=== PATIENT | female | born 1985 | race Caucasian/White ===

== ENCOUNTER 2017-05-31 18:13 | Emergency (ER) | payer OTHER ==
[~2017-05-31] VITALS: Ht 167.6 cm; Wt 144.0 kg
[~2017-05-31 18:13] MED LIST: ALBU0.5N2 NEB; ALBUAER2 INH; ARIP1TAB14 PO; BACL10TA PO; BUSP-8 PO; FLUT1INH INH; IPRA1AER2 INH; LEVO25TA5 PO; MONT1TAB3 PO; NORE-37 PO; PRAZ2CAP2 PO; RISP1TAB68 PO; SERT-234 PO; ZIPR1CAP4 PO
[2017-05-31 18:20] VITALS: TEMP 36.7
[2017-05-31 18:32] VITALS: O2SAT 94
[2017-05-31] MEDS ORDERED: ACETAMINOPHEN 500 MG TAB PO STA (18:35)
[2017-05-31] MEDS ORDERED: DEXAMETHASONE **PF** INJ 10 MG/ML VIAL PO STA (18:35)
[2017-05-31] MEDS ORDERED: ALBUT/IPRATROP 3MG/0.5MG NEB 3 ML VIAL INH ONE (18:45)
[2017-05-31 18:48] VITALS: PULSE 97; O2SAT 96
[2017-05-31 18:52] VITALS: Ht 167.6 cm; Wt 144.0 kg
--- NOTE | 2017-05-31 18:52 | EMERGENCY ROOM VISIT NOTE ---
History Report prepared by Michela: Twila Farris Under the Supervision of: Dr. Rafi Barnett M.D. First contact with patient: 18:27 Chief Complaint: RESPIRATORY PROBLEMS Stated Complaint: ASTHMA ATTACK,CHEST PAIN,SORE THROAT History of Present Illness The patient is a 31 year old white female with a past medical history of asthma , seasonal allergies, cholecystectomy who presents to the ED with a cc of persistent SOB beginning 2 days ago. She has been using nebulizer treatments to no significant relief. The cold seems to trigger her asthma. Positive dry cough. Negative abdominal pain, nausea, vomiting, leg swelling, leg pain. She denies any history of blood clots or recent travel. LNMP was 1 month ago. She was intubated for her asthma in 2008. Source of History: patient Onset: 2 days ago Position: other (global) Quality: other (SOB) Timing: other (persistent) Modifying Factors (Worsening): other (cold weather) Associated Symptoms: + cough, No nausea, No vomiting, No abdominal pain Note: Pt denies leg swelling/pain. Review of Systems See HPI for pertinent positives and negatives. A total of ten systems were reviewed and were otherwise negative. Past Medical & Surgical Medical Problems: (1) Acute Cholecystitis (2) Allergic rhinitis (3) Allergic rhinitis (4) Anxiety (5) Anxiety (6) Asthma, severe persistent (7) Asthma, severe persistent (8) Asthma, Unspecified (9) Bipolar disorder (10) Depression (11) Depression (12) Personal History, Pneumonia (Recurrent) (13) Tobacco Use Disor Comp Preg/Childbirth/Puerperium, Antepart Surgical Problems: (1) History of cholecystectomy (2) History of cholecystectomy Family History Cancer Diabetes mellitus Hypertension Social History Smoking Status: Current Every Day Smoker Alcohol Use: none Drug Use: none Marital Status: Housing Status: lives with family Occupation Status: unemployed Current/Historical Medications Scheduled Albuterol Hfa (Ventolin Hfa), 4 PUFFS INH QID Buspirone Hcl (Buspirone Hcl), 10 MG PO HS Fluticasone Furoate-Vilanterol (Breo Ellipta), 1 PUFF INH BID Ipratropium-Albuterol (Combivent Respimat), 1 PUFF INH QID Levothyroxine Sodium (Levothyroxine Sodium), 1 TAB PO QAM Montelukast Sodium (Singulair), 10 MG PO QAM Norethin Acet & Estrad-Fe (07/11), 1 TAB PO DAILY Prednisone (Prednisone), 50 MG PO DAILY Sertraline (Zoloft), 150 MG PO QAM Scheduled PRN Ipratropium [place] (Atrovent 0.02% Soln), 2.5 ML INH Q6H PRN for SOB/Wheezing Allergies Coded Allergies: Grass (Verified Allergy, Intermediate, SOB/HAYFEVER, 05/31/17) POLLEN (Verified Allergy, Intermediate, SHORTNESS OF BREATH/HAYFEVER, 04/07) NO KNOWN DRUG ALLERGIES (Verified Allergy, Mild, ., 05/31/17) Physical Exam Vital Signs Date Time Temp Pulse Resp B/P (MAP) Pulse Ox O2 Delivery O2 Flow Rate FiO2 05/31/17 20:41 105 18 124/78 97 05/31/17 19:30 102 22 140/76 96 Nebulizer 05/31/17 19:12 100 05/31/17 19:00 101 122/75 96 Nebulizer 05/31/17 18:48 97 14 96 Room Air 05/31/17 18:32 103 18 138/83 94 Room Air 05/31/17 18:32 94 Room Air 05/31/17 18:32 94 Room Air 05/31/17 18:20 36.7 106 16 131/87 95 Room Air Physical Exam GENERAL: Awake, alert, well-appearing, NAD HENT: Normocephalic, atraumatic. EYES: Normal conjunctiva. Sclera non-icteric. NECK: Supple. No nuchal rigidity. FROM. RESPIRATORY: Inspiratory and expiratory wheezing throughout, prolonged expiratory phase. CARDIAC: Tachycardic rate and regular rhythm, no MRG ABDOMEN: Soft, NTND, BS+ MSK: No chest wall TTP, no calf swelling, pain, or tenderness. NEURO: GCS 15, CN 2-12 intact, moves all 4s on command SKIN: No rash or jaundice noted. Medical Decision & Procedures Medications Administered Medications (Trade) Dose Ordered Sig/[place] Route Start Time Stop Time Status Last Admin Dose Admin Acetaminophen (Tylenol Tab) 1,000 mg NOW STAT PO 05/31/17 18:35 05/31/17 18:39 DC 05/31/17 18:46 1,000 MG Albuterol/ Ipratropium (Duoneb) 12 ml ONE ONCE INH 05/31/17 18:45 05/31/17 18:46 DC 05/31/17 18:44 12 ML Dexamethasone Sodium Phosphate (Dexamethasone Inj Pf) 10 mg ONE STAT PO 05/31/17 18:35 05/31/17 18:39 DC 05/31/17 18:46 10 MG ECG Indication: SOB/dyspnea Rate (beats per minute): 90 Rhythm: normal sinus Findings: other (normal intervals, normal axis, no other STS changes or TWI) ED Course 1830: The patient was evaluated in room A4B. A complete history and physical exam was performed. 1941: I reevaluated the patient. She is feeling better. 2002: I reevaluated the patient. Discussed results and discharge instructions: She verbalized understanding and agreement. The patient is ready for discharge. Medical Decision The patient is a 31 year old white female with a past medical history of asthma , seasonal allergies, cholecystectomy who presents to the ED with a cc of persistent SOB beginning 2 days ago. Differential diagnosis: Etiologies such as infections, reactive airway disease, pneumonia, pneumothorax , COPD, CHF, cardiac ischemia, pulmonary embolism, musculoskeletal, gastrointestinal, as well as others were entertained. Patient was seen and evaluated the bedside. Patient has a known history of asthma who presents with several days of worsening shortness of breath. Patient has been using her nebulizers every 4 hours. Patient states she has not had much relief. Patient denies any calf pain, asymmetric leg swelling, or history of DVT or PE. Patient denies any recent prolonged car or plane travel. Patient's exam is consistent with likely asthma exacerbation. Patient denies any productive sputum. Patient was given steroids and an hour-long neb treatment. Upon reexamination the patient's symptoms had improved. Patient did have mild end expiratory wheezes. Patient was feeling improved. Patient did have some mild tachycardia upon discharge was likely related to some mild dehydration but was able tolerate by mouth in addition to the albuterol. Patient was given scripts for steroids and told to follow-up and to continue use the nebs of the next several days. Patient was agreeable to this plan of care. Patient was deemed suitable for outpatient follow-up and treatment. Patient was given strict follow-up, discharge, and return precautions. All questions were answered. Patient was deemed suitable for outpatient follow-up at this time. Patient agreed with the plan of care and was safely discharged home. Medication Reconcilliation Current Medication List: was personally reviewed by me Blood Pressure Screening Patient's blood pressure: Normal blood pressure Blood pressure disposition: Did not require urgent referral Impression Primary Impression: Asthma with exacerbation Scribe Attestation The scribe's documentation has been prepared under my direction and personally reviewed by me in its entirety. I confirm that the note above accurately reflects all work, treatment, procedures, and medical decision making performed by me. Departure Information Dispostion Home / Self-Care Prescriptions Prednisone (PREDNISONE) 50 Mg Tab 50 MG PO DAILY for 4 Days, #4 TAB Prov: Rafi Barnett M.D. 05/31/17 Referrals Valentin Thompson M.D. (PCP) Patient Instructions Asthma - [facility], Asthma Control, Asthma Control Triggers Irritants, My [facility] Additional Instructions Please return to the emergency department if you have worsening or recurrent symptoms not amenable to at-home treatment. Please call for a follow-up appointment with her primary care physician. Please take your medications as prescribed. If you have other concerns and/or complaints please feel free to also call your primary care physician's office or return the ED for further evaluation, management, and treatment. You may take 600 mg Ibuprofen every 6 hours as needed for pain with food for no more than 2 consecutive days. You may take tylenol 1000 mg every 6 hours as needed for pain. You may take motrin and tylenol separately or at the same time. Take your medications as prescribed. Continue to use her nebulizers service preferably every 4 hours over the next day and then every 6 hours the following day and as needed. Continue take steroids preferably within the morning. Avoid things like smoking, secondhand smoke, or other triggers for her asthma. Please follow-up with her PCP. You have been examined and treated today on an emergency basis only. This is not a substitute for, or an effort to provide, complete comprehensive medical care. It is impossible to recognize and treat all injuries or illnesses in a single emergency department visit. It is therefore important that you follow up closely with [facility], your PCP, and/or your specialist(s). Call as soon as possible for an appointment. Thank you for your time and consideration. I look forward to speaking with you again soon. Please don't hesitate to call us if you have any questions. Problem Qualifiers Primary Impression: Asthma with exacerbation Asthma severity: moderate Asthma persistence: unspecified Qualified Codes: J45.901 - Unspecified asthma with (acute) exacerbation
[2017-05-31] MEDS ORDERED: NORE1TAB3 PO (19:47)
[2017-05-31] MEDS ORDERED: ATRINSX INH (19:47)
[2017-05-31] MEDS ORDERED: VNTHFA/IN INH (19:47)
[2017-05-31] MEDS ORDERED: PRED50TA PO (20:06)
[2017-05-31 20:41] VITALS: BP 124/78; PULSE 105; O2SAT 97
== END 2017-05-31 20:41 | disposition home or self-care (01) ==
LOC: C.EDB 18:14 → C.EDA 20:41
DX: J45.901 Unspecified asthma with (acute) exacerbation (principal); F41.9 Anxiety disorder, unspecified; F31.9 Bipolar disorder, unspecified; F32.9 Major depressive disorder, single episode, unspecified; Z87.01 Personal history of pneumonia (recurrent); K81.0 Acute cholecystitis; Z80.9 Family history of malignant neoplasm, unspecified; Z83.3 Family history of diabetes mellitus; Z82.49 Family history of ischemic heart disease and other diseases of the circulatory system; F17.210 Nicotine dependence, cigarettes, uncomplicated; Z79.899 Other long term (current) drug therapy

== ENCOUNTER 2017-09-22 21:03 | Emergency (ER) | payer OTHER ==
[~2017-09-22] VITALS: Ht 167.6 cm; Wt 148.7 kg
[~2017-09-22 21:03] MED LIST changes: -ALBU0.5N2 NEB; -ALBUAER2 INH; -ARIP1TAB14 PO; +ATRINSX INH; -BACL10TA PO; -NORE-37 PO; +NORE1TAB3 PO; -PRAZ2CAP2 PO; -RISP1TAB68 PO; +VNTHFA/IN INH; -ZIPR1CAP4 PO
[2017-09-22 21:18] VITALS: TEMP 36.8; Ht 167.6 cm; Wt 148.7 kg
[2017-09-22] MEDS ORDERED: ALBUT/IPRATROP 3MG/0.5MG NEB 3 ML VIAL INH ONE (22:30)
--- NOTE | 2017-09-22 22:48 | DIAGNOSTIC IMAGING REPORT ---
CHEST 2 VIEWS ROUTINE HISTORY: Cough. Wheezing. Asthma hx COMPARISON: Chest 06/02/2016. FINDINGS: The lungs are clear. Cardiac silhouette is normal in size. No pleural effusions. No pneumothorax. IMPRESSION: No acute process. Electronically signed by: Jose Cruz Rebollar M.D. 09/22/2017 10:47 PM Dictated Date/Time: 09/22/2017 10:44 PM
[2017-09-22 22:51] VITALS: O2SAT 95
[2017-09-22] MEDS ORDERED: PRED20TA2 PO (23:23)
[2017-09-22 23:41] VITALS: BP 130/96; PULSE 104; O2SAT 99
--- NOTE | 2017-09-23 06:37 | EMERGENCY ROOM VISIT NOTE ---
History First contact with patient: 22:15 Chief Complaint: RESPIRATORY PROBLEMS Stated Complaint: SOB, HEADACHE, WEAZING, NAUSEA, LIGHTHEADED History of Present Illness The patient is a 32 year old female who presents to the Emergency Room with complaints of coughing, wheezing, and shortness of breath symptoms worsening over the past 3-4 days. The patient states that she has a long-standing history of asthma and she went to a local urgent care clinic today. She states they performed a chest x-ray and diagnosed her with pneumonia. The did not start antibiotics, and evidently instructed her to go home and do a breathing treatment. The patient continues to have difficulty with breathing this by doing this. She does not have fever or chills. She does have some improvement when she uses her breathing treatment. She rates her current discomfort a 5/10. Review of Systems More than 10 systems were reviewed and otherwise negative with the exception of history of present illness. Past Medical/Surgical History Medical Problems: (1) Acute Cholecystitis (2) Allergic rhinitis (3) Allergic rhinitis (4) Anxiety (5) Anxiety (6) Asthma, severe persistent (7) Asthma, severe persistent (8) Asthma, Unspecified (9) Bipolar disorder (10) Depression (11) Depression (12) Personal History, Pneumonia (Recurrent) (13) Tobacco Use Disor Comp Preg/Childbirth/Puerperium, Antepart Surgical Problems: (1) History of cholecystectomy (2) History of cholecystectomy Family History Cancer Diabetes mellitus Hypertension Social History Smoking Status: Never Smoker Alcohol Use: none Drug Use: none Marital Status: Housing Status: lives with family Occupation Status: unemployed Current/Historical Medications Scheduled Albuterol Hfa (Ventolin Hfa), 4 PUFFS INH QID Ipratropium-Albuterol (Combivent Respimat), 1 PUFF INH QID Levothyroxine Sodium (Levothyroxine Sodium), 1 TAB PO QAM Montelukast Sodium (Singulair), 10 MG PO QAM Norethin Acet & Estrad-Fe (07/11), 1 TAB PO DAILY Prednisone (Prednisone Tab), 2 TAB PO DAILY Sertraline (Zoloft), 150 MG PO QAM Scheduled PRN Ipratropium [place] (Atrovent 0.02% Soln), 2.5 ML INH Q6H PRN for SOB/Wheezing Physical Exam Vital Signs Date Time Temp Pulse Resp B/P (MAP) Pulse Ox O2 Delivery O2 Flow Rate FiO2 09/22/17 23:41 104 15 130/96 99 09/22/17 22:59 93 09/22/17 22:51 95 Room Air 09/22/17 22:01 96 Room Air 09/22/17 21:18 36.8 100 20 161/97 97 Room Air Physical Exam VITALS: Vitals are noted on the nurse's note and reviewed by myself. Vital signs stable. GENERAL: Well-developed, well-nourished, white female, who is in no acute distress and resting comfortably. Patient is cooperative with the examination. HEART: Regular rate and rhythm without murmurs gallops or rubs. LUNGS: Diffuse wheezing and rhonchi throughout all mendez. After breathing treatment and steroids lungs were with improved inspiration with scattered wheezing. ABDOMEN: Positive normal bowel sounds x 4. Soft, nontender, without masses or organomegaly. No guarding or rebound tenderness. MUSCULOSKELETAL: No muscle atrophy, erythema, or edema noted. Full range of motion in all extremities. No tenderness to palpation. Medical Decision & Procedures ER Provider Diagnostic Interpretation: CHEST 2 VIEWS ROUTINE HISTORY: Cough. Wheezing. Asthma hx COMPARISON: Chest 06/02/2016. FINDINGS: The lungs are clear. Cardiac silhouette is normal in size. No pleural effusions. No pneumothorax. IMPRESSION: No acute process. Medications Administered Medications (Trade) Dose Ordered Sig/[place] Route Start Time Stop Time Status Last Admin Dose Admin Prednisone (PredniSONE TAB) 40 mg NOW STAT PO 09/22/17 22:21 09/22/17 22:23 DC 09/22/17 22:50 40 MG Albuterol/ Ipratropium (Duoneb) 12 ml NOW ONCE INH 09/22/17 22:30 09/22/17 22:31 DC 09/22/17 22:28 12 ML ED Course Physical exam and history were performed. Nursing notes, EMR, and Medication List were personally reviewed. Patient appears to have diffuse wheezing and difficulty breathing. She states that she was diagnosed with pneumonia as an outpatient. X-ray was ordered. The patient was given oral prednisone as well as a 1 hour DuoNeb. The patient's chest x-ray is as above and was reviewed by myself and radiology as showing no acute process. The patient had significant improvement of her symptoms after the prednisone and DuoNeb. I discussed options of care with the patient. She does not appear to have pneumonia as diagnosed as an outpatient. Based on her history and symptoms I do suspect that she has an asthma exacerbation. She has had several of these in the past. She has multiple inhalers and breathing nebulizers at home. The patient will be asked to continue these. I will give her a short course of prednisone. She is to follow with her primary care physician in the next 1 or 2 days. She was otherwise invited back to the ER with any new, worsening, or concerning symptoms. The chart was completed utilizing [employer] Speech Voice Recognition Software. Grammatical errors, random word insertions, pronoun errors, and incomplete sentences are an occasional consequence of this system due to software limitations, ambient noise, and hardware issues. Any formal questions or concerns about the content, text, or information contained within the body of this dictation should be directly addressed to the provider for clarification. . Medical Decision Differential diagnosis: Etiologies such as infections, reactive airway disease, pneumonia, pneumothorax , COPD, CHF, cardiac ischemia, pulmonary embolism, musculoskeletal, gastrointestinal, as well as others were entertained. Impression Primary Impression: Asthma with exacerbation Departure Information Dispostion Home / Self-Care Condition GOOD Prescriptions Prednisone (Prednisone Tab) 20 Mg Tab 2 TAB PO DAILY for 5 Days, #10 TAB Prov: Prince Lazaro PA-C 09/22/17 Forms HOME CARE DOCUMENTATION FORM, Work Instructions, Additional Instructions: Patient was seen and evaluated in the emergency department for medica care. Return to work on 09/25/2017. Please excuse. IMPORTANT VISIT INFORMATION Patient Instructions My [facility] Additional Instructions You were seen and evaluated today on an emergency basis only. This is not a substitute for, or an effort to provide, complete comprehensive medical care. It is not possible to recognize and treat all injuries or illnesses in a single emergency department visit. For this reason it is recommended that you followup with your primary care physician this week for ongoing care. Take prednisone as prescribed. Continue your inhalers as previously directed. You are welcome to return to the emergency department anytime with new, worsening, or concerning symptoms. Work Instructions Additional Work Instructions: Patient was seen and evaluated in the emergency department for medical care. Return to work on 09/25/2017. Please excuse.
== END 2017-09-22 23:42 | disposition home or self-care (01) ==
LOC: C.EDB 21:04
DX: J45.901 Unspecified asthma with (acute) exacerbation (principal); F41.9 Anxiety disorder, unspecified; F32.9 Major depressive disorder, single episode, unspecified; F31.9 Bipolar disorder, unspecified; Z83.3 Family history of diabetes mellitus; Z82.49 Family history of ischemic heart disease and other diseases of the circulatory system

== ENCOUNTER 2017-10-18 10:49 | Emergency (ER) | payer OTHER ==
[~2017-10-18] VITALS: Ht 165.1 cm; Wt 148.1 kg
[~2017-10-18 10:49] MED LIST changes: -BUSP-8 PO; -FLUT1INH INH
[2017-10-18 11:00] VITALS: TEMP 36.6; Ht 165.1 cm; Wt 148.1 kg
[2017-10-18] MEDS ORDERED: ACETAMINOPHEN 500 MG TAB PO STA (11:25)
[2017-10-18] MEDS ORDERED: ALBUT/IPRATROP 3MG/0.5MG NEB 3 ML VIAL INH STA ×3 (11:25→13:30)
[2017-10-18 11:38] VITALS: O2SAT 100
--- NOTE | 2017-10-18 12:22 | DIAGNOSTIC IMAGING REPORT ---
SINGLE VIEW CHEST CLINICAL HISTORY: Dyspnea. FINDINGS: 2 AP, portable, upright chest radiographs are compared to study dated 09/22/2017. The examination is degraded by portable technique, large body habitus, and patient rotation. The cardiomediastinal silhouette is unremarkable. The lungs and pleural spaces are clear. No pneumothorax is seen. The bony thorax is grossly intact. IMPRESSION: No active disease in the chest. Electronically signed by: Kalia Shaw M.D. 10/18/2017 12:20 PM Dictated Date/Time: 10/18/2017 12:20 PM
[2017-10-18] MEDS ORDERED: TRAMADOL HCL 50 MG TAB PO STA (14:24)
[2017-10-18] MEDS ORDERED: PRED50TA PO (14:39)
[2017-10-18] MEDS ORDERED: IPRASOL4 INH (14:39)
[2017-10-18] MEDS ORDERED: PRVHFAIN INH (14:39)
[2017-10-18 14:56] VITALS: BP 106/67; PULSE 93; O2SAT 100
--- NOTE | 2017-10-18 15:48 | EMERGENCY ROOM VISIT NOTE ---
History Report prepared by Michela: Abel Knox Under the Supervision of: Dr. Gaetano Chavez M.D. First contact with patient: 11:05 Chief Complaint: RESPIRATORY PROBLEMS Stated Complaint: ASTHMA ATTACK History of Present Illness The patient is a 32 year old female who presents to the Emergency Room with complaints of worsening dyspnea for the past 6 hours after she got home from work. Patient states that she works at [employer] in [employer]. 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 Patient states that she has a cough, shortness of breath , chest tightness, and a headache. Pertinent past medical history includes asthma. Patient states that she used her nebulizer 4 hours ago but it did not relieve the symptoms. She adds that she used prednisone 2 weeks ago for a strep throat. Patient states that she does not know if she has been around anyone else that is sick. Patient states that she has been hospitalized before for her asthma. Pt denies LOC, fevers, chills, diaphoresis, visual changes, neck pain, chest pain, nausea, vomiting, abdominal pain, back pain, melena, hematochezia, urinary symptoms, numbness, weakness, lymphadenopathy, rash, or other complaints. Source of History: patient Onset: 6 hours ago Position: chest Timing: worsening Modifying Factors (Relieving): other (None) Associated Symptoms: + headache, + cough, + SOB Review of Systems See HPI for pertinent positives and negatives. A total of ten systems were reviewed and were otherwise negative. Past Medical & Surgical Medical Problems: (1) Acute Cholecystitis (2) Allergic rhinitis (3) Allergic rhinitis (4) Anxiety (5) Anxiety (6) Asthma, severe persistent (7) Asthma, severe persistent (8) Asthma, Unspecified (9) Bipolar disorder (10) Depression (11) Depression (12) Personal History, Pneumonia (Recurrent) (13) Tobacco Use Disor Comp Preg/Childbirth/[place]ium, Antepart Surgical Problems: (1) History of cholecystectomy (2) History of cholecystectomy Family History Cancer Diabetes mellitus Hypertension Social History Smoking Status: Current Some Day Smoker Alcohol Use: none Drug Use: none Marital Status: Housing Status: lives with family Occupation Status: unemployed Current/Historical Medications Scheduled Albuterol (Ventolin Hfa), 2 PUFFS INH QID Albuterol Hfa (Ventolin Hfa), 4 PUFFS INH QID Ipratropium-Albuterol (Combivent Respimat), 1 PUFF INH QID Levothyroxine Sodium (Levothyroxine Sodium), 25 MCG PO QAM Montelukast Sodium (Singulair), 10 MG PO QAM Norethin Acet & Estrad-Fe (07/11), 1 TAB PO DAILY Prednisone (Prednisone), 50 MG PO DAILY Sertraline (Zoloft), 150 MG PO QAM Scheduled PRN Ipratropium [place] (Atrovent 0.02% Soln), 2.5 ML INH Q6H PRN for SOB/Wheezing Ipratropium-Albuterol (Duoneb), 1 TREATMENT INH Q6 PRN for Wheezing Allergies Coded Allergies: Cat Dander (Verified Allergy, Intermediate, ITCHY EYES & THROAT, SNEEZING , CONGESTION, 10/18/17) Dog Dander (Verified Allergy, Intermediate, ITCHY EYES & THROAT, SNEEZING , CONGESTION, 10/18/17) Grass (Verified Allergy, Intermediate, SOB/HAYFEVER, 10/18/17) POLLEN (Verified Allergy, Intermediate, SHORTNESS OF BREATH/HAYFEVER, 10/18) Physical Exam Vital Signs Date Time Temp Pulse Resp B/P (MAP) Pulse Ox O2 Delivery O2 Flow Rate FiO2 10/18/17 14:56 93 19 106/67 100 10/18/17 14:32 93 19 106/67 100 Room Air 10/18/17 12:44 100 22 125/81 97 Room Air 10/18/17 11:49 96 10/18/17 11:38 100 8.0 10/18/17 11:38 Room Air 10/18/17 11:00 36.6 107 24 147/89 94 Room Air Physical Exam GENERAL: Awake, alert, well-appearing, in no distress HENT: Normocephalic, atraumatic. Oropharynx unremarkable. EYES: Normal conjunctiva. Sclera non-icteric. NECK: Supple. No nuchal rigidity. FROM. No masses. RESPIRATORY: Clear to auscultation. Inspiratory and expiratory wheezes bilaterally. No rales. Mild increase in respiratory effort. CARDIAC: Normal rate. Normal rhythm. No murmurs. No rubs. Extremities warm and well perfused. Pulses equal. No JVD. GI: Soft, non-distended. No tenderness to palpation. No rebound or guarding. No masses. RECTAL: Deferred. MUSCULOSKELETAL: Atraumatic. Chest examination reveals no tenderness. The back is symmetrical on inspection without obvious abnormality. There is no CVA tenderness to palpation. No joint edema. LOWER EXTREMITIES: Calves are equal size bilaterally and non-tender. No edema. No discoloration. NEURO: Normal sensorium. No sensory or motor deficits noted. SKIN: No rash or jaundice noted. Medical Decision & Procedures ER Provider Diagnostic Interpretation: Radiology results as stated below per my review and radiologist interpretation: SINGLE VIEW CHEST CLINICAL HISTORY: Dyspnea. FINDINGS: 2 AP, portable, upright chest radiographs are compared to study dated 09/22/2017. The examination is degraded by portable technique, large body habitus, and patient rotation. The cardiomediastinal silhouette is unremarkable. The lungs and pleural spaces are clear. No pneumothorax is seen. The bony thorax is grossly intact. IMPRESSION: No active disease in the chest. Electronically signed by: Kalia Shaw M.D. 10/18/2017 12:20 PM Medications Administered Medications (Trade) Dose Ordered Sig/[place] Route Start Time Stop Time Status Last Admin Dose Admin Acetaminophen (Tylenol Tab) 1,000 mg NOW STAT PO 10/18/17 11:25 10/18/17 11:27 DC 10/18/17 11:35 1,000 MG Albuterol/ Ipratropium (Duoneb) 3 ml NOW STAT INH 10/18/17 11:25 10/18/17 11:27 DC 10/18/17 11:35 3 ML Prednisone (PredniSONE TAB) 60 mg NOW STAT PO 10/18/17 11:25 10/18/17 11:27 DC 10/18/17 11:34 60 MG Albuterol/ Ipratropium (Duoneb) 3 ml NOW STAT INH 10/18/17 12:58 10/18/17 13:00 DC 10/18/17 13:06 3 ML Albuterol/ Ipratropium (Duoneb) 3 ml NOW STAT INH 10/18/17 13:30 10/18/17 13:31 DC 10/18/17 13:30 3 ML Tramadol HCl (Ultram Tab) 50 mg NOW STAT PO 10/18/17 14:24 10/18/17 14:25 DC 10/18/17 14:30 50 MG ED Course 1115: The patient was evaluated in room C5. A complete history and physical exam was performed. 1125: Prednisone 60mg PO, Duoneb 3ml INH, and Acetaminophen 1000mg PO 1258: Duoneb 3ml INH 1310: I reassessed the patient. She states that she is feeling better. 1330: Duoneb 3ml INH 1415: I reassessed the patient who is resting comfortably. 1424: Ultram Tab 50mg 1435: I reevaluated the patient. She states that she is feeling better. Patient' s repeat lung exam was clear. Discussed results and discharge instructions. She verbalized understanding and agreement. The patient is ready for discharge. Medical Decision Prior records/ancillary studies reviewed. Triage Nursing notes reviewed and agree them. Additional history obtained from the family. The patient's history was concerning for shortness of breath and history of asthma. Differential diagnosis: Etiologies such as reactive airway disease, pneumonia, COPD,CHF, cardiac ischemia, pulmonary embolism, pneumothorax, musculoskeletal, infections, gastrointestinal, as well as others were entertained. Physical examination: As above. Clear respiratory wheezing. No nuchal rigidity. ER treatment provided: Oral Tylenol DuoNeb 3 Oral prednisone On reassessment the patient felt better. Clear lungs on final reassessment Oral tramadol as she was still having some mild headache which occurred after the breathing issues. On reassessment the patient felt much better. She was doing well. Discussed conservative management and she feels comfortable. Diagnostic interpretation by me: Imaging studies: Chest x-ray as above. Patient has a long history of reactive airway disease. She was exposed to cold air and dust at work. She had an asthma exacerbation. She was treated as above. She felt much better. I discussed conservative management. She needs a refill of her albuterol MDI as well as her nebulizer treatments. She was given a prescription for duo nebs. She will be on prednisone as an outpatient. She will follow-up with her primary physician. If she worsens in any way she will be back. She was also given a work note. By the evaluation outlined above other emergent etiologies such as those listed in the differential, as well as others, were deemed relatively unlikely. The patient was educated about the findings as listed above. All questions were answered and the patient was pleased with the treatment. Return instructions were outlined and the patient was discharged in stable condition. The patient was referred to her PCP for follow-up for a recheck of the current condition. Medication Reconcilliation Current Medication List: was personally reviewed by me Blood Pressure Screening Patient's blood pressure: Elevated blood pressure Blood pressure disposition: Referred to PCP Impression Primary Impression: Asthma with exacerbation Scribe Attestation The scribe's documentation has been prepared under my direction and personally reviewed by me in its entirety. I confirm that the note above accurately reflects all work, treatment, procedures, and medical decision making performed by me. Departure Information Dispostion Home / Self-Care Prescriptions Albuterol (Ventolin Hfa) 60 Puffs/5400 Mcg Aers 2 PUFFS INH QID for 5 Days, #1 INHALER Prov: Gaetano Chavez MD 10/18/17 Prednisone (Prednisone) 50 Mg Tab 50 MG PO DAILY for 4 Days, #4 TAB Prov: Gaetano Chavez MD 10/18/17 Ipratropium-Albuterol (DUONEB) 3 Ml Nebu 1 TREATMENT INH Q6 Y for Wheezing, #1 INHA Prov: Gaetano Chavez MD 10/18/17 Referrals Valentin Thompson M.D. (PCP) Forms HOME CARE DOCUMENTATION FORM, IMPORTANT VISIT INFORMATION, WORK / SCHOOL INSTRUCTIONS Patient Instructions My [facility] Additional Instructions ASTHMA INSTRUCTIONS: Albuterol Inhaler: Take 2 puffs four times daily for five days, then as needed. If necessary can substitute an inhaler dose with a Duoneb nebulizer treatment. Prednisone 50mg: Once daily until the prescription is finished. It is best to take this earlier in the day as some patients note occasional difficulty falling asleep when taken in the late evening. Acetaminophen(Tylenol) may be used for fever or pain. Use 1000mg every six hours as needed. Avoid using more than 4000mg in a 24 hour period. (AND/OR) Ibuprofen(Motrin, Advil) may be used for fever or pain. Use 600mg every six hours as needed. Take with food. Avoid using more than 2400mg in a 24 hour period. Do not use 2400mg per day for more than three consecutive days without physician direction. Prolonged inappropriate use can lead to stomach upset or ulcers. Rest and drink plenty of fluids. Avoid smoke/smoking, fumes, dust, or any triggers in the past that may have affected your breathing. Continue current medications. Return to the ER for chest pain, difficulty breathing, fevers, vomiting, worsening of your condition, or as needed. Follow up with your primary physician this week for a recheck of your current condition.
== END 2017-10-18 14:57 | disposition home or self-care (01) ==
LOC: C.EDB 10:51 → C.EDC 14:57
DX: J45.901 Unspecified asthma with (acute) exacerbation (principal); F41.9 Anxiety disorder, unspecified; F31.9 Bipolar disorder, unspecified; F17.210 Nicotine dependence, cigarettes, uncomplicated; Z79.899 Other long term (current) drug therapy; Z91.048 Other nonmedicinal substance allergy status

== ENCOUNTER 2018-12-13 16:32 | Inpatient (IN) ==
--- OUTSIDE RECORDS SUMMARY | 2018-12-13 16:35 | External Medical Summary | Continuity of Care Document ---
:1985 Author Name Chichi Pollard, Provider Address Unavailable Unavailable , Care Team Providers Name Role Phone Pablo Pollard, Faoud Unavailable [email or web address] Dari Laws Unavailable [email or web address] BLANE LEONE Unavailable Unavailable Unavailable Unavailable Unavailable Problems Laryngitis (464.00) (J04.0) Excessive daytime sleepiness (780.54) (G47.19) Witnessed apneic spells (786.03) (R06.81) Allergic rhinitis (477.9) (J30.9) Asthma (493.90) (J45.909) Nocturnal hypoxemia (327.24) (G47.34) History of tobacco use (V15.82) (Z87.891) Wheezing (786.07) (R06.2) Dyspnea (786.09) (R06.00) Allergies and Adverse Reactions No Known Drug Allergies (Allergy) Medications Dulera 200-5 MCG/ACT Inhalation Aerosol; INHALE 1 PUFF S Twice daily MAYTE Lazaro Start: 31-Aug-2018 Quantity: 2 13 GM Inhaler Refills: 0 Singulair 10 MG Oral Tablet; TAKE 1 TABLET DAILY. Start: 01-Jun-2018 Quantity: 30 Refills: 07/11 1-20 MG-MCG Oral Tablet; TAKE 1 TABLET DAILY D IRECTED. Start: 01-Jun-2018 Refills: 0 21 Tablet Pack Ventolin HFA 108 (90 Base) MCG/ACT Inhal ation Aerosol Solution; INHALE 2 PUFFS EVERY 4 HOURS NEEDED Start: 01-Jun-2018 Quantity: 1 8 GM Inhaler Refills: 3 Combivent Respimat 20-100 MCG/ACT Inhala tion Aerosol Solution; INHALE 1 PUFF 4 TIMES DAILY Start: 01-Jun-2018 Quantity: 1 4 GM Inhaler Refills: 5 Ipratropium [place] 0.02 % Inhalation So lution; USE 1 UNIT DOSE IN NEBULIZER EVERY 4 HOURS. MIX WITH 1 UNIT DOSE OF ALBUTEROL FOR EACH TREATMENT. Start: 01-Jun-2018 Quantity: 1 60 x 2.5 ML Plas Con t Refills: 5 Omeprazole 40 MG Oral Capsule Delayed Release; TAKE 1 CAPSUL E DAILY. Start: 01-Jun-2018 Quantity: 90 Refills: 11 Levothyroxine Sodium 50 MCG Oral Tablet; TAKE 1 TABLET DAILY . Start: 01-Jun-2018 Quantity: 30 Refills: 5 Zoloft 100 MG Oral Tablet; TAKE 1 AND 1/2 TABLETS AT BEDTIME . Start: 01-Jun-2018 Refills: 0 Fluticasone Propionate 50 MCG/ACT Nasal Suspension; USE 1 SPRAY IN EACH NOSTRIL TWICE DAILY. MAYTE Lazaro Start: 01-Jun-2018 Quantity: 1 9.9 ML Bottle Refills: 5 Azelastine HCl - 0.1 % Nasal Solution; I NSTILL 2 SPRAYS IN EACH NOSTRIL ONCE DAILY Latrice Shah Start: 11-Jun-2018 Quantity: 1 30 ML Bottle Refills: 11 Procedures Procedures not documented Immunizations Immunizations not documented Social History - Smoking Status Former smoker Plan of Treatment Planned Encounters Appointment; Dari Lazaro CRNP Start: 01-Feb-2019 10:30 Re quest Planned Observations Planned Goals not documented Results No Known Results Results not documented Vital Signs 03-Dec-2018 9:32 Systolic 128 mm[Hg] Comments: Location: [facility] [place]; Position: Sitting Diastolic 84 mm[Hg] Comments: Location: [facility] [place]; Position: Sitting BMI Calculated 54.98 kg/m2 Weight 330.375 lb Respiration 18 /min Height 65 in BSA Calculated 2.45 m2 Heart Rate 102 /min O2 Saturation 97 % Comments: Source: RA Encounters Appointment; Dari Lazaro CRNP 03-Dec-2018 9:30 Encounter Diagnosis: Problem not documented Appointment; Dari Lazaro CRNP 31-Aug-2018 9:00 Encounter Diagnosis: Problem not documented Appointment; Dari Lazaro CRNP 13-Aug-2018 10:30 Encounter Diagnosis: Problem not documented Appointment; Pulmonary, Funct Testing 13-Aug-2018 9:30 Encounter Diagnosis: Problem not documented Appointment; Amilcar Shah M.D. 12-Jul-2018 10:00 Encounter Diagnosis: Problem not documented Appointment; Amilcar Shah M.D. 11-Jun-2018 13:00 Encounter Diagnosis: Problem not documented Appointment; Dari Lazaro CRNP 01-Jun-2018 10:00 Encounter Diagnosis: Problem not documented Appointment; Dari Lazaro CRNP 01-Feb-2019 10:30 Encounter Diagnosis: Problem not documented
[2018-12-13] MEDS ORDERED: ALBUT/IPRATROP 3MG/0.5MG NEB 3 ML VIAL NEB ONE ×2 (16:48→18:49)
[2018-12-13] MEDS ORDERED: methylPREDNISolone 125 MG/2 ML VIAL IV STA (16:48)
--- NOTE | 2018-12-13 16:58 | Emergency Department Note ---
History of Present Illness General Chief complaint: Asthma Stated complaint: ASTHMA Time Seen by Provider: 12/13/18 16:40 History of Present Illness Maximum Pain Intensity: 9 This is a 33-year-old female that presents to the emergency department with a history of asthma with complaints of "asthma". The patient notes that she is experiencing an asthma exacerbation and this feels identical to previous exacerbations. She notes she has had asthma for 21 years. She is on a regimen of nebs, as well as inhalers. No recent steroid use. She denies smoking. She notes that yesterday the wheezing began and then has worsened and is a day with associated coughing. Her nebulizers have not been helpful. She does wear 2 L of oxygen at night secondary to finding on a sleep study to suggest hypoxia at nighttime. She notes that she has been intubated before for her asthma, most recently in 2008. She has also been in the ICU secondary to her asthma before. She notes only chest pain associated with the asthma but nothing different than her previous. She denies any history of diabetes, [place], PE. She has history of asthma, seasonal allergies, depression as well as anxiety. Home Medications Home Medications Medication Instructions Recorded Confirmed Type albuterol sulfate [Ventolin HFA] 2 - 4 puff INHALATION QID PRN 05/30/18 12/13/18 History fluticasone furoate-vilanterol 1 puff INHALATION DAILY 05/30/18 12/13/18 History [Breo Ellipta] fluticasone propionate [Flovent 2 puff INHALATION BID 05/30/18 12/13/18 History HFA] ipratropium-albuterol 1 neb INHALATION Q6 PRN 05/30/18 12/13/18 History ipratropium-albuterol [Combivent 1 puff INHALATION QID 05/30/18 12/13/18 History Respimat] montelukast [Singulair] 10 mg PO QAM 05/30/18 12/13/18 History norethindrone-e.estradiol-iron 1 tab PO DAILY 05/30/18 12/13/18 History [June FE 07/11 (28)] sertraline 150 mg PO QAM 05/30/18 12/13/18 History levothyroxine [Synthroid] 100 mcg PO DAILY 12/13/18 12/13/18 History Allergies Allergy/AdvReac Type Severity Reaction Status Date / Time cat dander Allergy Intermediate ITCHY EYES Verified 12/13/18 17:25 & THROAT, SNEEZING, CONGESTION dog dander Allergy Intermediate ITCHY EYES Verified 12/13/18 17:25 & THROAT, SNEEZING, CONGESTION grass pollen-perennial rye, Allergy Intermediate SOB/HAYFEVE Verified 12/13/18 17:25 standar R pollen extracts Allergy Intermediate SHORTNESS Verified 12/13/18 17:25 OF BREATH/HAYFEVER Past Med/Surg History Medical History Asthma (Chronic) Allergic rhinitis (Chronic) Bipolar disorder (Chronic) Depression (Chronic) Anxiety (Chronic) Surgical History History of cholecystectomy (Resolved) Family History Other Diabetes Family history non-contributory Social History Preferred Language: [place] Communication Ability: Effective Section [employer] Activities Clerk Required: No Beliefs That Will Affect Care: None marital status: Current Living Situation: Spouse and Family current occupational status: employed Feels Safe at Home: Yes Safety Concerns: Feels Safe At This Time Smoking Status: Former smoker Tobacco Type: cigarettes Do You Dip or Chew Tobac co: No Second Hand Exposure: Yes Tobacco Cessation Education Requested by Patient: No Hx Alcohol Use: No Hx Substance Use: No Review of Systems A total of 10 systems reviewed and were otherwise negative Physical Exam Vital Signs Vital Signs - 24 hr 12/13/18 18:32 12/13/18 18:54 Pulse Rate [Right Apical] 112 H 103 H Pulse Rhythm [Right Apical] Regular Pulse Strength [Right Apical] Normal Respiratory Rate 25 H Respiratory Effort / Characteristics SOB on Exertion Non-Labored Spontaneous Respiratory Depth Normal Respiratory Pattern Regular Tachypnea Blood Pressure [Left Arm] 113/72 Blood Pressure Mean [Left Arm] 85 Blood Pressure Position [Left Arm] Sitting Pulse Oximetry 93 98 Oxygen Delivery Method Nasal Cannula Room Air Oxygen Flow Rate 2 VITAL SIGNS - Vital signs and nursing notes were reviewed. Hypertensive, tachycardic and increased respiratory rate noted. She is afebrile. She is not hypoxic. GENERAL -33-year-old female appearing stated age who is in no acute distress but is wheezing. Communicates well with provider and answers questions appropriately. SKIN - Without rashes. No meningeal or petechial rash. HEAD - NC/AT. EYES - PERRL with EOMI bilaterally. Sclera anicteric. Palpebral conjunctiva pink and moist with no injection noted. EARS - No deformities of external structures noted on gross examination bilaterally. No pain elicited with palpation of the tragus bilaterally. External auditory canals without discharge or otorrhea. Tympanic membranes pearly rossi without retraction or bulging. No fluid or purulent material visualized behind the TM. Handle of malleus, umbo, cone of light, pars tensa/flaccid all easily visualized. NOSE - Midline and without cyanosis. No epistaxis or purulent drainage noted. Septum midline without deviation or septal hematoma noted. MOUTH/OROPHARYNX - Without perioral cyanosis. Buccal mucosa pink and moist and without leukoplakia. Tongue midline with equal elevation of palate bilaterally. No tonsillar hypertrophy, erythema, or exudates noted. Fair dentition noted. NECK - Neck with FROM. Supple to palpation. No lymphadenopathy noted. No nuchal rigidity. LUNGS - Chest wall symmetric without accessory muscle use, intercostals retractions, or central cyanosis. Bilateral wheezing noted. CARDIAC - RRR with S1/S2. No murmur, rubs, or gallops appreciated. EXTREMITIES - No clubbing or peripheral cyanosis. No pretibial edema present. +5/5 strength noted in UE/LE bilaterally. NEUROLOGIC - Cranial nerves II through XII grossly intact. PSYCH - A&Ox3 and cooperates fully with examiner. Pt is very pleasant and interacts well with examiner. Course Administered Medications Acetaminophen (Tylenol) 650 mg PO Q4H PRN PRN Reason: Pain or Fever Stop: 01/12/19 22:05 Last Admin: 12/14/18 05:53 Dose: 650 mg Documented by: [id number] Guaifenesin (Mucinex) 600 mg PO Q12 [facility] Stop: 01/12/19 20:39 Last Admin: 12/14/18 07:50 Dose: 600 mg Documented by: [id number] Admin: 12/13/18 22:58 Dose: 600 mg Documented by: [id number] Insulin Aspart (Novolog Flexpen) 0 units SC ACHS [facility] Stop: 01/13/19 01:49 Last Admin: 12/14/18 17:40 Dose: 5 units Documented by: [id number] Cosigned by: [id number] Admin: 12/14/18 12:34 Dose: 2 units Documented by: [id number] Cosigned by: [id number] Admin: 12/14/18 08:27 Dose: 2 units Documented by: [id number] Cosigned by: [id number] Admin: 12/14/18 02:17 Dose: Not Given Documented by: [id number] Cosigned by: [id number] Levalbuterol HCl (Xopenex 1.25mg/3ml Neb) 1.25 mg INH Q4R [facility] Stop: 01/13/19 00:00 Last Admin: 12/14/18 15:28 Dose: 1.25 mg Documented by: [id number] Levothyroxine Sodium (Synthroid) 125 mcg PO DAILYBB [facility] Stop: 01/13/19 06:29 Last Admin: 12/14/18 05:45 Dose: 125 mcg Documented by: [id number] Miscellaneous (Order Awaiting Action) 1 ea N/A QS [facility] Stop: 01/13/19 00:00 Last Admin: 12/14/18 15:21 Dose: Not Given Documented by: [id number] Admin: 12/14/18 07:48 Dose: Not Given Documented by: [id number] Admin: 12/13/18 23:53 Dose: Not Given Documented by: [id number] Montelukast Sodium (Singulair) 10 mg PO QAM [facility] Stop: 01/13/19 08:59 Last Admin: 12/14/18 07:50 Dose: 10 mg Documented by: [id number] Pantoprazole S[facility] ([facility]ix) [facility] [place] Stop: 12/17/18 09:01 Last Admin: 12/14/18 13:18 Dose: 40 mg Documented by: [id number] Sertraline HCl (Zoloft) [facility] [place] Stop: 01/13/19 08:59 Last Admin: 12/14/18 08:26 Dose: 150 mg Documented by: [id number] Discontinued Medications Albuterol (Duoneb) 12 ml NEB ONE ONE Stop: 12/13/18 16:49 Last Admin: 12/13/18 16:58 Dose: 12 ml Documented by: [id number] Albuterol (Duoneb) 12 ml NEB ONE ONE Stop: 12/13/18 18:50 Last Admin: 12/13/18 18:52 Dose: 12 ml Documented by: [id number] Enoxaparin Sodium (Lovenox) 40 mg SQ QAM [facility] Stop: 01/13/19 08:59 Last Admin: 12/14/18 07:51 Dose: 40 mg Documented by: [id number] Magnesium Sulfate/Dextrose (Magnesium Sulfate / D5w) 1 gm in 100 mls @ 100 mls/hr IV Q1H [facility] Stop: 12/13/18 20:29 Last Infusion: 12/13/18 20:07 Dose: 0 mls/hr Documented by: [id number] Admin: 12/13/18 19:04 Dose: 100 mls/hr Documented by: [id number] Infusion: 12/13/18 19:04 Dose: 100 mls/hr Documented by: [id number] Admin: 12/13/18 18:42 Dose: 100 mls/hr Documented by: [id number] Lactated Ringer's (Lr) 1,000 mls @ 200 mls/hr IV .Q5H ONE Stop: 12/14/18 00:59 Last Admin: 12/13/18 22:33 Dose: Not Given Documented by: [id number] Lactated Ringer's (Lr) 1,000 mls @ 500 mls/hr IV .Q2H ONE Stop: 12/13/18 22:40 Last Infusion: 12/13/18 23:52 Dose: 0 mls/hr Documented by: [id number] Admin: 12/13/18 21:48 Dose: 500 mls/hr Documented by: [id number] Lactated Ringer's (Lr) 1,000 mls @ 500 mls/hr IV .Q2H ONE Stop: 12/14/18 01:59 Last Infusion: 12/14/18 01:58 Dose: 0 mls/hr Documented by: [id number] Admin: 12/13/18 23:52 Dose: 500 mls/hr Documented by: [id number] Methylprednisolone 40 mg/ (Syringe) 0.64 mls @ 1.5 mls/min IV BID [facility] Stop: 01/13/19 08:59 Last Admin: 12/14/18 07:52 Dose: 1.5 mls/min Documented by: [id number] Sodium Chloride (Nss 1000ml) 1,000 mls @ 999 mls/hr IV .Q1H1M ONE Stop: 12/14/18 02:46 Last Infusion: 12/14/18 02:58 Dose: 0 mls/hr Documented by: [id number] Admin: 12/14/18 01:57 Dose: 999 mls/hr Documented by: [id number] Lactated Ringer's (Lr) 1,000 mls @ 500 mls/hr IV .Q2H ONE Stop: 12/14/18 04:59 Last Infusion: 12/14/18 04:58 Dose: 0 mls/hr Documented by: [id number] Admin: 12/14/18 02:58 Dose: 500 mls/hr Documented by: [id number] Lactated Ringer's (Lr) 1,000 mls @ 200 mls/hr IV .Q5H [facility] Stop: 12/14/18 12:59 Last Infusion: 12/14/18 06:22 Dose: 0 mls/hr Documented by: [id number] Admin: 12/14/18 05:05 Dose: 200 mls/hr Documented by: [id number] Magnesium Sulfate/Dextrose (Magnesium Sulfate / D5w) 1 gm in 100 mls @ 100 mls/hr IV ONE ONE Stop: 12/14/18 06:10 Last Infusion: 12/14/18 06:36 Dose: 0 mls/hr Documented by: [id number] Admin: 12/14/18 05:36 Dose: 100 mls/hr Documented by: [id number] Sodium Chloride (Nss 1000ml) 1,000 mls @ 999 mls/hr IV .Q1H1M ONE Stop: 12/14/18 07:10 Last Infusion: 12/14/18 07:46 Dose: 0 mls/hr Documented by: [id number] Admin: 12/14/18 06:22 Dose: 999 mls/hr Documented by: [id number] Lactated Ringer's (Lr) 1,000 mls @ 100 mls/hr IV .Q10H [facility] Stop: 12/14/18 14:59 Last Admin: 12/14/18 12:32 Dose: 100 mls/hr Documented by: [id number] Infusion: 12/14/18 12:32 Dose: 100 mls/hr Documented by: [id number] Infusion: 12/14/18 10:30 Dose: 100 mls/hr Documented by: [id number] Admin: 12/14/18 07:46 Dose: 200 mls/hr Documented by: [id number] Insulin Glargine (Lantus Solostar Pen) 5 units SQ NOW STA Stop: 12/14/18 01:49 Last Admin: 12/14/18 02:16 Dose: 5 units Documented by: [id number] Cosigned by: [id number] Ipratropium [place] (Atrovent 0.02% 0.5mg/2.5ml) 0.5 mg INH Q4R [facility] Stop: 01/12/19 00:00 Last Admin: 12/14/18 07:13 Dose: Not Given Documented by: [id number] Admin: 12/14/18 07:12 Dose: Not Given Documented by: [id number] Admin: 12/14/18 07:12 Dose: Not Given Documented by: [id number] Admin: 12/14/18 07:11 Dose: Not Given Documented by: [id number] Admin: 12/14/18 07:01 Dose: Not Given Documented by: [id number] Admin: 12/14/18 06:57 Dose: Not Given Documented by: [id number] Ipratropium [place] (Atrovent 0.02% 0.5mg/2.5ml) 0.5 mg INH Q4R [facility] Stop: 01/13/19 00:00 Last Admin: 12/14/18 06:52 Dose: 0.5 mg Documented by: [id number] Admin: 12/14/18 03:33 Dose: 0.5 mg Documented by: [id number] Admin: 12/13/18 23:34 Dose: 0.5 mg Documented by: [id number] Levalbuterol HCl (Xopenex 1.25mg/0.5ml Neb) 1.25 mg INH Q4R [facility] Stop: 01/13/19 00:00 Last Admin: 12/14/18 11:29 Dose: 1.25 mg Documented by: [id number] Admin: 12/14/18 06:52 Dose: 1.25 mg Documented by: [id number] Admin: 12/14/18 03:30 Dose: 1.25 mg Documented by: [id number] Admin: 12/13/18 23:34 Dose: 1.25 mg Documented by: [id number] Methylprednisolone (Solumedrol) 125 mg IV NOW STA Stop: 12/13/18 16:49 Last Admin: 12/13/18 17:00 Dose: 125 mg Documented by: [id number] Miscellaneous (Levalbuterol/Ipratropium 1.25mg) 1 ea NEB Q4H [facility] Stop: 01/12/19 22:05 Last Admin: 12/14/18 06:57 Dose: Not Given Documented by: [id number] Potassium Chloride (Klor-Con M10) 20 meq PO NOW STA Stop: 12/13/18 19:40 Last Admin: 12/13/18 20:04 Dose: 20 meq Documented by: [id number] Medical Decision Making Laboratory Data Result diagrams: 12/14/18 01:04 12/14/18 01:04 Lab Results 12/13/18 12/13/18 12/13/18 Range/Units 16:54 16:54 16:54 WBC 13.59 H (4.8-10.8) K/uL RBC 4.19 L (4.2-5.4) M/uL Hgb 11.9 L (12.0-16.0) g/dL Hct 35.7 L (37-47) % MCV 85.2 (80-100) fL MCH 28.4 (25-34) pg MCHC 33.3 (32-36) g/dL RDW Std Deviation 45.7 (36.4-46.3) fL RDW Coeff of Laron 14.7 H (11.5-14.5) % Plt Count 243 (130-400) K/uL MPV 11.1 H (7.4-10.4) fL Immature Gran % (Auto) 1.0 % Neut % (Auto) 56.9 % Lymph % (Auto) 31.1 % Lee % (Auto) 5.1 % Eos % (Auto) 5.7 % Baso % (Auto) 0.2 % Immature Gran # (Auto) 0.14 H (0.00-0.02) K/uL Neut # (Auto) 7.73 H (1.4-6.5) K/uL Lymph # (Auto) 4.23 H (1.2-3.4) K/uL Lee # (Auto) 0.69 H (0.11-0.59) K/uL Eos # (Auto) 0.77 H (0-0.5) K/uL Baso # (Auto) 0.03 (0-0.2) K/uL APTT (21.0-31.0) Seconds PTT Ratio ABG pH (7.35-7.45) ABG pCO2 (35-46) mmHg ABG pO2 (80-95) mm/Hg ABG HCO3 (19-24) mmol/L ABG O2 Saturation (90-95) % ABG Base Excess (-9-1.8) mEq/L Dex Test (Pos) Barometric Pressure mm/Hg Oxygen Given Sodium 141 (136-145) mmol/L Potassium 3.8 (3.5-5.1) mmol/L Chloride 109 H (98-107) mmol/L Carbon Dioxide 26 (21-32) mmol/L Anion Gap 6.0 (3-11) BUN 13 (7-18) mg/dl Creatinine 0.74 (0.6-1.2) mg/dl Est Cr Clr Drug Dosing 167.6 ml/min Est GFR ( Amer) 125.1 Est GFR (Non-Af Amer) 108.0 BUN/Creatinine Ratio 17.1 (10-20) Glucose 101 H (70-99) mg/dl Lactate (0.4-2.0) mmol/L Calcium 9.0 (8.5-10.1) mg/dl Magnesium 1.8 (1.8-2.4) mg/dl Total Bilirubin 0.2 (0.2-1) mg/dl AST 17 (15-37) U/L ALT 23 (12-78) U/L Alkaline Phosphatase 54 (45-117) U/L Total Protein 7.3 (6.4-8.2) gm/dl Albumin 3.6 (3.4-5.0) gm/dl Globulin 3.7 (2.5-4.0) gm/dl Albumin/Globulin Ratio 1.0 (0.9-2) Procalcitonin (0-0.5) ng/ml TSH (0.300-4.500) uIu/ml Free T4 (0.8-1.6) ng/dl Total T3 (0.60-1.81) ng/ml 12/13/18 12/13/18 12/13/18 Range/Units 16:54 16:54 16:54 WBC (4.8-10.8) K/uL RBC (4.2-5.4) M/uL Hgb (12.0-16.0) g/dL Hct (37-47) % MCV (80-100) fL MCH (25-34) pg MCHC (32-36) g/dL RDW Std Deviation (36.4-46.3) fL RDW Coeff of Laron (11.5-14.5) % Plt Count (130-400) K/uL MPV (7.4-10.4) fL Immature Gran % (Auto) % Neut % (Auto) % Lymph % (Auto) % Lee % (Auto) % Eos % (Auto) % Baso % (Auto) % Immature Gran # (Auto) (0.00-0.02) K/uL Neut # (Auto) (1.4-6.5) K/uL Lymph # (Auto) (1.2-3.4) K/uL Lee # (Auto) (0.11-0.59) K/uL Eos # (Auto) (0-0.5) K/uL Baso # (Auto) (0-0.2) K/uL APTT (21.0-31.0) Seconds PTT Ratio ABG pH (7.35-7.45) ABG pCO2 (35-46) mmHg ABG pO2 (80-95) mm/Hg ABG HCO3 (19-24) mmol/L ABG O2 Saturation (90-95) % ABG Base Excess (-9-1.8) mEq/L Dex Test (Pos) Barometric Pressure mm/Hg Oxygen Given Sodium (136-145) mmol/L Potassium (3.5-5.1) mmol/L Chloride (98-107) mmol/L Carbon Dioxide (21-32) mmol/L Anion Gap (3-11) BUN (7-18) mg/dl Creatinine (0.6-1.2) mg/dl Est Cr Clr Drug Dosing ml/min Est GFR ( Amer) Est GFR (Non-Af Amer) BUN/Creatinine Ratio (10-20) Glucose (70-99) mg/dl Lactate (0.4-2.0) mmol/L Calcium (8.5-10.1) mg/dl Magnesium (1.8-2.4) mg/dl Total Bilirubin (0.2-1) mg/dl AST (15-37) U/L ALT (12-78) U/L Alkaline Phosphatase (45-117) U/L Total Protein (6.4-8.2) gm/dl Albumin (3.4-5.0) gm/dl Globulin (2.5-4.0) gm/dl Albumin/Globulin Ratio (0.9-2) Procalcitonin (0-0.5) ng/ml TSH 42.000 H (0.300-4.500) uIu/ml Free T4 0.51 L (0.8-1.6) ng/dl Total T3 0.75 (0.60-1.81) ng/ml 12/13/18 12/13/18 12/13/18 Range/Units 20:09 20:09 20:12 WBC (4.8-10.8) K/uL RBC (4.2-5.4) M/uL Hgb (12.0-16.0) g/dL Hct (37-47) % MCV (80-100) fL MCH (25-34) pg MCHC (32-36) g/dL RDW Std Deviation (36.4-46.3) fL RDW Coeff of Laron (11.5-14.5) % Plt Count (130-400) K/uL MPV (7.4-10.4) fL Immature Gran % (Auto) % Neut % (Auto) % Lymph % (Auto) % Lee % (Auto) % Eos % (Auto) % Baso % (Auto) % Immature Gran # (Auto) (0.00-0.02) K/uL Neut # (Auto) (1.4-6.5) K/uL Lymph # (Auto) (1.2-3.4) K/uL Lee # (Auto) (0.11-0.59) K/uL Eos # (Auto) (0-0.5) K/uL Baso # (Auto) (0-0.2) K/uL APTT 24.8 (21.0-31.0) Seconds PTT Ratio 0.9 ABG pH (7.35-7.45) ABG pCO2 (35-46) mmHg ABG pO2 (80-95) mm/Hg ABG HCO3 (19-24) mmol/L ABG O2 Saturation (90-95) % ABG Base Excess (-9-1.8) mEq/L Dex Test (Pos) Barometric Pressure mm/Hg Oxygen Given Sodium (136-145) mmol/L Potassium (3.5-5.1) mmol/L Chloride (98-107) mmol/L Carbon Dioxide (21-32) mmol/L Anion Gap (3-11) BUN (7-18) mg/dl Creatinine (0.6-1.2) mg/dl Est Cr Clr Drug Dosing ml/min Est GFR ( Amer) Est GFR (Non-Af Amer) BUN/Creatinine Ratio (10-20) Glucose (70-99) mg/dl Lactate 3.2 H* (0.4-2.0) mmol/L Calcium (8.5-10.1) mg/dl Magnesium (1.8-2.4) mg/dl Total Bilirubin (0.2-1) mg/dl AST (15-37) U/L ALT (12-78) U/L Alkaline Phosphatase (45-117) U/L Total Protein (6.4-8.2) gm/dl Albumin (3.4-5.0) gm/dl Globulin (2.5-4.0) gm/dl Albumin/Globulin Ratio (0.9-2) Procalcitonin < 0.05 (0-0.5) ng/ml TSH (0.300-4.500) uIu/ml Free T4 (0.8-1.6) ng/dl Total T3 (0.60-1.81) ng/ml 12/13/18 Range/Units 20:23 WBC (4.8-10.8) K/uL RBC (4.2-5.4) M/uL Hgb (12.0-16.0) g/dL Hct (37-47) % MCV (80-100) fL MCH (25-34) pg MCHC (32-36) g/dL RDW Std Deviation (36.4-46.3) fL RDW Coeff of Laron (11.5-14.5) % Plt Count (130-400) K/uL MPV (7.4-10.4) fL Immature Gran % (Auto) % Neut % (Auto) % Lymph % (Auto) % Lee % (Auto) % Eos % (Auto) % Baso % (Auto) % Immature Gran # (Auto) (0.00-0.02) K/uL Neut # (Auto) (1.4-6.5) K/uL Lymph # (Auto) (1.2-3.4) K/uL Lee # (Auto) (0.11-0.59) K/uL Eos # (Auto) (0-0.5) K/uL Baso # (Auto) (0-0.2) K/uL APTT (21.0-31.0) Seconds PTT Ratio ABG pH 7.42 (7.35-7.45) ABG pCO2 32 L (35-46) mmHg ABG pO2 54 L (80-95) mm/Hg ABG HCO3 20 (19-24) mmol/L ABG O2 Saturation 88.4 L (90-95) % ABG Base Excess -3.3 (-9-1.8) mEq/L Dex Test POS (Pos) Barometric Pressure 726.4 mm/Hg Oxygen Given ROOM AIR Sodium (136-145) mmol/L Potassium (3.5-5.1) mmol/L Chloride (98-107) mmol/L Carbon Dioxide (21-32) mmol/L Anion Gap (3-11) BUN (7-18) mg/dl Creatinine (0.6-1.2) mg/dl Est Cr Clr Drug Dosing ml/min Est GFR ( Amer) Est GFR (Non-Af Amer) BUN/Creatinine Ratio (10-20) Glucose (70-99) mg/dl Lactate (0.4-2.0) mmol/L Calcium (8.5-10.1) mg/dl Magnesium (1.8-2.4) mg/dl Total Bilirubin (0.2-1) mg/dl AST (15-37) U/L ALT (12-78) U/L Alkaline Phosphatase (45-117) U/L Total Protein (6.4-8.2) gm/dl Albumin (3.4-5.0) gm/dl Globulin (2.5-4.0) gm/dl Albumin/Globulin Ratio (0.9-2) Procalcitonin (0-0.5) ng/ml TSH (0.300-4.500) uIu/ml Free T4 (0.8-1.6) ng/dl Total T3 (0.60-1.81) ng/ml Imaging Data Radiologist's Impression: XR chest 1V portable CLINICAL HISTORY: asthma, wheezing dyspnea COMPARISON STUDY: 09/11/2017 FINDINGS: The bones soft tissues and hemidiaphragms are normal. The cardiomediastinal silhouette is normal. The lungs are clear. The pulmonary vasculature is normal. IMPRESSION: Negative chest. The above report was generated using voice recognition software. It may contain grammatical, syntax or spelling errors. Electronically signed by: Gonzalez Granados M.D. 12/13/2018 5:10 PM MDM Narrative Patient was seen and evaluated as above in room D7. Review was performed of nursing notes and vital signs. After obtaining a thorough history and physical examination the above work up was performed. She presents to us today with what appears to be an acute exacerbation of her chronic asthma. She notes that this feels similar to previous asthma exacerbations. It is important to note that she has a history of intubation secondary to asthma as well as ICU stay. She notes that her last intubation was in 2008. She follows with pulmonology. She is on prescribed medications for this. She seems to be compliant. It appears that she had worsening of her symptoms yesterday and today with wheezing and coughing. On my exam she has diffuse bilateral expiratory wheezes. There is no stridor. The patient was tachycardic, tachypneic and hypertensive on arrival. Her oxygen was normal but low normal at 92. She was started on oxygen. Chest x-ray was obtained and was negative. Labs were drawn. There is leukocytosis of 13.59 with minimal anemia. No emergent metabolic abnormality. It was felt that given the patient's persistence of wheezing despite 1 hour long DuoNeb and Solu- Medrol, history of intubation with ICU stay, not doing well yesterday and today with her at-home regimen, tachypnea on arrival that it would be reasonable for further evaluation and management in the inpatient setting. I did order an vicki tional hour-long nebulizer as well as 2 g of magnesium to be infused over 1 hour. Case then discussed with the hospitalist, MAYTE Lees. Please refer to further documentation regarding her stay. Case was discussed with the attending physician. GCS: 15 In the evaluation and treatment of this patient, the following differential diagnoses were considered: FL, ASC, Dysrhythmia, Angina, Mediastinitis, GERD, Esophagitis, PE, Pneumonia, Bronchitis, Costochondritis, Rib Fracture, Zoster. Impression & Plan Asthma with acute exacerbation Discharge Plan Visit Data *Final* Discharge Date/Time: 12/13/18 21:15 Chief Complaint: Asthma Stated Complaint: ASTHMA ED Provider: Rashad Vance ED Midlevel Provider: Mahad Jones Discharge Problem: Asthma with acute exacerbation Patient Disposition: Admitted As Inpatient Discharge Instructions Interventions: ED Discharge Assessment Last Done: 12/13/18 21:15
[2018-12-13 17:07] LABS: Basophils # (auto) 0.03 K/uL (0-0.2); Basophils % (auto) 0.2 %; Eosinophils # (auto) 0.77 K/uL (0-0.5); Eosinophils % (auto) 5.7 %; Hematocrit (blood only) 35.7 % (37-47); Hemoglobin 11.9 g/dL (12.0-16.0); Immature Granulocytes # (auto) 0.14 K/uL (0.00-0.02); Lymphocytes # (auto) 4.23 K/uL (1.2-3.4); Lymphocytes % (auto) 31.1 %; Mean Corpuscular Hgb Conc 33.3 g/dL (32-36); Mean Corpuscular Volume 85.2 fL (80-100); Mean Platelet Volume 11.1 fL (7.4-10.4); Monocytes # (auto) 0.69 K/uL (0.11-0.59); Monocytes % (auto) 5.1 %; Neutrophils # (auto) 7.73 K/uL (1.4-6.5); Neutrophils % (auto) 56.9 %; Platelet Count 243 K/uL (130-400); RDW Coefficient of Variation 14.7 % (11.5-14.5); RDW Standard Deviation 45.7 fL (36.4-46.3); Red Blood Count 4.19 M/uL (4.2-5.4); White Blood Count 13.59 K/uL (4.8-10.8)
--- NOTE | 2018-12-13 17:12 | XRay Report ---
XR chest 1V portable CLINICAL HISTORY: asthma, wheezing dyspnea COMPARISON STUDY: 09/11/2017 FINDINGS: The bones soft tissues and hemidiaphragms are normal. The cardiomediastinal silhouette is n ormal. The lungs are clear. The pulmonary vasculature is normal. IMPRESSION: Negative chest. The above report was generated using voice recognition software. It may contain grammatical, syntax or spelling errors. Electronically signed by: Gonzalez Granados M.D. 12/13/2018 5:10 PM
[2018-12-13 17:23] LABS: Albumin Level 3.6 gm/dl (3.4-5.0); BUN Creatinine Ratio 17.1 (10-20); Creatinine Clr Calc Pharmacy 167.6 ml/min; Est GFR (African American) 125.1; Potassium 3.8 mmol/L (3.5-5.1)
[2018-12-13 17:26] LABS: Bilirubin,Total 0.2 mg/dl (0.2-1); Globulin 3.7 gm/dl (2.5-4.0); Total Protein 7.3 gm/dl (6.4-8.2)
[2018-12-13] MEDS: MAGNESIUM SULFATE / D5W 1 GM/100 ML BAG IV SCH ×2 (18:42→19:04)
[2018-12-13] MEDS ORDERED: POTASSIUM CHLORIDE 10 MEQ TABCR PO STA (19:39)
[2018-12-13] MEDS ORDERED: LACTATED RINGER'S 1,000 ML IV ONE ×2 (20:00→20:41)
[2018-12-13 20:33] LABS: Base Excess ABG -3.3 mEq/L (-9-1.8); HCO3 ABG 20 mmol/L (19-24); Oxygen Saturation ABG 88.4 % (90-95); PCO2 ABG 32 mmHg (35-46); PO2 ABG 54 mm/Hg (80-95); pH ABG 7.42 (7.35-7.45)
[2018-12-13 20:34] LABS: Allen Test POS (Pos)
--- NOTE | 2018-12-13 20:39 | History & Physical Report ---
Date of Service December 13, 2018 Assessment & Plan (1) Acute hypoxemic respiratory failure: Secondary to asthma exacerbation past tobacco abuse mood disorder, stable hypothyroidism, TSH markedly elevated nocturnal hypoxemia as per records Med telemetry Supplemental O2 Baseline ABG Solu-Medrol, nebs RTC Pulmonary consult RE respiratory failure, asthma exacerbation Increase home levothyroxine dose, recheck TSH after 4 weeks DVT prophylaxis. Lovenox subcu Full code History of Present Illness Chief Complaint: Asthma attack Primary Care Provider: Valentin Thompson MD History obtained from patient and records. Medical history significant for asthma, past tobacco abuse, mood disorder, hypothyroidism, nocturnal hypoxemia as per records. Recent confinement last 11/2017 for respiratory failure secondary to asthma exacerbation. Patient has had bronchial asthma since childhood. Daily rescue inhaler. ER visits for asthma exacerbation every 2-3 months, more frequent during winter months. Precipitated by pollen, animal dander, change in weather condition, dust. History of endotracheal intubation at [facility] for asthma attack in 2007. Last ER visit for asthma attack August 2018. Today patient noted dry cough, increasing shortness of breath consistent with asthmatic attack unrelieved by home inhalers. No chest pain, no fever, no chills. No colds, no known sick contacts. At the ER, patient given IV Solu-Medrol, magnesium, neb treatment for asthma exacerbation. Patient still uncomfortable despite intervention at the ER. 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 Allergies Allergy/AdvReac Type Severity Reaction Status Date / Time cat dander Allergy Intermediate ITCHY EYES Verified 12/13/18 17:25 & THROAT, SNEEZING, CONGESTION dog dander Allergy Intermediate ITCHY EYES Verified 12/13/18 17:25 & THROAT, SNEEZING, CONGESTION grass pollen-perennial rye, Allergy Intermediate SOB/HAYFEVE Verified 12/13/18 17:25 standar R pollen extracts Allergy Intermediate SHORTNESS Verified 12/13/18 17:25 OF BREATH/HAYFEVER Home Medications Home Medications Medication Instructions Recorded Confirmed Type albuterol sulfate [Ventolin HFA] 2 - 4 puff INHALATION QID PRN 05/30/18 12/13/18 History fluticasone furoate-vilanterol 1 puff INHALATION DAILY 05/30/18 12/13/18 History [Breo Ellipta] fluticasone propionate [Flovent 2 puff INHALATION BID 05/30/18 12/13/18 History HFA] ipratropium-albuterol 1 neb INHALATION Q6 PRN 05/30/18 12/13/18 History ipratropium-albuterol [Combivent 1 puff INHALATION QID 05/30/18 12/13/18 History Respimat] montelukast [Singulair] 10 mg PO QAM 05/30/18 12/13/18 History norethindrone-e.estradiol-iron 1 tab PO DAILY 05/30/18 12/13/18 History [June07/11 (28)] sertraline 150 mg PO QAM 05/30/18 12/13/18 History levothyroxine [Synthroid] 100 mcg PO DAILY 12/13/18 12/13/18 History Past Med/Surg History Medical History Asthma (Chronic) Allergic rhinitis (Chronic) Bipolar disorder (Chronic) Depression (Chronic) Anxiety (Chronic) Surgical History History of cholecystectomy (Resolved) Social History Preferred Language: Azeri Communication Ability: Effective 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 Beliefs That Will Affect Care: None marital status: Current Living Situation: Spouse and Family current occupational status: employed Feels Safe at Home: Yes Safety Concerns: Feels Safe At This Time Smoking Status: Former smoker Tobacco Type: cigarettes Do You Dip or Chew Tobacco: No Second Hand Exposure: Yes Tobacco Cessation Education Requested by Patient: No Hx Alcohol Use: No Hx Substance Use: No Review of Systems Review of Systems: As per HPI, all 10 systems reviewed, all other ROS negative Physical Exam Physical Exam: GENERAL: Slightly uncomfortable, minimal respiratory distress, obese, audible wheezing SKIN: Pallor , warm HEENT: pale palpebral conjunctivae, no ptosis, dry buccal mucosa NECK : Supple, short neck, no tenderness CHEST : Decreased breath sounds, expiratory wheezes , no tenderness HEART : Tachycardic , no obvious murmurs ABDOMEN: Some distention, nontender EXTREMITIES : No LE swelling/tenderness, no other conspicuous deformities noted NEUROLOGIC : Coherent, no facial asymmetry, no other gross focality Results & Data Vital Signs (Past 12 Hours) Vital Signs Temp Pulse Pulse Resp BP BP Pulse Ox 12/13/18 18:54 103 H 98 12/13/18 18:32 112 H 25 H 113/72 93 12/13/18 17:01 112 H 22 93 12/13/18 16:50 92 12/13/18 16:48 94 12/13/18 16:37 37.3 C 127 H 28 H 153/113 H 94 Laboratory Results Laboratory Results WBC 13.59 K/uL (4.8-10.8) H 12/13/18 16:54 RBC 4.19 M/uL (4.2-5.4) L 12/13/18 16:54 Hgb 11.9 g/dL (12.0-16.0) L 12/13/18 16:54 Hct 35.7 % (37-47) L 12/13/18 16:54 MCV 85.2 fL (80-100) 12/13/18 16:54 MCH 28.4 pg (25-34) 12/13/18 16:54 MCHC 33.3 g/dL (32-36) 12/13/18 16:54 RDW Std Deviation 45.7 fL (36.4-46.3) 12/13/18 16:54 RDW Coeff of Laron 14.7 % (11.5-14.5) H 12/13/18 16:54 Plt Count 243 K/uL (130-400) 12/13/18 16:54 MPV 11.1 fL (7.4-10.4) H 12/13/18 16:54 Immature Gran % (Auto) 1.0 % 12/13/18 16:54 Neut % (Auto) 56.9 % 12/13/18 16:54 Lymph % (Auto) 31.1 % 12/13/18 16:54 Bacon % (Auto) 5.1 % 12/13/18 16:54 Eos % (Auto) 5.7 % 12/13/18 16:54 Baso % (Auto) 0.2 % 12/13/18 16:54 Immature Gran # (Auto) 0.14 K/uL (0.00-0.02) H 12/13/18 16:54 Neut # (Auto) 7.73 K/uL (1.4-6.5) H 12/13/18 16:54 Lymph # (Auto) 4.23 K/uL (1.2-3.4) H 12/13/18 16:54 Bacon # (Auto) 0.69 K/uL (0.11-0.59) H 12/13/18 16:54 Eos # (Auto) 0.77 K/uL (0-0.5) H 12/13/18 16:54 Baso # (Auto) 0.03 K/uL (0-0.2) 12/13/18 16:54 ABG pH 7.42 (7.35-7.45) 12/13/18 20:23 ABG pCO2 32 mmHg (35-46) L 12/13/18 20:23 ABG pO2 54 mm/Hg (80-95) L 12/13/18 20:23 ABG HCO3 20 mmol/L (19-24) 12/13/18 20:23 ABG O2 Saturation 88.4 % (90-95) L 12/13/18 20:23 ABG Base Excess -3.3 mEq/L (-9-1.8) 12/13/18 20:23 Dex Test POS (Pos) 12/13/18 20:23 Barometric Pressure 726.4 mm/Hg 12/13/18 20:23 Oxygen Given ROOM AIR 12/13/18 20:23 Sodium 141 mmol/L (136-145) 12/13/18 16:54 Potassium 3.8 mmol/L (3.5-5.1) 12/13/18 16:54 Chloride 109 mmol/L (98-107) H 12/13/18 16:54 Carbon Dioxide 26 mmol/L (21-32) 12/13/18 16:54 Anion Gap 6.0 (3-11) 12/13/18 16:54 BUN 13 mg/dl (7-18) 12/13/18 16:54 Creatinine 0.74 mg/dl (0.6-1.2) 12/13/18 16:54 Est Cr Clr Drug Dosing 167.6 ml/min 12/13/18 16:54 Est GFR ( Amer) 125.1 12/13/18 16:54 Est GFR (Non-Af Amer) 108.0 12/13/18 16:54 BUN/Creatinine Ratio 17.1 (10-20) 12/13/18 16:54 Glucose 101 mg/dl (70-99) H 12/13/18 16:54 Calcium 9.0 mg/dl (8.5-10.1) 12/13/18 16:54 Magnesium 1.8 mg/dl (1.8-2.4) 12/13/18 16:54 Total Bilirubin 0.2 mg/dl (0.2-1) 12/13/18 16:54 AST 17 U/L (15-37) 12/13/18 16:54 ALT 23 U/L (12-78) 12/13/18 16:54 Alkaline Phosphatase 54 U/L (45-117) 12/13/18 16:54 Total Protein 7.3 gm/dl (6.4-8.2) 12/13/18 16:54 Albumin 3.6 gm/dl (3.4-5.0) 12/13/18 16:54 Globulin 3.7 gm/dl (2.5-4.0) 12/13/18 16:54 Albumin/Globulin Ratio 1.0 (0.9-2) 12/13/18 16:54 TSH 42.000 uIu/ml (0.300-4.500) H 12/13/18 16:54 Diagnostic Findings Chest x-ray was normal EKG as per my interpretation : Rate 105, sinus tachycardia, incomplete RBBB, T wave inversion septal leads
[2018-12-13 20:46] LABS: Partial Thromboplastin Ratio 0.9; Partial Thromboplastin Time 24.8 Seconds (21.0-31.0)
[2018-12-13] MEDS ORDERED: ACETAMINOPHEN 325 MG TAB PO PRN (22:06)
[2018-12-13] MEDS ORDERED: XOPENEX/ATROVENT 1.25mg/0.5MG NEB COMBO NEB SCH (22:06)
[2018-12-13] MEDS ORDERED: PROMETHAZINE HCL 12.5 MG in SODIUM CHLORIDE 0.9% 50 ML IV PRN (22:06)
[2018-12-13] MEDS: guaiFENesin 600 MG TABCR PO SCH (22:58)
[2018-12-13] MEDS: LEVALBUTEROL 1.25MG/0.5ML NEB INH SCH (23:34)
[2018-12-13] MEDS: IPRATROPIUM BROMIDE NEB SOLN 0.02% 2.5 ML VIAL INH SCH (23:34)
[2018-12-14 01:12] LABS: Basophils # (auto) 0.02 K/uL (0-0.2); Basophils % (auto) 0.2 %; Eosinophils # (auto) 0.02 K/uL (0-0.5); Eosinophils % (auto) 0.2 %; Hematocrit (blood only) 33.4 % (37-47); Hemoglobin 11.2 g/dL (12.0-16.0); Immature Granulocytes # (auto) 0.13 K/uL (0.00-0.02); Immature Granulocytes % (auto) 1.3 %; Lymphocytes # (auto) 1.41 K/uL (1.2-3.4); Lymphocytes % (auto) 13.8 %; Mean Corpuscular Hgb Conc 33.5 g/dL (32-36); Mean Corpuscular Volume 84.1 fL (80-100); Mean Platelet Volume 11.2 fL (7.4-10.4); Monocytes # (auto) 0.05 K/uL (0.11-0.59); Monocytes % (auto) 0.5 %; Platelet Count 203 K/uL (130-400); RDW Coefficient of Variation 14.6 % (11.5-14.5); RDW Standard Deviation 45.8 fL (36.4-46.3); Red Blood Count 3.97 M/uL (4.2-5.4); White Blood Count 10.23 K/uL (4.8-10.8)
[2018-12-14 01:30] LABS: BUN Creatinine Ratio 12.2 (10-20); Calcium 8.7 mg/dl (8.5-10.1); Creatinine Clr Calc Pharmacy 139.1 ml/min; Est GFR (African American) 100.1; Est GFR (Non-African American) 86.4; Potassium 3.9 mmol/L (3.5-5.1)
[2018-12-14] MEDS ORDERED: SODIUM CHLORIDE 0.9% 1000ML 1,000 ML IV ONE ×2 (01:46→06:10)
[2018-12-14] MEDS ORDERED: CARBOHYDRATES FOR HYPOGLYCEMIA PO PRN (01:48)
[2018-12-14] MEDS ORDERED: INSULIN GLARGINE SOLOSTAR 100 UNITS/ML 3 ML PEN SQ STA (01:48)
[2018-12-14] MEDS ORDERED: GLUCOSE 10 TABS/TUBE PO PRN (01:48)
[2018-12-14] MEDS ORDERED: GLUCAGON FOR INJ 1 MG VIAL SQ PRN (01:48)
[2018-12-14] MEDS ORDERED: GLUCOSE 40% GEL 15 GM TUBE PO PRN (01:48)
[2018-12-14] MEDS ORDERED: DEXTROSE 50% 50 ML SYRINGE IV PRN (01:48)
[2018-12-14] MEDS ORDERED: LACTATED RINGER'S 1,000 ML IV ONE ×3 (02:00→03:00)
[2018-12-14] MEDS: INSULIN ASPART 100 UNITS/ML 3 ML PEN SC SCH ×5 (02:17→21:07)
[2018-12-14 03:17] LABS: Magnesium 1.9 mg/dl (1.8-2.4)
[2018-12-14] MEDS: LEVALBUTEROL 1.25MG/0.5ML NEB INH SCH ×3 (03:30→11:29)
[2018-12-14] MEDS: IPRATROPIUM BROMIDE NEB SOLN 0.02% 2.5 ML VIAL INH SCH ×7 (03:33→07:13)
[2018-12-14] MEDS ORDERED: LACTATED RINGER'S 1,000 ML IV SCH (05:00)
[2018-12-14] MEDS ORDERED: MAGNESIUM SULFATE / D5W 1 GM/100 ML BAG IV ONE (05:11)
[2018-12-14] MEDS: LEVOTHYROXINE SODIUM 125 MCG TABLET PO SCH (05:45)
[2018-12-14] MEDS ORDERED: LEVOTHYROXINE SODIUM 100 MCG TABLET PO SCH (06:30)
[2018-12-14] MEDS: LACTATED RINGER'S 1,000 ML IV SCH ×2 (07:46→12:32)
[2018-12-14] MEDS: MONTELUKAST SODIUM 10 MG TABLET PO SCH (07:50)
[2018-12-14] MEDS: guaiFENesin 600 MG TABCR PO SCH ×2 (07:50→20:39)
[2018-12-14 07:54] LABS: Estimated Average Glucose 105 mg/dl; Hemoglobin A1C 5.3 % (4.5-5.6)
--- NOTE | 2018-12-14 07:58 | Hospitalist Progress Note ---
Date of Service December 14, 2018 Assessment & Plan (1) Asthma with acute exacerbation: ASTHMA EXACERBATION Known case of asthma since childhood. Precipitated by pollen, weather change, animal danders. Multiple ER visits/admits. Last visit in 08/2018. Hx of Intubation requirement in [facility] in 2007. Follows up with Pulmonary [facility] outpatient Came with c/o one day of SOB/Wheezing, dry cough unrelieved by home inhalers, ED treatment. -On 2 L oxygen--> Now off it -Albuterol Nebs QID and prn (Discontinue Atrovent as asthma exacerbation) -S/P IV Solu medrol, Magnesium in ED. On IV solumedrol 40 mg q 12 hours ---> Change to PO prednisone 40 mg from tomorrow AM -No indication of antibiotics -CXR- no pneumonia -Pulmonary was consulted as patient is known to their practice ELEVATED LACTATE Presented with lactate 3.2, fluctuating and now up again -Received multiple IVF boluses and currently at 200 cc/hour LR -No signs of sepsis, abdominal issues, infection --> Clinically no concerns and improving. Will decrease IVF to 125 cc/hour and monitor trend HYPOTHYROIDISM TSH-42 -On levothyroxine -Increased to 125 mcg (Patient says she is complaint with her meds and takes it sleeve machine tender before breakfast) -Repeat TSH in 4-6 weeks outpatient NOCTURNAL HYPOXEMIA -Continue with home oxygen- 2 L at night DVT prophylaxis. Lovenox subcutaneous Full code Disposition Medical mx in progress Likely discharge in AM Subjective Patient is feeling much better today. Shortness of breath/wheezing has improved. Tolerating ambulation as well Has some dry cough with no sputum production, chest tightness. No chest pain, fever, chills, leg swelling Off oxygen, saturating 94% on room air Physical Exam Physical Exam: GENERAL- AAOX3, No acute distress; OBESE + LUNGS- Air entry bilaterally decreased, no wheezing , rales or rhonchi HEART- Regular rate and rhythm. No murmurs ABDOMEN- Soft, non tender, non distended, Bowel sounds heard. EXTREMITIES- Good peripheral pulses, no edema Results & Data Vital Signs (Past 12 Hours) Vital Signs Temp Pulse Pulse Pulse Resp BP BP 12/14/18 07:00 36.6 C 104 H 20 130/79 12/14/18 06:53 106 H 16 12/14/18 04:39 36.6 C 108 H 18 112/73 12/14/18 03:33 102 H 18 12/14/18 02:19 12/13/18 23:47 36.7 C 109 H 20 138/80 12/13/18 23:37 108 H 16 12/13/18 22:21 114 H 12/13/18 21:38 111 H 12/13/18 21:35 36.5 C 117 H 22 12/13/18 21:15 116 H 36 H 111/70 BP Pulse Ox 12/14/18 07:00 92 12/14/18 06:53 97 12/14/18 04:39 96 12/14/18 03:33 97 12/14/18 02:19 123/74 12/13/18 23:47 96 12/13/18 23:37 97 12/13/18 22:21 12/13/18 21:38 12/13/18 21:35 140/84 95 12/13/18 21:15 94
[2018-12-14] MEDS: SERTRALINE HCL 100 MG TABLET PO SCH (08:26)
[2018-12-14] MEDS ORDERED: ENOXAPARIN INJ 40 MG/0.4 ML SYR SQ SCH (09:00)
[2018-12-14] MEDS ORDERED: methylPREDNISolone 40 MG in SYRINGE 0 ML IV SCH (09:00)
[2018-12-14] MEDS: PANTOprazole 40 MG TAB PO SCH (13:18)
[2018-12-14] MEDS: LEVALBUTEROL HCL 1.25 MG/3 ML NEB INH SCH ×3 (15:28→23:03)
--- NOTE | 2018-12-14 17:08 | Pulmonary Consultation ---
Date of Consultation December 14, 2018 Assessment & Plan (1) Asthma: Impression: 1. Asthma exacerbation, she has annual visits to the hospital in that regard. 2. The patient does not have diurnal variation, her peak flow remains at 240, her predicted should be 360. 3. Morbid obesity with restrictive pattern. 4. Obstructive sleep apnea. Work-up in progress. Plan: 1. Continue Solu-Medrol twice daily. 2. continue current bronchodilators. 3. The patient does have nebulizer at home, her rescue and long-acting inhalers as well. 4. Anticipate improvement in the next 24 hours and then discharged on prednisone 60 mg p.o. daily for 5 days then taper by 10 mg every other day. 5. Follow-up in the pulmonary office, check IgE level. I assume that the pulmonary office already has done it. Thank you, will follow. Asthma complication type: unspecified Asthma persistence: unspecified Asthma severity: unspecified severity Qualified Code(s): J45.909 - Unspecified asthma, uncomplicated History of Present Illness Reason for Consultation: Asthma exacerbation Requesting Physician: Dr. Kuhn Attending Physician: Andreea Kuhn History of Present Illness Dear Dr. Kuhn: Thank you for the kind referral of Lizzeth to pulmonary service. This is 33-year-old female with history of asthma, morbid obesity, obstructive sleep apnea, the patient has episodes of sudden onset increasing shortness of breath that usually lasted for a day, it does not give her any warning signs, and it affected immediately. According to her she could not use her number was yesterday and she returned to the hospital for further management where she was admitted with asthma exacerbation. She has been followed by IGOR Chapin at the pulmonary clinic. The patient has not had asthma exacerbation for the past year or so. She does not have any animals in the house except for snakes. She denies any rhinorrhea but she has cough nonproductive at the time accompanied with wheezing. Her exercise capacity has been limited due to shortness of breath. Most recent peak flow was measuring 120 and improved to 240 after treatment. She started on systemic steroids, her height is 5 feet 4 inches and her predicted is 360. The patient does not have any diurnal variation according to her. She has not been treated with targeted immunotherapy. She has been asthmatic for the past 21 years. 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 She is non-smoker although quit 3 years ago. Family history are consistent with asthma in her parents, she has no surgical intervention done on her chest cavity, and medical history is as mentioned above in the first section. Allergies Allergy/AdvReac Type Severity Reaction Status Date / Time cat dander Allergy Intermediate ITCHY EYES Verified 12/13/18 17:25 & THROAT, SNEEZING, CONGESTION dog dander Allergy Intermediate ITCHY EYES Verified 12/13/18 17:25 & THROAT, SNEEZING, CONGESTION grass pollen-perennial rye, Allergy Intermediate SOB/HAYFEVE Verified 12/13/18 17:25 standar R pollen extracts Allergy Intermediate SHORTNESS Verified 12/13/18 17:25 OF BREATH/HAYFEVER Home Medications Home Medications Medication Instructions Recorded Confirmed Type albuterol sulfate [Ventolin HFA] 2 - 4 puff INHALATION QID PRN 05/30/18 12/13/18 History fluticasone furoate-vilanterol 1 puff INHALATION DAILY 05/30/18 12/13/18 History [Breo Ellipta] fluticasone propionate [Flovent 2 puff INHALATION BID 05/30/18 12/13/18 History HFA] ipratropium-albuterol 1 neb INHALATION Q6 PRN 05/30/18 12/13/18 History ipratropium-albuterol [Combivent 1 puff INHALATION QID 05/30/18 12/13/18 History Respimat] montelukast [Singulair] 10 mg PO QAM 05/30/18 12/13/18 History norethindrone-e.estradiol-iron 1 tab PO DAILY 05/30/18 12/13/18 History [Junel 07/11 (28)] sertraline 150 mg PO QAM 05/30/18 12/13/18 History levothyroxine [Synthroid] 100 mcg PO DAILY 12/13/18 12/13/18 History Patient History Medical History Asthma (Chronic) Allergic rhinitis (Chronic) Bipolar disorder (Chronic) Depression (Chronic) Anxiety (Chronic) Surgical History History of cholecystectomy (Resolved) Family History Other Diabetes Family history non-contributory Social History Preferred Language: Montserratian Communication Ability: Effective 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 Otherwise unremarkable. Physical Exam Physical Exam: Vital signs are stable, O2 saturation is 96% on room air, no JVD, no oral thrush, no conjunctival hemorrhage, S1-S2, regular rate and rhythm, lungs are clear except for scattered wheezing mainly at the bases, no stridor, abdomen is benign, no edema, morbid obesity, neurologically she is intact no skin rash and no oral thrush. Results & Data Vital Signs (Past 12 Hours) Vital Signs Temp Pulse Pulse Resp BP BP Pulse Ox 12/14/18 15:32 36.7 C 99 H 18 133/85 96 12/14/18 15:28 63 18 97 12/14/18 15:26 97 H 12/14/18 14:57 36.7 C 101 H 20 148/88 H 95 12/14/18 12:34 36.7 C 105 H 20 144/80 H 97 12/14/18 11:30 87 18 94 12/14/18 08:00 99 H 12/14/18 07:00 36.6 C 104 H 20 130/79 92 12/14/18 06:53 106 H 16 97 Laboratory Results Labs showed no evidence of eosinophilia, glucose is controlled. Diagnostic Findings Chest x-ray without evidence of infiltrate.
[2018-12-15] MEDS: LEVALBUTEROL HCL 1.25 MG/3 ML NEB INH SCH ×4 (03:29→15:48)
[2018-12-15] MEDS: LEVOTHYROXINE SODIUM 125 MCG TABLET PO SCH (06:12)
[2018-12-15] MEDS: SERTRALINE HCL 100 MG TABLET PO SCH (08:32)
[2018-12-15] MEDS: guaiFENesin 600 MG TABCR PO SCH (08:33)
[2018-12-15] MEDS: MONTELUKAST SODIUM 10 MG TABLET PO SCH (08:33)
[2018-12-15] MEDS: PANTOprazole 40 MG TAB PO SCH (08:33)
[2018-12-15] MEDS: INSULIN ASPART 100 UNITS/ML 3 ML PEN SC SCH ×3 (08:37→17:38)
[2018-12-15] MEDS ORDERED: predniSONE 20 MG TAB PO SCH (09:00)
--- NOTE | 2018-12-15 13:20 | Pulmonology Progress Note ---
Date of Service December 15, 2018 Assessment & Plan (1) Asthma: Impression: 1. Asthma exacerbation, she has annual visits to the hospital in that regard. 2. The patient does not have diurnal variation, her peak flow remains at 240, her predicted should be 360. 3. Morbid obesity with restrictive pattern. 4. Obstructive sleep apnea. Work-up in progress. Plan: 1. Start p.o. prednisone for several days then taper by 10 mg every other day. 2. continue current bronchodilators. 3. The patient does have nebulizer at home, her rescue and long-acting inhalers as well. 4. Check peak flow at rest, if more than 70% of her predicted, discharge patient home. 5. Follow-up in the pulmonary office, check IgE level. I assume that the pulmonary office already has done it. Thank you, will follow as needed. Asthma complication type: unspecified Asthma persistence: unspecified Asthma severity: unspecified severity Qualified Code(s): J45.909 - Unspecified asthma, uncomplicated Subjective Feeling better, no chest pain, no wheezing, no events overnight, did not require any additional bronchodilators, peak flow has not been measured on this admission. Review of Systems Review of Systems: Review of system was unremarkable otherwise including 10 systems. Physical Exam Physical Exam: Vital signs are stable, S1-S2 regular rate and rhythm, O2 saturation 92%, lungs with distant clear breath sounds, abdomen is benign, morbidly obese, no edema. Results & Data Vital Signs (Past 12 Hours) Vital Signs Temp Pulse Pulse Resp BP BP Pulse Ox 12/15/18 11:34 88 16 161/89 H 92 12/15/18 11:05 92 H 16 92 12/15/18 07:35 86 12/15/18 07:19 83 18 97 12/15/18 07:06 36.8 C 94 H 20 147/93 H 94 12/15/18 06:13 116/74 12/15/18 04:22 36.5 C 101 H 20 161/80 H 99 12/15/18 03:29 111 H 18 96 12/15/18 02:27 84 Laboratory Results No new labs. Diagnostic Findings No new imaging.
--- NOTE | 2018-12-15 17:44 | Hospitalist Progress Note ---
Date of Service December 15, 2018 Assessment & Plan (1) Asthma with acute exacerbation: ASTHMA EXACERBATION symptom completely resolved no cough , no wheeze , in room air, no hypoxia Known case of asthma since childhood. Precipitated by pollen, weather change, animal danders. Multiple ER visits/admits. Last visit in 08/2018. Hx of Intubation requirement in [facility] in 2007. Follows up with Pulmonary [facility] outpatient Came with c/o one day of SOB/Wheezing, dry cough unrelieved by home inhalers, ED treatment. -On 2 L oxygen--> Now off it -Albuterol Nebs QID and prn (Discontinue Atrovent as asthma exacerbation) -S/P IV Solu medrol, Magnesium in ED. On IV solumedrol 40 mg q 12 hours ---> Changed to PO prednisone 40 mg -CXR- no pneumonia -Pulmonary was consulted as patient is known to their practice stable to be discharged home pt already has home nebulizer , will be discharged home with slow prednisone taper ELEVATED LACTATE possible due to respiratory failure /hypoxia , leading to low tissue perfusion Presented with lactate 3.2, resolved with IV fluids , resolution of respiratory failure /hypoxia -No signs of sepsis, abdominal issues, infection --> HYPOTHYROIDISM TSH-42 -On levothyroxine -Increased to 125 mcg (Patient says she is complaint with her meds and takes it early childhood associate before breakfast) -Repeat TSH in 4-6 weeks outpatient NOCTURNAL HYPOXEMIA -Continue with home oxygen- 2 L at night DVT prophylaxis. Lovenox subcutaneous Full code Disposition stable to be discharged home today Subjective feels fine no wheeze or SOB , no hypoxia no CHICAS or cough ready to be discharged home today Physical Exam Constitutional: WD/WN, vitals as above + obese; no acute distress Eyes: PERRL, conjunctivae normal, anicteric sclerae ENMT: external ear and nose normal, oropharynx normal Neck: trachea midline, no thyromegaly Respiratory: normal respiratory effort; no cough Auscultation: no crackles, no rales, no rhonchi and no wheezes Cardiovascular: RRR, no murmur, no edema Gastrointestinal (Abdomen): normal bowel sounds, soft, nontender, no hepatosplenomegaly Musculoskeletal: no cyanosis or clubbing, extremities motor strength 5/5 Skin: no rashes, warm and dry Neurologic: PERRL, EOMI, accommodation nl, no face palsy, no dysarthria Psychiatric: A+Ox3, euthymic affect Results & Data Vital Signs (Past 12 Hours) Vital Signs Temp Pulse Pulse Resp BP BP Pulse Ox 12/15/18 16:56 87 17 97 12/15/18 15:48 36.7 C 87 16 136/88 97 12/15/18 11:34 88 16 161/89 H 92 12/15/18 11:05 92 H 16 92 12/15/18 07:35 86 12/15/18 07:19 83 18 97 12/15/18 07:06 36.8 C 94 H 20 147/93 H 94 12/15/18 06:13 116/74
--- NOTE | 2018-12-16 13:38 | Discharge Summary ---
Date of Service December 16, 2018 Admission HPI Per Admitting Provider History obtained from patient and records. Medical history significant for asthma, past tobacco abuse, mood disorder, hypothyroidism, nocturnal hypoxemia as per records. Recent confinement last 11/2017 for respiratory failure secondary to asthma exacerbation. Patient has had bronchial asthma since childhood. Daily rescue inhaler. ER visits for asthma exacerbation every 2-3 months, more frequent during winter months. Precipitated by pollen, animal dander, change in weather condition, dust. History of endotracheal intubation at [facility] for asthma attack in 2007. Last ER visit for asthma attack August 2018. Today patient noted dry cough, increasing shortness of breath consistent with asthmatic attack unrelieved by home inhalers. No chest pain, no fever, no chills. No colds, no known sick contacts. At the ER, patient given IV Solu-Medrol, magnesium, neb treatment for asthma exacerbation. Patient still uncomfortable despite intervention at the ER. 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, [employer]ploy[employer] Principal Diagnosis ASTHMA EXACERBATION Discharge Exam Constitutional WD/WN, vitals as above + obese; no acute distress Eyes PERRL, conjunctivae normal, anicteric sclerae ENMT external ear and nose normal, oropharynx normal Neck trachea midline, no thyromegaly Respiratory normal respiratory effort; no cough Auscultation: no crackles, no rales, no rhonchi and no wheezes Cardiovascular RRR, no murmur, no edema Gastrointestinal (Abdomen) normal bowel sounds, soft, nontender, no hepatosplenomegaly Musculoskeletal no cyanosis or clubbing, extremities motor strength 5/5 Skin no rashes, warm and dry Neurologic PERRL, EOMI, accommodation nl, no face palsy, no dysarthria Psychiatric A+Ox3, euthymic affect Discharge Data Allergies Allergy/AdvReac Type Severity Reaction Status Date / Time cat dander Allergy Intermediate ITCHY EYES Verified 12/13/18 17:25 & THROAT, SNEEZING, CONGESTION dog dander Allergy Intermediate ITCHY EYES Verified 12/13/18 17:25 & THROAT, SNEEZING, CONGESTION grass pollen-perennial rye, Allergy Intermediate SOB/HAYFEVE Verified 12/13/18 17:25 standar R pollen extracts Allergy Intermediate SHORTNESS Verified 12/13/18 17:25 OF BREATH/HAYFEVER Consultations 12/13/18 18:50 ED Decision to Admit Stat 12/13/18 22:06 Consult Pulmonology Routine Hospital Course (1) Asthma with acute exacerbation: ASTHMA EXACERBATION symptom completely resolved no cough , no wheeze , in room air, no hypoxia Known case of asthma since childhood. Precipitated by pollen, weather change, animal danders. Multiple ER visits/admits. Last visit in 08/2018. Hx of Intubation requirement in [facility] in 2007. Follows up with Pulmonary [facility] outpatient Came with c/o one day of SOB/Wheezing, dry cough unrelieved by home inhalers, ED treatment. -On 2 L oxygen--> Now off it -Albuterol Nebs QID and prn (Discontinue Atrovent as asthma exacerbation) -S/P IV Solu medrol, Magnesium in ED. On IV solumedrol 40 mg q 12 hours ---> Changed to PO prednisone 40 mg -CXR- no pneumonia -Pulmonary was consulted as patient is known to their practice stable to be discharged home pt already has home nebulizer , will be discharged home with slow prednisone taper ELEVATED LACTATE possible due to respiratory failure /hypoxia , leading to low tissue perfusion Presented with lactate 3.2, resolved with IV fluids , resolution of respiratory failure /hypoxia -No signs of sepsis, abdominal issues, infection --> HYPOTHYROIDISM TSH-42 -On levothyroxine -Increased to 125 mcg (Patient says she is complaint with her meds and takes it transliterator before breakfast) -Repeat TSH in 4-6 weeks outpatient NOCTURNAL HYPOXEMIA -Continue with home oxygen- 2 L at night DVT prophylaxis. Lovenox subcutaneous Full code Disposition stable to be discharged home today Total Time Total Time Spent Total Time Spent (In Minutes): APPROX 35 MINS Total Time Includes: Examination of the Patient, Discharge Planning, Medication Reconciliation and Communication With Other Providers Discharge Plan Discharge Items Patient Disposition: Home - Self-Care Reason For Visit: RESP FAILURE Discharge Diagnosis: Asthma exacerbation Discharge Goals: Decrease discomfort and Therapeutic intervention Activity: Resume your previous activity Non-emergency contact: Primary Care Provider Call non-emergency contact if: you have any medication questions Follow-up/Referrals: Valentin Thompson MD [Primary Care Provider] - Diet: Regular Addtl Provider Instructions: Hospital follow-up with Dr Simmons at [facility] on 12/21/2018 at 11:05 AM 's schedule is full Follow-up with pulmonology as per schedule Prescriptions: New prednisone 20 mg tablet 40 mg PO DAILY Qty: 15 RF: 0 Continued ipratropium-albuterol 0.5 mg-3 mg(2.5 mg base)/3 mL Solution For Nebulization 1 neb Inhalation Q6 PRN (Reason: Wheezing) RF: 0 sertraline 100 mg tablet 150 mg PO QAM RF: 0 norethindrone-e.estradiol-iron [Junel FE 07/11 (28)] 1 mg-20 mcg (21)/75 mg (7) Tablet 1 tab PO DAILY RF: 0 montelukast [Singulair] 10 mg Tablet 10 mg PO QAM RF: 0 albuterol sulfate 90 mcg/actuation HFA aerosol inhaler 2 - 4 puff Inhalation QID PRN (Reason: Shortness Of Breath) RF: 0 fluticasone propionate 110 mcg/actuation HFA aerosol inhaler 2 puff Inhalation BID RF: 0 fluticasone furoate-vilanterol 200-25 mcg/dose blister with device 1 puff Inhalation DAILY RF: 0 ipratropium-albuterol 20-100 mcg/actuation mist 1 puff Inhalation QID RF: 0 levothyroxine [Synthroid] 100 mcg tablet 100 mcg PO DAILY RF: 0 Stand-Alone Forms: [facility], Work/School Release (Inpt) Discharge Orders: Discharge Order (Routine); Ordered 12/15/18 Ordered By: Mirtha Rodriguez Admission Data Admit Date/Time: 12/13/18 20:41 Attending Provider: Mirtha Rodriguez Admit Provider: Robbie Solo Primary Care Provider: Valentin Thompson Other Providers: Alberto Patterson ; Robbie Lozada ; Andreea Kuhn Service: Telemetry Medical Other Interventions: Discharge Summary Assessment (RN) Last Done: 12/15/18 17:56 DC Date/Time DO NOT enter until pt leaves facility: 12/15/18 19:12
== END 2018-12-15 19:12 | disposition home or self-care (01) | DRG 189 ==
LOC: ED 16:32 → 2N 20:41 → SUATTDRO 20:41 → 2N 21:15

== ENCOUNTER 2019-04-02 16:25 | Inpatient (IN) ==
[2019-04-02] MEDS ORDERED: methylPREDNISolone 125 MG/2 ML VIAL IV STA (16:40)
[2019-04-02] MEDS ORDERED: ALBUT/IPRATROP 3MG/0.5MG NEB 3 ML VIAL INH STA (16:40)
[2019-04-02] MEDS: MAGNESIUM SULFATE / D5W 1 GM/100 ML BAG IV SCH ×2 (16:59→17:59)
[2019-04-02 17:01] LABS: Hematocrit (blood only) 38.3 % (37-47); Hemoglobin 12.8 g/dL (12.0-16.0); Mean Corpuscular Hemoglobin 28.1 pg (25-34); Mean Corpuscular Hgb Conc 33.4 g/dL (32-36); Mean Platelet Volume 11.1 fL (7.4-10.4); Platelet Count 228 K/uL (130-400); RDW Coefficient of Variation 14.1 % (11.5-14.5); RDW Standard Deviation 42.7 fL (36.4-46.3); Red Blood Count 4.56 M/uL (4.2-5.4); White Blood Count 19.02 K/uL (4.8-10.8)
--- NOTE | 2019-04-02 17:02 | XRay Report ---
XR chest 1V portable HISTORY: 33 years-old Female Dyspnea acute shortness of breath COMPARISON: Chest radiograph 03/18/2019 TECHNIQUE: Portable AP view of the chest FINDINGS: Unchanged mild right hilar prominence. Cardiac silhouette is normal in size. There is no pneumothorax , pleural effusion, focal airspace consolidation or overt pulmonary edema. Bones of the chest appear grossly intact. IMPRESSION: No acute process. The above report was generated using voice recognition software. It may contain grammatical, syntax o r spelling errors. Electronically signed by: Hiro Mckeon M.D. 04/02/2019 5:01 PM
[2019-04-02 17:13] LABS: Partial Thromboplastin Ratio 0.9; Partial Thromboplastin Time 24.2 Seconds (21.0-31.0)
[2019-04-02 17:24] LABS: Albumin Level 3.7 gm/dl (3.4-5.0); BUN Creatinine Ratio 20.3 (10-20); Calcium 9.1 mg/dl (8.5-10.1); Creatinine Clr Calc Pharmacy 137.5 ml/min; Est GFR (African American) 98.7; Est GFR (Non-African American) 85.2; Potassium 4.1 mmol/L (3.5-5.1)
[2019-04-02 17:27] LABS: Albumin Globulin Ratio 0.9 (0.9-2); Bilirubin,Total 0.3 mg/dl (0.2-1); Globulin 4.1 gm/dl (2.5-4.0); Total Protein 7.8 gm/dl (6.4-8.2)
[2019-04-02 17:28] LABS: Basophils # (auto) 0.04 K/uL (0-0.2); Basophils % (auto) 0.2 %; Eosinophils # (auto) 0.79 K/uL (0-0.5); Eosinophils % (auto) 4.2 %; Immature Granulocytes # (auto) 0.23 K/uL (0.00-0.02); Immature Granulocytes % (auto) 1.2 %; Lymphocytes # (auto) 5.22 K/uL (1.2-3.4); Lymphocytes % (auto) 27.4 %; Monocytes # (auto) 1.01 K/uL (0.11-0.59); Monocytes % (auto) 5.3 %; Neutrophils # (auto) 11.73 K/uL (1.4-6.5); Neutrophils % (auto) 61.7 %
[2019-04-02 17:29] LABS: Influenza A virus by PCR Neg for Influ A (Neg); Influenza B virus by PCR Neg for Influ B (Neg)
[2019-04-02 17:40] LABS: Pregnancy Test, Serum Negative (Negative)
[2019-04-02 18:42] LABS: Appearance Urine Clear (Clear); Bilirubin Urine Negative (Negative); Blood Urine Negative (Negative); Color Urine Yellow; Glucose Urine UA Negative (Negative); Ketones Urine Negative (Negative); Leukocyte Esterase Urine Negative (Negative); Nitrite Urine Negative (Negative); Protein Urine Negative (Negative); Specific Gravity Urine 1.027 (1.000-1.030); Urobilinogen Urine Negative (Negative)
--- NOTE | 2019-04-02 19:00 | Emergency Department Note ---
Entered by Ning Erickson acting as a scribe for Abel العراقي MD History of Present Illness General Chief complaint: Shortness of Breath/Dyspnea Stated complaint: SHORTNESS OF BREATH Source: patient History of Present Illness Onset (ago): hour(s) (4.5) Location: chest Severity: similar to prior episodes Pain Consistency: + other (worsening ) Quality: + other (shortness of breath ) Relieved By: not by medication (inhaler; nebulizer) Associated symptoms: + cough (dry) and + other (negative leg swelling); no fever/chills and no nausea/vomiting Treatments prior to arrival: other (inhaler; nebulizer) The patient is a 33 year old female with a PMHx of Asthma who presents to the Emergency Room with complaints of worsening shortness of breath that began at approximately 1200 today, about 4.5 hours prior to arrival. She reports a dry cough, but denies fever, vomiting, and leg swelling or pain. The patient states that she has a history of asthma, and states that her current symptoms are similar to her past asthma exacerbations. She states that she used both her inhaler and nebulizer at home, but states that these did not relieve her symptoms. The patient states that she last used her nebulizer 45 minutes ago. She denies any chance she may be . The patient denies smoking. Home Medications Home Medications Medication Instructions Recorded Confirmed Type albuterol sulfate [Ventolin HFA] 2 - 4 puff INHALATION QID PRN 05/30/18 04/02/19 History fluticasone furoate-vilanterol 1 puff INHALATION DAILY 05/30/18 04/02/19 History [Breo Ellipta] fluticasone propionate [Flovent 2 puff INHALATION BID 05/30/18 04/02/19 History HFA] ipratropium-albuterol 1 neb INHALATION Q6 PRN 05/30/18 04/02/19 History montelukast [Singulair] 10 mg PO QAM 05/30/18 04/02/19 History sertraline [Zoloft] 150 mg PO QAM 05/30/18 04/02/19 History levothyroxine [Synthroid] 100 mcg PO QAM 12/13/18 04/02/19 History mometasone-formoterol HFA 200 2 puffs INH BID #13 gm 03/23/19 04/02/19 Rx mcg-5 mcg/actuation aerosol inhaler albuterol sulfate 2.5 mg/3 mL 2.5 mg CONTINUOUS NEBULIZATION BID 03/29/19 04/02/19 History (0.083 %) solution for nebulization PRN #375 ml Allergies Allergy/AdvReac Type Severity Reaction Status Date / Time pollen extracts Allergy Mild allergy sx Verified 04/02/19 18:39 Past Med/Surg History Medical History Asthma (Chronic) Allergic rhinitis (Chronic) Bipolar disorder (Chronic) Depression (Chronic) Anxiety (Chronic) Surgical History History of cholecystectomy (Resolved) Family History Other Diabetes Family history non-contributory Social History Preferred Language: Macedonian Communication Ability: Effective Surgical Resident Required: No Beliefs That Will Affect Care: None marital status: Current Living Situation: Spouse and Family current occupational status: employed Feels Safe at Home: Yes Smoking Status: Former smoker Tobacco Type: cigarettes ; Second Hand Exposure: Yes ; Hx Alcohol Use: No Hx Substance Use: No Review of Systems See HPI for pertinent positives & negatives. and A total of 10 systems reviewed and were otherwise negative Physical Exam Vital Signs Vital Signs - 24 hr 04/02/19 16:28 04/02/19 16:39 04/02/19 16:53 Temperature 36.8 C Temperature Source Oral Sepsis Recent Fever Within 48 Hours No Sepsis New/Unexplained Change in Mental Status No Sepsis Action Taken by Nursing No Action Required Pulse Rate 147 H Pulse Rate [Right Finger] 138 H Respiratory Rate 30 H 24 Respiratory Effort / Characteristics Labored Spontaneous Short of Breath Blood Pressure 121/85 Blood Pressure [Left Arm] Blood Pressure Mean 97 Blood Pressure Mean [Left Arm] Pulse Oximetry 90 91 92 Oxygen Delivery Method Room Air Room Air Room Air 04/02/19 17:04 04/02/19 18:02 Temperature Temperature Source Sepsis Recent Fever Within 48 Hours Sepsis New/Unexplained Change in Mental Status Sepsis Action Taken by Nursing Pulse Rate Pulse Rate [Right Finger] 134 H 143 H Respiratory Rate 24 20 Respiratory Effort / Characteristics Blood Pressure Blood Pressure [Left Arm] 154/95 H 141/85 H Blood Pressure Mean Blood Pressure Mean [Left Arm] 114 103 Pulse Oximetry 97 97 Oxygen Delivery Method Nebulizer Room Air The patient is in respiratory distress. Constitutional: Vital signs reviewed. Eyes: Pupils are equal round reactive to light. Conjunctiva are noninjected. ENT: Pharynx is clear without erythema or exudate. Mucous membranes are moist. Neck supple without meningeal signs. Respiratory: Unable to speak in full sentences. Retractions. Poor air entry bilaterally. Diffuse expiratory wheezing. Cardiovascular: Regular rate and rhythm. No rubs or gallops. GI: Soft, nondistended and nontender. Bowel sounds are present. Musculoskeletal: No peripheral edema. No lower extremity tenderness. Integumentary: No cyanosis. Neurological: The patient is awake and alert. No focal deficits. Psychiatric: Normal affect. Course 1638: Past medical records reviewed. The patient was evaluated in room A2. A complete history and physical exam was performed. 1750: Upon reevaluation, the patient states that she feels better but is still very wheezy. She states that she has not been on steroids for two weeks. 1844: Upon reevaluation, the patient is now able to speak in full sentences. She is still wheezing, but has fair air entry. I recommended hospitalization. 184: I discussed the case with Aleksandra HU who accepts the patient for further evaluation under Dr. Wynn Hospitalist service. Consultations Consultation #1: I discussed the case with Aleksandra HU who accepts the patient for further evaluation under Dr. Wynn Hospitalist service. Time: 18:51 Administered Medications Discontinued Medications Albuterol (Duoneb) 12 ml INH ONE STA Stop: 04/02/19 16:41 Last Admin: 04/02/19 16:53 Dose: 12 ml Documented by: [id number] Magnesium Sulfate/Dextrose (Magnesium Sulfate / D5w) 1 gm in 100 mls @ 100 mls/hr IV Q1H [facility] Stop: 04/02/19 18:44 Last Admin: 04/02/19 17:59 Dose: 100 mls/hr Documented by: [id number] Infusion: 04/02/19 17:58 Dose: 0 mls/hr Documented by: [id number] Admin: 04/02/19 16:59 Dose: 100 mls/hr Documented by: [id number] Methylprednisolone (Solumedrol) 125 mg IV NOW STA Stop: 04/02/19 16:41 Last Admin: 04/02/19 16:59 Dose: 125 mg Documented by: [id number] Medical Decision Making Differential Diagnosis Differential diagnoses include asthma exacerbation, respiratory failure, pneumonia, bronchitis, reactive airway disease, and others were considered. Medical Records Attestation: I reviewed the patient's medical records. (The patient was seen by Pulmonary on 03/23/19 for asthma. She is taking Dulera. ) Home Medications Current Medication List: was personally reviewed by me Laboratory Data Attestation: I reviewed the patient's lab results. Result diagrams: 04/02/19 16:49 04/02/19 16:49 Lab Results 04/02/19 04/02/19 04/02/19 Range/Units 16:49 16:49 16:49 WBC 19.02 H (4.8-10.8) K/uL RBC 4.56 (4.2-5.4) M/uL Hgb 12.8 (12.0-16.0) g/dL Hct 38.3 (37-47) % MCV 84.0 (80-100) fL MCH 28.1 (25-34) pg MCHC 33.4 (32-36) g/dL RDW Std Deviation 42.7 (36.4-46.3) fL RDW Coeff of Laron 14.1 (11.5-14.5) % Plt Count 228 (130-400) K/uL MPV 11.1 H (7.4-10.4) fL Immature Gran % (Auto) 1.2 % Neut % (Auto) 61.7 % Lymph % (Auto) 27.4 % Titus % (Auto) 5.3 % Eos % (Auto) 4.2 % Baso % (Auto) 0.2 % Immature Gran # (Auto) 0.23 H (0.00-0.02) K/uL Neut # (Auto) 11.73 H (1.4-6.5) K/uL Lymph # (Auto) 5.22 H (1.2-3.4) K/uL Titus # (Auto) 1.01 H (0.11-0.59) K/uL Eos # (Auto) 0.79 H (0-0.5) K/uL Baso # (Auto) 0.04 (0-0.2) K/uL PT 10.0 (9.0-12.0) Seconds INR 1.0 (0.9-1.1) APTT 24.2 (21.0-31.0) Seconds PTT Ratio 0.9 Sodium 141 (136-145) mmol/L Potassium 4.1 (3.5-5.1) mmol/L Chloride 111 H (98-107) mmol/L Carbon Dioxide 23 (21-32) mmol/L Anion Gap 7.0 (3-11) BUN 18 (7-18) mg/dl Creatinine 0.90 (0.6-1.2) mg/dl Est Cr Clr Drug Dosing 137.5 ml/min Est GFR ( Amer) 98.7 Est GFR (Non-Af Amer) 85.2 BUN/Creatinine Ratio 20.3 H (10-20) Glucose 94 (70-99) mg/dl Calcium 9.1 (8.5-10.1) mg/dl Total Bilirubin 0.3 (0.2-1) mg/dl AST 15 (15-37) U/L ALT 28 (12-78) U/L Alkaline Phosphatase 42 L (45-117) U/L Total Protein 7.8 (6.4-8.2) gm/dl Albumin 3.7 (3.4-5.0) gm/dl Globulin 4.1 H (2.5-4.0) gm/dl Albumin/Globulin Ratio 0.9 (0.9-2) HCG, Qual (Negative) Urine Color Urine Appearance (Clear) Urine pH (4.5-7.5) Ur Specific Simms (1.000-1.030) Urine Protein (Negative) Urine Glucose (UA) (Negative) Urine Ketones (Negative) Urine Blood (Negative) Urine Nitrite (Negative) Urine Bilirubin (Negative) Urine Urobilinogen (Negative) Ur Leukocyte Esterase (Negative) Influenza Type A (PCR) (Neg) Influenza Type B (PCR) (Neg) 04/02/19 04/02/19 04/02/19 Range/Units 16:49 16:50 18:30 WBC (4.8-10.8) K/uL RBC (4.2-5.4) M/uL Hgb (12.0-16.0) g/dL Hct (37-47) % MCV (80-100) fL MCH (25-34) pg MCHC (32-36) g/dL RDW Std Deviation (36.4-46.3) fL RDW Coeff of Laron (11.5-14.5) % Plt Count (130-400) K/uL MPV (7.4-10.4) fL Immature Gran % (Auto) % Neut % (Auto) % Lymph % (Auto) % Titus % (Auto) % Eos % (Auto) % Baso % (Auto) % Immature Gran # (Auto) (0.00-0.02) K/uL Neut # (Auto) (1.4-6.5) K/uL Lymph # (Auto) (1.2-3.4) K/uL Titus # (Auto) (0.11-0.59) K/uL Eos # (Auto) (0-0.5) K/uL Baso # (Auto) (0-0.2) K/uL PT (9.0-12.0) Seconds INR (0.9-1.1) APTT (21.0-31.0) Seconds PTT Ratio Sodium (136-145) mmol/L Potassium (3.5-5.1) mmol/L Chloride (98-107) mmol/L Carbon Dioxide (21-32) mmol/L Anion Gap (3-11) BUN (7-18) mg/dl Creatinine (0.6-1.2) mg/dl Est Cr Clr Drug Dosing ml/min Est GFR ( Amer) Est GFR (Non-Af Amer) BUN/Creatinine Ratio (10-20) Glucose (70-99) mg/dl Calcium (8.5-10.1) mg/dl Total Bilirubin (0.2-1) mg/dl AST (15-37) U/L ALT (12-78) U/L Alkaline Phosphatase (45-117) U/L Total Protein (6.4-8.2) gm/dl Albumin (3.4-5.0) gm/dl Globulin (2.5-4.0) gm/dl Albumin/Globulin Ratio (0.9-2) HCG, Qual Negative (Negative) Urine Color Yellow Urine Appearance Clear (Clear) Urine pH 5.0 (4.5-7.5) Ur Specific Simms 1.027 (1.000-1.030) Urine Protein Negative (Negative) Urine Glucose (UA) Negative (Negative) Urine Ketones Negative (Negative) Urine Blood Negative (Negative) Urine Nitrite Negative (Negative) Urine Bilirubin Negative (Negative) Urine Urobilinogen Negative (Negative) Ur Leukocyte Esterase Negative (Negative) Influenza Type A (PCR) Neg for Influ A (Neg) Influenza Type B (PCR) Neg for Influ B (Neg) Imaging Data Radiologist's Impression: Radiology results as stated below per my review and the radiologist's interpretation: XR chest 1V portable HISTORY: 33 years-old Female Dyspnea acute shortness of breath COMPARISON: Chest radiograph 03/18/2019 TECHNIQUE: Portable AP view of the chest FINDINGS: Unchanged mild right hilar prominence. Cardiac silhouette is normal in size. There is no pneumothorax, pleural effusion, focal airspace consolidation or overt pulmonary edema. Bones of the chest appear grossly intact. IMPRESSION: No acute process. The above report was generated using voice recognition software. It may contain grammatical, syntax or spelling errors. Electronically signed by: Hiro Mckeon M.D. 04/02/2019 5:01 PM Blood Pressure Blood Pressure Findings: Elevated blood pressure Blood Pressure Disposition: elevated BP felt to be situational MDM Narrative I did evaluate the patient as noted above. The patient is presenting with significant respiratory distress. She is wheezing diffusely and has poor air entry bilaterally. She is tachycardic but she did take a nebulizer prior to arrival. She does have a known history of asthma. IV access was established. The patient was placed on a continuous monitor and storage bin tender. I did treat her with Solu-Medrol IV. She was also given magnesium IV. I also treated her with an hour-long continuous DuoNeb. I did order and personally reviewed the images of the patient's chest x-ray as described above. There is no evidence of pneumonia. I did order a urine analysis. No infection is noted. Rapid flu test was negative. I did order and review the patient's blood work as noted in the electronic medical record. Her white blood cell count is significantly elevated. Electrolytes are unremarkable. She denies having any fever but she has had a slightly productive cough. She denies any recent steroid use other than 2 weeks ago. I did reassess the patient after and during her nebulizer. She did have steady improvement but still has significant wheezing. She is now able to speak in full sentences and does not have any retractions. She remains tachycardic likely from the nebulizer. I did recommend hospitalization for further care and evaluation. I did discuss the case with the hospitalist and outpatient case manager. Impression & Plan Status asthmaticus, Tachycardia, Leukocytosis Critical Care Time Critical Care Time: Yes Total Critical Care Time: 35 I have personally spent approximately 35 minutes of critical care time in the direct management of this patient. This includes bedside care, interpretation of diagnostic studies, and testing, discussion with consultants, patient, and family members, and other required patient management activities. This 35 minutes is in excess of all separately billable procedures. : Status asthmaticus Qualifiers: Asthma severity: severe Asthma persistence: persistent Qualified Code(s): J45.52 - Severe persistent asthma with status asthmaticus Leukocytosis Qualifiers: Leukocytosis type: unspecified Qualified Code(s): D72.829 - Elevated white blood cell count, unspecified The scribe's documentation has been prepared under my direction and personally reviewed by me in its entirety. I confirm that the note above accurately reflects all work, treatment, procedures, and medical decision making performed by me.
--- NOTE | 2019-04-02 19:38 | History & Physical Report ---
Date of Service April 02, 2019 Assessment & Plan (1) Asthma exacerbation: -Admit to [facility] with telemetry -Patient presenting from home with reports of increasing shortness of breath began yesterday -History of severe persistent asthma with frequent exacerbations in the past -Upon arrival to the ER, patient was saturating 90% on room air and unable to speak in full sentences with diffuse wheezing -Received hour-long nebulizer treatment, IV Solu-Medrol, IV magnesium with improvement in symptoms however continues to have persistent wheezing on exam -Currently maintaining saturations >94% on room air -Exacerbation likely due to seasonal weather changes, allergies -Continue IV steroids, [id number] nebulizers -Continue home inhaled corticosteroid and allergy medications -WBC 19 K however no obvious signs of infection at this time, no infiltrate seen on CXR; will hold antibiotics at this time -If patient's condition does not improve, consider pulmonary consult (2) Hypothyroidism: -Continue levothyroxine (3) Anxiety: (4) Depression: -Continue sertraline (5) DVT prophylaxis: -SQ heparin History of Present Illness Chief Complaint: Shortness of breath Primary Care Provider: Valentin Thompson MD 33-year-old female who presents to the ED for evaluation of shortness of breath. Patient has history of severe persistent asthma with history of frequent exacerbations. Patient reports over the past 2 weeks, she has had rhinorrhea and a hoarse voice. Last evening, she developed shortness of breath. She used her nebulizer with improvement in symptoms. This morning, shortness of breath was persisting and she again used her nebulizer however did not have any improvement. Shortness of breath progressively got worse and she was having shortness of breath with minimal exertion. She reports a nonproductive cough. She reports chest tightness and burning. She felt lightheaded and dizzy however no syncopal event. No other recent illnesses, fevers, chills. She has 3 school aged children at home. No abdominal pain, nausea, vomiting, diarrhea. She denies any urinary symptoms. In the ED, patient was initially unable to speak in full sentences. She was saturating 90% on room air. She was given an hour- long nebulizer treatment, IV Solu-Medrol, IV magnesium with improvement in symptoms. CXR is negative for acute cardiopulmonary findings. WBC 19 K, other labs unremarkable. Allergies Allergy/AdvReac Type Severity Reaction Status Date / Time pollen extracts Allergy Mild allergy sx Verified 04/02/19 18:39 Home Medications Home Medications Medication Instructions Recorded Confirmed Type albuterol sulfate [Ventolin HFA] 2 - 4 puff INHALATION QID PRN 05/30/18 04/02/19 History fluticasone propionate [Flovent 2 puff INHALATION BID 05/30/18 04/02/19 History HFA] ipratropium-albuterol 1 neb INHALATION Q6 PRN 05/30/18 04/02/19 History montelukast [Singulair] 10 mg PO QAM 05/30/18 04/02/19 History sertraline [Zoloft] 150 mg PO QAM 05/30/18 04/02/19 History levothyroxine [Synthroid] 100 mcg PO QAM 12/13/18 04/02/19 History mometasone-formoterol HFA 200 2 puffs INH BID #13 gm 03/23/19 04/02/19 Rx mcg-5 mcg/actuation aerosol inhaler albuterol sulfate 2.5 mg/3 mL 2.5 mg CONTINUOUS NEBULIZATION BID 03/29/19 04/02/19 History (0.083 %) solution for nebulization PRN #375 ml cetirizine 10 mg PO DAILY 04/02/19 04/02/19 History ipratropium bromide 1 ml INHALATION BID 04/02/19 04/02/19 History ipratropium-albuterol [Combivent 1 puff INHALATION QID 04/02/19 04/02/19 History Respimat] norethindrone-e.estradiol-iron 1 tab PO DAILY 04/02/19 04/02/19 History [June07/11 (30)] omeprazole 40 mg PO DAILY 04/02/19 04/02/19 History Past Med/Surg History Medical History Hypothyroidism (Chronic) Asthma, severe persistent (Chronic) Allergic rhinitis (Chronic) Bipolar disorder (Chronic) Depression (Chronic) Anxiety (Chronic) Surgical History History of cholecystectomy (Resolved) Family History Mother Diabetes Social History Preferred Language: Guatemalan Communication Ability: Effective Air Tester Required: No Beliefs That Will Affect Care: None marital status: Current Living Situation: Spouse and Family current occupational status: employed Feels Safe at Home: Yes Smoking Status: Former smoker Tobacco Type: cigarettes ; Second Hand Exposure: Yes ; Hx Alcohol Use: No Hx Substance Use: No Review of Systems Review of Systems: ROS per HPI, all other systems reviewed and negative Physical Exam Constitutional: WD/WN, vitals as above + obese Eyes: PERRL, conjunctivae normal, anicteric sclerae ENMT: external ear and nose normal, oropharynx normal Respiratory: normal respiratory effort and able to speak in complete sentences; no respiratory distress Auscultation: + wheezes (Diffuse, expiratory) Shortness of breath with minimal exertion Cardiovascular: Rate/Rhythm: regular rhythm and + tachycardic Vessels: normal peripheral pulses Extremities: no edema Gastrointestinal (Abdomen): normal bowel sounds, soft, nontender, no hepatosplenomegaly Musculoskeletal: no cyanosis or clubbing, extremities motor strength 5/5 Skin: no rashes, warm and dry Neurologic: PERRL, EOMI, accommodation nl, no face palsy, no dysarthria Psychiatric: A+Ox3, euthymic affect Results & Data Vital Signs (Past 12 Hours) Vital Signs Temp Pulse Pulse Resp BP BP Pulse Ox 04/02/19 19:00 124 H 32 H 118/90 94 04/02/19 18:02 143 H 20 141/85 H 97 04/02/19 17:04 134 H 24 154/95 H 97 04/02/19 16:53 138 H 24 92 04/02/19 16:39 91 04/02/19 16:28 36.8 C 147 H 30 H 121/85 90 Laboratory Results Short CBC 04/02/19 Range/Units 16:49 WBC 19.02 H (4.8-10.8) K/uL Hgb 12.8 (12.0-16.0) g/dL Hct 38.3 (37-47) % Plt Count 228 (130-400) K/uL BMP 04/02/19 16:49 Sodium 141 Potassium 4.1 Chloride 111 H Carbon Dioxide 23 BUN 18 Creatinine 0.90 Glucose 94 Calcium 9.1 Liver Function 04/02/19 Range/Units 16:49 Total Bilirubin 0.3 (0.2-1) mg/dl AST 15 (15-37) U/L ALT 28 (12-78) U/L Alkaline Phosphatase 42 L (45-117) U/L Albumin 3.7 (3.4-5.0) gm/dl Urine 04/02/19 Range/Units 18:30 Urine Color Yellow Urine Appearance Clear (Clear) Urine pH 5.0 (4.5-7.5) Ur Specific [place] 1.027 (1.000-1.030) Urine Protein Negative (Negative) Urine Glucose (UA) Negative (Negative) Diagnostic Findings CXR IMPRESSION: No acute process. Code Status & VTE Plan VTE Prophylaxis Plan VTE Prophylaxis will be ordered: Yes Supervising Physician Co-Signing Physician Notes Attending addendum The patient was seen and examined in the emergency room He has been complaining of more shortness of breath since last night She tried to use nebulized bronchodilators at home without much improvement Noted to have hypoxic tachycardia around 94% on room on admission with difficulty to finish a sentence Is feeling a bit better during examination On examination She is obese Minimal distress at rest Hemodynamically stable Chest-decreased breath sounds on movement with wheezing. No crackles Heart-S1, S2-regular Abdomen-distended, soft, nontender Extremities-trace edema bilateral RADIOGRAPHER TECHNOLOGIST-alert and awake and oriented x3, Admission labs and imaging studies reviewed Has leukocytosis likely secondary to stress doubt any infection Has been getting nebulized bronchodilator and intravenous telemetry for asthma exacerbation Agree with assessment and plan as outlined above by Aleksandra Carrion
[2019-04-02] MEDS ORDERED: IPRATROPIUM BROMIDE/ALBUTEROL respimat INH INH PRN (21:02)
[2019-04-02] MEDS ORDERED: NON-FORMULARY MEDICATION (Mometasone-Formoterol [Dulera] 2 PUFFS) INH SCH (21:02)
[2019-04-02] MEDS: FLUTICASONE HFA 110MCG INHALER INH SCH (22:14)
[2019-04-02] MEDS: HEPARIN SOD 5,000 UNIT/0.5 ML VIAL SQ SCH (22:15)
[2019-04-02] MEDS ORDERED: XOPENEX/ATROVENT 1.25mg/0.5MG NEB COMBO NEB SCH (22:30)
[2019-04-02] MEDS ORDERED: LACTATED RINGER'S 1,000 ML IV ONE ×2 (22:31→22:34)
[2019-04-02 22:42] LABS: Magnesium 1.9 mg/dl (1.8-2.4)
[2019-04-02] MEDS ORDERED: SODIUM CHLORIDE 0.9% 1000ML 1,000 ML IV ONE (22:50)
[2019-04-03] MEDS ORDERED: OPTIRAY 320 125ml IV PRN (00:16)
[2019-04-03] MEDS ORDERED: XOPENEX/ATROVENT 1.25mg/0.5MG NEB COMBO NEB SCH (00:30)
[2019-04-03] MEDS ORDERED: methylPREDNISolone 40 MG in SYRINGE 0 ML IV STA (00:32)
[2019-04-03] MEDS: LEVALBUTEROL 1.25MG/0.5ML NEB INH SCH ×7 (00:37→23:53)
[2019-04-03] MEDS: IPRATROPIUM BROMIDE NEB SOLN 0.02% 2.5 ML VIAL INH SCH ×6 (00:37→23:53)
[2019-04-03] MEDS ORDERED: DOXYCYCLINE HYCLATE 100 MG in DEXTROSE 5% 100 ML IV STA (00:37)
[2019-04-03] MEDS: guaiFENesin 600 MG TABCR PO SCH ×3 (00:42→21:23)
--- NOTE | 2019-04-03 00:44 | Hospitalist Progress Note ---
Date of Service April 03, 2019 Subjective Made aware by RN of persistent tachycardia. Dry cough symptoms, no history of aspiration as per RN CT chest initial read: Poor opacification of the pulmonary arteries. No large filling defects in the main branches. Mild patchy groundglass densities in the right middle lobe and right lower lobe could represent mild pneumonia. AP Asthma exacerbation secondary to CAP Possible sepsis Cultures, check lactic acid IV fluid Ceftriaxone, Doxycycline for now. We relay to AM provider. Results & Data Vital Signs (Past 12 Hours) Vital Signs Temp Pulse Pulse Resp BP BP Pulse Ox 04/03/19 00:39 114 H 24 94 04/02/19 23:00 37 C 123 H 24 115/70 95 04/02/19 22:53 120 H 04/02/19 20:40 36.5 C 120 H 22 140/84 92 04/02/19 19:30 125 H 24 117/92 93 04/02/19 19:00 124 H 32 H 118/90 94 04/02/19 18:02 143 H 20 141/85 H 97 04/02/19 17:04 134 H 24 154/95 H 97 04/02/19 16:53 138 H 24 92 04/02/19 16:39 91 04/02/19 16:28 36.8 C 147 H 30 H 121/85 90
[2019-04-03] MEDS ORDERED: ALBUT/IPRATROP 3MG/0.5MG NEB 3 ML VIAL INH SCH (01:00)
[2019-04-03] MEDS ORDERED: methylPREDNISolone 60 MG in SYRINGE 0 ML IV SCH ×2 (01:00)
[2019-04-03 01:16] LABS: Basophils # (auto) 0.01 K/uL (0-0.2); Basophils % (auto) 0.1 %; Eosinophils # (auto) 0.02 K/uL (0-0.5); Eosinophils % (auto) 0.1 %; Hematocrit (blood only) 34.7 % (37-47); Hemoglobin 11.6 g/dL (12.0-16.0); Immature Granulocytes % (auto) 1.4 %; Lymphocytes # (auto) 1.52 K/uL (1.2-3.4); Lymphocytes % (auto) 10.4 %; Mean Corpuscular Hemoglobin 28.1 pg (25-34); Mean Corpuscular Hgb Conc 33.4 g/dL (32-36); Mean Platelet Volume 11.6 fL (7.4-10.4); Monocytes % (auto) 0.7 %; Neutrophils # (auto) 12.83 K/uL (1.4-6.5); Neutrophils % (auto) 87.3 %; Platelet Count 207 K/uL (130-400); RDW Coefficient of Variation 14.1 % (11.5-14.5); RDW Standard Deviation 43.6 fL (36.4-46.3); Red Blood Count 4.13 M/uL (4.2-5.4); White Blood Count 14.68 K/uL (4.8-10.8)
[2019-04-03 01:31] LABS: Est GFR (African American) 77.5; Est GFR (Non-African American) 66.8; Potassium 4.1 mmol/L (3.5-5.1)
[2019-04-03 01:32] LABS: BUN Creatinine Ratio 15.1 (10-20); Calcium 8.5 mg/dl (8.5-10.1); Creatinine Clr Calc Pharmacy 112.4 ml/min; Magnesium 1.8 mg/dl (1.8-2.4)
[2019-04-03] MEDS ORDERED: INSULIN GLARGINE SOLOSTAR 100 UNITS/ML 3 ML PEN SC STA (01:39)
[2019-04-03 01:48] LABS: Phosphorus 1.4 mg/dl (2.5-4.9)
[2019-04-03] MEDS ORDERED: DEXTROSE 50% 50 ML SYRINGE IV PRN ×2 (01:51→02:00)
[2019-04-03] MEDS ORDERED: GLUCOSE 10 TABS/TUBE PO PRN ×2 (01:51→02:00)
[2019-04-03] MEDS ORDERED: GLUCOSE 40% GEL 15 GM TUBE PO PRN ×2 (01:51→02:00)
[2019-04-03] MEDS ORDERED: GLUCAGON FOR INJ 1 MG VIAL SQ PRN (01:51)
[2019-04-03] MEDS ORDERED: CARBOHYDRATES FOR HYPOGLYCEMIA PO PRN ×2 (01:51→02:00)
[2019-04-03] MEDS ORDERED: SODIUM CHLORIDE 0.9% 1000ML 1,000 ML IV ONE ×3 (01:54→19:56)
[2019-04-03] MEDS ORDERED: POTASSIUM PHOS 3 MMOL/1 ML INFUSION IV STA (01:58)
[2019-04-03] MEDS ORDERED: GLUCAGON FOR INJ 1 MG VIAL IM PRN (02:00)
[2019-04-03] MEDS: MAGNESIUM SULFATE / D5W 1 GM/100 ML BAG IV SCH ×2 (02:10→03:15)
[2019-04-03] MEDS ORDERED: POTASSIUM PHOSPHATE 40 MMOL in SODIUM CHLORIDE 0.9% 1000ML 1,000 ML IV ONE (02:30)
[2019-04-03] MEDS: cefTRIAXone SODIUM 2,000 MG in DEXTROSE 5% 50 ML IV SCH (02:54)
[2019-04-03] MEDS ORDERED: LEVALBUTEROL 1.25MG/0.5ML NEB INH SCH (03:00)
[2019-04-03] MEDS ORDERED: LACTATED RINGER'S 1,000 ML IV SCH ×3 (03:00→21:00)
[2019-04-03] MEDS ORDERED: IPRATROPIUM BROMIDE NEB SOLN 0.02% 2.5 ML VIAL INH SCH (03:00)
[2019-04-03] MEDS: INSULIN ASPART 100 UNITS/ML 3 ML PEN SC SCH ×5 (03:17→21:34)
[2019-04-03] MEDS ORDERED: LACTATED RINGER'S 1,000 ML IV ONE ×4 (04:50→21:49)
[2019-04-03] MEDS: LEVOTHYROXINE SODIUM 100 MCG TABLET PO SCH (06:28)
--- NOTE | 2019-04-03 06:51 | CT Scan Report ---
CT ANGIOGRAM OF THE CHEST CLINICAL HISTORY: Atypical chest pain. Possible acute pulmonary embolism. COMPARISON STUDY: November 2017 TECHNIQUE: Following the IV administration of 170 mL of Optiray-320, CT angiogram of the thorax was p erformed from the thoracic inlet to the lung bases utilizing the pulmonary embolus protocol. Images a re reviewed in the axial, sagittal, and coronal planes. There is a problem with the intravenous line of the first injection, and there was an injection failure with the second injection. MIP imaging was performed. A dose lowering technique was utilized adhering to the principles of ALARA. CT DOSE: 1816.63 mGy.cm FINDINGS: No pathologically enlarged axillary mediastinal or hilar lymph nodes were visualized. There was no evidence of thoracic aortic dilatation. There is suboptimal pulmonary arterial opacification. No central emboli are visualized. Correlation w ith serial leg ultrasonography should be considered given the clinical concern over pulmonary embolis m. No pleural effusions are visualized. There are improving right middle lobe airspace opacities.. There is respiratory motion artifact. Ther e is a 2.5 mm right apical pulmonary nodule. There is a 3 mm left apical pulmonary nodule. There is a 7 mm right lower lobe pulmonary nodule. There is a 5 mm left lower lobe pulmonary nodule. These pulm onary nodules appear stable IMPRESSION: 1. Suboptimal pulmonary to opacification 2. No central emboli identified. Correlation with serial leg ultrasonography should be considered giv en the clinical suspicion of acute pulmonary embolism 3. Stable bilateral pulmonary nodules 4. Improving right middle lobe airspace opacities Electronically signed by: Guille Mejía M.D. 04/03/2019 6:49 AM
[2019-04-03] MEDS ORDERED: SODIUM PHOSPHATE 3 MMOL/1 ML INFUSION IV STA ×2 (07:58→15:24)
[2019-04-03] MEDS: HEPARIN SOD 5,000 UNIT/0.5 ML VIAL SQ SCH ×2 (08:02→21:20)
[2019-04-03] MEDS: SERTRALINE HCL 50 MG TABLET PO SCH (08:03)
[2019-04-03] MEDS: MONTELUKAST SODIUM 10 MG TABLET PO SCH (08:03)
[2019-04-03] MEDS: PANTOprazole 40 MG TAB PO SCH (08:03)
[2019-04-03] MEDS: methylPREDNISolone 40 MG in SYRINGE 0 ML IV SCH ×2 (08:03→21:50)
[2019-04-03] MEDS: FLUTICASONE HFA 110MCG INHALER INH SCH ×2 (08:04→21:19)
[2019-04-03] MEDS ORDERED: SODIUM PHOSPHATE 21 MMOL in SODIUM CHLORIDE 0.9% 500 ML IV ONE (08:15)
[2019-04-03] MEDS: DOXYCYCLINE HYCLATE 100 MG CAP PO SCH ×2 (09:34→21:50)
[2019-04-03] MEDS: LACTATED RINGER'S 1,000 ML IV SCH ×2 (09:35→15:15)
--- NOTE | 2019-04-03 11:56 | Hospitalist Progress Note ---
Date of Service April 03, 2019 Assessment & Plan (1) Asthma exacerbation: Acute Asthma Exacerbation Sepsis Community Acquired Pneumonia --CTA:Suboptimal pulmonary to opacification. No central emboli identified. Correlation with serial leg ultrasonography should be considered given the clinical suspicion of acute pulmonary embolism. Stable bilateral pulmonary nodules. Improving right middle lobe airspace opacities --Elevated lactate levels --Venous doppler pending --Continue IV fluids --Continue antibiotics, Solu-medrol, Nebs --Saturating well on room air --Blood Cx:pending Hypophosphatemia Replace electrolytes as needed Monitor (2) Hypothyroidism: Check TSH Continue levothyroxine (3) Anxiety: (4) Depression: Continue sertraline DM II: Continue Insulin Monitor BGs Hb A1C:pending (5) DVT prophylaxis: SQ heparin Code Status Full Code Disposition: Expect to discharge home when stable Subjective Patient is seen and examined at bedside Complains of intermittent chest tightness, dizziness Shortness of breath improved today Also reports dry cough Denies any nausea, abdominal pain, diarrhea Offers no other complaints Review of Systems Review of Systems: All systems reviewed & are unremarkable except as noted in HPI & below Physical Exam Physical Exam: Physical Exam: Vitals signs as noted above General Appearance:Morbidly Obese, no apparent distress Head: normocephalic, Atraumatic Eyes: normal inspection, EOMI Neck: supple, Trachea midline Respiratory/Chest: Decreased breath sounds, CTA, No accessory muscle use Cardiovascular: S1, S2, No murmur, +Tachycardia Abdomen/GI:Soft, Non tender, Bowel sounds present Extremities/Musculoskelatal:normal inspection, no edema Neurologic/Psych:AAOX3, grossly no focal neurological deficits Skin: normal color, warm Results & Data Vital Signs (Past 12 Hours) Vital Signs Temp Pulse Pulse Resp BP Pulse Ox 04/03/19 11:10 78 18 95 04/03/19 07:19 100 H 04/03/19 07:18 66 20 97 04/03/19 07:00 36.4 C L 104 H 20 119/78 93 04/03/19 05:18 109 H 04/03/19 04:00 36.6 C 113 H 20 114/64 94 04/03/19 02:57 118 H 16 97 04/03/19 00:39 114 H 24 94 Laboratory Results Short CBC 04/02/19 04/03/19 Range/Units 16:49 01:05 WBC 19.02 H 14.68 H (4.8-10.8) K/uL Hgb 12.8 11.6 L (12.0-16.0) g/dL Hct 38.3 34.7 L (37-47) % Plt Count 228 207 (130-400) K/uL BMP 04/02/19 04/03/19 16:49 01:05 Sodium 141 140 Potassium 4.1 4.1 Chloride 111 H 111 H Carbon Dioxide 23 19 L BUN 18 17 Creatinine 0.90 1.10 Glucose 94 200 H Calcium 9.1 8.5 Liver Function 04/02/19 Range/Units 16:49 Total Bilirubin 0.3 (0.2-1) mg/dl AST 15 (15-37) U/L ALT 28 (12-78) U/L Alkaline Phosphatase 42 L (45-117) U/L Albumin 3.7 (3.4-5.0) gm/dl Urine 04/02/19 Range/Units 18:30 Urine Color Yellow Urine Appearance Clear (Clear) Urine pH 5.0 (4.5-7.5) Ur Specific [place] 1.027 (1.000-1.030) Urine Protein Negative (Negative) Urine Glucose (UA) Negative (Negative)
--- NOTE | 2019-04-03 12:48 | Ultrasound Report ---
US venous doppler LE BI CLINICAL HISTORY: Shortness of breath. Possible pulmonary embolism. Suboptimal CT angiography with le g ultrasonography recommended in follow-up. COMPARISON STUDY: November 22, 2007 FINDINGS: Real-time and color flow Doppler imaging were performed. Flow was seen within the femoral, popliteal and calf veins with no intraluminal thrombus demonstrated. The saphenous vein is patent. IMPRESSION: No evidence of lower extremity DVT Electronically signed by: Guille Mejía M.D. 04/03/2019 12:45 PM
[2019-04-03] MEDS ORDERED: SODIUM PHOSPHATE 6 MMOL in SODIUM CHLORIDE 0.9% 250 ML IV ONE (15:45)
[2019-04-04] MEDS ORDERED: LACTATED RINGER'S 1,000 ML IV SCH
[2019-04-04] MEDS: LEVALBUTEROL 1.25MG/0.5ML NEB INH SCH ×6 (03:15→23:20)
[2019-04-04] MEDS: IPRATROPIUM BROMIDE NEB SOLN 0.02% 2.5 ML VIAL INH SCH ×8 (03:15→23:20)
[2019-04-04] MEDS: cefTRIAXone SODIUM 2,000 MG in DEXTROSE 5% 50 ML IV SCH (03:41)
[2019-04-04 04:31] LABS: Hematocrit (blood only) 31.1 % (37-47); Hemoglobin 10.3 g/dL (12.0-16.0); Mean Corpuscular Hgb Conc 33.1 g/dL (32-36); Mean Corpuscular Volume 84.5 fL (80-100); Platelet Count 201 K/uL (130-400); RDW Coefficient of Variation 14.4 % (11.5-14.5); RDW Standard Deviation 44.3 fL (36.4-46.3); Red Blood Count 3.68 M/uL (4.2-5.4); White Blood Count 23.58 K/uL (4.8-10.8)
[2019-04-04 04:34] LABS: Basophils # (auto) 0.03 K/uL (0-0.2); Basophils % (auto) 0.1 %; Eosinophils # (auto) 0.04 K/uL (0-0.5); Eosinophils % (auto) 0.2 %; Immature Granulocytes # (auto) 0.35 K/uL (0.00-0.02); Immature Granulocytes % (auto) 1.5 %; Lymphocytes # (auto) 1.55 K/uL (1.2-3.4); Lymphocytes % (auto) 6.6 %; Monocytes # (auto) 0.74 K/uL (0.11-0.59); Monocytes % (auto) 3.1 %; Neutrophils # (auto) 20.87 K/uL (1.4-6.5); Neutrophils % (auto) 88.5 %; RBC Morphology Unremarkable
[2019-04-04 04:35] LABS: Magnesium 1.8 mg/dl (1.8-2.4); Phosphorus 2.5 mg/dl (2.5-4.9)
[2019-04-04 04:42] LABS: BUN Creatinine Ratio 15.4 (10-20); Calcium 8.4 mg/dl (8.5-10.1); Creatinine Clr Calc Pharmacy 151.5 ml/min; Est GFR (African American) 108.9; Potassium 4.1 mmol/L (3.5-5.1); Thyroid Stimulating Hormone 1.23 uIu/ml (0.300-4.500)
[2019-04-04] MEDS ORDERED: LACTATED RINGER'S 1,000 ML IV ONE (04:54)
[2019-04-04] MEDS ORDERED: MAGNESIUM SULFATE / D5W 1 GM/100 ML BAG IV ONE (05:30)
[2019-04-04] MEDS: LEVOTHYROXINE SODIUM 100 MCG TABLET PO SCH (06:03)
[2019-04-04 07:09] LABS: Estimated Average Glucose 114 mg/dl; Hemoglobin A1C 5.6 % (4.5-5.6)
[2019-04-04] MEDS: LACTATED RINGER'S 1,000 ML IV SCH ×4 (07:35→23:09)
[2019-04-04] MEDS: DOXYCYCLINE HYCLATE 100 MG CAP PO SCH ×2 (08:21→21:34)
[2019-04-04] MEDS: SERTRALINE HCL 50 MG TABLET PO SCH (08:21)
[2019-04-04] MEDS: MONTELUKAST SODIUM 10 MG TABLET PO SCH (08:21)
[2019-04-04] MEDS: PANTOprazole 40 MG TAB PO SCH (08:22)
[2019-04-04] MEDS: FLUTICASONE HFA 110MCG INHALER INH SCH (08:22)
[2019-04-04] MEDS: HEPARIN SOD 5,000 UNIT/0.5 ML VIAL SQ SCH ×2 (08:22→21:34)
[2019-04-04] MEDS: methylPREDNISolone 40 MG in SYRINGE 0 ML IV SCH (08:22)
[2019-04-04] MEDS: guaiFENesin 600 MG TABCR PO SCH ×2 (08:22→21:34)
[2019-04-04] MEDS: INSULIN ASPART 100 UNITS/ML 3 ML PEN SC SCH ×4 (08:23→22:07)
[2019-04-04] MEDS: INSULIN GLARGINE SOLOSTAR 100 UNITS/ML 3 ML PEN SQ SCH (08:24)
--- NOTE | 2019-04-04 19:53 | Hospitalist Progress Note ---
Date of Service April 04, 2019 Assessment & Plan (1) Asthma exacerbation: Acute Asthma Exacerbation Sepsis Community Acquired Pneumonia --CTA:Suboptimal pulmonary to opacification. No central emboli identified. Correlation with serial leg ultrasonography should be considered given the clinical suspicion of acute pulmonary embolism. Stable bilateral pulmonary nodules. Improving right middle lobe airspace opacities --Chronic elevated lactate levels--also noted on prior admission --Venous doppler: No evidence of lower extremity DVT --Continue IV fluids --Continue antibiotics, Solu-medrol, Nebs --Taper down steroids as able --Saturating well on room air --Blood Cx: No growth to date Hypophosphatemia Resolved Monitor (2) Hypothyroidism: TSH: normal Continue levothyroxine (3) Anxiety: (4) Depression: Continue sertraline DM II: Continue Insulin Monitor BGs Hb A1C: 5.6 (5) DVT prophylaxis: SQ heparin Code Status Full Code Disposition: Expect to discharge home when stable Subjective Patient is seen and examined at bedside Less cough today Reports dyspnea on exertion Chest tightness, dizziness improved Offers no other complaints Review of Systems Review of Systems: All systems reviewed & are unremarkable except as noted in HPI & below Physical Exam Physical Exam: Physical Exam: Vitals signs as noted above General Appearance:Morbidly Obese, no apparent distress Head: normocephalic, Atraumatic Eyes: normal inspection, EOMI Neck: supple, Trachea midline Respiratory/Chest: Decreased breath sounds, CTA, No accessory muscle use Cardiovascular: S1, S2, No murmur, +Tachycardia Abdomen/GI:Soft, Non tender, Bowel sounds present Extremities/Musculoskelatal:normal inspection, no edema Neurologic/Psych:AAOX3, grossly no focal neurological deficits Skin: normal color, warm Results & Data Vital Signs (Past 12 Hours) Vital Signs Temp Pulse Pulse Resp BP Pulse Ox 04/04/19 19:25 36.6 C 103 H 20 147/87 H 96 04/04/19 19:06 104 H 16 96 04/04/19 15:29 36.8 C 96 H 18 145/96 H 93 04/04/19 15:28 106 H 04/04/19 15:17 96 H 16 96 04/04/19 11:09 100 H 16 152/94 H 93 04/04/19 11:02 104 H 16 96 04/04/19 08:10 81 Laboratory Results Short CBC 04/04/19 Range/Units 03:55 WBC 23.58 H (4.8-10.8) K/uL Hgb 10.3 L (12.0-16.0) g/dL Hct 31.1 L (37-47) % Plt Count 201 (130-400) K/uL BMP 04/04/19 03:55 Sodium 140 Potassium 4.1 Chloride 111 H Carbon Dioxide 20 L BUN 13 Creatinine 0.83 Glucose 140 H Calcium 8.4 L
[2019-04-04] MEDS: FLUTICASONE/SALMETEROL (ADVAIR) 500/50 INH 14 PUFF INH SCH (21:33)
[2019-04-05] MEDS: IPRATROPIUM BROMIDE NEB SOLN 0.02% 2.5 ML VIAL INH SCH ×3 (02:58→10:52)
[2019-04-05] MEDS: LEVALBUTEROL 1.25MG/0.5ML NEB INH SCH ×3 (02:58→10:52)
[2019-04-05] MEDS: cefTRIAXone SODIUM 2,000 MG in DEXTROSE 5% 50 ML IV SCH (04:09)
[2019-04-05] MEDS: LEVOTHYROXINE SODIUM 100 MCG TABLET PO SCH (06:11)
[2019-04-05 07:12] LABS: Hematocrit (blood only) 30.4 % (37-47); Mean Corpuscular Hemoglobin 28.2 pg (25-34); Mean Corpuscular Hgb Conc 32.9 g/dL (32-36); Mean Corpuscular Volume 85.9 fL (80-100); Mean Platelet Volume 10.9 fL (7.4-10.4); Platelet Count 164 K/uL (130-400); RDW Coefficient of Variation 14.6 % (11.5-14.5); RDW Standard Deviation 45.6 fL (36.4-46.3); Red Blood Count 3.54 M/uL (4.2-5.4); White Blood Count 15.85 K/uL (4.8-10.8)
[2019-04-05 07:29] LABS: BUN Creatinine Ratio 18.5 (10-20); Calcium 8.6 mg/dl (8.5-10.1); Creatinine Clr Calc Pharmacy 149.1 ml/min; Est GFR (African American) 104.3; Potassium 3.6 mmol/L (3.5-5.1)
[2019-04-05] MEDS: DOXYCYCLINE HYCLATE 100 MG CAP PO SCH (08:36)
[2019-04-05] MEDS: FLUTICASONE/SALMETEROL (ADVAIR) 500/50 INH 14 PUFF INH SCH (08:36)
[2019-04-05] MEDS: SERTRALINE HCL 50 MG TABLET PO SCH (08:36)
[2019-04-05] MEDS: PANTOprazole 40 MG TAB PO SCH (08:36)
[2019-04-05] MEDS: guaiFENesin 600 MG TABCR PO SCH (08:36)
[2019-04-05] MEDS: INSULIN GLARGINE SOLOSTAR 100 UNITS/ML 3 ML PEN SQ SCH (08:37)
[2019-04-05] MEDS: INSULIN ASPART 100 UNITS/ML 3 ML PEN SC SCH ×2 (08:39→12:37)
[2019-04-05] MEDS: HEPARIN SOD 5,000 UNIT/0.5 ML VIAL SQ SCH (08:40)
[2019-04-05] MEDS ORDERED: methylPREDNISolone 40 MG in SYRINGE 0 ML IV SCH (09:00)
[2019-04-05] MEDS: MONTELUKAST SODIUM 10 MG TABLET PO SCH (10:31)
[2019-04-05] MEDS: LACTATED RINGER'S 1,000 ML IV SCH (10:50)
--- NOTE | 2019-04-05 11:44 | Hospitalist Progress Note ---
Date of Service April 05, 2019 Assessment & Plan (1) Asthma exacerbation: Acute Asthma Exacerbation Sepsis Community Acquired Pneumonia --CTA:Suboptimal pulmonary to opacification. No central emboli identified. Correlation with serial leg ultrasonography should be considered given the clinical suspicion of acute pulmonary embolism. Stable bilateral pulmonary nodules. Improving right middle lobe airspace opacities --Chronic elevated lactate levels--also noted on prior admission --Venous doppler: No evidence of lower extremity DVT --Discontinue IV fluids --Continue antibiotics, Solu-medrol, Nebs>>> Plan to transition to PO ABx and prednisone taper to complete the course --Saturating well on room air --Blood Cx: No growth to date --Advised to follow-up with her western felt hat blocker as outpatient Hypophosphatemia Resolved Monitor (2) Hypothyroidism: TSH: normal Continue levothyroxine (3) Anxiety: (4) Depression: Continue sertraline DM II: Continue Insulin Monitor BGs Hb A1C: 5.6 (5) DVT prophylaxis: SQ heparin Code Status Full Code Disposition: Expect to discharge home when stable Subjective Patient is seen and examined at bedside States feeling much better today Minimal cough SOB much improved Offers no other complaints Family at bedside Review of Systems Review of Systems: All systems reviewed & are unremarkable except as noted in HPI & below Physical Exam Physical Exam: Physical Exam: Vitals signs as noted above General Appearance:Morbidly Obese, no apparent distress Head: normocephalic, Atraumatic Eyes: normal inspection, EOMI Neck: supple, Trachea midline Respiratory/Chest: Decreased breath sounds, CTA, No accessory muscle use Cardiovascular: S1, S2, No murmur, +Tachycardia Abdomen/GI:Soft, Non tender, Bowel sounds present Extremities/Musculoskelatal:normal inspection, no edema Neurologic/Psych:AAOX3, grossly no focal neurological deficits Skin: normal color, warm Results & Data Vital Signs (Past 12 Hours) Vital Signs Temp Pulse Pulse Resp BP Pulse Ox 04/05/19 10:53 93 H 20 95 04/05/19 07:42 88 04/05/19 07:10 98 H 20 93 04/05/19 02:59 93 H 16 96 04/05/19 00:00 36.6 C 93 H 20 127/80 96 Laboratory Results Short CBC 04/05/19 Range/Units 06:57 WBC 15.85 H (4.8-10.8) K/uL Hgb 10.0 L (12.0-16.0) g/dL Hct 30.4 L (37-47) % Plt Count 164 (130-400) K/uL [facility] 04/05/19 06:57 Sodium 140 Potassium 3.6 Chloride 107 Carbon Dioxide 26 BUN 16 Creatinine 0.86 Glucose 85 Calcium 8.6
--- NOTE | 2019-04-05 11:56 | Discharge Summary ---
Date of Service April 05, 2019 Admission HPI Per Admitting Provider 33-year-old female who presents to the ED for evaluation of shortness of breath. Patient has history of severe persistent asthma with history of frequent exacerbations. Patient reports over the past 2 weeks, she has had rhinorrhea and a hoarse voice. Last evening, she developed shortness of breath. She used her nebulizer with improvement in symptoms. This morning, shortness of breath was persisting and she again used her nebulizer however did not have any improvement. Shortness of breath progressively got worse and she was having shortness of breath with minimal exertion. She reports a nonproductive cough. She reports chest tightness and burning. She felt lightheaded and dizzy however no syncopal event. No other recent illnesses, fevers, chills. She has 3 school aged children at home. No abdominal pain, nausea, vomiting, diarrhea. She denies any urinary symptoms. In the ED, patient was initially unable to speak in full sentences. She was saturating 90% on room air. She was given an hour- long nebulizer treatment, IV Solu-Medrol, IV magnesium with improvement in symptoms. CXR is negative for acute cardiopulmonary findings. WBC 19 K, other labs unremarkable. Admission Exam Per Admitting Provider Constitutional: WD/WN, vitals as above + obese Eyes: PERRL, conjunctivae normal, anicteric sclerae ENMT: external ear and nose normal, oropharynx normal Respiratory: normal respiratory effort and able to speak in complete sentences; no respiratory distress Auscultation: + wheezes (Diffuse, expiratory) Shortness of breath with minimal exertion Cardiovascular: Rate/Rhythm: regular rhythm and + tachycardic Vessels: normal peripheral pulses Extremities: no edema Gastrointestinal (Abdomen): normal bowel sounds, soft, nontender, no hepatosplenomegaly Musculoskeletal: no cyanosis or clubbing, extremities motor strength 5/5 Skin: no rashes, warm and dry Neurologic: PERRL, EOMI, accommodation nl, no face palsy, no dysarthria Psychiatric: A+Ox3, euthymic affect Principal Diagnosis Acute asthma exacerbation Community-acquired pneumonia Hypophosphatemia Discharge Data Allergies Allergy/AdvReac Type Severity Reaction Status Date / Time pollen extracts Allergy Mild allergy sx Verified 04/02/19 18:39 Consultations 04/02/19 18:48 ED Decision to Admit Stat Procedures Performed CTA: 1. Suboptimal pulmonary to opacification 2. No central emboli identified. Correlation with serial leg ultrasonography should be considered given the clinical suspicion of acute pulmonary embolism 3. Stable bilateral pulmonary nodules 4. Improving right middle lobe airspace opacities Venous Doppler: No evidence of lower extremity DVT Ordered Studies 04/02/19 22:35 CT angio chest PE protocol Urgent 04/03/19 08:38 US venous doppler LE BI Routine Hospital Course (1) Asthma exacerbation: Acute Asthma Exacerbation Sepsis Community Acquired Pneumonia --CTA:Suboptimal pulmonary to opacification. No central emboli identified. Correlation with serial leg ultrasonography should be considered given the clinical suspicion of acute pulmonary embolism. Stable bilateral pulmonary nodules. Improving right middle lobe airspace opacities --Chronic elevated lactate levels--also noted on prior admission --Venous doppler: No evidence of lower extremity DVT --Discontinue IV fluids --Continue antibiotics, Solu-medrol, Nebs>>> Plan to transition to PO ABx and prednisone taper to complete the course --Saturating well on room air --Blood Cx: No growth to date --Advised to follow-up with her town manager as outpatient Hypophosphatemia Resolved Monitor (2) Hypothyroidism: TSH: normal Continue levothyroxine (3) Anxiety: (4) Depression: Continue sertraline DM II: Continue Insulin Monitor BGs Hb A1C: 5.6 (5) DVT prophylaxis: SQ heparin Code Status Full Code Disposition: Expect to discharge home when stable Total Time Total Time Spent Total Time Spent (In Minutes): 39 minutes Total Time Includes: Examination of the Patient, Discharge Planning, Medication Reconciliation, Communication With Other Providers and Other Discharge Plan Discharge Items Patient Disposition: Home - Self-Care Reason For Visit: ASTHMA EXACERBATION Discharge Diagnosis: Acute asthma exacerbation Community-acquired pneumonia Hypophosphatemia Activity: Resume your previous activity Exercise/Sports: Gradually increase as tolerated Non-emergency contact: Primary Care Provider and [facility] Technician Call non-emergency contact if: you have any medication questions, your symptoms worsen, your pain is not controlled, your pain is worsening, your pain is unusual for you, your pain is concerning for you and you have a fever Follow-up/Referrals: Valentin Thompson MD [Primary Care Provider] - Diet: Carb Consistent or DM2 Addtl Attending Provider Instructions: Follow-up with your primary care physician Dr. Thompson on April 15, 2019 at 2:45 PM Follow-up with your town manager in 1 to 2 weeks as advised You may need to repeat CT chest for evaluation of pulmonary nodules which were noted on the imaging studies. Further recommendations as per your town manager Complete the prednisone, antibiotic course as prescribed Prednisone taper course: Start taking prednisone 40 mg daily for 3 days then 30 mg for 3 days then 20 mg for 3 days then 10 mg for 3 days and stop Seek immediate medical attention if your symptoms reoccur or worsen Pending Studies at Discharge: Yes Studies:: Final blood cultures Stand-Alone Forms: My [facility], Work/School Release (Inpt) Medications and DC Order Prescriptions: New doxycycline hyclate 100 mg Capsule 100 mg PO BID 4 Days Qty: 8 RF: 0 cefuroxime axetil 500 mg tablet 500 mg PO BID Qty: 10 RF: 0 prednisone 10 mg tablet 10 mg PO UD Qty: 30 RF: 0 Continued Dulera 200-5 mcg/actuation HFA aerosol inhaler 2 puffs INH BID Qty: 13 RF: 5 albuterol sulfate 2.5 mg /3 mL (0.083 %) solution for nebulization 2.5 mg continuous nebulization BID PRN (Reason: Shortness Of Breath Or Wheezing) Qty: 375 RF: 0 ipratropium-albuterol 0.5 mg-3 mg(2.5 mg base)/3 mL Solution For Nebulization 1 neb Inhalation Q6 PRN (Reason: Wheezing) RF: 0 sertraline [Zoloft] 100 mg tablet 150 mg PO QAM RF: 0 montelukast [Singulair] 10 mg Tablet 10 mg PO QAM RF: 0 Flovent HFA 110 mcg/actuation HFA aerosol inhaler 2 puff Inhalation BID RF: 0 levothyroxine [Synthroid] 100 mcg tablet 100 mcg PO QAM RF: 0 cetirizine 10 mg Tablet 10 mg PO DAILY RF: 0 norethindrone-e.estradiol-iron [Junel FE 07/11 (28)] 1 mg-20 mcg (21)/75 mg (7) Tablet 1 tab PO DAILY RF: 0 omeprazole 40 mg Capsule,Delayed Release(Dr/Ec) 40 mg PO DAILY RF: 0 ipratropium bromide 0.02 % solution 1 ml inhalation BID RF: 0 albuterol sulfate [Ventolin HFA] 90 mcg/actuation HFA aerosol inhaler 2 - 4 puff Inhalation QID PRN (Reason: Shortness Of Breath) Qty: 1 RF: 2 Combivent Respimat 20-100 mcg/actuation mist 1 puff inhalation QID Qty: 1 RF: 2 Discharge Orders: Discharge Order (Routine); Ordered 04/05/19 Ordered By: William Zelaya Admission Data Admit Date/Time: 04/02/19 19:12 Attending Provider: William Zelaya Admit Provider: Cristal Carrion Primary Care Provider: Valentin Thompson Other Providers: Cristal Carrion Other Interventions: Discharge Summary Assessment (RN) Last Done: 04/05/19 13:20 DC Date/Time DO NOT enter until pt leaves facility: 04/05/19 13:42
== END 2019-04-05 13:42 | disposition home or self-care (01) | DRG 202 ==
LOC: ED 16:25 → 2N 19:12 → SUATTDRO 19:12 → 2N 20:10

== ENCOUNTER 2019-08-10 20:35 | Observation (INO) ==
[2019-08-10] MEDS ORDERED: ALBUT/IPRATROP 3MG/0.5MG NEB 3 ML VIAL ONE (20:43)
[2019-08-10] MEDS ORDERED: methylPREDNISolone 125 MG/2 ML VIAL IV STA (20:51)
[2019-08-10] MEDS ORDERED: ALBUT/IPRATROP 3MG/0.5MG NEB 3 ML VIAL NEB STA (20:51)
[2019-08-10] MEDS ORDERED: MAGNESIUM SULFATE 1GM / D5W BAG IV STA (20:51)
[2019-08-10] MEDS ORDERED: EPINEPHrine INJ 1 MG/ML AMP IM STA (20:55)
[2019-08-10] MEDS ORDERED: SODIUM CHLORIDE 0.9% 1000ML 1,000 ML IV SCH (21:00)
[2019-08-10 21:29] LABS: Base Excess VBG -0.9 mEq/L; HCO3 VBG 25 mmol/L; PCO2 VBG 47 mmHg (38-50); PO2 VBG 34 mmHg; pH VBG 7.35 (7.36-7.41)
[2019-08-10] MEDS ORDERED: TERBUTALINE SULFATE 1 MG/ML VIAL SQ ONE (21:42)
--- NOTE | 2019-08-10 21:51 | XRay Report ---
SINGLE VIEW CHEST CLINICAL HISTORY: Dyspnea. FINDINGS: 2 AP, portable, upright chest radiographs are compared to study dated 07/11/2019. Correlatio n is made with chest CT dated 04/03/2019. The cardiomediastinal silhouette is unremarkable. The lungs and pleural spaces are clear. No pneumothorax is seen. The bony thorax is grossly intact. IMPRESSION: No active disease in the chest. ACT 112: Negative or not required by law. Electronically signed by: Kalia Shaw M.D. 08/10/2019 9:49 PM
[2019-08-10 22:04] LABS: Oxygen Saturation VBG < 60.0 %
[2019-08-10 22:17] LABS: Calcium 9.4 mg/dl (8.5-10.1); Creatinine Clr Calc Pharmacy 137.6 ml/min; Est GFR (African American) 94.3; Est GFR (Non-African American) 81.3; Magnesium 1.6 mg/dl (1.8-2.4); Phosphorus 3.9 mg/dl (2.5-4.9); Potassium 3.7 mmol/L (3.5-5.1)
[2019-08-10] MEDS ORDERED: ALBUT/IPRATROP 3MG/0.5MG NEB 3 ML VIAL NEB ONE (22:18)
[2019-08-10 22:19] LABS: Basophils # (auto) 0.04 K/uL (0-0.2); Basophils % (auto) 0.3 %; Eosinophils # (auto) 0.84 K/uL (0-0.5); Eosinophils % (auto) 5.8 %; Hematocrit (blood only) 37.1 % (37-47); Hemoglobin 12.2 g/dL (12.0-16.0); Immature Granulocytes # (auto) 0.17 K/uL (0.00-0.02); Immature Granulocytes % (auto) 1.2 %; Lymphocytes # (auto) 3.52 K/uL (1.2-3.4); Lymphocytes % (auto) 24.2 %; Mean Corpuscular Hemoglobin 27.3 pg (25-34); Mean Corpuscular Hgb Conc 32.9 g/dL (32-36); Mean Platelet Volume 10.7 fL (7.4-10.4); Monocytes # (auto) 0.66 K/uL (0.11-0.59); Monocytes % (auto) 4.5 %; Neutrophils # (auto) 9.33 K/uL (1.4-6.5); Platelet Count 269 K/uL (130-400); RDW Coefficient of Variation 14.5 % (11.5-14.5); RDW Standard Deviation 43.9 fL (36.4-46.3); Red Blood Count 4.47 M/uL (4.2-5.4); White Blood Count 14.56 K/uL (4.8-10.8)
[2019-08-10] MEDS ORDERED: MAGNESIUM SULFATE / D5W 1 GM/100 ML BAG IV ONE (22:20)
--- NOTE | 2019-08-10 23:16 | Emergency Department Note ---
Entered by Balaji Hernandez acting as a scribe for History of Present Illness General Chief complaint: Asthma Stated complaint: ASTHMA Time Seen by Provider: 08/10/19 20:55 Source: patient History of Present Illness Onset (ago): day(s) (yesterday) Location: chest Pain Consistency: + constant Maximum Pain Intensity: 9 Quality: + other (SOB) Associated symptoms: + other (Negative for leg swelling and abdominal pain.) The patient is a 34 year old female w/ PMHx of bipolar, depression, anxiety, and asthma who presents to the ED w/ CC of constant SOB beginning yesterday. The patient states that she has been having an asthma flare up since yesterday. She notes that she did some nebulizer treatments today with no relief of her symptoms. She reports that her last episode of asthma exacerbation was one month ago. She denies any leg swelling and abdominal pain. The patient states that she is not on any chronic steroids, and she notes that her last period was two weeks ago. Home Medications Home Medications Medication Instructions Recorded Confirmed Type sertraline [Zoloft] 150 mg PO QAM 05/30/18 08/10/19 History albuterol sulfate 2.5 mg CONTINUOUS NEBULIZATION BID 03/29/19 07/11/19 History PRN #375 ml ipratropium bromide 1 ml INHALATION BID 04/02/19 08/10/19 History levothyroxine 112 mcg tablet 112 mcg PO DAILY 05/06/19 08/10/19 History albuterol sulfate 90 mcg/actuation 2 - 4 puff INHALATION QID PRN #1 06/03/19 08/10/19 Rx aerosol inhaler inhaler tiotropium bromide 2.5 2 puffs INH DAILY #4 gm 06/03/19 07/11/19 Rx mcg/actuation mist for inhalation fluticasone propion-salmeterol 1 puff INHALATION BID 08/10/19 08/10/19 History [Advair HFA] ipratropium-albuterol [Combivent 1 puff INHALATION QID PRN 08/10/19 08/10/19 History Respimat] Allergies Allergy/AdvReac Type Severity Reaction Status Date / Time pollen extracts Allergy Mild allergy sx Verified 07/11/19 10:17 Past Med/Surg History Medical History (Updated 02/19/20 @ 22:40 by Balaji Hernandez) Allergic rhinitis (Chronic) Anxiety (Chronic) Asthma exacerbation Asthma, severe persistent (Chronic) Bipolar disorder (Chronic) Depression (Chronic) Hypothyroidism (Chronic) Surgical History History of cholecystectomy (Resolved) Social History Preferred Language: Kiswahili Communication Ability: Effective Pet Handler Required: No Beliefs That Will Affect Care: None marital status: Current Living Situation: Spouse and Family current occupational status: employed Feels Safe at Home: Yes Smoking Status: Former smoker Tobacco Type: cigarettes ; Second Hand Exposure: Yes ; Hx Alcohol Use: No Hx Substance Use: No Review of Systems See HPI for pertinent positives & negatives. and A total of 10 systems reviewed and were otherwise negative Physical Exam Vital Signs Vital Signs - 24 hr 08/10/19 20:37 08/10/19 20:48 08/10/19 20:50 Temperature 37 C Temperature Source Oral Pulse Rate 137 H Pulse Rate [Left Finger] Respiratory Rate 33 H Respiratory Effort / Characteristics Spontaneous Accessory Muscle Use Spontaneous Labored Tripoding Respiratory Depth Normal Respiratory Pattern Tachypnea Blood Pressure 154/71 H Blood Pressure [Right Arm] Blood Pressure Mean 98 Blood Pressure Mean [Right Arm] Pulse Oximetry 94 100 Oxygen Delivery Method Room Air Nebulizer Oxygen Flow Rate Fraction of Inspired Oxygen Sepsis Recent Fever Within 48 Hours No Sepsis Action Taken by Nursing No Action Required 08/10/19 21:00 08/10/19 21:15 08/10/19 21:46 Temperature Temperature Source Pulse Rate 125 H Pulse Rate [Left Finger] 131 H 127 H Respiratory Rate 20 20 23 Respiratory Effort / Characteristics Non-Labored Spontaneous Non-Labored Spontaneous Respiratory Depth Normal Respiratory Pattern Regular Blood Pressure Blood Pressure [Right Arm] 140/94 Blood Pressure Mean Blood Pressure Mean [Right Arm] 109 Pulse Oximetry 99 100 100 Oxygen Delivery Method BiPAP Oxygen Flow Rate Fraction of Inspired Oxygen 28 28 Sepsis Recent Fever Within 48 Hours Sepsis Action Taken by Nursing 08/10/19 21:53 08/10/19 21:54 08/10/19 22:42 Temperature Temperature Source Pulse Rate Pulse Rate [Left Finger] 118 H 113 H Respiratory Rate 14 22 Respiratory Effort / Characteristics Spontaneous Respiratory Depth Respiratory Pattern Blood Pressure Blood Pressure [Right Arm] Blood Pressure Mean Blood Pressure Mean [Right Arm] Pulse Oximetry 100 100 100 Oxygen Delivery Method Non-rebreather Non-rebreather Non-rebreather Oxygen Flow Rate 15 15 Fraction of Inspired Oxygen Sepsis Recent Fever Within 48 Hours Sepsis Action Taken by Nursing GENERAL: Well nourished, in moderate distress. EYE EXAM: Normal conjunctiva. PERRL, no anisocoria and EOM's grossly intact w/o pain. OROPHARYNX: Moist mucous membranes. Grossly normal dentition. NECK: Supple, no nuchal rigidity, no adenopathy, non-tender. No signs of mening ismus. LUNGS: Mild tachypnea, diffuse wheezes throughout. HEART: NSR, no MRG. ABDOMEN: Abdomen soft, non-tender, normo-active bowel sounds, no masses, no rebound or guarding. BACK: No CVA TTP. SKIN: No rashes and no bruising. UPPER EXTREMITIES: Upper extremities are grossly normal. LOWER EXTREMITIES: No pitting edema. No calf pain. NEURO EXAM: A&O x3, cranial nerves II-XII grossly intact, normal speech, moves all 4 extremities on command w/o issue. Course Course 2052: The patient was evaluated in room C5. A complete history and physical exam was performed. 2100: I rechecked the patient. She is being placed on BiPAP. I told her that she will get some epi. 2140: I rechecked the patient. She is having difficulty breathing. I took her mask off. Her oxygen saturation is stable but she is tachypneic. 2150: I reevaluated and updated the patient. She is improving. She is off BiPAP and is getting terbutaline. 2215: I rechecked the patient. She feels better after getting terbutaline. 2227: Upon reevaluation, the patient is stable. I discussed the findings and the treatment plan with the patient. She expresses agreement and understanding. [facility] The patient will be evaluated for further management. Consultations Consultation #1: [facility] He will evaluate the patient for further management. Time: 22:27 Administered Medications Discontinued Medications Albuterol (Duoneb) Confirm Administered Dose 3 ml .ROUTE .STK-MED ONE Stop: 08/10/19 20:44 Last Admin: 08/10/19 20:44 Dose: 3 ml Documented by: [id number] Albuterol (Duoneb) 12 ml NEB ONE STA Stop: 08/10/19 20:52 Last Admin: 08/10/19 21:22 Dose: 12 ml Documented by: [id number] Albuterol (Duoneb) 12 ml NEB ONE ONE Stop: 08/10/19 22:19 Last Admin: 08/10/19 22:42 Dose: 12 ml Documented by: [id number] Epinephrine HCl (Epinephrine) 0.3 mg IM NOW STA Stop: 08/10/19 20:56 Last Admin: 08/10/19 21:19 Dose: 0.3 mg Documented by: [id number] Sodium Chloride (Nss 1000ml) 1,000 mls @ 999 mls/hr IV .Q1H1M WILVER Stop: 08/10/19 22:00 Last Infusion: 08/10/19 22:14 Dose: 0 mls/hr Documented by: [id number] Admin: 08/10/19 21:13 Dose: 999 mls/hr Documented by: [id number] Magnesium Sulfate/Dextrose (Magnesium Sulfate / D5w) 2 gm IV NOW STA Stop: 08/10/19 20:52 Last Admin: 08/10/19 21:16 Dose: 2 gm Documented by: [id number] Methylprednisolone (Solumedrol) 125 mg IV NOW STA Stop: 08/10/19 20:52 Last Admin: 08/10/19 21:15 Dose: 125 mg Documented by: [id number] Terbutaline Sulfate (Brethine) 0.25 mg SQ NOW ONE Stop: 08/10/19 21:43 Last Admin: 08/10/19 21:51 Dose: 0.25 mg Documented by: [id number] Critical Care Time Critical Care Time: Yes Total Critical Care Time: 82 I have personally spent 82 minutes of critical care time in the direct management of this patient. This includes bedside care, interpretation of diagnostic studies, and testing, discussion with consultants, patient, and family members, and other required patient management activities. This 82 minutes is in excess of all separately billable procedures. Medical Decision Making Differential Diagnosis Differential diagnoses includes but is not limited to pneumonia, bronchitis, COPD/Asthma exacerbation, pneumothorax, pulmonary embolism, congestive heart failure, acute coronary syndrome Medical Records Attestation: I reviewed the patient's medical records. Home Medications Current Medication List: was personally reviewed by me Laboratory Data Attestation: I reviewed the patient's lab results. Result diagrams: 08/10/19 20:49 08/10/19 20:19 Lab Results 08/10/19 08/10/19 08/10/19 Range/Units 20:19 20:49 20:49 WBC 14.56 H (4.8-10.8) K/uL RBC 4.47 (4.2-5.4) M/uL Hgb 12.2 (12.0-16.0) g/dL Hct 37.1 (37-47) % MCV 83.0 (80-100) fL MCH 27.3 (25-34) pg MCHC 32.9 (32-36) g/dL RDW Std Deviation 43.9 (36.4-46.3) fL RDW Coeff of Laron 14.5 (11.5-14.5) % Plt Count 269 (130-400) K/uL MPV 10.7 H (7.4-10.4) fL Immature Gran % (Auto) 1.2 % Neut % (Auto) 64.0 % Lymph % (Auto) 24.2 % [place] % (Auto) 4.5 % Eos % (Auto) 5.8 % Baso % (Auto) 0.3 % Immature Gran # (Auto) 0.17 H (0.00-0.02) K/uL Neut # (Auto) 9.33 H (1.4-6.5) K/uL Lymph # (Auto) 3.52 H (1.2-3.4) K/uL [place] # (Auto) 0.66 H (0.11-0.59) K/uL Eos # (Auto) 0.84 H (0-0.5) K/uL Baso # (Auto) 0.04 (0-0.2) K/uL VBG pH (7.36-7.41) VBG pCO2 (38-50) mmHg VBG pO2 mmHg VBG HCO3 mmol/L VBG O2 Saturation % VBG Base Excess mEq/L Barometric Pressure mm/Hg Sodium 139 (136-145) mmol/L Potassium 3.7 (3.5-5.1) mmol/L Chloride 107 (98-107) mmol/L Carbon Dioxide 26 (21-32) mmol/L Anion Gap 6.0 (3-11) BUN 12 (7-18) mg/dl Creatinine 0.93 (0.6-1.2) mg/dl Est Cr Clr Drug Dosing 137.6 ml/min Est GFR ( Amer) 94.3 Est GFR (Non-Af Amer) 81.3 BUN/Creatinine Ratio 13.0 (10-20) Glucose 106 H (70-99) mg/dl Calcium 9.4 (8.5-10.1) mg/dl Phosphorus 3.9 (2.5-4.9) mg/dl Magnesium 1.6 L (1.8-2.4) mg/dl Troponin I < 0.015 (0-0.045) ng/ml 08/10/19 Range/Units 21:18 WBC (4.8-10.8) K/uL RBC (4.2-5.4) M/uL Hgb (12.0-16.0) g/dL Hct (37-47) % MCV (80-100) fL MCH (25-34) pg MCHC (32-36) g/dL RDW Std Deviation (36.4-46.3) fL RDW Coeff of Laron (11.5-14.5) % Plt Count (130-400) K/uL MPV (7.4-10.4) fL Immature Gran % (Auto) % Neut % (Auto) % Lymph % (Auto) % [place] % (Auto) % Eos % (Auto) % Baso % (Auto) % Immature Gran # (Auto) (0.00-0.02) K/uL Neut # (Auto) (1.4-6.5) K/uL Lymph # (Auto) (1.2-3.4) K/uL [place] # (Auto) (0.11-0.59) K/uL Eos # (Auto) (0-0.5) K/uL Baso # (Auto) (0-0.2) K/uL VBG pH 7.35 L (7.36-7.41) VBG pCO2 47 (38-50) mmHg VBG pO2 34 mmHg VBG HCO3 25 mmol/L VBG O2 Saturation < 60.0 % VBG Base Excess -0.9 mEq/L Barometric Pressure 741.4 mm/Hg Sodium (136-145) mmol/L Potassium (3.5-5.1) mmol/L Chloride (98-107) mmol/L Carbon Dioxide (21-32) mmol/L Anion Gap (3-11) BUN (7-18) mg/dl Creatinine (0.6-1.2) mg/dl Est Cr Clr Drug Dosing ml/min Est GFR ( Amer) Est GFR (Non-Af Amer) BUN/Creatinine Ratio (10-20) Glucose (70-99) mg/dl Calcium (8.5-10.1) mg/dl Phosphorus (2.5-4.9) mg/dl Magnesium (1.8-2.4) mg/dl Troponin I (0-0.045) ng/ml Imaging Data Radiologist's Impression: Radiology results as stated below per my review and the radiologist's interpretation: SINGLE VIEW CHEST FINDINGS: 2 AP, portable, upright chest radiographs are compared to study dated 07/11/2019. Correlation is made with chest CT dated 04/03/2019. The cardiomediastinal silhouette is unremarkable. The lungs and pleural spaces are clear. No pneumothorax is seen. The bony thorax is grossly intact. IMPRESSION: No active disease in the chest. ACT 112: Negative or not required by law. Electronically signed by: Kalia Shaw M.D. 08/10/2019 9:49 PM Blood Pressure Blood Pressure Findings: Elevated blood pressure Blood Pressure Disposition: further management by hospitalist DARY Narrative The patient is a 34 year old female w/ PMHx of bipolar, depression, anxiety, and asthma who presents to the ED w/ CC of constant SOB beginning yesterday. Patient was seen and evaluated the bedside. The patient was initially in moderate distress from respiratory issues. The patient does have known history of asthma exacerbations and issues in the past. The patient did a bladder c ompleted was ordered magnesium, duo nebs, IV fluids, steroids, and IM epi. Patient does have diffuse wheezing was tachycardic. The patient states that she has done well on BiPAP in the past this was ordered with minimal support and FiO2. The patient did not tolerate this very well so the max was removed. The patient still did have wheezing but did have bilateral breath sounds. Chest x- ray shows hyperinflation but no acute issues. The patient was ordered some IM terbutaline which was given. Upon reassessment the following time the patient did have some modest improvement after being off of the mask. Additional duo nebs and magnesium were ordered. The patient's blood work is fairly un remarkable. Patient does have very mild hypomagnesemia but is already received 2 g. Given the patient's persistent symptoms as well as medications required in order to help improve her symptoms I believe the patient would benefit from inpatient treatment. I did speak the on-call hospitalist agreed to further evaluate treat the patient. Patient was admitted to the medicine service. Impression & Plan Asthma exacerbation, Acute respiratory failure, Hypomagnesemia Discharge Plan Visit Data Chief Complaint: Asthma Stated Complaint: ASTHMA ED Provider: Rafi Barnett Discharge Problem: Asthma exacerbation, Acute respiratory failure, Hypomagnesemia Patient Disposition: Being Evaluated by Hospitalist Forms Stand Alone Forms: [facility] Prescriptions Prescriptions: No Action albuterol sulfate 2.5 mg /3 mL (0.083 %) solution for nebulization 2.5 mg continuous nebulization BID PRN (Reason: Shortness Of Breath Or Wheezing) Qty: 375 RF: 0 Spiriva Respimat 2.5 mcg/actuation mist 2 puffs INH DAILY Qty: 4 RF: 5 albuterol sulfate [Ventolin HFA] 90 mcg/actuation HFA aerosol inhaler 2 - 4 puff Inhalation QID PRN (Reason: Shortness Of Breath) Qty: 1 RF: 2 tiotropium bromide [Spiriva Respimat] 2.5 mcg/actuation mist RF: 0 levothyroxine [Synthroid] 112 mcg tablet 112 mcg PO DAILY RF: 0 tiotropium bromide [Spiriva Respimat] 2.5 mcg/actuation mist RF: 0 formoterol fumarate [Perforomist] 20 mcg/2 mL solution for nebulization RF: 0 sertraline [Zoloft] 100 mg tablet 150 mg PO QAM RF: 0 Advair HFA 230-21 mcg/actuation HFA aerosol inhaler 1 puff INHALATION BID RF: 0 Combivent Respimat 20-100 mcg/actuation mist 1 puff INHALATION QID PRN (Reason: Shortness Of Breath Or Wheezing) RF: 0 ipratropium bromide 0.02 % solution 1 ml inhalation BID RF: 0 Referrals Referrals: Valentin Thompson MD [Primary Care Provider] - Discharge Problem: Asthma exacerbation Qualifiers: Asthma severity: unspecified severity Asthma persistence: persistent Qualified Code(s): J45.901 - Unspecified asthma with (acute) exacerbation Acute respiratory failure Qualifiers: Respiratory failure complication: unspecified whether with hypoxia or hypercapnia Qualified Code(s): J96.00 - Acute respiratory failure, unspecified whether with hypoxia or hypercapnia The scribe's documentation has been prepared under my direction and personally reviewed by me in its entirety. I confirm that the note above accurately reflects all work, treatment, procedures, and medical decision making performed by me.
[2019-08-11] MEDS ORDERED: LEVALBUTEROL 1.25MG/0.5ML NEB INH PRN (01:02)
[2019-08-11] MEDS ORDERED: XOPENEX/ATROVENT 1.25mg/0.5MG NEB COMBO NEB SCH (01:02)
[2019-08-11] MEDS ORDERED: ALBUTEROL HFA 8 GM INHALER INH PRN (01:02)
[2019-08-11] MEDS ORDERED: ONDANSETRON INJ 2 MG/ML 2 ML VIAL IV PRN (01:02)
[2019-08-11] MEDS ORDERED: IPRATROPIUM BROMIDE NEB SOLN 0.02% 2.5 ML VIAL INH PRN (01:02)
[2019-08-11] MEDS ORDERED: XOPENEX/ATROVENT 1.25mg/0.5MG NEB COMBO NEB PRN (01:02)
[2019-08-11] MEDS ORDERED: NITROGLYCERIN SL 0.4 MG/TAB TAB SL PRN (01:02)
[2019-08-11] MEDS ORDERED: ACETAMINOPHEN 325 MG TAB PO PRN (01:02)
[2019-08-11] MEDS: IPRATROPIUM BROMIDE NEB SOLN 0.02% 2.5 ML VIAL INH SCH ×4 (01:45→19:19)
[2019-08-11] MEDS: LEVALBUTEROL 1.25MG/0.5ML NEB INH SCH ×4 (01:45→19:19)
--- NOTE | 2019-08-11 02:24 | History and Physical Report ---
DATE OF ADMISSION: 08/11/2019 CHIEF COMPLAINT: Shortness of breath. HISTORY OF PRESENT ILLNESS: This is a 34-year-old female with past medical history significant for hypothyroidism; asthma, severe persistent; allergic rhinitis; obesity; depression with anxiety; bipolar disorder. Presents with shortness of breath going on since last Thursday, it is not getting better. She was on home inhalers and nebs, was not improving, so she came to the ER. She also has cough. She thinks she has some phlegm, but is not bringing it out. Denies any fever, chills. She lives with her and kids. No family sickness. Currently received steroids and breathing treatments. Initially required BiPAP, but she is saturating okay now on nasal cannula. She gets on and off some chest pain, it is more with coughing. No headache, no dizziness, no blurred visions, no earache, no runny nose, no sore throat, no dysphagia, no odynophagia. Appetite is okay. No nausea, no vomiting, no abdominal pain. Normal bowel and bladder movements. No hematuria or burning micturition. No melena or hematochezia. No swelling in the legs, no rash. ALLERGIES: ENVIRONMENTAL. PAST MEDICAL HISTORY: As mentioned above. PAST SURGICAL HISTORY: Laparoscopic cholecystectomy. MEDICATIONS: The patient is on levothyroxine 112 mcg p.o. daily, Zoloft 150 mg p.o. daily, Dulera 200/5 mcg 2 puffs b.i.d., Respimat 1 puff q.i.d., ipratropium nebulization twice daily, Singulair 10 mg p.o. at bedtime, albuterol nebulization every 4 hours p.r.n. FAMILY HISTORY: Significant for mother has hypothyroidism, hypertension, diabetes. Maternal grandmother has colon cancer and hypertension. Maternal grandfather had rectal cancer. SOCIAL HISTORY: , lives with her and kids. Former smoker, quit in 2010, smoked 0.8 packs a day for 7 years. No alcohol use, no drug use. REVIEW OF SYSTEMS: As per HPI. Rest of the review of systems negative. PHYSICAL EXAMINATION: GENERAL: The patient is morbidly obese, not in acute distress. VITAL SIGNS: Temperature 37, pulse 119, respiratory rate 16, blood pressure 138/68, oxygen 98% on nasal canula HEENT: No pallor, no icterus. Pupils equal, round, and reactive to light. NECK: No JVD, no neck masses, no carotid bruits. CARDIOVASCULAR: S1, S2 heard. Tachycardia. No murmurs. RESPIRATORY SYSTEM: Normal AP diameter. No accessory muscle use. Bilateral expiratory wheezing heard. No crackles. ABDOMEN: Soft, bowel sounds present, nontender. No distention. CENTRAL NERVOUS SYSTEM: Cranial nerves II-XII grossly intact. Nonfocal. EXTREMITIES: No edema, no erythema. LABORATORY DATA: WBC 14.5, hemoglobin 12.2, hematocrit 37.1, platelets 269. Venous blood gas, pH of 7.3, pCO2 of 47, pO2 of 34. Sodium 139, potassium 3.7, chloride 107, bicarbonate 26, BUN 12, creatinine 0.9, serum glucose 106, calcium 9.4, phosphorus 3.9, magnesium 1.6. Troponin I less than 0.016. IMAGING DATA: Chest x-ray, no active disease in chest. EKG: Sinus tachycardia at a rate of 112, no significant change was found. ASSESSMENT AND PLAN: This is a 34-year-old female with history of asthma, who presents with asthma exacerbation. 1. History of asthma, severe persistent, presents with asthma exacerbation with history of intubation 11 years ago. Last admission was a few months back for asthma. Presents with ongoing shortness of breath since last Thursday. Home nebs did not help her. Received steroids, IV magnesium, and nebs in the ER and initially she required BiPAP. Currently, symptoms seem to be stable. We will admit to med/surg tele. Starting her on IV Solu-Medrol 40 mg t.i.d., nebs around the clock and p.r.n., home inhalers and p.o. azithromycin and monitor. 2. History of hypothyroidism. Continue Synthroid. 3. History of morbid obesity, needs counseling. 4. History of depression with anxiety and bipolar disorder. Continue her Zoloft. 5. Deep venous thrombosis prophylaxis, sequential compression devices for now. DISPOSITION: Monitor in med/surg tele. Level 1 full code. MTDD
[2019-08-11] MEDS: LEVOTHYROXINE SODIUM 112 MCG TABLET PO SCH (06:02)
[2019-08-11] MEDS ORDERED: AZITHROMYCIN 250 MG TAB PO ONE (07:00)
[2019-08-11] MEDS: SERTRALINE HCL 50 MG TABLET PO SCH (07:54)
[2019-08-11] MEDS: methylPREDNISolone 40 MG in SYRINGE 0 ML IV SCH ×3 (07:54→20:05)
[2019-08-11] MEDS: FLUTICASONE/VILANTEROL 200/25MCG 14 PUFFS/INHALER INH SCH (08:37)
--- NOTE | 2019-08-11 16:32 | Hospitalist Progress Note ---
Date of Service August 11, 2019 Assessment & Plan (1) Asthma exacerbation: Presented with diffuse wheeze, shortness of breath, cough Symptom has markedly improved after IV steroids, scheduled neb Patient on IV Solu-Medrol 40 mg every 8 hours, weaned down to q12 hours, plan to slow taper to p.o. prednisone next 24 to 48 hours Hypothyroidism: Continue Synthroid History of anxiety/depression, continue Zoloft CODE STATUS: Full code DVT prophylaxis: SCD and teds, patient is encouraged to ambulate Disposition: Patient to be discharged home when medically stable Admission and Anticipated Discharge Date Admission Date: August 11, 2019 Subjective Patient reports improvement of shortness of breath, has minimum please Persistent nonproductive cough, no fever or chills Feels much better since yesterday Review of Systems Review of Systems: All systems reviewed & are unremarkable except as noted in HPI & below Respiratory: + cough; no dyspnea and no wheezing Physical Exam Constitutional: WD/WN, vitals as above + obese; no acute distress Eyes: PERRL, conjunctivae normal, anicteric sclerae ENMT: external ear and nose normal, oropharynx normal Neck: trachea midline, no thyromegaly Respiratory: Auscultation: + diminished lung sounds; no rhonchi and no wheezes Cardiovascular: RRR, no murmur, no edema Gastrointestinal (Abdomen): normal bowel sounds, soft, nontender, no hepatosplenomegaly Musculoskeletal: no cyanosis or clubbing, extremities motor strength 5/5 Skin: no rashes, warm and dry Neurologic: PERRL, EOMI, accommodation nl, no face palsy, no dysarthria Psychiatric: A+Ox3, euthymic affect Results & Data ([facility]) Vital Signs (Past 12 Hours) Vital Signs Temp Pulse Pulse Resp BP BP Pulse Ox 08/11/19 16:08 114 H 08/11/19 15:44 36.9 C 114 H 20 131/86 94 08/11/19 13:50 111 H 08/11/19 13:18 115 H 18 96 08/11/19 11:47 36.6 C 114 H 20 111/73 91 08/11/19 07:49 36.8 C 101 H 18 112/74 92 08/11/19 07:23 108 H 20 97 08/11/19 05:10 122 H (1) Asthma exacerbation Asthma persistence: persistent Asthma severity: unspecified severity Qualified Code(s): J45.901 - Unspecified asthma with (acute) exacerbation
--- NOTE | 2019-08-11 22:28 | Electrocardiogram Report ---
Test Reason : Blood Pressure : / mmHG Vent. Rate : 112 BPM Atrial Rate : 112 BPM P-R Int : 150 ms QRS Dur : 088 ms QT Int : 356 ms P-R-T Axes : 050 056 027 degrees QTc Int : 485 ms Sinus tachycardia Prolonged QT When compared with ECG of 18-MAR-2019 21:52, No significant change was found Confirmed by Thony Velez ([id number]) on 08/11/2019 10:28:19 PM Referred By: REFERRED SELF Confirmed By:Thony Velez
[2019-08-12] MEDS: LEVALBUTEROL 1.25MG/0.5ML NEB INH SCH ×4 (00:39→20:15)
[2019-08-12] MEDS: IPRATROPIUM BROMIDE NEB SOLN 0.02% 2.5 ML VIAL INH SCH ×4 (00:39→20:15)
[2019-08-12 05:42] LABS: Basophils # (auto) 0.02 K/uL (0-0.2); Basophils % (auto) 0.1 %; Eosinophils # (auto) 0.01 K/uL (0-0.5); Eosinophils % (auto) 0.1 %; Hematocrit (blood only) 35.5 % (37-47); Hemoglobin 11.5 g/dL (12.0-16.0); Immature Granulocytes # (auto) 0.38 K/uL (0.00-0.02); Immature Granulocytes % (auto) 1.9 %; Lymphocytes # (auto) 2.36 K/uL (1.2-3.4); Mean Corpuscular Hemoglobin 26.8 pg (25-34); Mean Corpuscular Hgb Conc 32.4 g/dL (32-36); Mean Corpuscular Volume 82.8 fL (80-100); Mean Platelet Volume 10.7 fL (7.4-10.4); Monocytes % (auto) 3.1 %; Neutrophils # (auto) 16.28 K/uL (1.4-6.5); Neutrophils % (auto) 82.8 %; Platelet Count 281 K/uL (130-400); RDW Coefficient of Variation 14.6 % (11.5-14.5); RDW Standard Deviation 43.6 fL (36.4-46.3); Red Blood Count 4.29 M/uL (4.2-5.4); White Blood Count 19.65 K/uL (4.8-10.8)
[2019-08-12] MEDS: LEVOTHYROXINE SODIUM 112 MCG TABLET PO SCH (06:09)
[2019-08-12 06:14] LABS: BUN Creatinine Ratio 17.2 (10-20); Creatinine Clr Calc Pharmacy 152.5 ml/min; Est GFR (African American) 106.6; Magnesium 2.3 mg/dl (1.8-2.4); Potassium 4.3 mmol/L (3.5-5.1)
[2019-08-12] MEDS: SERTRALINE HCL 50 MG TABLET PO SCH (07:55)
[2019-08-12] MEDS: methylPREDNISolone 40 MG in SYRINGE 0 ML IV SCH (07:55)
[2019-08-12] MEDS: FLUTICASONE/VILANTEROL 200/25MCG 14 PUFFS/INHALER INH SCH (07:55)
[2019-08-12] MEDS ORDERED: AZITHROMYCIN 250 MG TAB PO SCH (09:00)
--- NOTE | 2019-08-12 12:08 | Hospitalist Progress Note ---
Date of Service August 12, 2019 Assessment & Plan (1) Asthma exacerbation: Clinically continues to improve Presented with diffuse wheeze, shortness of breath, cough IV Solu-Medrol discontinued patient is started with p.o. prednisone, will be discharged with a slow prednisone taper P.o. doxycycline for possible bronchitis, total 5 days treatment will be adequate Leukocytosis Possible steroid induced, No fever or chills, no evidence of pneumonia, no evidence of other infection Repeat CBC in a.m. Leukocytosis showed continue to improve after, steroid is tapered Hypothyroidism: Continue Synthroid History of anxiety/depression, continue Zoloft CODE STATUS: Full code DVT prophylaxis: SCD and teds, patient is encouraged to ambulate Disposition: Possible discharge home tomorrow if remains medically stable Admission and Anticipated Discharge Date Admission Date: August 11, 2019 Anticipated date of discharge: 08/13/19 Subjective Shortness of breath, wheeze has improved markedly, still have nonproductive cough Hoarseness of voice persists No sore throat, No cough, no fever chills Denies of any chest pain or chest discomfort no dyspnea on exertion Review of Systems Respiratory: + cough; no dyspnea and no wheezing Physical Exam Constitutional: WD/WN, vitals as above + obese; no acute distress Eyes: PERRL, conjunctivae normal, anicteric sclerae ENMT: external ear and nose normal, oropharynx normal Neck: trachea midline, no thyromegaly Respiratory: Auscultation: + diminished lung sounds; no rhonchi and no wheezes Cardiovascular: RRR, no murmur, no edema Gastrointestinal (Abdomen): normal bowel sounds, soft, nontender, no hepatosplenomegaly Musculoskeletal: no cyanosis or clubbing, extremities motor strength 5/5 Skin: no rashes, warm and dry Neurologic: PERRL, EOMI, accommodation nl, no face palsy, no dysarthria Psychiatric: A+Ox3, euthymic affect Results & Data ([facility]) Vital Signs (Past 12 Hours) Vital Signs Temp Pulse Resp BP BP Pulse Ox 08/12/19 07:38 37.7 C H 70 18 146/64 H 94 08/12/19 07:28 101 H 18 93 08/12/19 04:59 36.9 C 98 H 20 114/67 96 08/12/19 00:39 101 H 16 96 (1) Asthma exacerbation Asthma persistence: persistent Asthma severity: unspecified severity Qualified Code(s): J45.901 - Unspecified asthma with (acute) exacerbation
[2019-08-12] MEDS ORDERED: GUAIFENESIN/CODEINE 100MG/10MG 5ML UDC PO PRN (12:17)
[2019-08-12] MEDS: DOXYCYCLINE HYCLATE 100 MG CAP PO SCH (20:37)
[2019-08-13] MEDS: IPRATROPIUM BROMIDE NEB SOLN 0.02% 2.5 ML VIAL INH SCH ×3 (01:09→13:41)
[2019-08-13] MEDS: LEVALBUTEROL 1.25MG/0.5ML NEB INH SCH ×3 (01:09→13:41)
[2019-08-13] MEDS: LEVOTHYROXINE SODIUM 112 MCG TABLET PO SCH (06:02)
[2019-08-13] MEDS: DOXYCYCLINE HYCLATE 100 MG CAP PO SCH (08:16)
[2019-08-13] MEDS: SERTRALINE HCL 50 MG TABLET PO SCH (08:17)
[2019-08-13] MEDS: FLUTICASONE/VILANTEROL 200/25MCG 14 PUFFS/INHALER INH SCH (08:17)
[2019-08-13] MEDS ORDERED: predniSONE 20 MG TAB PO SCH (09:00)
--- NOTE | 2019-08-13 13:14 | Hospitalist Progress Note ---
Date of Service August 13, 2019 Assessment & Plan (1) Asthma exacerbation: Clinically continues to improve Presented with diffuse wheeze, shortness of breath, cough Patient will be discharged home today with prednisone taper P.o. doxycycline 3 more days for possible bronchitis Spittle follow-up scheduled with family physician in a week Hypothyroidism: Continue Synthroid History of anxiety/depression, continue Zoloft CODE STATUS: Full code DVT prophylaxis: SCD and teds, patient is encouraged to ambulate Disposition: Stable to be discharged home today Admission and Anticipated Discharge Date Admission Date: August 11, 2019 Anticipated date of discharge: 08/13/19 Subjective Cough has improved, no fever or chills, no wheeze, Feels fine, stable to be discharged home today Review of Systems Respiratory: + cough; no dyspnea and no wheezing Physical Exam Constitutional: WD/WN, vitals as above + obese; no acute distress Eyes: PERRL, conjunctivae normal, anicteric sclerae ENMT: external ear and nose normal, oropharynx normal Neck: trachea midline, no thyromegaly Respiratory: Auscultation: + diminished lung sounds; no rhonchi and no wheezes Cardiovascular: RRR, no murmur, no edema Gastrointestinal (Abdomen): normal bowel sounds, soft, nontender, no hepatosplenomegaly Musculoskeletal: no cyanosis or clubbing, extremities motor strength 5/5 Skin: no rashes, warm and dry Neurologic: PERRL, EOMI, accommodation nl, no face palsy, no dysarthria Psychiatric: A+Ox3, euthymic affect Results & Data ([facility]) Vital Signs (Past 12 Hours) Vital Signs Temp Pulse Resp BP BP Pulse Ox 08/13/19 12:51 36.6 C 91 H 18 126/84 146/64 H 95 08/13/19 07:46 91 H 18 95 08/13/19 07:33 36.6 C 85 16 126/84 95 (1) Asthma exacerbation Asthma persistence: persistent Asthma severity: unspecified severity Qualified Code(s): J45.901 - Unspecified asthma with (acute) exacerbation
--- NOTE | 2019-08-13 13:16 | Discharge Summary ---
Date of Service August 13, 2019 Admission HPI Per Admitting Provider DICTATED BY: Aguilar Copeland MD DATE OF ADMISSION: 08/11/2019 CHIEF COMPLAINT: Shortness of breath. HISTORY OF PRESENT ILLNESS: This is a 34-year-old female with past medical history significant for hypothyroidism; asthma, severe persistent; allergic rhinitis; obesity; depression with anxiety; bipolar disorder. Presents with shortness of breath going on since last Thursday, it is not getting better. She was on home inhalers and nebs, was not improving, so she came to the ER. She also has cough. She thinks she has some phlegm, but is not bringing it out. Denies any fever, chills. She lives with her and kids. No family sickness. Currently received steroids and breathing treatments. Initially required BiPAP, but she is saturating okay now on nasal cannula. She gets on and off some chest pain, it is more with coughing. No headache, no dizziness, no blurred visions, no earache, no runny nose, no sore throat, no dysphagia, no odynophagia. Appetite is okay. No nausea, no vomiting, no abdominal pain. Normal bowel and bladder movements. No hematuria or burning micturition. No melena or hematochezia. No swelling in the legs, no rash. Principal Diagnosis Asthma exacerbation Discharge Exam Constitutional WD/WN, vitals as above + obese; no acute distress Eyes PERRL, conjunctivae normal, anicteric sclerae ENMT external ear and nose normal, oropharynx normal Neck trachea midline, no thyromegaly Respiratory Auscultation: + diminished lung sounds; no rhonchi and no wheezes Cardiovascular RRR, no murmur, no edema Gastrointestinal (Abdomen) normal bowel sounds, soft, nontender, no hepatosplenomegaly Musculoskeletal no cyanosis or clubbing, extremities motor strength 5/5 Skin no rashes, warm and dry Neurologic PERRL, EOMI, accommodation nl, no face palsy, no dysarthria Psychiatric A+Ox3, euthymic affect Discharge Data Allergies Allergy/AdvReac Type Severity Reaction Status Date / Time pollen extracts Allergy Mild allergy sx Verified 07/11/19 10:17 Consultations 08/10/19 22:21 ED Decision to Admit Stat Hospital Course (1) Asthma exacerbation: Clinically continues to improve Presented with diffuse wheeze, shortness of breath, cough Patient will be discharged home today with prednisone taper P.o. doxycycline 3 more days for possible bronchitis Spittle follow-up scheduled with family physician in a week Hypothyroidism: Continue Synthroid History of anxiety/depression, continue Zoloft CODE STATUS: Full code DVT prophylaxis: SCD and teds, patient is encouraged to ambulate Disposition: Stable to be discharged home today Total Time Total Time Spent Total Time Spent (In Minutes): Approximately 35 minutes Total Time Includes: Examination of the Patient, Discharge Planning and Medication Reconciliation Discharge Plan Discharge Items Patient Disposition: Home - Self-Care Reason For Visit: SOB Discharge Diagnosis: Asthma Exacerbation Activity: Resume your previous activity Non-emergency contact: Primary Care Provider Call non-emergency contact if: you have any medication questions Follow-up/Referrals: Valentin Thompson MD [Primary Care Provider] - 08/18/19 12:45 pm Diet: Regular Addtl Attending Provider Instructions: Hospital follow-up with family physician Dr. Thompson on 08/18/2019 Pending Studies at Discharge: No Stand-Alone Forms: My [employer], Work/School Release (Inpt), Smoking Cessation Medications and DC Order Prescriptions: New doxycycline hyclate 100 mg capsule 100 mg PO BID 3 Days Qty: 6 RF: 0 prednisone 20 mg tablet 40 mg PO DAILY 11 Days Qty: 7 RF: 0 Continued albuterol sulfate 2.5 mg /3 mL (0.083 %) solution for nebulization 2.5 mg continuous nebulization BID PRN (Reason: Shortness Of Breath Or Wheezing) Qty: 375 RF: 0 albuterol sulfate [Ventolin HFA] 90 mcg/actuation HFA aerosol inhaler 2 - 4 puff Inhalation QID PRN (Reason: Shortness Of Breath) Qty: 1 RF: 2 levothyroxine [Synthroid] 112 mcg tablet 112 mcg PO DAILY RF: 0 formoterol fumarate [Perforomist] 20 mcg/2 mL solution for nebulization 2 ml inhalation DAILY RF: 0 sertraline [Zoloft] 100 mg tablet 150 mg PO QAM RF: 0 Advair HFA 230-21 mcg/actuation HFA aerosol inhaler 1 puff INHALATION BID RF: 0 Combivent Respimat 20-100 mcg/actuation mist 1 puff INHALATION QID PRN (Reason: Shortness Of Breath Or Wheezing) RF: 0 ipratropium bromide 0.02 % solution 1 ml inhalation BID RF: 0 Discharge Orders: Discharge Order (Routine); Ordered 08/13/19 Ordered By: Mirtha Rodriguez Admission Data Admit Date/Time: 08/11/19 00:08 Attending Provider: Mirtha Rodriguez Admit Provider: Aguilar Copeland Primary Care Provider: Valentin Thompson Other Providers: Aguilar Copeland Other Interventions: Discharge Summary Assessment (RN) Last Done: 08/13/19 12:51
== END 2019-08-13 13:54 | disposition home or self-care (01) | DRG 202 ==
LOC: ED 20:35 → 2N 08-11 00:08 → INTOOBSV 08-11 00:08 → 2N 08-11 00:37

== ENCOUNTER 2024-05-20 05:10 | Inpatient (IN) ==
--- NOTE | 2024-05-20 05:28 | Emergency Department Note ---
Impression & Plan Asthma, severe persistent, Dyspnea, Asthma-COPD overlap syndrome ED Provider Note CHIEF COMPLAINT: "Asthma" HISTORY OF PRESENT ILLNESS: This 38-year-old female patient presents to the emergency department via private vehicle for evaluation of "asthma". The patient states she has been experiencing asthma exacerbation for the past 2 days. She states that she believes the weather flared it up. She states she has been using albuterol without relief of her symptoms. Patient does have a history of asthma COPD overlap syndrome and has frequent asthma exacerbations due to difficulty obtaining medications with her current insurance. The patient states this morning, she did an albuterol nebulizer treatment and her symptoms did not resolve so she decided to come to the emergency department for evaluation. The patient denies any recent fever or chills. No cough or congestion. No runny nose or sore throat. Patient states symptoms are consistent with asthma exacerbations she has experienced in the past. History provided by: Patient REVIEW OF SYSTEMS: A 10 system review of systems was performed with positives and pertinent negatives listed in the history of present illness. All other systems were reviewed and are negative. ALLERGIES: Pollen PHYSICAL EXAM: VITALS: Vitals are noted on the nurse's note and reviewed by myself. GENERAL: This is a 38-year-old female, in no acute distress, nondiaphoretic, well-developed well-nourished. SKIN: The skin was without rashes, erythema, edema, or bruising. There is no tenting of the skin. Capillary refill less than 2 seconds. HEAD: Normocephalic atraumatic. EARS: External auditory canals clear, tympanic membranes pearly rossi without erythema or effusion bilaterally. No hemotympanum. Negative irving sign EYES: Pupils equal round and reactive to light and accommodation. Conjunctivae without injection, sclerae without icterus. Extraocular movements intact. NOSE: Patent, turbinates without inflammation or discharge. No sinus tenderness. MOUTH: Mucous membranes moist. Tonsils are not enlarged. Pharynx without erythema or exudate. Uvula midline. Airway patent. Tongue does not deviate. NECK: Supple without nuchal rigidity. No lymphadenopathy. Cervical spine is nontender. No JVD. HEART: Regular rate and rhythm without murmurs gallops or rubs. LUNGS: Diffuse expiratory wheezing in all lung mendez. MUSCULOSKELETAL: No muscle atrophy, erythema, or edema noted. Full range of motion without joint tenderness in all extremities. No tenderness to palpation. Normal gait. Strength 5/5 throughout. NEURO: Patient was alert and oriented to person place and time. No focal neurological deficits. An order was placed for continuous site superintendent. The monitor showed a sinus tachycardia at a ventricular rate of 116 bpm, per my interpretation. Imaging as interpreted by myself and the radiologist revealed no consolidation, with radiologist interpretation as above. I agree with the radiologist's findings as based upon my independent interpretation. EMERGENCY DEPARTMENT COURSE: The patient was seen and evaluated as above. The patient does have history of asthma COPD overlap syndrome. The patient has been here multiple times in the past for asthma exacerbations. She has responded well to nebulizer treatments and steroids. She does occasionally need magnesium and has been admitted in the past for her asthma exacerbations. The patient does also report a history of respiratory failure and did require intubation related to an asthma exacerbation many years ago. Previous medical records were reviewed to include previous ED visits as well as outpatient pulmonology notes. Per her report, the patient states that she had been doing well on Dupixent, but her insurance no longer covers this medication and she has not been able to take it, causing the increase in frequency of her asthma exacerbations. IV access was obtained, labs were drawn. Labs were reviewed. There was a leukocytosis of 16,000. This is consistent with patient's history of asthma exacerbations. Patient does have a mild anemia with hemoglobin 11.1. This is also consistent with patient's baseline. Renal function and electrolytes without significant abnormality. Troponin 3.7. Chest x-ray was completed and was negative for infiltrate. Patient was medicated with 125 mg IV Solu-Medrol and an hour-long DuoNeb treatment. On reevaluation, patient notes she is feeling less tight, but on repeat examination, she continues to have diffuse expiratory wheezing which really has not improved from prior exam. I did discuss next steps with the patient to include magnesium treatment. The patient has been treated successfully with this in the past and has done well with that. 20 mg magnesium IV ordered via asthma protocol. At shift change, the patient was signed out to Mahad Jones PA-C pending reevaluation after magnesium treatment. We did discuss the potential the patient may require inpatient care based on her response to the above therapies. Please see his dictation regarding final disposition and plan of this patient. I attest that I have personally reviewed the patient medication list. I attest that I have reviewed the patient's blood pressure and it was found to be elevated. Patient encouraged to follow-up as an outpatient with her primary care provider. GCS: 15 In the evaluation and treatment of this patient the following differential diagnoses were entertained: Reactive airway disease, pneumonia, pneumothorax, COPD, CHF, infections, cardiac ischemia, pulmonary embolism, musculoskeletal, gastrointestinal, as well as other pathologies. The chart was completed utilizing [employer] I/O Speech voice recognition software. Grammatical errors, random word insertions, pronoun errors, and incomplete sentences are an occasional consequence of this system due to software limitations, ambient noise, and hardware issues. Any formal questions or concerns about the content, text, or information contained within the body of this dictation should be directly addressed to the provider for clarification. Past Med/Surg History Problem List FREDA (obstructive sleep apnea) Multiple pulmonary nodules Allergic rhinitis with postnasal drip Asthma-COPD overlap syndrome (Acute) Ex-smoker Hypersomnia Witnessed apneic spells Nocturnal hypoxemia Laryngitis History of tobacco use Excessive daytime sleepiness Dyspnea (Acute) Dietary counseling and surveillance Acute respiratory failure with hypoxia (Acute) Elevated IgE level Peripheral eosinophilia Acute respiratory failure (Acute) Hypomagnesemia (Acute) Morbid obesity (Acute) Hypothyroidism (Chronic) Asthma, severe persistent (Chronic) Allergic rhinitis (Chronic) Bipolar disorder (Chronic) Depression (Chronic) Anxiety (Chronic) Medical History History of acute pharyngitis Asthma exacerbation Family History Mother Diabetes Social History Smoking Status: Former smoker Tobacco Type: Cigarettes Age Started Using Tobacco: 18; Age Quit Using Tobacco: 31; packs per day: 2.5; Second Hand Exposure: Yes; Do You Dip or Chew Tobacco: No; Hx Alcohol Use: No Hx Substance Use: No Preferred Language: Chinese Communication Ability: Effective Dynamite Shooter Required: No Beliefs That Will Affect Care: None marital status: Current Living Situation: Spouse and Family current occupational status: employed Feels Safe at Home: Yes Assistive Devices: Oxygen - Continuous Allergies Allergies Allergy/AdvReac Type Severity Reaction Status Date / Time pollen extracts Allergy Mild allergy sx Verified 03/16/24 09:41 Home Meds Home Medications Medication Instructions Recorded Confirmed metformin 500 mg tablet 500 mg PO DAILY 03/19/22 03/16/24 omeprazole 40 mg capsule,delayed 40 mg PO DAILY 03/19/22 03/16/24 release fluoxetine 10 mg capsule 10 mg PO QAM 12/01/23 03/16/24 ipratropium bromide 0.02 % 3 ml continuous nebulization BID 12/01/23 03/16/24 solution for inhalation PRN SOB levothyroxine 150 mcg tablet 150 mcg PO DAILY 12/01/23 03/16/24 Previous Rx's Medication Instructions Recorded Auto Titrating CPAP #1 ea 11/25/22 CPAP Supplies #1 ea 11/25/22 dupilumab 300 mg/2 mL subcutaneous 300 mg (2 mL) subcut .COMPLEX #4 mL 03/30/23 syringe ([employer]) ipratropium 20 mcg-albuterol 100 1 puff inhalation QID Asthma #1 09/17/23 mcg/actuation mist for inhalation inhaler (Combivent Respimat) albuterol sulfate 2.5 mg/3 mL 2.5 mg (3 mL) continuous 03/22/24 (0.083 %) solution for nebulization nebulization Q4 PRN Shortness Of Breath Or Wheezing #3 Inhalers albuterol sulfate 90 mcg/actuation 2 puff inhalation Q6H PRN 03/22/24 aerosol inhaler Shortness Of Breath Or Wheezing #18 grams mometasone-formoterol HFA 100 1 puff inhalation BID #13 grams 03/22/24 mcg-5 mcg/actuation aerosol inhaler (Dulera) nebulizers (Aeroneb Go Nebulizer) #1 ea 03/22/24 Results & Data (ED) Vital Signs Vital Signs - 24 hr 05/20/24 05:14 05/20/24 05:22 05/20/24 05:26 Temperature 36.8 C Temperature Source Temporal Artery Scan Pulse Rate 116 H Pulse Rate [Apical] 120 H Respiratory Rate 24 24 Respiratory Effort / Characteristics Short of Breath Non-Labored Spontaneous Respiratory Depth Normal Respiratory Pattern Blood Pressure 142/86 H Blood Pressure [Right Arm] 131/110 H Blood Pressure Mean 104 Blood Pressure Mean [Right Arm] 117 Blood Pressure Position Sitting Blood Pressure Position [Right Arm] Sitting Pulse Oximetry 93 92 92 Oxygen Delivery Method Room Air Room Air Room Air Sepsis Recent Fever Within 48 Hours No Sepsis New/Unexplained Change in Mental Status N/A Sepsis Action Taken by Nursing No Action Required 05/20/24 05:34 05/20/24 05:41 05/20/24 05:43 Temperature Temperature Source Pulse Rate 107 H Pulse Rate [Apical] 106 H Respiratory Rate 18 Respiratory Effort / Characteristics Spontaneous Respiratory Depth Respiratory Pattern Blood Pressure Blood Pressure [Right Arm] Blood Pressure Mean Blood Pressure Mean [Right Arm] Blood Pressure Position Blood Pressure Position [Right Arm] Pulse Oximetry 92 92 Oxygen Delivery Method Room Air Room Air Sepsis Recent Fever Within 48 Hours Sepsis New/Unexplained Change in Mental Status Sepsis Action Taken by Nursing 05/20/24 05:43 05/20/24 06:32 Temperature Temperature Source Pulse Rate Pulse Rate [Apical] 99 H Respiratory Rate 18 Respiratory Effort / Characteristics Non-Labored Spontaneous Respiratory Depth Normal Respiratory Pattern Regular Blood Pressure Blood Pressure [Right Arm] 148/102 H Blood Pressure Mean Blood Pressure Mean [Right Arm] 117 Blood Pressure Position Blood Pressure Position [Right Arm] Pulse Oximetry 92 97 Oxygen Delivery Method Room Air Room Air Sepsis Recent Fever Within 48 Hours Sepsis New/Unexplained Change in Mental Status Sepsis Action Taken by Nursing Laboratory Data 05/20/24 05:41 05/20/24 05:41 Lab Results 05/20/24 Range/Units 05:41 WBC 16.46 H (4.8-10.8) K/ul RBC 4.45 (4.20-5.40) M/uL Hgb 11.1 L (12.0-16.0) g/dl Hct 35.4 L (37.0-47.0) % MCV 79.6 L (80.0-100.0) fL MCH 24.9 L (25.0-34.0) pg MCHC 31.4 L (32.0-36.0) g/dL RDW Std Deviation 45.2 (36.4-46.3) fL RDW Coeff of Laron 15.9 H (11.5-14.5) % Plt Count 242 (130-400) K/uL MPV 10.8 (9.4-12.4) fL Immature Gran % (Auto) 1.7 % Neut % (Auto) 62.9 % Lymph % (Auto) 25.6 % [place] % (Auto) 4.4 % Eos % (Auto) 4.9 % Baso % (Auto) 0.5 % Neut # (Auto) 10.36 H (1.40-6.50) K/uL Lymph # (Auto) 4.21 H (1.20-3.40) K/uL [place] # (Auto) 0.73 H (0.11-0.59) K/uL Eos # (Auto) 0.80 H (0.00-0.50) K/uL Baso # (Auto) 0.08 (0.00-0.20) K/uL Immature Gran # (Auto) 0.28 H (0.01-0.20) K/uL Sodium 141 (136-145) mmol/L Potassium 4.1 (3.5-5.1) mmol/L Chloride 110 H (98-107) mmol/L Carbon Dioxide 22 (21-32) mmol/L Anion Gap 9 (3-11) BUN 15 (6-23) mg/dl Creatinine 0.72 (0.6-1.2) mg/dl Est Cr Clr Drug Dosing 183.0 ml/min eGFR 111.06 BUN/Creatinine Ratio 20.8 H (10-20) Glucose 121 H (70-99(Fasting)) mg/dl Calcium 9.2 (8.6-10.3) mg/dl Troponin I High Sens 3.7 (0-14) pg/ml Administered Medications Discontinued Medications Albuterol (Albut/Ipratrop 3mg/0.5mg Neb 3 Ml Vial) 12 ml NEB ONE STA Stop: 05/20/24 05:23 Last Admin: 05/20/24 05:39 Dose: 12 ml Documented By: YINKA Methylprednisolone (Methylprednisolone 125 Mg/2 Ml Vial) 125 mg IV NOW STA Stop: 05/20/24 05:23 Last Admin: 05/20/24 05:43 Dose: 125 mg Documented By: RUDY Imaging Data Radiologist's Impression: Chest X-Ray 05/20/24 05:22 EXAM: XR chest 1V portable CLINICAL HISTORY: DYSPNEA JMF TECHNIQUE: An X-ray image of the chest is obtained in AP projection. COMPARISON: No prior studies are available for comparison. FINDINGS: Pulmonary Parenchyma: Evidence of bilateral increase broncho vascular markings associated with peribronchial cuffing for clinical correlation and follow-up. No evidence of consolidation, collapse, or focal opacities. No pulmonary nodules are identified. No evidence of pleural effusion or pleural thickening. Heart and Mediastinum: Heart size and shape are normal. No mediastinal widening or masses. No hilar or mediastinal lymphadenopathy. Bony Thorax: The bony thorax appears intact without fractures or deformities. Soft Tissues: Chest leads are noted within the field of view. Soft tissues overlying the chest wall are unremarkable. IMPRESSION: Evidence of bilateral increase broncho vascular markings associated with peribronchial cuffing for clinical correlation and follow-up. Electronically signed by Virgie Kaye 05-20-2024 06:22 AM Discharge Plan Visit Data Chief Complaint: Asthma Stated Complaint: ASTHMA ED Provider: Nichole Dykes ED Midlevel Provider: Muna Garcia Discharge Problem: Asthma, severe persistent, Dyspnea, Asthma-COPD overlap syndrome Patient Disposition: Home - Self-Care Condition: Good Forms Stand Alone Forms: [facility], Important Visit Information Prescriptions Prescriptions: No Action Combivent Respimat 20-100 mcg/actuation mist 1 puff INHALATION QID Qty: 1 8RF metformin 500 mg tablet 500 mg PO DAILY omeprazole 40 mg capsule,delayed release(DR/EC) 40 mg PO DAILY (DME) CPAP Supplies Misc See Rx Instructions .MEDSUPPLY Qty: 1 0RF Rx Instructions: CPAP supplies, mask, headgear, filters, tubing, water chamber. G47.33 (DME) Auto Titrating CPAP Misc See Rx Instructions .MEDSUPPLY Qty: 1 0RF Rx Instructions: Auto PAP with 5-15 cm H20. Lifetime usage. G47.33 albuterol sulfate 90 mcg/actuation HFA aerosol inhaler 2 puff inhalation Q6H PRN (Reason: Shortness Of Breath Or Wheezing) Qty: 18 3RF albuterol sulfate 2.5 mg /3 mL (0.083 %) solution for nebulization 2.5 mg continuous nebulization Q4 PRN (Reason: Shortness Of Breath Or Wheezing) Qty: 3 3RF (DME) nebulizers [Aeroneb Go Nebulizer] Misc See Rx Instructions .MEDSUPPLY Qty: 1 0RF Rx Instructions: With tubing and supplies. J44.9. J45.9. Dulera 100-5 mcg/actuation HFA aerosol inhaler 1 puff inhalation BID Qty: 13 12RF Dupixent Syringe 300 mg/2 mL syringe 300 mg subcut .COMPLEX Qty: 4 11RF Rx Instructions: INJECT 300 mg subcutaneously EVERY 2 WEEKS APPROVED GOOD 03/26/23-03/26/24 levothyroxine 150 mcg tablet 150 mcg PO DAILY ipratropium bromide 0.02 % solution 3 ml continuous nebulization BID PRN (Reason: SOB) fluoxetine 10 mg capsule 10 mg PO QAM Referrals Referrals: Valentin Thompson MD [Primary Care Provider] -
[2024-05-20] MEDS: ALBUT/IPRATROP 3MG/0.5MG NEB 3 ML VIAL NEB STA (05:39)
[2024-05-20] MEDS: methylPREDNISolone 125 MG/2 ML VIAL IV STA (05:43)
[2024-05-20 05:55] LABS: Basophils # (auto) 0.08 K/uL (0.00-0.20); Basophils % (auto) 0.5 %; Eosinophils % (auto) 4.9 %; Hematocrit (blood only) 35.4 % (37.0-47.0); Hemoglobin 11.1 g/dl (12.0-16.0); Immature Granulocytes # (auto) 0.28 K/uL (0.01-0.20); Immature Granulocytes % (auto) 1.7 %; Lymphocytes # (auto) 4.21 K/uL (1.20-3.40); Lymphocytes % (auto) 25.6 %; Mean Corpuscular Hemoglobin 24.9 pg (25.0-34.0); Mean Corpuscular Hgb Conc 31.4 g/dL (32.0-36.0); Mean Corpuscular Volume 79.6 fL (80.0-100.0); Mean Platelet Volume 10.8 fL (9.4-12.4); Monocytes # (auto) 0.73 K/uL (0.11-0.59); Monocytes % (auto) 4.4 %; Neutrophils # (auto) 10.36 K/uL (1.40-6.50); Neutrophils % (auto) 62.9 %; Platelet Count 242 K/uL (130-400); RDW Coefficient of Variation 15.9 % (11.5-14.5); RDW Standard Deviation 45.2 fL (36.4-46.3); Red Blood Count 4.45 M/uL (4.20-5.40); White Blood Count 16.46 K/ul (4.8-10.8)
[2024-05-20 06:11] LABS: BUN Creatinine Ratio 20.8 (10-20); Calcium 9.2 mg/dl (8.6-10.3); Potassium 4.1 mmol/L (3.5-5.1)
[2024-05-20 06:17] LABS: Troponin I High Sensitivity 3.7 pg/ml (0-14)
--- NOTE | 2024-05-20 06:22 | XRay Report ---
EXAM: XR chest 1V portable CLINICAL HISTORY: DYSPNEA JMF TECHNIQUE: An X-ray image of the chest is obtained in AP projection. COMPARISON: No prior studies are available for comparison. FINDINGS: Pulmonary Parenchyma: Evidence of bilateral increase broncho vascular markings associated with peribronchial cuffing for clinical correlation and follow-up. No evidence of consolidation, collapse, or focal opacities. No pulmonary nodules are identified. No evidence of pleural effusion or pleural thickening. Heart and Mediastinum: Heart size and shape are normal. No mediastinal widening or masses. No hilar or mediastinal lymphadenopathy. Bony Thorax: The bony thorax appears intact without fractures or deformities. Soft Tissues: Chest leads are noted within the field of view. Soft tissues overlying the chest wall are unremarkable. IMPRESSION: Evidence of bilateral increase broncho vascular markings associated with peribronchial cuffing for clinical correlation and follow-up. Electronically signed by Virgie Kaye 05-20-2024 06:22 AM
[2024-05-20] MEDS: MAGNESIUM SULFATE / D5W 1 GM/100 ML BAG IV SCH (06:46)
[2024-05-20] MEDS: MAGNESIUM SULFATE / D5W 1 GM/100 ML BAG IV STA (07:20)
--- NOTE | 2024-05-20 07:22 | Emergency Department Note ---
ED Visit Note Case signed out to me at shift change on 05/20/2024 from Muna Garcia PA-C. Please refer to documentation regarding evaluation/assessment pending point of signout. The patient was reevaluated and was noted to have persistent wheezing. She has a history of asthma. Wheezing persists despite DuoNeb x 1 hour, IV magnesium, and IV steroids. The patient with the persistence of symptoms at this time I do believe requires hospitalization. The patient does have a history of intubation as well as ICU admission. Case discussed with the hospitalist service. Please refer to further documentation regarding her stay. .
[2024-05-20 07:37] LABS: Magnesium 1.6 mg/dl (1.7-2.4)
[2024-05-20] MEDS ORDERED: GLUCOSE 10 TAB/TUBE PO PRN (07:57)
[2024-05-20] MEDS ORDERED: ALUMINUM/MAGNESIUM SUSP 30 ML UDC PO PRN (07:57)
[2024-05-20] MEDS ORDERED: MAGNESIUM HYDROXIDE SUSP 30 ML UDC PO PRN (07:57)
[2024-05-20] MEDS ORDERED: GLUCOSE 40% GEL 15 GM TUBE PO PRN (07:57)
[2024-05-20] MEDS ORDERED: CARBOHYDRATES FOR HYPOGLYCEMIA PO PRN (07:57)
[2024-05-20] MEDS ORDERED: ACETAMINOPHEN 325 MG TAB PO PRN (07:57)
[2024-05-20] MEDS ORDERED: GLUCAGON FOR INJ 1 MG VIAL SQ PRN (07:57)
[2024-05-20] MEDS ORDERED: ONDANSETRON INJ 2 MG/ML 2 ML VIAL IV PRN (07:57)
[2024-05-20] MEDS ORDERED: DEXTROSE 50% 50 ML SYRINGE IV PRN (07:57)
[2024-05-20] MEDS ORDERED: LEVALBUTEROL HCL 0.63 MG/3 ML NEB NEB PRN (08:02)
--- NOTE | 2024-05-20 08:18 | History & Physical Report ---
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 Patient received 1 g magnesium, 125 Mg Solu-Medrol, and hour-long DuoNeb in the ED with some improvement in her symptoms. Patient denied sore throat/fever/productive cough at presentation. Continue with Solu-Medrol 40 Mg 3 times daily, scheduled DuoNeb, as needed levalbuterol nebulization, budesonide and Perforomist nebRayray arizmendi. If with worsening symptoms, consider pulmonology consult. Hypomagnesemia: Monitor & replete magnesium. Additional 1 g magnesium added on top of 1 g received in the ED. Other chronic medical conditions: Hypothyroidism, depression with anxiety, FREDA on CPAP, Prediabetes---->> continue with/resume home meds as and when able. Patient advised to bring her own CPAP from home if possible. SSI while inpatient, hold metformin. DVT prophylaxis: Heparin subcu Full code History of Present Illness Chief Complaint: sob, wheezing Primary Care Provider: Valentin Thompson MD 38-year-old lady with PMH of acquired hypothyroidism, multiple thyroid nodules, prediabetes, severe persistent asthma, seasonal allergic rhinitis, obesity class III, depression with anxiety presented to the ED with complaint of progressive shortness of breath associated with wheezing and chest tightness. 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 Hence he decided to present to the ED. Patient denies fever/sore throat/nausea/vomiting/diarrhea/pain or burning with passing urine. Patient received an hour-long DuoNeb treatment in the ED and Solu-Medrol 125 Mg, 1 gm magnesium. Patient reports she is starting to feel better at bedside exam. Patient follows Dr. Badillo as an outpatient for her asthma. Patient has history of intubation secondary to asthma exacerbation in 2008 requiring ICU care. Patient reports quitting smoking 9 years ago, denies alcohol and recreational drug use. Medications reviewed with the patient and her at bedside. Plan of care discussed with the patient and her bedside her at bedside in detail, they voiced understanding. Full code Allergies Allergy/AdvReac Type Severity Reaction Status Date / Time pollen extracts Allergy Mild allergy sx Verified 05/20/24 08:18 Home Medications Medication Instructions Recorded Confirmed Type metformin 500 mg tablet 500 mg PO BID 03/19/22 05/20/24 History omeprazole 40 mg capsule,delayed 40 mg PO DAILY 03/19/22 05/20/24 History release Auto Titrating CPAP #1 ea 11/25/22 03/16/24 Rx CPAP Supplies #1 ea 11/25/22 03/16/24 Rx ipratropium 20 mcg-albuterol 100 1 puff inhalation QID Asthma #1 09/17/23 05/20/24 Rx mcg/actuation mist for inhalation inhaler (Combivent Respimat) fluoxetine 10 mg capsule 10 mg PO QAM 12/01/23 05/20/24 History levothyroxine 150 mcg tablet 150 mcg PO DAILY 12/01/23 05/20/24 History albuterol sulfate 2.5 mg/3 mL 2.5 mg (3 mL) continuous 03/22/24 05/20/24 Rx (0.083 %) solution for nebulization nebulization Q4 PRN Shortness Of Breath Or Wheezing #3 Inhalers albuterol sulfate 90 mcg/actuation 2 puff inhalation Q6H PRN 03/22/24 05/20/24 Rx aerosol inhaler Shortness Of Breath Or Wheezing #18 grams nebulizers (Aeroneb Go Nebulizer) #1 ea 03/22/24 03/22/24 Rx Past Med/Surg History Problem List (Updated 05/20/24 @ 08:18 by Nae Mckenzie MD) Acute severe exacerbation of asthma FREDA (obstructive sleep apnea) Multiple pulmonary nodules Allergic rhinitis with postnasal drip Asthma-COPD overlap syndrome (Acute) Ex-smoker Hypersomnia Witnessed apneic spells Nocturnal hypoxemia Laryngitis History of tobacco use Excessive daytime sleepiness Dyspnea (Acute) Dietary counseling and surveillance Acute respiratory failure with hypoxia (Acute) Elevated IgE level Peripheral eosinophilia Acute respiratory failure (Acute) Hypomagnesemia (Acute) Morbid obesity (Acute) Hypothyroidism (Chronic) Asthma, severe persistent (Chronic) Allergic rhinitis (Chronic) Bipolar disorder (Chronic) Depression (Chronic) Anxiety (Chronic) Medical History History of acute pharyngitis Asthma exacerbation Family History Mother Diabetes Social History Smoking Status: Former smoker Tobacco Type: Cigarettes Age Started Using Tobacco: 18; Age Quit Using Tobacco: 31; packs per day: 2.5; Second Hand Exposure: Yes; Do You Dip or Chew Tobacco: No; Hx Alcohol Use: Yes Hx Substance Use: No Preferred Language: Albanian Communication Ability: Effective Camp Cook Required: No Beliefs That Will Affect Care: None marital status: Current Living Situation: Spouse current occupational status: employed Other Information That Helps Us Care for You: No Feels Safe at Home: Yes Safety Concerns: Feels Safe At This Time Assistive Devices: CPAP, Denture - Upper, Denture - Lower and Glasses Review of Systems Review of Systems: Negative otherwise mentioned in HPI. Physical Exam Physical Exam: GENERAL: Alert and oriented x3. NAD, on RA. Obese Class III. HEENT: No pallor, no icterus. Pupils equal, round and reactive to light. Oral mucosa moist. NECK: No JVD, no neck masses. HEART: S1 and S2 heard. Regular rate and rhythm. HR in 110s. No murmur, no gallop. RESPIRATORY SYSTEM: Normal AP diameter. No accessory muscle use. bl wheezing, no crackles. ABDOMEN: Soft, bowel sounds present, nontender, no distention. CENTRAL NERVOUS SYSTEM: No facial droop. Speech is clear. Obeys simple commands. Moves extremities. EXTREMITIES: No edema, no erythema seen. Results & Data Results & Data Vital Signs (Past 12 Hours) Vital Signs Temp Pulse Pulse Resp BP BP Pulse Ox 05/20/24 06:32 99 H 18 148/102 H 97 05/20/24 05:43 92 05/20/24 05:43 92 05/20/24 05:41 106 H 18 92 05/20/24 05:34 107 H 05/20/24 05:26 120 H 24 131/110 H 92 05/20/24 05:22 92 05/20/24 05:14 36.8 C 116 H 24 142/86 H 93 O2 Del Method 05/20/24 06:32 Room Air 05/20/24 05:43 Room Air 05/20/24 05:43 Room Air 05/20/24 05:41 Room Air 05/20/24 05:34 05/20/24 05:26 Room Air 05/20/24 05:22 Room Air 05/20/24 05:14 Room Air
[2024-05-20] MEDS: MAGNESIUM SULFATE / D5W 1 GM/100 ML BAG IV ONE (08:29)
[2024-05-20] MEDS: FORMOTEROL 20 MCG/2 ML VIAL NEB SCH (08:49)
[2024-05-20 08:53] LABS: Adenovirus PCR Not Detected (NotDetected); Bordetella parapertussis PCR Not Detected (NotDetected); Bordetella pertussis PCR Not Detected (NotDetected); Chlamydia pneumoniae PCR Not Detected (NotDetected); Coronavirus 229E PCR Not Detected (NotDetected); Coronavirus CoV-2 (COVID19)PCR Not Detected (NotDetected); Coronavirus HKU1 PCR Not Detected (NotDetected); Coronavirus NL63 PCR Not Detected (NotDetected); Coronavirus OC43PCR Not Detected (NotDetected); Human Metapneumovirus PCR Not Detected (NotDetected); Influenza A PCR Not Detected (NotDetected); Influenza B PCR Not Detected (NotDetected); Mycoplasma pneumoniae PCR Not Detected (NotDetected); Parainfluenza Virus 1 PCR Not Detected (NotDetected); Parainfluenza Virus 2 PCR Not Detected (NotDetected); Parainfluenza Virus 3 PCR Not Detected (NotDetected); Parainfluenza Virus 4 PCR Not Detected (NotDetected); Respiratory Syncytial VirusPCR Not Detected (NotDetected); Rhinovirus/Enterovirus PCR Not Detected (NotDetected)
[2024-05-20] MEDS ORDERED: methylPREDNISolone 125 MG/2 ML VIAL IV SCH (09:00)
[2024-05-20] MEDS: methylPREDNISolone 40 MG in SYRINGE 0 ML IV SCH (09:15)
[2024-05-20] MEDS: FLUoxetine HCL 10 MG CAP PO SCH (09:57)
[2024-05-20] MEDS: PANTOprazole 40 MG TAB PO SCH (09:57)
[2024-05-20] MEDS: BENZONATATE 100 MG CAPSULE PO SCH (09:57)
[2024-05-20] MEDS: INSULIN ASPART PER UNIT CHARGE SC SCH (12:12)
[2024-05-20] MEDS: ALBUT/IPRATROP 3MG/0.5MG NEB 3 ML VIAL NEB SCH (12:54)
[2024-05-20] MEDS: HEPARIN SOD 5,000 UNIT/0.5 ML VIAL SQ SCH (13:37)
[2024-05-20] MEDS: BUDESONIDE 0.5 MG/2 ML VIAL (PULMICORT) NEB SCH (19:07)
[2024-05-21] MEDS: LEVOTHYROXINE SODIUM 150 MCG TABLET PO SCH (06:16)
[2024-05-21 07:05] LABS: Hematocrit (blood only) 33.5 % (37.0-47.0); Hemoglobin 10.7 g/dl (12.0-16.0); Mean Corpuscular Hemoglobin 25.4 pg (25.0-34.0); Mean Corpuscular Hgb Conc 31.9 g/dL (32.0-36.0); Mean Corpuscular Volume 79.4 fL (80.0-100.0); Mean Platelet Volume 11.6 fL (9.4-12.4); Platelet Count 274 K/uL (130-400); RDW Coefficient of Variation 15.9 % (11.5-14.5); RDW Standard Deviation 45.1 fL (36.4-46.3); Red Blood Count 4.22 M/uL (4.20-5.40)
[2024-05-21 07:17] LABS: Calcium 9.4 mg/dl (8.6-10.3); Creatinine Clr Calc Pharmacy 193.3 ml/min; Phosphorus 2.6 mg/dl (2.5-4.9); Potassium 4.6 mmol/L (3.5-5.1)
[2024-05-21 07:40] LABS: Estimated Average Glucose 120 mg/dl; Hemoglobin A1C 5.8 % (4.5-5.6)
--- NOTE | 2024-05-21 12:43 | Hospitalist Progress Note ---
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 Status post 2 g magnesium, 125 Mg Solu-Medrol and hour-long DuoNeb in the ED with improvement in her symptoms. Patient denied sore throat/fever/productive cough at presentation. Patient reports improving cough and shortness of breath, still feels chest tight and cough with activity. Continue with Solu-Medrol 40 Mg 3 times daily, scheduled DuoNeb, as needed levalbuterol nebulization, budesonide and Perforomist nebs, Tesboaz Mccaines. C/w home PPI. Consider tapering down steroid with clinical improvement/reassess in AM. If with worsening symptoms, consider pulmonology consult. Hypomagnesemia: Monitor & replete magnesium. stable today. Other chronic medical conditions: Hypothyroidism, depression with anxiety, FREDA on CPAP, Prediabetes---->> continue with/resume home meds as and when able. c/w CPAP hs. SSI while inpatient, hold metformin. Pt aware of A1c of 5.8 this admission. DVT prophylaxis: Heparin subcu Full code Admission and Anticipated Discharge Date Admission Date: May 20, 2024 Subjective Patient was seen and examined at bedside. Patient was lying in bed, on room air, NAD, resting comfortably. Patient reports chest tightness/cough/shortness of breath with activity, overall she reports significantly improving though. Reports improving cough and heart rate seems to be improving on EMR review. Patient reports eating okay, moving bowels okay, denies other complaints. Physical Exam Physical Exam: GENERAL: Alert and oriented x3. NAD, on RA. Obese Class III. HEENT: No pallor, no icterus. Pupils equal, round and reactive to light. Oral mucosa moist. NECK: No JVD, no neck masses. HEART: S1 and S2 heard. Regular rate and rhythm. HR in 100s. No murmur, no gallop. RESPIRATORY SYSTEM: Normal AP diameter. No accessory muscle use. bl wheezing, no crackles. ABDOMEN: Soft, bowel sounds present, nontender, no distention. CENTRAL NERVOUS SYSTEM: No facial droop. Speech is clear. Obeys simple commands. Moves extremities. EXTREMITIES: No edema, no erythema seen. Results & Data Results & Data Vital Signs (Past 12 Hours) Vital Signs Temp Pulse Pulse Resp BP Pulse Ox O2 Del Method 05/21/24 11:00 36.5 C 100 H 16 142/88 H 95 Room Air 05/21/24 10:05 Room Air 05/21/24 07:48 36.7 C 103 H 16 123/82 94 Room Air 05/21/24 07:20 100 H 05/21/24 07:15 105 H 16 94 Room Air 05/21/24 02:38 36.6 C 107 H 18 133/70 94 Room Air 05/21/24 00:50 106 H 18 91 Room Air
[2024-05-22 07:46] LABS: Hematocrit (blood only) 35.2 % (37.0-47.0); Hemoglobin 10.8 g/dl (12.0-16.0); Mean Corpuscular Hemoglobin 24.8 pg (25.0-34.0); Mean Corpuscular Hgb Conc 30.7 g/dL (32.0-36.0); Mean Corpuscular Volume 80.7 fL (80.0-100.0); Mean Platelet Volume 11.3 fL (9.4-12.4); Platelet Count 279 K/uL (130-400); RDW Coefficient of Variation 16.2 % (11.5-14.5); RDW Standard Deviation 47.5 fL (36.4-46.3); Red Blood Count 4.36 M/uL (4.20-5.40); White Blood Count 20.55 K/ul (4.8-10.8)
[2024-05-22 08:05] LABS: Calcium 9.2 mg/dl (8.6-10.3); Creatinine Clr Calc Pharmacy 170.6 ml/min; Magnesium 2.1 mg/dl (1.7-2.4); Phosphorus 2.9 mg/dl (2.5-4.9); Potassium 4.2 mmol/L (3.5-5.1)
--- NOTE | 2024-05-22 15:01 | Hospitalist Progress Note ---
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 Status post 2 g magnesium, 125 Mg Solu-Medrol and hour-long DuoNeb in the ED with improvement in her symptoms. Patient denied sore throat/fever/productive cough at presentation. Patient reports improving cough and shortness of breath, reports improving activity tolerance. Taper Solu-Medrol 40 Mg to 2 times daily, c/w scheduled DuoNeb, as needed levalbuterol nebulization, budesonide and Perforomist nebs, Tesboaz Perlandrey. C/w home PPI. Consider tapering down steroid with clinical improvement/reassess in AM. If with continued improving symptoms, possible dc nikki on oral steroid. Pulm f/u on DC, PFT In 6 weeks. Hypomagnesemia: Monitor & replete magnesium. stable today. Other chronic medical conditions: Hypothyroidism, depression with anxiety, FREDA on CPAP, Prediabetes---->> continue with/resume home meds as and when able. c/w CPAP hs. SSI while inpatient, hold metformin. Pt aware of A1c of 5.8 this admission. DVT prophylaxis: Heparin subcu Full code Admission and Anticipated Discharge Date Admission Date: May 20, 2024 Subjective Patient was seen and examined at bedside. Patient was Sitting up in chair, on room air, NAD, resting comfortably. Patient reports chest tightness/cough/shortness of breath with activity improving significantly. Reports improving cough and heart rate seems to be improving on EMR review. Patient reports eating okay, moving bowels okay, denies other complaints. Patient has been made aware of diagnosis of prediabetes, patient does not want to be on carbohydrate consistent diet, wants to be on regular diet. Regular diet placed. Physical Exam Physical Exam: GENERAL: Alert and oriented x3. NAD, on RA. Obese Class III. HEENT: No pallor, no icterus. Pupils equal, round and reactive to light. Oral mucosa moist. NECK: No JVD, no neck masses. HEART: S1 and S2 heard. Regular rate and rhythm. HR in 80s. No murmur, no gallop. RESPIRATORY SYSTEM: Normal AP diameter. No accessory muscle use. bl wheezing, no crackles. ABDOMEN: Soft, bowel sounds present, nontender, no distention. CENTRAL NERVOUS SYSTEM: No facial droop. Speech is clear. Obeys simple commands. Moves extremities. EXTREMITIES: No edema, no erythema seen. Results & Data Results & Data Vital Signs (Past 12 Hours) Vital Signs Temp Pulse Resp BP Pulse Ox O2 Del Method FiO2 05/22/24 12:52 86 15 96 Room Air 05/22/24 10:51 37.1 C 89 18 142/86 H 95 Room Air 05/22/24 07:39 90 15 98 Room Air 05/22/24 07:30 Room Air 05/22/24 07:00 37.2 C 80 18 124/78 95 Room Air 05/22/24 03:25 36.9 C 94 H 18 131/77 95 Room Air
[2024-05-22] MEDS: methylPREDNISolone 40 MG in SYRINGE 0 ML IV SCH (21:00)
[2024-05-23 06:52] LABS: Hematocrit (blood only) 36.2 % (37.0-47.0); Hemoglobin 11.2 g/dl (12.0-16.0); Mean Corpuscular Hemoglobin 24.9 pg (25.0-34.0); Mean Corpuscular Hgb Conc 30.9 g/dL (32.0-36.0); Mean Corpuscular Volume 80.4 fL (80.0-100.0); Platelet Count 278 K/uL (130-400); RDW Standard Deviation 46.6 fL (36.4-46.3)
[2024-05-23 07:07] LABS: BUN Creatinine Ratio 24.7 (10-20); Creatinine Clr Calc Pharmacy 148.7 ml/min; Potassium 4.2 mmol/L (3.5-5.1)
[2024-05-23 07:29] VITALS: O2SAT 98
[2024-05-23 07:37] VITALS: RESP 17; TEMP 98.2
--- NOTE | 2024-05-23 12:18 | Discharge Summary ---
Date of Service May 23, 2024 Admission HPI Per Admitting Provider 38-year-old lady with PMH of acquired hypothyroidism, multiple thyroid nodules, prediabetes, severe persistent asthma, seasonal allergic rhinitis, obesity class III, depression with anxiety presented to the ED with complaint of progressive shortness of breath associated with wheezing and chest tightness. 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 Hence he decided to present to the ED. Patient denies fever/sore throat/nausea/vomiting/diarrhea/pain or burning with passing urine. Patient received an hour-long DuoNeb treatment in the ED and Solu-Medrol 125 Mg, 1 gm magnesium. Patient reports she is starting to feel better at bedside exam. Patient follows Dr. Badillo as an outpatient for her asthma. Patient has history of intubation secondary to asthma exacerbation in 2008 requiring ICU care. Patient reports quitting smoking 9 years ago, denies alcohol and recreational drug use. Medications reviewed with the patient and her at bedside. Plan of care discussed with the patient and her bedside her at bedside in detail, they voiced understanding. Full code Admission Exam Per Admitting Provider GENERAL: Alert and oriented x3. NAD, on RA. Obese Class III. HEENT: No pallor, no icterus. Pupils equal, round and reactive to light. Oral mucosa moist. NECK: No JVD, no neck masses. HEART: S1 and S2 heard. Regular rate and rhythm. HR in 110s. No murmur, no gallop. RESPIRATORY SYSTEM: Normal AP diameter. No accessory muscle use. bl wheezing, no crackles. ABDOMEN: Soft, bowel sounds present, nontender, no distention. CENTRAL NERVOUS SYSTEM: No facial droop. Speech is clear. Obeys simple commands. Moves extremities. EXTREMITIES: No edema, no erythema seen. Principal Diagnosis Acute exacerbation of asthma. Discharge Exam GENERAL: Alert and oriented x3. NAD, on RA. Obese Class III. HEENT: No pallor, no icterus. Pupils equal, round and reactive to light. Oral mucosa moist. NECK: No JVD, no neck masses. HEART: S1 and S2 heard. Regular rate and rhythm. HR in 80s. No murmur, no gallop. RESPIRATORY SYSTEM: Normal AP diameter. No accessory muscle use. No wheezing and no crackles. Clear to auscultation. ABDOMEN: Soft, bowel sounds present, nontender, no distention. CENTRAL NERVOUS SYSTEM: No facial droop. Speech is clear. Obeys simple commands. Moves extremities. EXTREMITIES: No edema, no erythema seen. 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 Status post 2 g magnesium, 125 Mg Solu-Medrol and hour-long DuoNeb in the ED with improvement in her symptoms. Patient denied sore throat/fever/productive cough at presentation. Patient reports improving cough and shortness of breath, Reports feeling back to baseline. Transition Solu-Medrol to tapering dose of prednisone upon discharge. Start budesonide inhaler upon discharge. Follow-up with pulm upon discharge, pulmonary function test in 6 weeks time upon discharge, patient has been made aware and she voiced understanding. Patient is hemodynamically stable. Hypomagnesemia: Monitor & replete magnesium. stable today. Other chronic medical conditions: Hypothyroidism, depression with anxiety, FREDA on CPAP, Prediabetes---->> continue with/resume home meds as and when able. c/w CPAP hs. SSI while inpatient, hold metformin. Pt aware of A1c of 5.8 this admission. Repeat A1c in 3 months time. DVT prophylaxis: Heparin subcu Full code Patient is being discharged home with following instruction at the point of discharge: Follow-up with your primary care physician within a week time and likely you will need labs CBC/CMP/magnesium/phosphorus. You were admitted for acute exacerbation of asthma, you will be discharged on oral steroid [tapering dose]. You will also be discharged on inhaled glucocorticoids, continue as prescribed. As discussed at the bedside, you will benefit from establishing with pulmonology as an outpatient. Coordinate with the PCP office to set up the referral. You will also need pulmonary function test in about 6 weeks time, coordinate with the PCP office to set up the test. As discussed at the bedside, your A1c is 5.8 which means prediabetes. Recommend that you maintain heart healthy diet/lifestyle modification/daily exercise regimen/carbohydrate consistent diet. You will need repeat A1c in 3 months time, coordinate with your PCP office for long-term monitoring and test. Take your medications as prescribed. Please make sure that you are able to get your medications today by calling your pharmacy before you leave the hospital so that your treatment continuity is not broken. Home Health Attestation I certify that this patient is under my care and that I, or a physicians assistant to the president working with me, had a face to-face encounter that meets the home health [id number] encounter requirements with this patient. The encounter with the patient was in whole, or in part, for the following medical condition, which is the primary reason for home health care (list medical condition): I certify that, based on my findings, the following services are medically necessary home health services: My clinical findings support the need for the above services because: Further, I certify that my clinical findings support that this patient is homebound (i.e. absences from home require considerable and taxing effort and are for medical reasons or denominational services or infrequently or of short duration when for other reasons) because: Certification for Home Health Services: Based on the above findings, I certify that this patient is confined to the home and needs intermittent group home care, physical therapy and/or speech therapy or continues to need occupational therapy. The patient is under my care, and I have initiated the establishment of the plan of care. This patient will be followed by a physician who will periodically review the plan of care. Total Time Total Time Spent Total Time Spent (In Minutes): 45 Discharge Plan Discharge Items Patient Disposition: Home - Self-Care Reason For Visit: SOB, WHEEZE Discharge Diagnosis: Acute exacerbation of asthma Condition on Discharge: Good Activity: Resume your previous activity Non-emergency contact: Primary Care Provider Call non-emergency contact if: you have any medication questions, your symptoms worsen and your temperature is above 101 Follow-up/Referrals: Valentin Thompson MD [Primary Care Provider] - Diet: Carb Consistent or DM2 and Heart Healthy Addtl Attending Provider Instructions: Follow-up with your primary care physician within a week time and likely you will need labs CBC/CMP/magnesium/phosphorus. You were admitted for acute exacerbation of asthma, you will be discharged on oral steroid [tapering dose]. You will also be discharged on inhaled glucocorticoids, continue as prescribed. As discussed at the bedside, you will benefit from establishing with pulmonology as an outpatient. Coordinate with the PCP office to set up the referral. You will also need pulmonary function test in about 6 weeks time, coordinate with the PCP office to set up the test. As discussed at the bedside, your A1c is 5.8 which means prediabetes. Recommend that you maintain heart healthy diet/lifestyle modification/daily exercise regimen/carbohydrate consistent diet. You will need repeat A1c in 3 months time, coordinate with your PCP office for long-term monitoring and test. Take your medications as prescribed. Please make sure that you are able to get your medications today by calling your pharmacy before you leave the hospital so that your treatment continuity is not broken. Pending Studies at Discharge: No Stand-Alone Forms: [employer], Work/School Release, Smoking Cessation Medications and DC Order Prescriptions: New prednisone 20 mg Tablet 40 mg PO UD Qty: 13 0RF Rx Instructions: 2 tabs daily x 5 days, then 1 tab daily x 3 days, then stop. benzonatate 100 mg Capsule 100 mg PO TID 5 Days Qty: 15 0RF Pulmicort Flexhaler 90 mcg/actuation aerosol powdr breath activated 2 inh inhalation BID Qty: 1 0RF Continued Combivent Respimat 20-100 mcg/actuation mist 1 puff INHALATION QID Qty: 1 8RF metformin 500 mg tablet 500 mg PO BID omeprazole 40 mg capsule,delayed release(DR/EC) 40 mg PO DAILY (DME) CPAP Supplies Misc See Rx Instructions .MEDSUPPLY Qty: 1 0RF Rx Instructions: CPAP supplies, mask, headgear, filters, tubing, water chamber. G47.33 (DME) Auto Titrating CPAP Misc See Rx Instructions .MEDSUPPLY Qty: 1 0RF Rx Instructions: Auto PAP with 5-15 cm H20. Lifetime usage. G47.33 albuterol sulfate 90 mcg/actuation HFA aerosol inhaler 2 puff inhalation Q6H PRN (Reason: Shortness Of Breath Or Wheezing) Qty: 18 3RF albuterol sulfate 2.5 mg /3 mL (0.083 %) solution for nebulization 2.5 mg continuous nebulization Q4 PRN (Reason: Shortness Of Breath Or Wheezing) Qty: 3 3RF (DME) nebulizers [Aeroneb Go Nebulizer] [facility] [place] See Rx Instructions .MEDSUPPLY Qty: 1 0RF Rx Instructions: With tubing and supplies. J44.9. J45.9. levothyroxine 150 mcg tablet 150 mcg PO DAILY fluoxetine 10 mg capsule 10 mg PO QAM Discharge Orders: Discharge Order (Routine); Ordered 05/23/24 Ordered By: Nae Mckenzie Admission Data Admit Date/Time: 05/20/24 07:58 Attending Provider: Nae Mckenzie Admit Provider: Nae Mckenzie Primary Care Provider: Valentin Thompson Other Providers: Nae Mckenzie
[2024-05-23 12:21] VITALS: BP 122/81; PULSE 82
[2024-05-23] MEDS: INFLUENZA VACC TS2024-25(6m+)/PF (IIV3) 0.5mL Syr IM ONE (12:59)
[2024-05-24] MEDS ORDERED: predniSONE 20 MG TAB PO SCH (09:00)
== END 2024-05-23 13:10 | disposition home or self-care (01) | DRG 203 ==
LOC: ED 05:10 → 2S 07:58

== ENCOUNTER 2024-06-24 13:19 | Inpatient (IN) ==
[2024-06-24] MEDS: ALBUT/IPRATROP 3MG/0.5MG NEB 3 ML VIAL NEB STA (15:01)
[2024-06-24] MEDS: MAGNESIUM SULFATE / D5W 1 GM/100 ML BAG IV SCH (15:01)
[2024-06-24] MEDS: SODIUM CHLORIDE 0.9% 1,000 ML IV SCH (15:02)
[2024-06-24 15:12] LABS: Hematocrit (blood only) 39.5 % (37.0-47.0); Hemoglobin 12.4 g/dl (12.0-16.0); Mean Corpuscular Hemoglobin 24.9 pg (25.0-34.0); Mean Corpuscular Hgb Conc 31.4 g/dL (32.0-36.0); Mean Corpuscular Volume 79.3 fL (80.0-100.0); Mean Platelet Volume 10.3 fL (9.4-12.4); Platelet Count 381 K/uL (130-400); RDW Coefficient of Variation 15.7 % (11.5-14.5); RDW Standard Deviation 44.6 fL (36.4-46.3); Red Blood Count 4.98 M/uL (4.20-5.40); White Blood Count 19.61 K/ul (4.8-10.8)
--- NOTE | 2024-06-24 15:13 | Emergency Department Note ---
Impression & Plan Acute respiratory failure with hypoxia, Asthma with acute exacerbation ED Provider Note ED Provider Note NAME: EMILY VERGARA AGE:39 SEX: Female : 1985 ARRIVES VIA: private vehicle INFORMANT: Patient ED PROVIDER(s): Kayleen Rodriguez DO CHIEF COMPLAINT: Shortness of breath HPI: This is a 39-year-old female who presents emergency department due to increased shortness of breath. Patient does have a known history of asthma. Due to her increased work of breathing, initial history was minimized. Patient has previously been hospitalized and intubated for her asthma. She was recently hospitalized at this facility a little over a month ago due to an asthma exacerbation. She denies any recent fevers, chills, or URI symptoms. PAST MEDICAL HISTORY:See Below PAST SURGICAL HISTORY:See Below FAMILY HISTORY:See Below SOCIAL HISTORY:See Below HOME MEDICATIONS:See Below ALLERGIES:See Below VITALS:See Below PHYSICAL EXAMINATION: GENERAL: alert, unwell appearing, well nourished, severe distress, non-toxic EYE EXAM: normal conjunctiva, PERRL and EOM's grossly intact OROPHARYNX: no exudate, no erythema, lips, buccal mucosa, and tongue normal and mucous membranes are moist NECK: supple, no nuchal rigidity, no adenopathy, non-tender LUNGS: Normal chest wall mechanics, decreased breath sounds bilaterally, bilateral expiratory wheeze, increased work of breathing, tachypnea HEART: no murmurs, S1 normal and S2 normal ABDOMEN: abdomen soft, non-tender, normo-active bowel sounds, no masses, no rebound or guarding. BACK: Back is symmetrical on inspection and there is no deformity, no midline tenderness, no CVA tenderness. SKIN: no rashes, petechiae, orbruising UPPER EXTREMITIES: upper extremities are grossly normal. FROM, nml pulses b/l. LOWER EXTREMITIES: No pitting edema. FROM, nml pulses b/l. NEURO EXAM: Normal sensorium, cranial nerves II-XII grossly intact, normal speech, no facial droop,nogross weakness of arms, no gross weakness of legs. Gross sensation intact. No ataxia. Vital Signs: reviewed and remarkable Differential Diagnosis: pneumonia, bronchitis, COPD/Asthma exacerbation, pneumothorax, pulmonary embolism, congestive heart failure, acute coronary syndrome, as well as others were considered MEDICAL DECISION MAKING: This is a 39-year-old female with a history of asthma who presents emergency department with increased difficulty breathing. Patient initially presented to triage with increased work of breathing however staff became concerned when she appeared to be worsening while sitting in triage as she had not yet been placed in the room when she presented on day of high volume and acuity. Patient wheeled into D8 and I was called urgently to evaluate her. Patient unable to speak due to work of breathing, was tripoding while seated in a wheelchair, and had become hypoxic at 80 to 89%. She was placed on oxygen via nasal cannula and a set of vitals obtained. I contacted charge nurse can ask that she be moved to a resuscitation room due to concern for severity of her disease and need for further interventions. Respiratory was contacted and asked to bring high flow nasal cannula versus BiPAP to bedside. Patient started on a continuous nebulizer treatment by RT. She was on high flow nasal cannula while she was also on the continuous nebulizer treatment. Labs drawn and sent, IV established, EKG and chest ray performed at bedside interpreted me and patient monitored on telemetry. She was given IV Solu-Medrol 125 mg and 2 g of IV magnesium urgently additionally. She was started on maintenance IV fluids. Patient rechecked multiple times due to concern for condition and possible need for further airway intervention. Preparations were made as a precaution and I also spoke with the pharmacist about other medication options after reviewing her prior admission and history. Patient would potentially be a difficult airway due to body habitus. Patient had slight improvement in air movement upon repeat auscultation as she finished the first continuous neb and 2 g of IV mag. She reported feeling slightly improved. Patient given a brief break due to a sense of feeling jittery before starting a second continuous neb. Upon starting the second treatment she began to improve more with a decrease in her tachycardia, decreased tachypnea, decreased work of breathing. She was able to start speaking in short phrases to answer other questions. Patient's chest x- ray did not reveal any obvious pneumonia or pulmonary edema. Nasal swab obtained and sent for BioFire which was negative also. Patient's other labs reassuring. She did have significant leukocytosis although I suspect this is more likely stress to margination as upon review of EMR this has happened during prior presentations. Patient continued to be monitored and rechecked multiple times. Following finishing the second continuous nebulizer treatments she was looking improved and able to be moved from a 1 to a regular patient room. Case discussed with hospitalist team for additional evaluation and management. Consultation(s): 1654: Discussed with Isidra Man hospitalist team for additional evaluation and management. ER Treatment Provided: See below 1612: Patient now able to speak in short phrases. 1652: Patient starting second continuous neb. Still on high flow, does report feeling improved. Significant improvement in her work of breathing and tachypnea. Diagnostics Interpreted By Me: -ECG: Sinus tachycardia at 128, rightward axis, normal intervals, nonspecific ST/T wave changes -Cardiac Monitoring: An order was placed for continuous cardiac monitoring. The monitor shows a rate of 122 with sinus tachycardia rhythm. -Laboratory studies: As stated above and show below. -Imaging studies: X-ray Chest: A single view study of the chest was reviewed and was negative for cardiomegaly, focal infiltrate, effusion, pulmonary edema, or wide mediastinum. Triage Nursing Note Reviewed Prior/Outside Records Reviewed -prior discharge summary reviewed Critical Care: Critical care of 78 min performed to assess and manage high likelihood of life-threatening asthma exacerbation with hypoxia, involving labs and imaging performed with assessment to evaluate dyspnea and hypoxia diagnosis with frequent reassessment. This time includes bedside time, treatment discussions with patient/family/consultants, documentation time and excludes procedure time. Past Med/Surg History Problem List Acute asthma exacerbation Asthma with acute exacerbation (Acute) Acute severe exacerbation of asthma FREDA (obstructive sleep apnea) Multiple pulmonary nodules Allergic rhinitis with postnasal drip Asthma-COPD overlap syndrome (Acute) Ex-smoker Hypersomnia Witnessed apneic spells Nocturnal hypoxemia Laryngitis History of tobacco use Excessive daytime sleepiness Dyspnea (Acute) Dietary counseling and surveillance Acute respiratory failure with hypoxia (Acute) Elevated IgE level Peripheral eosinophilia Acute respiratory failure (Acute) Hypomagnesemia (Acute) Morbid obesity (Acute) Hypothyroidism (Chronic) Asthma, severe persistent (Chronic) Allergic rhinitis (Chronic) Bipolar disorder (Chronic) Depression (Chronic) Anxiety (Chronic) Medical History History of acute pharyngitis Asthma exacerbation Family History Mother Diabetes Social History Smoking Status: Former smoker Tobacco Type: Cigarettes Age Started Using Tobacco: 18; Age Quit Using Tobacco: 31; packs per day: 2.5; Second Hand Exposure: Yes; Do You Dip or Chew Tobacco: No; Hx Alcohol Use: Yes Hx Substance Use: No Preferred Language: Croatian Communication Ability: Effective Fisherman Helper Required: No Beliefs That Will Affect Care: None marital status: Current Living Situation: Spouse current occupational status: employed Feels Safe at Home: Yes Assistive Devices: None Allergies Allergies Allergy/AdvReac Type Severity Reaction Status Date / Time pollen extracts Allergy Mild allergy sx Verified 05/20/24 08:18 Home Meds Home Medications Medication Instructions Recorded Confirmed metformin 500 mg tablet 500 mg PO BID 03/19/22 06/24/24 omeprazole 40 mg capsule,delayed 40 mg PO DAILY 03/19/22 06/24/24 release fluoxetine 10 mg capsule 10 mg PO QAM 12/01/23 06/24/24 levothyroxine 150 mcg tablet 150 mcg PO DAILYBB 12/01/23 06/24/24 Previous Rx's Medication Instructions Recorded Auto Titrating CPAP #1 ea 11/25/22 CPAP Supplies #1 ea 11/25/22 albuterol sulfate 2.5 mg/3 mL 2.5 mg (3 mL) continuous 03/22/24 (0.083 %) solution for nebulization nebulization Q4 PRN Shortness Of Breath Or Wheezing #3 Inhalers albuterol sulfate 90 mcg/actuation 2 puff inhalation Q6H PRN 03/22/24 aerosol inhaler Shortness Of Breath Or Wheezing #18 grams nebulizers (Aeroneb Go Nebulizer) #1 ea 03/22/24 ipratropium 20 mcg-albuterol 100 1 puff inhalation QID Asthma #1 06/17/24 mcg/actuation mist for inhalation inhaler (Combivent Respimat) Results & Data (ED) Vital Signs Vital Signs - 24 hr 06/24/24 13:36 06/24/24 13:36 06/24/24 14:51 Temperature 36.7 C Temperature Source Skin Pulse Rate 106 H 128 H Pulse Rate [Right Finger] Pulse Rate from SpO2 Sensor Respiratory Rate 22 22 Respiratory Effort / Characteristics Spontaneous Short of Breath Non-Labored Spontaneous Respiratory Depth Normal Respiratory Pattern Regular Blood Pressure 159/118 H Blood Pressure Mean 131 Pulse Oximetry 93 93 Oxygen Delivery Method Room Air Room Air Oxygen Flow Rate Fraction of Inspired Oxygen Sepsis Recent Fever Within 48 Hours No Sepsis New/Unexplained Change in Mental Status N/A Sepsis Action Taken by Nursing No Action Required Oxygen Flow Rate - Titration Fraction of Inspired Oxygen - Titration Pulse Oximetry Post Tiitration 06/24/24 15:00 06/24/24 15:01 06/24/24 15:06 Temperature Temperature Source Pulse Rate 128 H 120 H Pulse Rate [Right Finger] 126 H Pulse Rate from SpO2 Sensor 120 H Respiratory Rate 26 H 31 H Respiratory Effort / Characteristics Respiratory Depth Respiratory Pattern Blood Pressure 155/125 H Blood Pressure Mean 135 Pulse Oximetry 97 97 Oxygen Delivery Method High Flow Nasal Cannula High Flow Nasal Cannula Oxygen Flow Rate 35 Fraction of Inspired Oxygen 50 Sepsis Recent Fever Within 48 Hours Sepsis New/Unexplained Change in Mental Status Sepsis Action Taken by Nursing Oxygen Flow Rate - Titration Fraction of Inspired Oxygen - Titration Pulse Oximetry Post Tiitration 06/24/24 15:12 06/24/24 15:30 06/24/24 16:00 Temperature Temperature Source Pulse Rate 112 H 102 H Pulse Rate [Right Finger] Pulse Rate from SpO2 Sensor 103 H Respiratory Rate 26 H 25 H Respiratory Effort / Characteristics Respiratory Depth Respiratory Pattern Blood Pressure 164/74 H 136/96 Blood Pressure Mean 104 109 Pulse Oximetry 99 99 Oxygen Delivery Method High Flow Nasal Cannula High Flow Nasal Cannula Oxygen Flow Rate 35 Fraction of Inspired Oxygen 50 Sepsis Recent Fever Within 48 Hours Sepsis New/Unexplained Change in Mental Status Sepsis Action Taken by Nursing Oxygen Flow Rate - Titration 35 Fraction of Inspired Oxygen - Titration 50 Pulse Oximetry Post Tiitration 97 06/24/24 16:36 06/24/24 16:45 06/24/24 16:55 Temperature Temperature Source Pulse Rate 99 H Pulse Rate [Right Finger] 96 H Pulse Rate from SpO2 Sensor 99 H Respiratory Rate 19 18 Respiratory Effort / Characteristics Non-Labored Spontaneous Respiratory Depth Respiratory Pattern Blood Pressure 131/81 Blood Pressure Mean 95 Pulse Oximetry 98 96 Oxygen Delivery Method High Flow Nasal Cannula Oxygen Flow Rate 35 Fraction of Inspired Oxygen 30 Sepsis Recent Fever Within 48 Hours Sepsis New/Unexplained Change in Mental Status Sepsis Action Taken by Nursing Oxygen Flow Rate - Titration Fraction of Inspired Oxygen - Titration Pulse Oximetry Post Tiitration 06/24/24 17:00 Temperature Temperature Source Pulse Rate 97 H Pulse Rate [Right Finger] Pulse Rate from SpO2 Sensor 99 H Respiratory Rate 14 Respiratory Effort / Characteristics Respiratory Depth Respiratory Pattern Blood Pressure 144/84 H Blood Pressure Mean 104 Pulse Oximetry 96 Oxygen Delivery Method High Flow Nasal Cannula Nebulizer Oxygen Flow Rate Fraction of Inspired Oxygen Sepsis Recent Fever Within 48 Hours Sepsis New/Unexplained Change in Mental Status Sepsis Action Taken by Nursing Oxygen Flow Rate - Titration Fraction of Inspired Oxygen - Titration Pulse Oximetry Post Tiitration Laboratory Data 06/24/24 14:59 06/24/24 14:59 Lab Results 06/24/24 06/24/24 06/24/24 Range/Units 14:59 15:02 15:20 WBC 19.61 H (4.8-10.8) K/ul RBC 4.98 (4.20-5.40) M/uL Hgb 12.4 (12.0-16.0) g/dl POC Hgb 12.9 (12.0-16.0) g/dl Hct 39.5 (37.0-47.0) % POC Hct 38 (37-47) % MCV 79.3 L (80.0-100.0) fL MCH 24.9 L (25.0-34.0) pg MCHC 31.4 L (32.0-36.0) g/dL RDW Std Deviation 44.6 (36.4-46.3) fL RDW Coeff of Laron 15.7 H (11.5-14.5) % Plt Count 381 (130-400) K/uL MPV 10.3 (9.4-12.4) fL Neutrophils % (Manual) 56 % Lymphocytes % (Manual) 16 % Reactive Lymphs % (Man) 16 % Monocytes % (Manual) 4 % Eosinophils % (Manual) 4 % Basophils % (Manual) 2 % Myelocytes % (Man) 2 % Neutrophils # (Manual) 10.98 H (1.40-6.50) K/uL Total Absolute Neuts 10.98 H (1.4-6.5) K/uL Lymphocytes # (Manual) 3.14 (1.2-3.4) K/uL Reactive Lymphs # 3.14 K/uL Total Abs Lymphocytes 6.28 H (1.2-3.4) K/uL Monocytes # (Manual) 0.78 H (0.11-0.59) K/uL Eosinophils # (Manual) 0.78 H (0-0.50) K/uL Basophils # (Manual) 0.39 H (0-0.2) K/uL Myelocytes # (Manual) 0.39 H (0-0) K/uL RBC Morphology Unremarkable PT 10.2 (9.0-12.0) Seconds INR 0.9 (0.9-1.1) APTT 25 (21-31) Seconds PTT Ratio 0.9 VBG pH 7.32 L (7.36-7.41) VBG pCO2 47 (38-50) mmHg VBG pO2 30 mmHg VBG HCO3 24 mmol/L VBG O2 Saturation < 60.0 % VBG Base Excess -2.2 mEq/L POC Sodium 141 (135-144) mmol/L Sodium 141 (136-145) mmol/L POC Potassium 4.2 (3.3-5.0) mmol/L Potassium 4.3 (3.5-5.1) mmol/L POC Chloride 110 (101-112) mmol/L Chloride 109 H (98-107) mmol/L Carbon Dioxide 24 (21-32) mmol/L POC Total CO2 24 (24-31) mmol/L Anion Gap 8 (3-11) POC Anion Gap 14.0 L (16-25) mmol/L POC BUN 16 (7-18) mg/dl BUN 17 (6-23) mg/dl Creatinine 0.81 (0.6-1.2) mg/dl POC Creatinine 0.9 (0.6-1.3) mg/dl Est Cr Clr Drug Dosing Not Reportable eGFR 95.82 BUN/Creatinine Ratio 21.0 H (10-20) Glucose 104 H (70-99(Fasting)) mg/dl POC Glucose (other) 102 H (70-99) mg/dl Calcium 9.2 (8.6-10.3) mg/dl POC Ioniz Calcium Ilya 1.24 (1.12-1.32) mmol/l Total Bilirubin 0.2 (0.2-1.0) mg/dl AST 20 (13-39) U/L ALT 19 (7-52) U/L Alkaline Phosphatase 44 (34-104) U/L Troponin I High Sens 3.9 (0-14) pg/ml Total Protein 8.0 (6.0-8.3) gm/dl Albumin 4.5 (3.4-5.0) gm/dl Globulin 3.5 (2.5-4.0) gm/dl Albumin/Globulin Ratio 1.3 (0.9-2) Procalcitonin < 0.02 (0-0.5) ng/ml Adenovirus (PCR) (NotDetected) B. pertussis DNA (PCR) (NotDetected) B.parapertussis DNA PCR (NotDetected) C. pneumoniae DNA (PCR) (NotDetected) Coronavirus OC43 (PCR) (NotDetected) Coronavirus HKU1 (PCR) (NotDetected) Coronavirus 229E (PCR) (NotDetected) SARS-CoV-2 (PCR) (NotDetected) Coronavirus NL63 (PCR) (NotDetected) Human Metapneumovir PCR (NotDetected) Influenza Type A (PCR) (NotDetected) Influenza Type B (PCR) (NotDetected) M. pneumoniae (PCR) (NotDetected) Parainfluenza 1 (PCR) (NotDetected) Parainfluenza 2 (PCR) (NotDetected) Parainfluenza 3 (PCR) (NotDetected) Parainfluenza 4 (PCR) (NotDetected) RSV (PCR) (NotDetected) Entero/Rhino (PCR) (NotDetected) 06/24/24 Range/Units 16:13 WBC (4.8-10.8) K/ul RBC (4.20-5.40) M/uL Hgb (12.0-16.0) g/dl POC Hgb (12.0-16.0) g/dl Hct (37.0-47.0) % POC Hct (37-47) % MCV (80.0-100.0) fL MCH (25.0-34.0) pg MCHC (32.0-36.0) g/dL RDW Std Deviation (36.4-46.3) fL RDW Coeff of Laron (11.5-14.5) % Plt Count (130-400) K/uL MPV (9.4-12.4) fL Neutrophils % (Manual) % Lymphocytes % (Manual) % Reactive Lymphs % (Man) % Monocytes % (Manual) % Eosinophils % (Manual) % Basophils % (Manual) % Myelocytes % (Man) % Neutrophils # (Manual) (1.40-6.50) K/uL Total Absolute Neuts (1.4-6.5) K/uL Lymphocytes # (Manual) (1.2-3.4) K/uL Reactive Lymphs # K/uL Total Abs Lymphocytes (1.2-3.4) K/uL Monocytes # (Manual) (0.11-0.59) K/uL Eosinophils # (Manual) (0-0.50) K/uL Basophils # (Manual) (0-0.2) K/uL Myelocytes # (Manual) (0-0) K/uL RBC Morphology PT (9.0-12.0) Seconds INR (0.9-1.1) APTT (21-31) Seconds PTT Ratio VBG pH (7.36-7.41) VBG pCO2 (38-50) mmHg VBG pO2 mmHg VBG HCO3 mmol/L VBG O2 Saturation % VBG Base Excess mEq/L POC Sodium (135-144) mmol/L Sodium (136-145) mmol/L POC Potassium (3.3-5.0) mmol/L Potassium (3.5-5.1) mmol/L POC Chloride (101-112) mmol/L Chloride (98-107) mmol/L Carbon Dioxide (21-32) mmol/L POC Total CO2 (24-31) mmol/L Anion Gap (3-11) POC Anion Gap (16-25) mmol/L POC BUN (7-18) mg/dl BUN (6-23) mg/dl Creatinine (0.6-1.2) mg/dl POC Creatinine (0.6-1.3) mg/dl Est Cr Clr Drug Dosing eGFR BUN/Creatinine Ratio (10-20) Glucose (70-99(Fasting)) mg/dl POC Glucose (other) (70-99) mg/dl Calcium (8.6-10.3) mg/dl POC Ioniz Calcium Ilya (1.12-1.32) mmol/l Total Bilirubin (0.2-1.0) mg/dl AST (13-39) U/L ALT (7-52) U/L Alkaline Phosphatase (34-104) U/L Troponin I High Sens (0-14) pg/ml Total Protein (6.0-8.3) gm/dl Albumin (3.4-5.0) gm/dl Globulin (2.5-4.0) gm/dl Albumin/Globulin Ratio (0.9-2) Procalcitonin (0-0.5) ng/ml Adenovirus (PCR) Not Detected (NotDetected) B. pertussis DNA (PCR) Not Detected (NotDetected) B.parapertussis DNA PCR Not Detected (NotDetected) C. pneumoniae DNA (PCR) Not Detected (NotDetected) Coronavirus OC43 (PCR) Not Detected (NotDetected) Coronavirus HKU1 (PCR) Not Detected (NotDetected) Coronavirus 229E (PCR) Not Detected (NotDetected) SARS-CoV-2 (PCR) Not Detected (NotDetected) Coronavirus NL63 (PCR) Not Detected (NotDetected) Human Metapneumovir PCR Not Detected (NotDetected) Influenza Type A (PCR) Not Detected (NotDetected) Influenza Type B (PCR) Not Detected (NotDetected) M. pneumoniae (PCR) Not Detected (NotDetected) Parainfluenza 1 (PCR) Not Detected (NotDetected) Parainfluenza 2 (PCR) Not Detected (NotDetected) Parainfluenza 3 (PCR) Not Detected (NotDetected) Parainfluenza 4 (PCR) Not Detected (NotDetected) RSV (PCR) Not Detected (NotDetected) Entero/Rhino (PCR) Not Detected (NotDetected) Administered Medications Albuterol (Albut/Ipratrop 3mg/0.5mg Neb 3 Ml Vial) 3 ml NEB Q6R WILVER; Protocol Stop: 07/24/24 18:59 Last Admin: 06/24/24 19:22 Dose: 3 ml Documented By: LGB Budesonide (Budesonide 0.5 Mg/2 Ml Vial (Pulmicort)) 0.5 mg NEB BIDR WILVER Stop: 07/24/24 20:14 Last Admin: 06/24/24 22:03 Dose: 0.5 mg Documented By: LGB Formoterol Fumarate (Formoterol 20 Mcg/2 Ml Vial) 20 mcg NEB BIDR WILVER Stop: 07/24/24 20:14 Last Admin: 06/24/24 22:03 Dose: 20 mcg Documented By: YEISON Metformin HCl (Metformin Hcl 500 Mg Tab) 500 mg PO BID WILVER Stop: 07/24/24 20:59 Last Admin: 06/24/24 21:35 Dose: 500 mg Documented By: JAIME Discontinued Medications Albuterol (Albut/Ipratrop 3mg/0.5mg Neb 3 Ml Vial) 12 ml NEB ONE STA Stop: 06/24/24 14:52 Last Admin: 06/24/24 15:01 Dose: 12 ml Documented By: NATHANAEL Albuterol (Albut/Ipratrop 3mg/0.5mg Neb 3 Ml Vial) 12 ml NEB ONE ONE; Protocol Stop: 06/24/24 16:39 Last Admin: 06/24/24 16:52 Dose: 12 ml Documented By: JOSETTE Magnesium Sulfate/Dextrose (Magnesium Sulfate / D5w) 1 gm in 100 mls @ 600 mls/hr IV Q10M WILVER Stop: 06/24/24 15:11 Last Infusion: 06/24/24 15:22 Dose: Infused Documented By: Admin: 06/24/24 15:09 Dose: 600 mls/hr Documented By: Infusion: 06/24/24 15:09 Dose: Infused Documented By: Admin: 06/24/24 15:01 Dose: 600 mls/hr Documented By: NATHANAEL Sodium Chloride (Nss) 1,000 mls @ 125 mls/hr IV .Q8H WILVER Stop: 06/25/24 14:59 Last Admin: 06/24/24 15:02 Dose: 125 mls/hr Documented By: NATHANAEL Methylprednisolone (Methylprednisolone 125 Mg/2 Ml Vial) 125 mg IV NOW STA Stop: 06/24/24 14:52 Last Admin: 06/24/24 15:18 Dose: 125 mg Documented By: NATHANAEL Imaging Data Radiologist's Impression: Chest X-Ray 06/24/24 14:51 XR chest 1V portable CLINICAL HISTORY: Dyspnea. COMPARISON STUDY: Chest CT December 01, 2023. Chest radiograph May 20, 2024. FINDINGS: Lung volumes are normal. Lungs are clear. There is no pneumothorax or pleural effusion. Cardiac size is normal. Mediastinal contours are normal. There is no evidence for pulmonary edema. IMPRESSION: No acute cardiopulmonary findings. ACT 112: Negative or not required by law. Electronically signed by: Hermelindo Bhandari M.D. 06/24/2024 3:33 PM Discharge Plan Visit Data Chief Complaint: Asthma Stated Complaint: ASTHMA ATTACK ED Provider: Kayleen Rodriguez Discharge Problem: Acute respiratory failure with hypoxia, Asthma with acute exacerbation
[2024-06-24 15:14] LABS: iSTAT Creatinine 0.9 mg/dl (0.6-1.3); iSTAT Hemoglobin 12.9 g/dl (12.0-16.0); iSTAT Ionized Calcium 1.24 mmol/l (1.12-1.32); iSTAT Potassium 4.2 mmol/L (3.3-5.0)
[2024-06-24] MEDS: methylPREDNISolone 125 MG/2 ML VIAL IV STA (15:18)
--- NOTE | 2024-06-24 15:30 | Electrocardiogram Report ---
Test Reason : Blood Pressure : */* mmHG Vent. Rate : 128 BPM Atrial Rate : 128 BPM P-R Int : 144 ms QRS Dur : 80 ms QT Int : 310 ms P-R-T Axes : 112 145 146 degrees QTcB Int : 452 ms Poor data quality, interpretation may be adversely affected Suspect arm lead reversal, interpretation assumes no reversal Sinus tachycardia Lateral infarct (cited on or before 03-May-2024) Abnormal ECG When compared with ECG of 03-May-2024 17:16, QRS axis Shifted right T wave inversion now evident in Lateral leads Confirmed by Noble Lange ([id number]) on 06/24/2024 3:30:26 PM Referred By: Confirmed By: Noble Lange
--- NOTE | 2024-06-24 15:34 | XRay Report ---
XR chest 1V portable CLINICAL HISTORY: Dyspnea. COMPARISON STUDY: Chest CT December 01, 2023. Chest radiograph May 20, 2024. FINDINGS: Lung volumes are normal. Lungs are clear. There is no pneumothorax or pleural effusion. Car diac size is normal. Mediastinal contours are normal. There is no evidence for pulmonary edema. IMPRESSION: No acute cardiopulmonary findings. ACT 112: Negative or not required by law. Electronically signed by: Hermelindo Bhandari M.D. 06/24/2024 3:33 PM
[2024-06-24 15:35] LABS: Base Excess VBG -2.2 mEq/L; HCO3 VBG 24 mmol/L; Oxygen Saturation VBG < 60.0 %; PCO2 VBG 47 mmHg (38-50); PO2 VBG 30 mmHg; pH VBG 7.32 (7.36-7.41)
[2024-06-24 15:37] LABS: Alanine Aminotransferase 19 U/L (7-52); Albumin Globulin Ratio 1.3 (0.9-2); Albumin Level 4.5 gm/dl (3.4-5.0); Alkaline Phosphatase 44 U/L (34-104); Anion Gap 8 (3-11); Aspartate Aminotransferase 20 U/L (13-39); Bilirubin,Total 0.2 mg/dl (0.2-1.0); Blood Urea Nitrogen 17 mg/dl (6-23); Calcium 9.2 mg/dl (8.6-10.3); Carbon Dioxide 24 mmol/L (21-32); Chloride 109 mmol/L (98-107); Globulin 3.5 gm/dl (2.5-4.0); Glucose 104 mg/dl (70-99(Fasting)); Potassium 4.3 mmol/L (3.5-5.1); Sodium 141 mmol/L (136-145)
[2024-06-24 15:43] LABS: Troponin I High Sensitivity 3.9 pg/ml (0-14)
[2024-06-24 15:52] LABS: INR 0.9 (0.9-1.1); Partial Thromboplastin Ratio 0.9; Partial Thromboplastin Time 25 Seconds (21-31); Prothrombin Time 10.2 Seconds (9.0-12.0)
[2024-06-24 15:59] LABS: ALC (manual) 6.28 K/uL (1.2-3.4); ANC (manual) 10.98 K/uL (1.4-6.5); Basophils # (manual) 0.39 K/uL (0-0.2); Basophils % (manual) 2 %; Eosinophils # (manual) 0.78 K/uL (0-0.50); Eosinophils % (manual) 4 %; Lymphocytes # (manual) 3.14 K/uL (1.2-3.4); Lymphocytes % (manual) 16 %; Monocytes # (manual) 0.78 K/uL (0.11-0.59); Monocytes % (manual) 4 %; Myelocytes # (manual) 0.39 K/uL (0-0); Myelocytes % (manual) 2 %; Neutrophils # (manual) 10.98 K/uL (1.40-6.50); Neutrophils % (manual) 56 %; RBC Morphology Unremarkable; Reactive Lymphocytes # (manual) 3.14 K/uL; Reactive Lymphocytes % (manual) 16 %
[2024-06-24] MEDS: ALBUT/IPRATROP 3MG/0.5MG NEB 3 ML VIAL NEB ONE (16:52)
--- NOTE | 2024-06-24 16:58 | History & Physical Report ---
Date of Service June 24, 2024 Assessment & Plan (1) Acute asthma exacerbation: Plan Lizzeth Arthur is a 38-year-old female with past medical history significant for acquired hypothyroidism, multiple thyroid nodules, prediabetes, severe persistent asthma, seasonal allergic rhinitis, obesity class III, FREDA on CPAP, bipolar disorder and depression with anxiety who presented to the ED for evaluation on 06/24/2024 secondary to worsening SOB with associated wheezing and chest tightness. Patient was recently admitted under our service from 05/20/2024-05/23/2024 with an acute asthma exacerbation. She reports that her breathing has gotten progressively worse over the past few weeks since being discharged last month. Over the past few days, however, she has been significantly short of breath with minimal improvement at home using around the clock albuterol plus ipratropium n ebulizer treatments; therefore she came into the ED for evaluation. She was discharged with a prescription for Pulmicort Flexhaler last month however she was unable to strip picker this medication from her pharmacy secondary to insurance issues. Patient was on Dupixent in the past however she has not been for the past year as a result of insurance issues. Patient reports this medication would cost her $3,000/month [id number]. Patient received an hour-long Duoneb treatment in the ED as well as 125mg IV Solu-Medrol, 2gm IV magnesium and 1L NSS. She was in the process of completing another hour-long Duoneb in the ED during our conversation. Patient was NOT hypoxic in the ED. She was on 35L/min HFNC and saturating well in the mid 90s SpO2 when seen in the ED on admission. Acute Asthma Exacerbation: -History as per above and HPI. CXR unremarkable. Significantly wheezy on exam. -Leukocytosis noted however appears chronically elevated; respiratory BioFire negative. -Continue IV Solu-Medrol 40mg Q8H. Pulm toilet with scheduled nebs, incentive spirometry. Continue home PPI. -Pulmonology consult pending; patient follows with Dr. Badillo as an outpatient. Can wean O2 support as tolerated. Other Chronic Medical Conditions: * Prediabetes - Hgb A1c 5.8% last admission. Hold metformin, SSI while inpatient ISO IV steroid use. * Hypothyroidism - Continue levothyroxine. Depression/Anxiety/Bipolar - Continue fluoxetine. FREDA - Continue CPAP HS. DVT Prophylaxis: SQ Heparin Code Status: FULL CODE PCP: Valentin Thompson MD Disposition: Admit to PCU/Telemetry Patient seen in collaboration with Dr. Anglin. Please see addendum. I spent a total of 50 minutes coordinating, documenting, and providing care for this patient excluding time spent in the performance of separately billed services. This included personally reviewing all current laboratories and imaging studies, medical reconciliation, outpatient chart review and discussion with specialists. This chart was completed in part utilizing Speech Voice Recognition Software. Grammatical errors, random word insertions, pronoun errors, and incomplete sentences are an occasional consequence of this system due to software limitations, ambient noise, and hardware issues. Any formal questions or concerns about the content, text, or information contained within the body of this dictation should be directly addressed to the provider for clarification. History of Present Illness Chief Complaint: SOB/Dyspnea Primary Care Provider: Valentin Thompson MD Lizzeth Arthur is a 38-year-old female with past medical history significant for acquired hypothyroidism, multiple thyroid nodules, prediabetes, severe persistent asthma, seasonal allergic rhinitis, obesity class III, bipolar disorder and depression with anxiety who presented to the ED for evaluation on 06/24/2024 secondary to worsening SOB with associated wheezing and chest tightness. History obtained from the patient, at bedside and associated chart review. Patient was recently admitted under our service from 05/20/2024- 05/23/2024 with an acute asthma exacerbation. She reports that her breathing has gotten progressively worse over the past few weeks since being discharged last month. Over the past few days, however, she has been significantly short of breath with minimal improvement at home using around the clock albuterol plus ipratropium nebulizer treatments; therefore she came into the ED for evaluation. She was discharged with a prescription for Pulmicort Flexhaler last month however she was unable to strip picker this medication from her pharmacy secondary to insurance issues. She has not followed up with her PCP since being discharged e ither. Of note, she is not chronically on steroids at baseline. She believes her asthma is triggered primarily by the winter weather. She no longer smokes - quit in 2016. Patient has previously been hospitalized and intubated for her asthma. She denies any sinus congestion or cough recently. Patient was on Dupixent in the past however she has not been for the past year as a result of insurance iss ues. Patient reports this medication would cost her $3,000/month [id number]. She is not on supplemental O2 at home. Uses CPAP HS for FREDA. Patient received an hour-long Duoneb treatment in the ED as well as 125mg IV Solu-Medrol, 2gm IV magnesium and 1L NSS. She was in the process of completing another hour-long Duoneb in the ED during our conversation. Patient was not hypoxic in the ED. She was on 35L/min HFNC and saturating well in the mid 90s SpO2 when seen in the ED on admission. Patient follows Dr. Badillo as an outpatient for her asthma. Patient has history of intubation secondary to asthma exacerbation in 2008 requiring ICU care. Allergies Allergy/AdvReac Type Severity Reaction Status Date / Time pollen extracts Allergy Mild allergy sx Verified 05/20/24 08:18 Home Medications Medication Instructions Recorded Confirmed Type metformin 500 mg tablet 500 mg PO BID 03/19/22 06/24/24 History omeprazole 40 mg capsule,delayed 40 mg PO DAILY 03/19/22 06/24/24 History release Auto Titrating CPAP #1 ea 11/25/22 06/24/24 Rx CPAP Supplies #1 ea 11/25/22 06/24/24 Rx fluoxetine 10 mg capsule 10 mg PO QAM 12/01/23 06/24/24 History levothyroxine 150 mcg tablet 150 mcg PO DAILYBB 12/01/23 06/24/24 History albuterol sulfate 2.5 mg/3 mL 2.5 mg (3 mL) continuous 03/22/24 06/24/24 Rx (0.083 %) solution for nebulization nebulization Q4 PRN Shortness Of Breath Or Wheezing #3 Inhalers albuterol sulfate 90 mcg/actuation 2 puff inhalation Q6H PRN 03/22/24 06/24/24 Rx aerosol inhaler Shortness Of Breath Or Wheezing #18 grams nebulizers (Aeroneb Go Nebulizer) #1 ea 03/22/24 06/24/24 Rx ipratropium 20 mcg-albuterol 100 1 puff inhalation QID Asthma #1 06/17/24 06/24/24 Rx mcg/actuation mist for inhalation inhaler (Combivent Respimat) Past Med/Surg History Problem List Acute asthma exacerbation Asthma with acute exacerbation (Acute) Acute severe exacerbation of asthma FREDA (obstructive sleep apnea) Multiple pulmonary nodules Allergic rhinitis with postnasal drip Asthma-COPD overlap syndrome (Acute) Ex-smoker Hypersomnia Witnessed apneic spells Nocturnal hypoxemia Laryngitis History of tobacco use Excessive daytime sleepiness Dyspnea (Acute) Dietary counseling and surveillance Acute respiratory failure with hypoxia (Acute) Elevated IgE level Peripheral eosinophilia Acute respiratory failure (Acute) Hypomagnesemia (Acute) Morbid obesity (Acute) Hypothyroidism (Chronic) Asthma, severe persistent (Chronic) Allergic rhinitis (Chronic) Bipolar disorder (Chronic) Depression (Chronic) Anxiety (Chronic) Medical History History of acute pharyngitis Asthma exacerbation Family History Mother Diabetes Social History Smoking Status: Former smoker Tobacco Type: Cigarettes Age Started Using Tobacco: 18; Age Quit Using Tobacco: 31; packs per day: 2.5; Second Hand Exposure: Yes; Do You Dip or Chew Tobacco: No; Hx Alcohol Use: Yes Hx Substance Use: No Preferred Language: Arabic Communication Ability: Effective Driving Teacher Required: No Beliefs That Will Affect Care: None marital status: Current Living Situation: Spouse current occupational status: employed Feels Safe at Home: Yes Assistive Devices: None Review of Systems Review of Systems: At least ten systems reviewed and negative, except as noted in the HPI. Physical Exam Physical Exam: General: Obese F, vitals as above, sitting up in bed, mild conversational dyspnea. A+Ox3, euthymic affect. HEENT: Normocephalic, atraumatic. Conjunctivae normal. External ear and nose normal, oropharynx normal. Respiratory: Tachypneic, on 35L via HFNC, receiving 1-hour DuoNeb treatment, diffusely wheezy in all lung mendez. Cardiovascular: Tachycardic, regular rhythm, normal peripheral pulses, no BLE edema. Vessels: No JVD. Abdomen/GI: Normal bowel sounds, soft, nondistended, nontender to palpation in all quadrants. Neurologic: No overt focal deficits, CN's II-XI not formally tested but appear grossly intact bilaterally. Results & Data Results & Data Vital Signs (Past 12 Hours) Vital Signs Temp Pulse Pulse Resp BP Pulse Ox O2 Del Method 06/24/24 16:55 96 H 18 96 High Flow Nasal Cannula 06/24/24 16:45 99 H 19 98 06/24/24 16:36 131/81 06/24/24 16:00 102 H 25 H 136/96 99 06/24/24 15:30 112 H 26 H 164/74 H 99 High Flow Nasal Cannula 06/24/24 15:12 High Flow Nasal Cannula 06/24/24 15:06 120 H 31 H 155/125 H 97 High Flow Nasal Cannula 06/24/24 15:01 126 H 26 H 97 High Flow Nasal Cannula 06/24/24 15:00 128 H 06/24/24 14:51 128 H 22 93 Room Air 06/24/24 13:36 36.7 C 106 H 22 159/118 H 93 Room Air O2 Flow Rate FiO2 06/24/24 16:55 35 30 06/24/24 16:45 06/24/24 16:36 06/24/24 16:00 06/24/24 15:30 35 50 06/24/24 15:12 06/24/24 15:06 06/24/24 15:01 35 50 06/24/24 15:00 06/24/24 14:51 06/24/24 13:36 Laboratory Results Short CBC 06/24/24 Range/Units 14:59 WBC 19.61 H (4.8-10.8) K/ul Hgb 12.4 (12.0-16.0) g/dl Hct 39.5 (37.0-47.0) % Plt Count 381 (130-400) K/uL BMP 06/24/24 14:59 Sodium 141 Potassium 4.3 Chloride 109 H Carbon Dioxide 24 BUN 17 Creatinine 0.81 Glucose 104 H Calcium 9.2 Liver Function 06/24/24 Range/Units 14:59 Total Bilirubin 0.2 (0.2-1.0) mg/dl AST 20 (13-39) U/L ALT 19 (7-52) U/L Alkaline Phosphatase 44 (34-104) U/L Albumin 4.5 (3.4-5.0) gm/dl Diagnostic Findings Chest X-Ray 06/24/24 14:51 XR chest 1V portable CLINICAL HISTORY: Dyspnea. COMPARISON STUDY: Chest CT December 01, 2023. Chest radiograph May 20, 2024. FINDINGS: Lung volumes are normal. Lungs are clear. There is no pneumothorax or pleural effusion. Cardiac size is normal. Mediastinal contours are normal. There is no evidence for pulmonary edema. IMPRESSION: No acute cardiopulmonary findings. ACT 112: Negative or not required by law. Electronically signed by: Hermelindo Bhandari M.D. 06/24/2024 3:33 PM Medications Administered Sodium Chloride (Nss) 1,000 mls @ 125 mls/hr IV .Q8H WILVER Stop: 06/25/24 14:59 Last Admin: 06/24/24 15:02 Dose: 125 mls/hr Documented By: NATHANAEL Discontinued Medications Albuterol (Albut/Ipratrop 3mg/0.5mg Neb 3 Ml Vial) 12 ml NEB ONE STA Stop: 06/24/24 14:52 Last Admin: 06/24/24 15:01 Dose: 12 ml Documented By: NATHANAEL Albuterol (Albut/Ipratrop 3mg/0.5mg Neb 3 Ml Vial) 12 ml NEB ONE ONE; Protocol Stop: 06/24/24 16:39 Last Admin: 06/24/24 16:52 Dose: 12 ml Documented By: JOSETTE Magnesium Sulfate/Dextrose (Magnesium Sulfate / D5w) 1 gm in 100 mls @ 600 mls/hr IV Q10M WILVER Stop: 06/24/24 15:11 Last Infusion: 06/24/24 15:22 Dose: Infused Documented By: Admin: 06/24/24 15:09 Dose: 600 mls/hr Documented By: Infusion: 06/24/24 15:09 Dose: Infused Documented By: Admin: 06/24/24 15:01 Dose: 600 mls/hr Documented By: NATHANAEL Methylprednisolone (Methylprednisolone 125 Mg/2 Ml Vial) 125 mg IV NOW STA Stop: 06/24/24 14:52 Last Admin: 06/24/24 15:18 Dose: 125 mg Documented By: NATHANAEL Code Status & VTE Plan Code Status FULL CODE Supervising Physician Co-Signing Physician Notes I have seen and discussed the case with the collaborating advanced practitioner. I agree with the above H&P. I have reviewed and confirmed the patients medical history, the findings on physical examination, and the patients diagnosis and treatment plan with Dion COSTA and agree with the information documented. In short, Ms. Arthur is a 39 yo woman with asthma/COPD overlap admitted for acute exacerbation. doing better s/p treatment in ed GENERAL APPEARANCE: AxOx4 on neb treatment, no distress HEENT: NC, AT. MMM. EOMI, clear conjunctiva, oropharynx clear. HEART: tachycardic LUNGS: expiratory wheezing bilaterally, poor air movement ABDOMEN: Soft, nontender, nondistended with good bowel sounds heard. EXTREMITIES: Without cyanosis, clubbing or edema. NEUROLOGICAL: Grossly nonfocal. Alert and oriented, moving all 4 extremities. CN not formally tested but appear grossly intact. Skin: Warm and dry without any rash. #Acute asthma/copd exacerbation ongoing for last month, out of albuterol inhalers s/p 2gm mag, albuterol neb, 125mg solumedrol continue 40mg IV q8 duonebs scheduled, xopenex prn Perforomist/Pulmicort BID Pulm consult: severe asthma, issues with dupixpent, plan for OP regimen (history of nebs not being covered by insurance) #FREDA cpap qhs rest of plan as above I spent a total of 20 minutes coordinating, documenting, and providing care for this patient excluding time spent in the performance of separately billed services. All of the aforementioned completed outside of collaborating with the assigned advanced practitioner for a full treatment plan. I have reviewed the advanced practitioner's documentation, and I agree with, and take responsibility for the plan of care (1) Acute asthma exacerbation Asthma persistence: persistent Asthma severity: severe Qualified Code(s): J45.51 - Severe persistent asthma with (acute) exacerbation
[2024-06-24 17:12] LABS: Adenovirus PCR Not Detected (NotDetected); Bordetella parapertussis PCR Not Detected (NotDetected); Bordetella pertussis PCR Not Detected (NotDetected); Chlamydia pneumoniae PCR Not Detected (NotDetected); Coronavirus 229E PCR Not Detected (NotDetected); Coronavirus CoV-2 (COVID19)PCR Not Detected (NotDetected); Coronavirus HKU1 PCR Not Detected (NotDetected); Coronavirus NL63 PCR Not Detected (NotDetected); Coronavirus OC43PCR Not Detected (NotDetected); Human Metapneumovirus PCR Not Detected (NotDetected); Influenza A PCR Not Detected (NotDetected); Influenza B PCR Not Detected (NotDetected); Mycoplasma pneumoniae PCR Not Detected (NotDetected); Parainfluenza Virus 1 PCR Not Detected (NotDetected); Parainfluenza Virus 2 PCR Not Detected (NotDetected); Parainfluenza Virus 3 PCR Not Detected (NotDetected); Parainfluenza Virus 4 PCR Not Detected (NotDetected); Respiratory Syncytial VirusPCR Not Detected (NotDetected); Rhinovirus/Enterovirus PCR Not Detected (NotDetected)
--- NOTE | 2024-06-24 19:01 | Pulmonary Consultation ---
Date of Consultation June 24, 2024 Assessment & Plan (1) FREDA (obstructive sleep apnea): (2) Multiple pulmonary nodules: (3) Asthma-COPD overlap syndrome: (4) Acute asthma exacerbation: Asthma severity: severe Asthma persistence: persistent Qualified Code(s): J45.51 - Severe persistent asthma with (acute) exacerbation (5) Peripheral eosinophilia: (6) Elevated IgE level: Plan Chest x-ray 06/24/2024 personally reviewed: Portable film, good inspiratory effort, bilateral cardiophrenic angles are clean, mild blunting of bilateral costophrenic angles, no clear lung infiltrate appreciated PFT 03/18/2022 personally reviewed: No obstructive lung dysfunction, insignificant bronchodilator response, increased lung volume, normal DLCO FVC 4.67 L 120%, FEV1 3.43 to 76%, FEV1/FVC 73%, RV 142%, TLC 137%, RV/TLC 105%, DLCO 140% --Acute exacerbation of asthma COPD overlap syndrome Supposed to be on Dupixent but unfortunately she is not able to afford it, I will get my staff involved to see if she will qualify for pharmacy assistance At home on Dulera 100, 2 puffs twice a day, along with as needed albuterol Continue with the same regimen Respiratory BioFire negative for everything on 06/24/2024 Absolute eosinophil count 780 on 06/24/2024, as high as 1930 on 01/22/2020 IgE 655 in 07/2018 --Multiple pulmonary nodules Largest one being 6 mm right lower lobe Patient's nodules have been stable since 2019. She is 38 years old and quit smoking in 2016. She will not qualify for lung screening Repeat CAT scan of the chest only if the patient gets B symptoms CTA chest 12/01/2023 personally reviewed: Motion degraded study Right lower lobe 6 mm pulmonary nodule, 4 mm left lower lobe pulmonary nodule, 3 mm left apical pulmonary nodule, 2.5 mm right apical pulmonary nodule (unchanged 2019) No mediastinal adenopathy -- FREDA Polysomnography 11/25/2022: AHI 5.6, REM AHI 22.5 On auto CPAP at home. Last compliance showed median pressure of 8.6 cm H2O --Ex-smoker Approximately [id number] smoking history Quit smoking 2016 Encouraged to continue abstinence from smoking -- Morbid obesity Advised to lose with diet and exercise Plan: Nebulized Brovana and budesonide while in the hospital Recommend CPAP nightly and as needed shortness of breath pressure of 8 cm H2O Continue with steroids Please note the above document was generated using voice recognition software. It may contain grammatical, syntax or spelling errors.Any formal questions or concerns about the content, text or information contained within the body of this dictation should be directly addressed to the provider for clarification. History of Present Illness History of Present Illness 39-year-old female following with pulmonary for asthma Past medical history: Hypothyroidism, GERD Patient was last seen by me on 03/22/2024 Patient was last hospitalized for asthma exacerbation early May Unfortunately she is having issues with her insurance and she is not able to get Dupixent She is compliant with her Dulera and Combivent he uses on a regular basis Unfortunately she was having difficulty breathing. She also had a cough was able to bring up phlegm. Did have some chest congestion Chest pain after coughing. No dysuria or diarrhea No abdominal pain No fever or chills No unusual headache, no blurry vision No night sweats, no unintentional weight loss Does complain of waking up couple times at night gasping for air. Positive daytime somnolence and lethargy. Social history: [id number] smoking history, quit at the age of 30 in 2016. No alcohol, denies any illicit drug use. 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 No birds reported nearby Allergies: Round the year Asthma: No family history of asthma Lung cancer: No history of lung cancer in the family Allergies Allergy/AdvReac Type Severity Reaction Status Date / Time pollen extracts Allergy Mild allergy sx Verified 05/20/24 08:18 Home Medications Medication Instructions Recorded Confirmed Type metformin 500 mg tablet 500 mg PO BID 03/19/22 06/24/24 History omeprazole 40 mg capsule,delayed 40 mg PO DAILY 03/19/22 06/24/24 History release Auto Titrating CPAP #1 ea 11/25/22 06/24/24 Rx CPAP Supplies #1 ea 11/25/22 06/24/24 Rx fluoxetine 10 mg capsule 10 mg PO QAM 12/01/23 06/24/24 History levothyroxine 150 mcg tablet 150 mcg PO DAILYBB 12/01/23 06/24/24 History albuterol sulfate 2.5 mg/3 mL 2.5 mg (3 mL) continuous 03/22/24 06/24/24 Rx (0.083 %) solution for nebulization nebulization Q4 PRN Shortness Of Breath Or Wheezing #3 Inhalers albuterol sulfate 90 mcg/actuation 2 puff inhalation Q6H PRN 03/22/24 06/24/24 Rx aerosol inhaler Shortness Of Breath Or Wheezing #18 grams nebulizers (Aeroneb Go Nebulizer) #1 ea 03/22/24 06/24/24 Rx ipratropium 20 mcg-albuterol 100 1 puff inhalation QID Asthma #1 06/17/24 06/24/24 Rx mcg/actuation mist for inhalation inhaler (Combivent Respimat) Patient History Medical History History of acute pharyngitis Asthma exacerbation Family History Mother Diabetes Social History Smoking Status: Former smoker Tobacco Type: Cigarettes Age Started Using Tobacco: 18; Age Quit Using Tobacco: 31; packs per day: 2.5; Second Hand Exposure: Yes; Do You Dip or Chew Tobacco: No; Hx Alcohol Use: No Hx Substance Use: No Preferred Language: Frisian Communication Ability: Effective Junior Programmer Required: No Beliefs That Will Affect Care: None marital status: Current Living Situation: Spouse current occupational status: employed Feels Safe at Home: Yes Safety Concerns: Feels Safe At This Time Assistive Devices: CPAP and Nebulizer Review of Systems 2 Review of Systems: All systems reviewed & are unremarkable except as noted in HPI & below Physical Exam 2 Physical Exam: Constitutional: No acute distress HEENT: EOMI, PERRLA Respiratory system: Good air entry bilaterally, no rhonchi, minimal expiratory wheeze, minimal crackles bilateral lower lobes CVS: S1-S2 positive, no murmurs or gallops Abdomen: Soft, nontender, nondistended, positive bowel sounds x4 Extremities: +2 pulses bilaterally radialis/ dorsalis pedis, no cyanosis, no edema Neuro: Awake alert oriented x3 Psych: Normal mood and affect G/U: No Dasilva Skin: no rashes, warm and dry Lymphatic: no cervical or axillary lymphadenopathy Results & Data Results & Data Vital Signs (Past 12 Hours) Vital Signs Temp Pulse Pulse Resp BP Pulse Ox O2 Del Method 06/24/24 18:21 103 H 20 106/85 93 Room Air 06/24/24 18:03 109 H 19 123/87 94 Room Air 06/24/24 17:30 94 H 16 132/90 96 High Flow Nasal Cannula, Nebulizer 06/24/24 17:00 97 H 14 144/84 H 96 High Flow Nasal Cannula, Nebulizer 06/24/24 16:55 96 H 18 96 High Flow Nasal Cannula 06/24/24 16:45 99 H 19 98 06/24/24 16:36 131/81 06/24/24 16:00 102 H 25 H 136/96 99 06/24/24 15:30 112 H 26 H 164/74 H 99 High Flow Nasal Cannula 06/24/24 15:12 High Flow Nasal Cannula 06/24/24 15:06 120 H 31 H 155/125 H 97 High Flow Nasal Cannula 06/24/24 15:01 126 H 26 H 97 High Flow Nasal Cannula 06/24/24 15:00 128 H 06/24/24 14:51 128 H 22 93 Room Air 06/24/24 13:36 36.7 C 106 H 22 159/118 H 93 Room Air O2 Flow Rate FiO2 06/24/24 18:21 06/24/24 18:03 06/24/24 17:30 06/24/24 17:00 06/24/24 16:55 35 30 06/24/24 16:45 06/24/24 16:36 06/24/24 16:00 06/24/24 15:30 35 50 06/24/24 15:12 06/24/24 15:06 06/24/24 15:01 35 50 06/24/24 15:00 06/24/24 14:51 06/24/24 13:36 Laboratory Results 06/24/24 14:59 06/24/24 14:59 PG Care Time/CCT Total # of Minutes Spent Total Time Spent with Patient: Total time spent is greater than 50% in coordination of care (as documented) at patient's floor/unit and/or counseling patient: Coding Level of Care Code 27815 INT INP/OBS CARE Diagnoses FREDA (obstructive sleep apnea) G47.33 Multiple pulmonary nodules R91.8 Asthma-COPD overlap syndrome J44.9 Severe persistent asthma with acute exacerbation J45.51 Asthma severity: severe Asthma persistence: persistent Peripheral eosinophilia D72.1 Elevated IgE level R76.8
[2024-06-24] MEDS: ALBUT/IPRATROP 3MG/0.5MG NEB 3 ML VIAL NEB SCH (19:22)
--- OUTSIDE RECORDS SUMMARY | 2024-06-24 19:54 | External Medical Summary | Summary of Care ---
Author Name Unknown Organization [facility] Address [address] [place] [address] Phone [phone] Care Team Providers Care Dry Cans Back Tender Name Role Phone Gena Cherry PA-C Primary Care Provider [phone]- [phone] Reason for Visit * Reason Onset Date Comments Hospital Follow-Up 05/26/2024 Encounter Details Date Type Department Care Team (Late st Contact Info) Description 05/26/2024 Telephone [facility] [address] Gena Cherry PA-C [address] [place] [address] [place] [phone] Hospital Follow-Up Allergies Active Allergy Reactions Criticality Noted Date Comments Environmental 12/21/2007 Dogs,cats,pollen, grass,molds.dust mites, documented as of this encounter (statuses as of 05/26/2024) Medications Dulera 200-5 MCG/ACT Inhalation Aerosol (Mometasone Furo-Formoterol Fum)Indications:S evere persistent asthma with acute exacerbation Inhale 2 Puffs by mouth 2 times a day. 13 g 1 1 Active Ipratropium-Albut eduar 20-100 MCG/ACT Inhalation Aerosol Solution (Combivent Respimat)Indicati ons:Severe persistent asthma with status asthmaticus,Sever e persistent asthma with acute exacerbation INHALE 1 PUFF BY MOUTH 4 TIMES A DAY 4 g 1 1 Active Ipratropium [place] 0.02 % Inhalation Solution (Atrovent)Indicat ions:Uncomplicate d severe persistent asthma INHALE 1 VIAL VIA NEBULIZER TWICE DAILY 125 mL 5 1 Active Albuterol Sulfate (2.5 MG/3ML) 0.083% Inhalation Nebulization Solution (Proventil)Indica tions:Severe persistent asthma with status asthmaticus INHALE 1 VIAL VIA NEBULIZER EVERY 4 HOURS NEEDED FOR WHEEZING. 375 mL 1 1 Active Fluticasone Propionate 50 MCG/ACT Nasal Suspension (Flonase)Indicati ons:Seasonal allergic rhinitis, unspecified trigger Administer into each nostril 2 Sprays in the morning. 15.8 mL 5 2 Active Vitamin B 12 500 MCG Oral Tablet Take by mouth. Active Azithromycin 250 MG Oral Tablet (Zithromax Z-Markos) Take two tablets by mouth on first day, then 1 tablet daily until gone 6 Tablet 4 Active predniSONE 20 MG Oral Tablet (Deltasone) 1 tab 3 times a day for 3 days, then 1 tab 2 times a day for 3 days, then 1 tab daily for 3 days 18 Tablet 4 Active predniSONE 20 MG Oral Tablet (Deltasone)Indica tions:Neck pain 2 tablets daily for 5 days then 1 tablet daily 15 Tablet 4 Active FLUoxetine HCl 10 MG Oral Capsule (PROzac) TAKE 1 CAPSULE BY MOUTH EVERY MORNING 90 Capsule 1 4 Active Levothyroxine Sodium 150 MCG Oral Tablet (Levoxyl)Indicati ons:Acquired hypothyroidism,Mu ltiple thyroid nodules TAKE 1 TAB BY MOUTH DAILY FIRST THING IN MORNING.AT LEAST 30MIN BEFORE BREAKFAST OR OTHER MEDICATION 90 Tablet 1 4 Active Omeprazole 40 MG Oral Capsule Delayed Release (PriLOSEC)Indicat ions:Cough, unspecified Take 1 Capsule by mouth in the morning. 1 hour before the first meal of the day. 90 Capsule 1 4 Active metFORMIN HCl 500 MG Oral Tablet (Glucophage) Take 1 Tablet by mouth 2 times a day with morning and evening meals. 180 Tablet 1 4 Active documented as of this encounter (statuses as of 05/26/2024) Active Problems Problem Noted Date Diagnosed Date Prediabetes 12/02/2021 Overview: Per Prediabetes protocol Body mass index 60.0-69.9, adult 07/29/2019 Bipolar disorder, currently in remission, most recent episode unspecified 05/05/2017 Multiple thyroid nodules 07/18/2016 Acquired hypothyroidism 06/24/2016 Depression with anxiety 06/20/2016 Asthma, severe persistent 12/13/2009 Overview (08/25/2012): Per Asthma Taxonomy Continue symbicort and combivent inhalers; pulm consult Allergic rhinitis, seasonal 12/14/2007 documented as of this encounter (statuses as of 05/26/2024) Resolved Problems Problem Noted Date Diagnosed Date Resolved Date Body mass index (BMI) of 50. 0 to 59.9 in adult 03/23/2017 07/29/2019 Overview: Per Obesity protocol #1 ADVANCE DIRECTIVE INFORMATION 10/18/2012 04/25/2024 Overview (09/13/2012): Patient declined History of gestational diabe danielle in prior , currently 10/18/2012 05/04/2013 Supervision of other high-risk 09/22/2012 03/17/2013 Overview (09/25/2015): [facility] 09/13/12: 1. Recommend restricting weight gain during to 11-20 pounds. Consider referral for nutrition consult. 2. For patients with Class 3 obesity, we recommend baseline pre-eclamptic labs (creatinine, 24 hour urine protein) YANY if not already done-completed 3. Recommend obtaining early GDM screen (normal) and repeat again at 26-28 weeks (normal) if early screen is normal. 4. Recommend [facility] ultrasound for anatomy screen at 20 weeks and for growth every 6 to 8 weeks after 24 weeks. -12/08/12: EFW 1080gm (50-75%) 5. For patients with Class 3 obesity, we recommend surveillance with twice weekly NST/weekly FLY to begin at 32 weeks and delivery by EDC. 6. Recommend anesthesia consult during the antepartum period. ICD-10 update of inactive term H/O pre-eclampsia in prior p regnancy, currently 08/25/2012 03/17/2013 Overview (01/30/2013): Baseline labs and 24hr urine protein- done 08/28/12 and normal Urine cx at NOB visit contaminated- repeat at nv- obtained 09/22/2012- contaminated; urine cx 01/12/13 negative Obesity, Class III, BMI 40-4 9.9 (morbid obesity) 08/25/2012 05/04/2013 Overview (10/27/2012): Early glucola- done and normal MFM 10/18/12: For patients with Class 3 obesity, we recommend surveillance with twice weekly NST/weekly FLY to begin at 32 weeks and delivery by EDC. Obesity, morbid (more than 1 00 lbs over ideal weight or BMI > 40) 12/04/2009 08/25/2012 Overview (09/10/2015): Per Obesity Protocol, #19 Early glucola ICD-10 update of inactive term Diabetes mellitus complicati ng , antepartum 04/05/2008 05/15/2008 ADVANCE DIRECTIVE INFORMATION 03/08/2008 04/05/2008 Overview (01/19/2008): No, Advance Directive brochure offered , patient declined. HBP PF [id number] HIGH-RISK PREG NOS 12/22/2007 05/15/2008 Supervision of other high-risk 12/22/2007 05/15/2008 Overview (09/25/2015): ICD-10 update of inactive term HBP PF 09/14/2007 12/22/2007 Status asthmaticus 0 Other acne 08/23/2015 BMI 40.0-44.9, adult 017 Overview: Per Obesity protocol #1 documented as of this encounter (statuses as of 05/26/2024) Immunizations Name Administration Dates Next Due COVID-19 mRNA, LNP-s, No Pre serve, 2-Dose Series (Pfizer) 11/16/2020 COVID-19, MRNA-LNP, PF, 30 M CG/0.3 mL, 12 YRS AND ABOVE, IM (PFIZER-Comirnaty) 05/08/2023 HPV Vaccine, 4-Valent 03/29/2009,11/27/2008,04/07/2008 PPD 11/10/2007 Pneumococcal Conjugate Vacci ne, 20-valent ([id number]) 05/08/2023 Pneumococcal Polysaccharide PPV23 (Pneumovax) 09/21/2008 Seasonal Influenza Vac., MDV , IM, 0.5 mL (Fluzone) 03/15/2013,03/29/2009,05/16/2008 Seasonal Influenza, PF, 6 M & above, IM , (FluLaval or Fluzone) 05/08/2023,09/02/2022,04/16/2020,04/14,02/26/2018,05/04/2017 Seasonal Influenza, Quadriva lent, No Preserve, IM 06/20/2016,05/08/2015 TDAP (age 10 and older)(Boostrix) 03/29/2018 TDAP, Age 7 and older, IM (Adacel) 12/14/2007 documented as of this encounter Social History Tobacco Use Types Packs/Day Years Used Date Smoking Tobacco: Former Cigarettes 0.8 7 0 06/22/2003 - 06/22/2010 Smokeless Tobacco: Never Alcohol Use Standard Drinks/Week Comments No 0 (1 standard drink = 0.6 oz pur e alcohol) PHQ-2 Answer Date Recorded PHQ Adult Total Score 21 05/08/2023 Utilities Answer Date Recorded Do you have trouble paying y our heating, water, or electric bill? (Adult - for ages 18 years and over) Not on file 12/08/2023 Is your family able to pay t he heat, water, or electric bill? (Household - for ages 0-17 years) Not on file 12/08/2023 Does your family have access to good internet? (Household - for ages 0-17 years) Not on file 12/08/2023 Social Connections Answer Date Recorded How often do you feel lonely or isolated from those around you? 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 Hospitalist recommends pulmonology follow up and PFT's in 6 weeks. A1C in 3 months. Hospitalist unable to order referral in [facility]. Please discuss with patient atvisit on 05/30/24. Thank you! documented in this encounter Plan of Treatment Upcoming Encounters Date Type Department Care Team (Late st Contact Info) Description 05/30/2024 1:40 PM EST Office Visit Family Medicine [address] [place] [id number] Gena Cherry PA-C [address] [place] [address] [place] [address] Health Maintenance Due Date Last Done Comments Hepatitis C Screening 2005 Hepatitis B Vaccine (1 of 3 - 19+ 3-dose series) 2006 HPV/Co-Test 2017 Cervical Cancer Screening 08/21/2019 Pap Smear 08/21/2019 08/20/2016, 03/0 11/2012, 09/14/2007 COVID-19 Vaccine ( season) 2024 05/08/2023, 12/07/2020, 11/16/2020 Depression Monitoring 05/08/2024 05/08/2023 TSH 05/08/2024 05/08/2023, 08/20, 09/11/2021, Additional history exists HbA1c 02/01/2025 02/02/2024, 08/20, 10/25/2021, Additional history exists DTap/Tdap Vaccines (3 - Td or Tdap) 03/29/2028 03/29/2018, 12/14/2007 HPV (Gardasil) Vaccine Completed , 11/27/2008, 09/21/2008 Pneumococcal Vaccine: Pediatrics (0 to 5 Years) and At-Risk Patients (6 to 64 Years) Completed 05/08/2023, 09/21/2008 Influenza Vaccine (FLU shot) Completed 07/2023, 05/08/2023, 09/02/2022, Additional history exists MENINGOCOCCAL (MENACTRA/MENVEO) Aged Out No longer eligible based on patient's age to complete this topic documented as of this encounter Medical Devices Not on filedocumented as of this encounter Care Teams Dry Cans Back Tender Relationship Specialty Start Date End Date Gena Cherry PA-C [address] [place] [address] [place] [address] PCP - General Physician Mat Linker 04/13/24 documented as of this encounter
--- OUTSIDE RECORDS SUMMARY | 2024-06-24 19:54 | External Medical Summary | Summary of Care ---
Author Name Unknown Organization [facility] Address [address] [place] [address] Phone [phone] Care Team Providers Care Document Management Analyst Name Role Phone Gena Cherry PA-C Primary Care Provider [phone]- [phone] Reason for Visit * Reason Onset Date Comments Hospital Follow-Up 05/24/2024 [facility] for [facility] Encounter Details Date Type Department Care Team (Late st Contact Info) Description 05/24/2024 Telephone [address] [place] [address] Adri Higgins, SERGEI Hospital Follow-Up ([facility] for [facility]) Allergies Active Allergy Reactions Criticality Noted Date Comments Environmental 12/21/2007 Dogs,cats,pollen, grass,molds.dust mites, documented as of this encounter (statuses as of 05/26/2024) Medications Dulera 200-5 MCG/ACT Inhalation Aerosol (Mometasone Furo-Formoterol Fum)Indications:S evere persistent asthma with acute exacerbation Inhale 2 Puffs by mouth 2 times a day. 13 g 1 Active Ipratropium-Albut eduar 20-100 MCG/ACT Inhalation Aerosol Solution (Combivent Respimat)Indicati ons:Severe persistent asthma with status asthmaticus,Sever e persistent asthma with acute exacerbation INHALE 1 PUFF BY MOUTH 4 TIMES A DAY 4 g 1 1 Active Ipratropium [place] 0.02 % Inhalation Solution (Atrovent)Indicat ions:Uncomplicate d [...] of other high-risk 09/22/2012 03/17/2013 Overview (09/25/2015): [facility] 09/13/12: 1. Recommend restricting weight gain during to 11-20 pounds. Consider referral for nutrition consult. 2. For patients with Class 3 obesity, we recommend baseline pre-eclamptic labs (creatinine, 24 hour urine protein) YANY if not already done-completed 3. Recommend obtaining early GDM screen (normal) and repeat again at 26-28 weeks (normal) if early screen is normal. 4. Recommend [facility] ultrasound for anatomy screen at 20 [...] brochure offered , patient declined. HBP PF [id number] HIGH-RISK PREG NOS 12/22/2007 05/15/2008 Supervision of [...] CG/0.3 mL, 12 YRS AND ABOVE, IM (PFIZER-Comirnat) 05/08/2023 HPV Vaccine, 4-Valent 03/29/2009,11/27/2008,04/0 07/2008 PPD 11/10/2007 Pneumococcal Conjugate Vacci ne, 20-valent ([id number]) 05/08/2023 Pneumococcal Polysaccharide PPV23 (Pneumovax) 09/21/2008 Seasonal [...] encounter Miscellaneous Notes * Telephone Encounter - Adri Higgins RN - 05/26/2024 11:54 AM EST Attempted Phone Call Second Attempt Call Outcome Left Voicemail/Message * Telephone Encounter - Adri Higgins RN - 05/24/2024 11:33 AM EST Transitions of Care Note Reason for Referral:Recent Admission Phone visit for follow up: [facility] Admitted to: [facility], Date: 05.20.24 Discharged to: home, Date: 05.23.24 Diagnosis [address] hospitalization: Acute exacerbation of asthma Per Hospital discharge : New Meds prednisone 20 mg Tablet 40 mg PO UD Qty: 13 0RF Rx Instructions: 2 tabs daily x 5 days, then 1 tab daily x 3 days, then stop. benzonatate 100 mg Capsule 100 mg PO TID 5 Days Qty: 15 0RF Pulmicort Flexhaler 90 mcg/actuation aerosol powdr breath activated 2 inh inhalation BID Qty: 1 0RF And patient need labs CBC/CMP/magnesium/phosphorus within one week Patient will also need a hospital discharge appointment made. Attempted Phone Call First Attempt Call Outcome Left Voicemail/Message Adri Higgins RN documented in this encounter Plan of Treatment Upcoming Encounters Date Type Department Care Team (Late st Contact Info) Description 05/30/2024 1:40 PM EST Office Visit Family Medicine [address] [place] [phone] Gena Cherry PA-C [address] [place] [address] [place] [address] Health Maintenance Due Date Last Done Comments [...] 03/29/2028 03/29/2018, 12/14/2007 HPV (Gardasil) Vaccine Completed 9, 11/27/2008, 09/21/2008 Pneumococcal Vaccine: Pediatrics (0 to 5 Years) and At-Risk Patients (6 to 64 Years) Completed 05/08/2023, 09/21/2008 Influenza Vaccine (FLU shot) Completed 07/2023, 05/08/2023, 09/02/2022, Additional history exists MENINGOCOCCAL (MENACTRA/MENVEO) Aged Out No longer eligible based on patient's age to complete this topic documented as of this encounter Medical Devices Not on filedocumented as of this encounter Care Teams Document Management Analyst Relationship Specialty Start Date End Date Gena Cherry PA-C [address] [place] [address] [place] [address] PCP - General Physician Supervisor Contact And Service Clerks 04/13/24 documented as of this encounter
[2024-06-24] MEDS: metFORMIN HCL 500 MG TAB PO SCH (21:35)
[2024-06-24] MEDS: BUDESONIDE 0.5 MG/2 ML VIAL (PULMICORT) NEB SCH ×2 (22:03→23:45)
[2024-06-24] MEDS: FORMOTEROL 20 MCG/2 ML VIAL NEB SCH ×2 (22:03→23:45)
[2024-06-24] MEDS ORDERED: GLUCAGON FOR INJ 1 MG VIAL SQ PRN (23:36)
[2024-06-24] MEDS ORDERED: POLYETHYLENE (MIRALAX) 17 GM PACK PO PRN (23:36)
[2024-06-24] MEDS ORDERED: LEVALBUTEROL HCL 0.63 MG/3 ML NEB NEB PRN (23:36)
[2024-06-24] MEDS ORDERED: ALUMINUM/MAGNESIUM SUSP 30 ML UDC PO PRN (23:36)
[2024-06-24] MEDS ORDERED: ONDANSETRON INJ 2 MG/ML 2 ML VIAL IV PRN (23:36)
[2024-06-24] MEDS ORDERED: CARBOHYDRATES FOR HYPOGLYCEMIA PO PRN (23:36)
[2024-06-24] MEDS ORDERED: GLUCOSE 40% GEL 15 GM TUBE PO PRN (23:36)
[2024-06-24] MEDS ORDERED: DEXTROSE 50% 50 ML SYRINGE IV PRN (23:36)
[2024-06-24] MEDS ORDERED: methylPREDNISolone 125 MG/2 ML VIAL IV SCH (23:36)
[2024-06-24] MEDS ORDERED: GLUCOSE 10 TAB/TUBE PO PRN (23:36)
[2024-06-25] MEDS: HEPARIN SOD 5,000 UNIT/0.5 ML VIAL SQ SCH (00:44)
[2024-06-25] MEDS: INSULIN ASPART PER UNIT CHARGE SC SCH ×2 (00:44→12:11)
[2024-06-25] MEDS: methylPREDNISolone 40 MG in SYRINGE 0 ML IV SCH ×2 (00:44→21:06)
[2024-06-25] MEDS: ACETAMINOPHEN 325 MG TAB PO PRN (03:26)
[2024-06-25] MEDS: LEVOTHYROXINE SODIUM 150 MCG TABLET PO SCH (06:30)
[2024-06-25 06:48] LABS: Hematocrit (blood only) 34.1 % (37.0-47.0); Hemoglobin 10.8 g/dl (12.0-16.0); Mean Corpuscular Hemoglobin 24.8 pg (25.0-34.0); Mean Corpuscular Hgb Conc 31.7 g/dL (32.0-36.0); Mean Corpuscular Volume 78.2 fL (80.0-100.0); Mean Platelet Volume 10.7 fL (9.4-12.4); Platelet Count 332 K/uL (130-400); RDW Coefficient of Variation 15.7 % (11.5-14.5); RDW Standard Deviation 44.3 fL (36.4-46.3); Red Blood Count 4.36 M/uL (4.20-5.40)
[2024-06-25] MEDS ORDERED: FORMOTEROL 20 MCG/2 ML VIAL NEB SCH (07:00)
[2024-06-25 07:08] LABS: BUN Creatinine Ratio 21.1 (10-20); Creatinine Clr Calc Pharmacy 119.8 ml/min; Magnesium 1.9 mg/dl (1.7-2.4); Phosphorus 2.6 mg/dl (2.5-4.9); Potassium 4.2 mmol/L (3.5-5.1)
[2024-06-25] MEDS: PANTOprazole 40 MG TAB PO SCH (08:09)
[2024-06-25] MEDS: FLUoxetine HCL 10 MG CAP PO SCH (08:09)
--- NOTE | 2024-06-25 08:34 | Hospitalist Progress Note ---
Date of Service June 25, 2024 Assessment & Plan (1) Acute asthma exacerbation: Plan Lizezth Arthur is a 39-year-old female with past medical history significant for acquired hypothyroidism, multiple thyroid nodules, prediabetes, severe persistent asthma, seasonal allergic rhinitis, obesity class III, FREDA on CPAP, bipolar disorder and depression with anxiety who presented to the ED for evaluation on 06/24/2024 secondary to worsening SOB with associated wheezing and chest tightness. Patient was recently admitted under our service from 05/20/2024-05/23/2024 with an acute asthma exacerbation. She reports that her breathing has gotten progressively worse over the past few weeks since being discharged last month. Over the past few days, however, she has been significantly short of breath with minimal improvement at home using around the clock albuterol plus ipratropium n ebulizer treatments; therefore she came into the ED for evaluation. She was discharged with a prescription for Pulmicort Flexhaler last month however she was unable to fiber picker this medication from her pharmacy secondary to insurance issues. Patient was on Dupixent in the past however she has not been for the past year as a result of insurance issues. Patient reports this medication would cost her $3,000/month [id number]. Acute Asthma-COPD Overlap Exacerbation: -History as per above and HPI. CXR unremarkable. -Leukocytosis noted however appears chronically elevated; respiratory BioFire negative. Will need workup as outpatient with hematology for persistent leukocytosis -Continue IV Solu-Medrol . Pulm toilet with scheduled nebs, incentive spirometry. Continue home PPI. -Pulmonology recommended nebulized Brovana and budesonide while in hospital.Plan to add Spiriva or Incruse at the time of the discharge. Other Chronic Medical Conditions: * Prediabetes - Hgb A1c 5.8% last admission. Hold metformin, SSI while inpatient ISO IV steroid use. * Hypothyroidism - Continue levothyroxine. Depression/Anxiety/Bipolar - Continue fluoxetine. FREDA - Continue CPAP HS. DVT Prophylaxis: SQ Heparin Code Status: FULL CODE PCP: Valentin Thompson MD Disposition: Patient admitted for asthma flareup; currently undergoing [id number] DuoNeb treatment, IV steroid, inhaled steroid and bronchodilators. Please note the above document was generated using voice recognition software. It may contain grammatical, syntax or spelling errors. Any formal questions or concerns about the content, text or information contained within the body of this dictation should be directly addressed to the provider for clarification Admission and Anticipated Discharge Date Admission Date: June 24, 2024 Subjective Patient seen and examined at bedside. She reports that she feels much better compared to previous days. She is saturating well on room air No significant events overnight Review of Systems Review of Systems: All systems reviewed & are unremarkable except as noted in Subjective Physical Exam Physical Exam: Constitutional: WD/WN, vitals as above, NAD, sitting up in bed, pleasant, conversing easily Respiratory: Bilateral occasional wheeze Cardiovascular: RRR, no murmur, no edema Vessels: no JVD or carotid bruit Chest: normal inspection of chest Abdomen: normal bowel sounds, soft, nontender, no hepatosplenomegaly Musculoskeletal: no cyanosis or clubbing, extremities motor strength 5/5 Skin: no rashes, warm and dry normal turgor Neurologic: PERRL, EOMI, accommodation nl, no face palsy, no dysarthria CN's II- XI intact bilaterally and moves all extremities Psychiatric: A+Ox3, euthymic affect Results & Data Results & Data Vital Signs (Past 12 Hours) Vital Signs Temp Pulse Resp BP BP Pulse Ox Pulse Ox 06/25/24 08:05 36.5 C 97 H 20 129/73 93 06/25/24 07:07 97 H 16 96 06/25/24 03:49 36.3 C L 102 H 19 135/86 94 06/25/24 00:47 107 H 22 96 06/24/24 23:48 06/24/24 23:48 36.4 C L 115 H 24 120/66 95 06/24/24 23:36 36.4 C L 113 H 24 120/66 95 06/24/24 23:36 95 06/24/24 22:03 116 H 20 97 06/24/24 21:38 117 H 22 139/55 L 92 O2 Del Method O2 Del Method 06/25/24 08:05 Room Air 06/25/24 07:07 Room Air 06/25/24 03:49 Room Air 06/25/24 00:47 Room Air 06/24/24 23:48 Room Air 06/24/24 23:48 Room Air 06/24/24 23:36 Room Air 01/03/25 23:36 Room Air 06/24/24 22:03 Room Air 06/24/24 21:38 Room Air (1) Acute asthma exacerbation Asthma persistence: persistent Asthma severity: severe Qualified Code(s): J45.51 - Severe persistent asthma with (acute) exacerbation
[2024-06-25] MEDS ORDERED: Nursing to Pharmacy Communication SCH (09:00)
--- NOTE | 2024-06-25 12:26 | Pulmonology Progress Note ---
Date of Service June 25, 2024 Assessment & Plan (1) FREDA (obstructive sleep apnea): (2) Multiple pulmonary nodules: (3) Asthma-COPD overlap syndrome: (4) Acute asthma exacerbation: Asthma severity: severe Asthma persistence: persistent Qualified Code(s): J45.51 - Severe persistent asthma with (acute) exacerbation (5) Peripheral eosinophilia: (6) Elevated IgE level: Plan Chest x-ray 06/24/2024 personally reviewed: Portable film, good inspiratory effort, bilateral cardiophrenic angles are clean, mild blunting of bilateral costophrenic angles, no clear lung infiltrate appreciated PFT 03/18/2022 personally reviewed: No obstructive lung dysfunction, insignificant bronchodilator response, increased lung volume, normal DLCO FVC 4.67 L 120%, FEV1 3.43 to 76%, FEV1/FVC 73%, RV 142%, TLC 137%, RV/TLC 105%, DLCO 140% --Acute exacerbation of asthma COPD overlap syndrome Supposed to be on Dupixent but unfortunately she is not able to afford it, I will get my staff involved to see if she will qualify for pharmacy assistance At home on Dulera 100, 2 puffs twice a day, along with as needed albuterol Will add Spiriva to her regimen on discharge Respiratory BioFire negative for everything on 06/24/2024 Absolute eosinophil count 780 on 06/24/2024, as high as 1930 on 01/22/2020 IgE 655 in 07/2018 --Multiple pulmonary nodules Largest one being 6 mm right lower lobe Patient's nodules have been stable since 2019. She is 38 years old and quit smoking in 2016. She will not qualify for lung screening Repeat CAT scan of the chest only if the patient gets B symptoms CTA chest 12/01/2023 personally reviewed: Motion degraded study Right lower lobe 6 mm pulmonary nodule, 4 mm left lower lobe pulmonary nodule, 3 mm left apical pulmonary nodule, 2.5 mm right apical pulmonary nodule (unchanged 2019) No mediastinal adenopathy -- FREDA Polysomnography 11/25/2022: AHI 5.6, REM AHI 22.5 On auto CPAP at home. Last compliance showed median pressure of 8.6 cm H2O --Ex-smoker Approximately [id number] smoking history Quit smoking 2016 Encouraged to continue abstinence from smoking -- Morbid obesity Advised to lose with diet and exercise Plan: Nebulized Brovana and budesonide while in the hospital Decrease Solu-Medrol to 40 mg twice daily Recommend adding Spiriva or Incruse to the patient's regimen of Dulera 100 on discharge Recommend CPAP nightly and as needed shortness of breath pressure of 8 cm H2O Please note the above document was generated using voice recognition software. It may contain grammatical, syntax or spelling errors.Any formal questions or concerns about the content, text or information contained within the body of this dictation should be directly addressed to the provider for clarification. Admission and Anticipated Discharge Date Admission Date: June 24, 2024 Subjective Patient seen and examined at bedside. No acute distress, no adverse events overnight Says that she is feeling better since coming to the hospital She was saturating well on room air Still complains of chest congestion. Bringing up phlegm without any issues No nausea or vomiting, fair appetite Review of Systems 2 Review of Systems: All systems reviewed & are unremarkable except as noted in Subjective Physical Exam 2 Physical Exam: Constitutional: No acute distress HEENT: EOMI, PERRLA Respiratory system: Good air entry bilaterally, no rhonchi, no wheeze, minimal crackles bilateral lower lobes CVS: S1-S2 positive, no murmurs or gallops Abdomen: Soft, nontender, nondistended, positive bowel sounds x4, obese Extremities: +2 pulses bilaterally radialis/ dorsalis pedis, no cyanosis, no edema Neuro: Awake alert oriented x3 Psych: Normal mood and affect G/U: No Dasilva Skin: no rashes, warm and dry Lymphatic: no cervical or axillary lymphadenopathy Results & Data Results & Data Vital Signs (Past 12 Hours) Vital Signs Temp Pulse Pulse Resp BP BP Pulse Ox 06/25/24 11:26 131/82 06/25/24 11:08 36.5 C 95 H 18 145/106 H 96 06/25/24 08:05 36.5 C 97 H 20 129/73 93 06/25/24 08:00 96 H 06/25/24 08:00 06/25/24 07:07 97 H 16 96 06/25/24 03:49 36.3 C L 102 H 19 135/86 94 06/25/24 00:47 107 H 22 96 O2 Del Method 06/25/24 11:26 06/25/24 11:08 Room Air 06/25/24 08:05 Room Air 06/25/24 08:00 06/25/24 08:00 Room Air 06/25/24 07:07 Room Air 06/25/24 03:49 Room Air 06/25/24 00:47 Room Air Laboratory Results 06/25/24 06:24 06/25/24 06:24 PG Care Time/CCT Total # of Minutes Spent Total Time Spent with Patient: Total time spent is greater than 50% in coordination of care (as documented) at patient's floor/unit and/or counseling patient: Coding Level of Care Code 92893 SUB INP/OBS CARE 3/50MIN Diagnoses FREDA (obstructive sleep apnea) G47.33 Multiple pulmonary nodules R91.8 Asthma-COPD overlap syndrome J44.9 Severe persistent asthma with acute exacerbation J45.51 Asthma severity: severe Asthma persistence: persistent Peripheral eosinophilia D72.1 Elevated IgE level R76.8
[2024-06-25] MEDS: UMECLIDINIUM BROMIDE 62.5MCG/BLISTER 7 PUFFS/INHALER INH SCH (13:47)
[2024-06-25] MEDS: guaiFENesin 600 MG TABCR PO SCH (21:04)
[2024-06-26 07:15] VITALS: RESP 18
[2024-06-26 07:58] VITALS: TEMP 98.1
--- NOTE | 2024-06-26 11:38 | Pulmonology Progress Note ---
Date of Service June 26, 2024 Assessment & Plan (1) FREDA (obstructive sleep apnea): (2) Multiple pulmonary nodules: (3) Asthma-COPD overlap syndrome: (4) Acute asthma exacerbation: Asthma persistence: persistent Asthma severity: severe Qualified Code(s): J45.51 - Severe persistent asthma with (acute) exacerbation (5) Peripheral eosinophilia: (6) Elevated IgE level: Plan Chest x-ray 06/24/2024 personally reviewed: Portable film, good inspiratory effort, bilateral cardiophrenic angles are clean, mild blunting of bilateral costophrenic angles, no clear lung infiltrate appreciated PFT 03/18/2022 personally reviewed: No obstructive lung dysfunction, insignificant bronchodilator response, increased lung volume, normal DLCO FVC 4.67 L 120%, FEV1 3.43 to 76%, FEV1/FVC 73%, RV 142%, TLC 137%, RV/TLC 105%, DLCO 140% --Acute exacerbation of asthma COPD overlap syndrome Supposed to be on Dupixent but unfortunately she is not able to afford it, I will get my staff involved to see if she will qualify for pharmacy assistance At home on Dulera 100, 2 puffs twice a day, along with as needed albuterol Will add Spiriva to her regimen and increase Dulera to 200 on discharge Respiratory BioFire negative for everything on 06/24/2024 Absolute eosinophil count 780 on 06/24/2024, as high as 1930 on 01/22/2020 IgE 655 in 07/2018 --Multiple pulmonary nodules Largest one being 6 mm right lower lobe Patient's nodules have been stable since 2019. She is 38 years old and quit smoking in 2016. She will not qualify for lung screening Repeat CAT scan of the chest only if the patient gets B symptoms CTA chest 12/01/2023 personally reviewed: Motion degraded study Right lower lobe 6 mm pulmonary nodule, 4 mm left lower lobe pulmonary nodule, 3 mm left apical pulmonary nodule, 2.5 mm right apical pulmonary nodule (unchanged 2019) No mediastinal adenopathy -- FREDA Polysomnography 11/25/2022: AHI 5.6, REM AHI 22.5 On auto CPAP at home. Last compliance showed median pressure of 8.6 cm H2O --Ex-smoker Approximately [id number] smoking history Quit smoking 2016 Encouraged to continue abstinence from smoking -- Morbid obesity Advised to lose with diet and exercise Plan: Nebulized Brovana and budesonide while in the hospital Can transition Solu-Medrol to prednisone and titrated off over the next 5 days Recommend adding Spiriva or Incruse to the patient's regimen and increase Dulera to 200 on discharge Recommend CPAP nightly and as needed shortness of breath pressure of 8 cm H2O Case was discussed with primary team Please note the above document was generated using voice recognition software. It may contain grammatical, syntax or spelling errors.Any formal questions or concerns about the content, text or information contained within the body of this dictation should be directly addressed to the provider for clarification. Admission and Anticipated Discharge Date Admission Date: June 24, 2024 Subjective Patient seen and examined at bedside. No acute distress, no adverse events overnight Patient's family was in the room at the time of examination She stated that she is feeling much better No chest pain, no shortness of breath Occasional cough with clear phlegm Fair appetite Review of Systems 2 Review of Systems: All systems reviewed & are unremarkable except as noted in Subjective Physical Exam 2 Physical Exam: Constitutional: No acute distress HEENT: EOMI, PERRLA Respiratory system: Good air entry bilaterally, no rhonchi, no wheeze, no crackles CVS: S1-S2 positive, no murmurs or gallops Abdomen: Soft, nontender, nondistended, positive bowel sounds x4, obese Extremities: +2 pulses bilaterally radialis/ dorsalis pedis, no cyanosis, no edema Neuro: Awake alert oriented x3 Psych: Normal mood and affect G/U: No Dasilva Skin: no rashes, warm and dry Lymphatic: no cervical or axillary lymphadenopathy Results & Data Results & Data Vital Signs (Past 12 Hours) Vital Signs Temp Pulse Pulse Resp BP Pulse Ox O2 Del Method 06/26/24 08:00 87 06/26/24 08:00 Room Air 06/26/24 07:57 36.7 C 97 H 18 149/90 H 97 Room Air 06/26/24 07:15 97 H 18 97 Room Air 06/26/24 04:59 36.9 C 92 H 16 130/79 95 Room Air 06/26/24 00:49 96 H 17 98 Room Air 06/25/24 23:58 36.2 C L 90 16 151/96 H 95 Room Air Laboratory Results 06/25/24 06:24 06/25/24 06:24 PG Care Time/CCT Total # of Minutes Spent Total Time Spent with Patient: Total time spent is greater than 50% in coordination of care (as documented) at patient's floor/unit and/or counseling patient: Coding Level of Care Code 65073 SUB INP/OBS CARE 2/35MIN Diagnoses FREDA (obstructive sleep apnea) G47.33 Multiple pulmonary nodules R91.8 Asthma-COPD overlap syndrome J44.9 Severe persistent asthma with acute exacerbation J45.51 Asthma persistence: persistent Asthma severity: severe Peripheral eosinophilia D72.1 Elevated IgE level R76.8
[2024-06-26 11:59] VITALS: PULSE 103; O2SAT 95
--- NOTE | 2024-06-26 13:09 | Discharge Summary ---
Date of Service June 26, 2024 Admission HPI Per Admitting Provider Lizzeth Arthur is a 38-year-old female with past medical history significant for acquired hypothyroidism, multiple thyroid nodules, prediabetes, severe persistent asthma, seasonal allergic rhinitis, obesity class III, bipolar disorder and depression with anxiety who presented to the ED for evaluation on 06/24/2024 secondary to worsening SOB with associated wheezing and chest tightness. History obtained from the patient, at bedside and associated chart review. Patient was recently admitted under our service from 05/20/2024- 05/23/2024 with an acute asthma exacerbation. She reports that her breathing has gotten progressively worse over the past few weeks since being discharged last month. Over the past few days, however, she has been significantly short of breath with minimal improvement at home using around the clock albuterol plus ipratropium nebulizer treatments; therefore she came into the ED for evaluation. She was discharged with a prescription for Pulmicort Flexhaler last month however she was unable to picker tender helper this medication from her pharmacy secondary to insurance issues. She has not followed up with her PCP since being discharged either. Of note, she is not chronically on steroids at baseline. She believes her asthma is triggered primarily by the winter weather. She no longer smokes - quit in 2016. Patient has previously been hospitalized and intubated for her asthma. She denies any sinus congestion or cough recently. Patient was on Dupixent in the past however she has not been for the past year as a result of insurance issues. Patient reports this medication would cost her $3,000/month [id number]. She is not on supplemental O2 at home. Uses CPAP HS for FREDA. Patient received an hour-long Duoneb treatment in the ED as well as 125mg IV Solu-Medrol, 2gm IV magnesium and 1L NSS. She was in the process of completing another hour-long Duoneb in the ED during our conversation. Patient was not hypoxic in the ED. She was on 35L/min HFNC and saturating well in the mid 90s S pO2 when seen in the ED on admission. Patient follows Dr. Badillo as an outpatient for her asthma. Patient has history of intubation secondary to asthma exacerbation in 2008 requiring ICU care. Admission Exam Per Admitting Provider General: Obese F, vitals as above, sitting up in bed, mild conversational dyspn ea. A+Ox3, euthymic affect. HEENT: Normocephalic, atraumatic. Conjunctivae normal. External ear and nose normal, oropharynx normal. Respiratory: Tachypneic, on 35L via HFNC, receiving 1-hour DuoNeb treatment, diffusely wheezy in all lung mendez. Cardiovascular: Tachycardic, regular rhythm, normal peripheral pulses, no BLE edema. Vessels: No JVD. Abdomen/GI: Normal bowel sounds, soft, nondistended, nontender to palpation in all quadrants. Neurologic: No overt focal deficits, CN's II-XI not formally tested but appear grossly intact bilaterally. Principal Diagnosis Acute Asthma-COPD Overlap Exacerbation: Discharge Exam Constitutional: WD/WN, vitals as above, NAD, sitting up in bed, pleasant, conversing easily Respiratory: Bilateral clear breath sound. No wheeze Cardiovascular: RRR, no murmur, no edema Vessels: no JVD or carotid bruit Chest: normal inspection of chest Abdomen: normal bowel sounds, soft, nontender, no hepatosplenomegaly Musculoskeletal: no cyanosis or clubbing, extremities motor strength 5/5 Skin: no rashes, warm and dry normal turgor Neurologic: PERRL, EOMI, accommodation nl, no face palsy, no dysarthria CN's II- XI intact bilaterally and moves all extremities Psychiatric: A+Ox3, euthymic affect Discharge Data Allergies Allergy/AdvReac Type Severity Reaction Status Date / Time pollen extracts Allergy Mild allergy sx Verified 05/20/24 08:18 Consultations 06/24/24 17:20 ED Decision to Admit Stat 06/24/24 17:28 Consult Pulmonology Routine Hospital Course (1) Acute asthma exacerbation: Fidelia Arthur is a 39-year-old female with past medical history significant for acquired hypothyroidism, multiple thyroid nodules, prediabetes, severe persistent asthma, seasonal allergic rhinitis, obesity class III, FREDA on CPAP, bipolar disorder and depression with anxiety who presented to the ED for evaluation on 06/24/2024 secondary to worsening SOB with associated wheezing and chest tightness. Patient was recently admitted under our service from 05/20/2024-05/23/2024 with an acute asthma exacerbation. She reports that her breathing has gotten progressively worse over the past few weeks since being discharged last month. Over the past few days, however, she has been significantly short of breath with minimal improvement at home using around the clock albuterol plus ipratropium nebulizer treatments; therefore she came into the ED for evaluation. She was discharged with a prescription for Pulmicort Flexhaler last month however she was unable to picker tender helper this medication from her pharmacy secondary to insurance issues. Patient was on Dupixent in the past however she has not been for the past year as a result of insurance issues. Patient reports this medication would cost her $3,000/month [id number]. Acute Asthma-COPD Overlap Exacerbation: -History as per above and HPI. CXR unremarkable. Patient was admitted to medical floor; underwent treatment with IV Solu-Medrol, [id number] DuoNeb, inhalers. Pulmonology was consulted for comanagement; recommended to add Spiriva/Incruse at the time of the discharge. Patient was given prescription for Dulera 200 mcg and Incruse inhaler as per recommendation by oncology. Also provided prescription for prednisone with a tapering dose. Please note the above document was generated using voice recognition software. It may contain grammatical, syntax or spelling errors. Any formal questions or concerns about the content, text or information contained within the body of this dictation should be directly addressed to the provider for clarification Total Time Total Time Spent Total Time Spent (In Minutes): 34 Total Time Includes: Examination of the Patient, Discharge Planning, Medication Reconciliation, Communication With Other Providers and Other Discharge Plan Discharge Items Patient Disposition: Home - Self-Care Reason For Visit: ASTHMA EXACERBATION WITH ACUTE HYPOXIA Discharge Diagnosis: Asthma exacerbation Activity: Resume your previous activity Non-emergency contact: Primary Care Provider Call non-emergency contact if: you have any medication questions and your symptoms worsen Follow-up/Referrals: Valentin Thompson MD [Primary Care Provider] - Diet: Regular Addtl Attending Provider Instructions: You were admitted to the hospital due to asthma exacerbation. You were evaluated by pulmonology during the hospitalization; they recommended Dulera 200mg to be used twice daily and incruse once a day. You are also prescribed prednisone to be taken as follows; Take 40 mg for 2 days, then 20 mg for 2 days and then 10 mg for 2 days. An appointment with your primary care doctor will be set up for follow-up. Pending Studies at Discharge: No Stand-Alone Forms: My [facility], Smoking Cessation Medications and DC Order Prescriptions: New Incruse Ellipta 62.5 mcg/actuation Blister With Device 1 inh inhalation DAILY Qty: 30 0RF prednisone 10 mg tablet See Taper PO DAILY Qty: 14 0RF Taper: Taper, Blank 40 mg DAILY for 2 Days 20 mg DAILY for 2 Days 10 mg DAILY for 2 Days Dulera 200-5 mcg/actuation HFA aerosol inhaler 2 inh inhalation BID Qty: 13 0RF Continued Combivent Respimat 20-100 mcg/actuation mist 1 puff INHALATION QID Qty: 1 8RF metformin 500 mg tablet 500 mg PO BID omeprazole 40 mg capsule,delayed release(DR/EC) 40 mg PO DAILY (DME) CPAP Supplies Misc See Rx Instructions .MEDSUPPLY Qty: 1 0RF Rx Instructions: CPAP supplies, mask, headgear, filters, tubing, water chamber. G47.33 (DME) Auto Titrating CPAP Misc See Rx Instructions .MEDSUPPLY Qty: 1 0RF Rx Instructions: Auto PAP with 5-15 cm H20. Lifetime usage. G47.33 albuterol sulfate 90 mcg/actuation HFA aerosol inhaler 2 puff inhalation Q6H PRN (Reason: Shortness Of Breath Or Wheezing) Qty: 18 3RF albuterol sulfate 2.5 mg /3 mL (0.083 %) solution for nebulization 2.5 mg continuous nebulization Q4 PRN (Reason: Shortness Of Breath Or Wheezing) Qty: 3 3RF (DME) nebulizers [Aeroneb Go Nebulizer] Misc See Rx Instructions .MEDSUPPLY Qty: 1 0RF Rx Instructions: With tubing and supplies. J44.9. J45.9. levothyroxine 150 mcg tablet 150 mcg PO DAILYBB fluoxetine 10 mg capsule 10 mg PO QAM Discharge Orders: Discharge Order (Routine); Ordered 06/26/24 Ordered By: Parminder Valdez Admission Data Admit Date/Time: 06/24/24 17:08 Attending Provider: Parminder Valdez Admit Provider: Cassandra Anglin Primary Care Provider: Valentin Thompson. Other Providers: Cassandra Anglin; Cj Badillo
[2024-06-26 13:27] VITALS: BP 128/80
== END 2024-06-26 14:07 | disposition home or self-care (01) | DRG 191 ==
LOC: ED 13:19 → EDINP 17:08 → SUATTDRO 17:08 → 2E 22:52

== ENCOUNTER 2024-07-26 18:21 | Inpatient (IN) ==
[2024-07-26] MEDS: ALBUT/IPRATROP 3MG/0.5MG NEB 3 ML VIAL NEB ONE ×2 (19:09→20:25)
--- NOTE | 2024-07-26 19:09 | Emergency Department Note ---
Impression & Plan Asthma, severe persistent, Hypoxia ED Provider Note Provider: Rashad Vance MD CHIEF COMPLAINT: Breathing issues HISTORY OF PRESENT ILLNESS: Patient is a 39-year-old female history of severe asthma/COPD follows with pulmonary over the last 4 to 5 days has had worsening breathing status. Using her home nebulizers and treatments without much improvement. Finally came in today she felt a bit of headache and chest discomfort with her difficulty breathing. No significant fevers or sore throat reported. No significant nausea vomiting or diarrhea. Some near syncope but no actual syncope. Has noted her oxygen level at home being in the mid 80s and used her neighbors oxygen briefly. States she is having a pretty typical asthma exacerbation and still try to get some of her medications covered. Patient states while this is enough to bring her here it did not the worst she is ever had. PAST MEDICAL HISTORY: As noted above MEDICATIONS: Reviewed home medications SOCIAL HISTORY: Former smoker PHYSICAL EXAM: GENERAL: alert and oriented sitting up on on the stretcher nasal cannula oxygen in place mildly tachypneic Head: normocephalic and atraumatic EYES: No injection, discharge or icterus. PERRL, EOMI. NECK: Trachea midline. Supple. ENT: Mucous membranes pink and moist. Pharynx without erythema or exudate. LUNGS: Airway patent. Mild tachypnea. Some work of breathing. Diffuse expiratory wheeze with poor air movement HEART: Regular rate and rhythm. No chest wall tenderness ABDOMEN: Soft and non-tender, without guarding or rebound. SKIN: Acyanotic, warm, dry, without rashes EXTREMITIES: Without swelling, tenderness or deformity NEUROLOGICAL: No focal deficits. No aphasia. No facial droop or slurred speech. EK beats. Sinus tachycardia. No PVC or PAC. No acute ST segment elevation or depression with QTc of 465. CONTINUOUS CARDIAC MONITORING: was ordered and showed a heart rate of bpm in Patient's laboratory studies and imaging reviewed. Differential includes Reactive airway disease, pneumonia, pneumothorax, COPD, CHF, infections, cardiac ischemia, pulmonary embolism, musculoskeletal, gastrointestinal, as well as other pathologies. IMPRESSION/MEDICAL DECISION MAKING: Patient diffuse expiratory wheeze and per her report seems consistent with asthma exacerbation. Respiratory viral panel ordered. Given some IV Solu- Medrol, DuoNeb, magnesium here to help with symptoms. Mildly hypoxic and placed on nasal cannula oxygen. Lower suspicion for PE at this time given her significant wheeze. Seems consistent with prior episodes as well. Blood work is sent. Denies significant fever and lower suspicion for pneumonia. Chest x- ray obtained. Patient with chronic leukocytosis 17. Similar to previous. No severe anemia. No some electrolyte abnormality signs of anion gap. Normal renal function. Troponin normal. Procalcitonin undetectably low. Chest x-ray here without evidence of pneumonia or pneumothorax per radiology. Doubt this is bacterial or pneumonia. Negative respiratory viral panel. Patient on reassessment with some improvement. Patient is still with some oxygen supplementation and while improving still with some wheeze. Discussed further care here at the hospital. She is agreeable. Hospitalist team consulted. DIAGNOSIS: Acute asthma exacerbation, hypoxia DISPOSITION: Hospitalist will evaluate Patient was agreeable with this plan. Past Med/Surg History Problem List (Updated 07/27/24 @ 00:28 by Rashad Vance M.D.) Hypoxia (Acute) Asthma with acute exacerbation (Acute) Acute severe exacerbation of asthma FREDA (obstructive sleep apnea) Multiple pulmonary nodules Allergic rhinitis with postnasal drip Asthma-COPD overlap syndrome (Acute) Ex-smoker Hypersomnia Witnessed apneic spells Nocturnal hypoxemia Laryngitis History of tobacco use Excessive daytime sleepiness Dyspnea (Acute) Dietary counseling and surveillance Acute respiratory failure with hypoxia (Acute) Elevated IgE level Peripheral eosinophilia Acute respiratory failure (Acute) Hypomagnesemia (Acute) Morbid obesity (Acute) Hypothyroidism (Chronic) Asthma, severe persistent (Chronic) Allergic rhinitis (Chronic) Bipolar disorder (Chronic) Depression (Chronic) Anxiety (Chronic) Medical History History of acute pharyngitis Asthma exacerbation Family History Mother Diabetes Social History Smoking Status: Former smoker Tobacco Type: Cigarettes Age Started Using Tobacco: 18; Age Quit Using Tobacco: 31; packs per day: 2.5; Smoking End Date: 2016; Second Hand Exposure: No; Do You Dip or Chew Tobacco: No; Tobacco Cessation Education Requested by Patient: No Hx Alcohol Use: No Hx Substance Use: No Preferred Language: Bolivian Communication Ability: Effective Director Electrical Engineering Required: No Beliefs That Will Affect Care: None marital status: Current Living Situation: Spouse current occupational status: employed Other Information That Helps Us Care for You: No Feels Safe at Home: Yes Safety Concerns: Feels Safe At This Time Assistive Devices: Glasses Allergies Allergies Allergy/AdvReac Type Severity Reaction Status Date / Time pollen extracts Allergy Mild allergy sx Verified 05/20/24 08:18 Home Meds Home Medications Medication Instructions Recorded Confirmed metformin 500 mg tablet 500 mg PO BID 03/19/22 06/24/24 omeprazole 40 mg capsule,delayed 40 mg PO DAILY 03/19/22 06/24/24 release fluoxetine 10 mg capsule 10 mg PO QAM 12/01/23 06/24/24 levothyroxine 150 mcg tablet 150 mcg PO DAILYBB 12/01/23 06/24/24 Previous Rx's Medication Instructions Recorded Auto Titrating CPAP #1 ea 11/25/22 CPAP Supplies #1 ea 11/25/22 albuterol sulfate 2.5 mg/3 mL 2.5 mg (3 mL) continuous 03/22/24 (0.083 %) solution for nebulization nebulization Q4 PRN Shortness Of Breath Or Wheezing #3 Inhalers nebulizers (Aeroneb Go Nebulizer) #1 ea 03/22/24 ipratropium 20 mcg-albuterol 100 1 puff inhalation QID Asthma #1 06/17/24 mcg/actuation mist for inhalation inhaler (Combivent Respimat) mometasone-formoterol HFA 200 2 inh inhalation BID #13 grams 06/26/24 mcg-5 mcg/actuation aerosol inhaler (Dulera) prednisone 10 mg tablet See Taper PO DAILY #14 tabs 06/26/24 umeclidinium 62.5 mcg/actuation 1 inh inhalation DAILY #30 ea 06/26/24 blister powder for inhalation (Incruse Ellipta) albuterol sulfate 90 mcg/actuation 2 puff inhalation Q6H PRN 07/08/24 aerosol inhaler Shortness Of Breath Or Wheezing #18 grams Results & Data (ED) Vital Signs Vital Signs - 24 hr 07/26/24 18:42 07/26/24 19:09 07/26/24 19:23 Temperature 37.1 C Temperature Source Temporal Artery Scan Pulse Rate 130 H 126 H Pulse Rate [Apical] Pulse Rhythm [Apical] Pulse Strength [Apical] Respiratory Rate 26 H Respiratory Effort / Characteristics Non-Labored Spontaneous Respiratory Depth Normal Respiratory Pattern Tachypnea Blood Pressure 151/86 H Blood Pressure [Left Arm] Blood Pressure Mean 107 Blood Pressure Mean [Left Arm] Blood Pressure Position Sitting Blood Pressure Position [Left Arm] Pulse Oximetry 90 93 Oxygen Delivery Method Room Air Nasal Cannula Oxygen Flow Rate 3 Sepsis Recent Fever Within 48 Hours No Sepsis New/Unexplained Change in Mental Status N/A Sepsis Action Taken by Nursing No Action Required 07/26/24 19:23 07/26/24 21:00 Temperature Temperature Source Pulse Rate Pulse Rate [Apical] 129 H 146 H Pulse Rhythm [Apical] Regular Regular Pulse Strength [Apical] Normal Normal Respiratory Rate 18 17 Respiratory Effort / Characteristics Labored Non-Labored Respiratory Depth Normal Normal Respiratory Pattern Regular Regular Blood Pressure Blood Pressure [Left Arm] 111/78 112/83 Blood Pressure Mean Blood Pressure Mean [Left Arm] 89 92 Blood Pressure Position Blood Pressure Position [Left Arm] Sitting Sitting Pulse Oximetry 93 97 Oxygen Delivery Method Nasal Cannula Nasal Cannula Oxygen Flow Rate 3 2 Sepsis Recent Fever Within 48 Hours Sepsis New/Unexplained Change in Mental Status Sepsis Action Taken by Nursing Laboratory Data 07/26/24 19:00 07/26/24 19:00 Lab Results 07/26/24 07/26/24 Range/Units 18:55 19:00 WBC 17.02 H (4.8-10.8) K/ul RBC 4.68 (4.20-5.40) M/uL Hgb 11.6 L (12.0-16.0) g/dl Hct 36.7 L (37.0-47.0) % MCV 78.4 L (80.0-100.0) fL MCH 24.8 L (25.0-34.0) pg MCHC 31.6 L (32.0-36.0) g/dL RDW Std Deviation 47.0 H (36.4-46.3) fL RDW Coeff of Laron 16.7 H (11.5-14.5) % Plt Count 348 (130-400) K/uL MPV 10.3 (9.4-12.4) fL Immature Gran % (Auto) 3.5 % Neut % (Auto) 60.1 % Lymph % (Auto) 27.0 % [place] % (Auto) 4.9 % Eos % (Auto) 3.9 % Baso % (Auto) 0.6 % Neut # (Auto) 10.22 H (1.40-6.50) K/uL Lymph # (Auto) 4.59 H (1.20-3.40) K/uL [place] # (Auto) 0.84 H (0.11-0.59) K/uL Eos # (Auto) 0.66 H (0.00-0.50) K/uL Baso # (Auto) 0.11 (0.00-0.20) K/uL Immature Gran # (Auto) 0.60 H (0.01-0.20) K/uL Sodium 139 (136-145) mmol/L Potassium 3.9 (3.5-5.1) mmol/L Chloride 108 H (98-107) mmol/L Carbon Dioxide 21 (21-32) mmol/L Anion Gap 10 (3-11) BUN 13 (6-23) mg/dl Creatinine 0.82 (0.6-1.2) mg/dl Est Cr Clr Drug Dosing Not Reportable eGFR 94.42 BUN/Creatinine Ratio 15.9 (10-20) Glucose 138 H (70-99(Fasting)) mg/dl Calcium 8.9 (8.6-10.3) mg/dl Magnesium 1.6 L (1.7-2.4) mg/dl Total Bilirubin 0.2 (0.2-1.0) mg/dl AST 21 (13-39) U/L ALT 19 (7-52) U/L Alkaline Phosphatase 42 (34-104) U/L Troponin I High Sens 3.8 (0-14) pg/ml Total Protein 7.4 (6.0-8.3) gm/dl Albumin 4.1 (3.4-5.0) gm/dl Globulin 3.3 (2.5-4.0) gm/dl Albumin/Globulin Ratio 1.2 (0.9-2) Procalcitonin < 0.02 (0-0.5) ng/ml Adenovirus (PCR) Not Detected (NotDetected) B. pertussis DNA (PCR) Not Detected (NotDetected) B.parapertussis DNA PCR Not Detected (NotDetected) C. pneumoniae DNA (PCR) Not Detected (NotDetected) Coronavirus OC43 (PCR) Not Detected (NotDetected) Coronavirus HKU1 (PCR) Not Detected (NotDetected) Coronavirus 229E (PCR) Not Detected (NotDetected) SARS-CoV-2 (PCR) Not Detected (NotDetected) Coronavirus NL63 (PCR) Not Detected (NotDetected) Human Metapneumovir PCR Not Detected (NotDetected) Influenza Type A (PCR) Not Detected (NotDetected) Influenza Type B (PCR) Not Detected (NotDetected) M. pneumoniae (PCR) Not Detected (NotDetected) Parainfluenza 1 (PCR) Not Detected (NotDetected) Parainfluenza 2 (PCR) Not Detected (NotDetected) Parainfluenza 3 (PCR) Not Detected (NotDetected) Parainfluenza 4 (PCR) Not Detected (NotDetected) RSV (PCR) Not Detected (NotDetected) Entero/Rhino (PCR) Not Detected (NotDetected) Administered Medications Discontinued Medications Albuterol (Albut/Ipratrop 3mg/0.5mg Neb 3 Ml Vial) 12 ml NEB ONE ONE; Protocol Stop: 07/26/24 19:03 Last Admin: 07/26/24 19:09 Dose: 12 ml Documented By: FRANDY Albuterol (Albut/Ipratrop 3mg/0.5mg Neb 3 Ml Vial) 12 ml NEB ONE ONE; Protocol Stop: 07/26/24 20:22 Last Admin: 07/26/24 20:25 Dose: 12 ml Documented By: FRANDY Magnesium Sulfate/Dextrose (Magnesium Sulfate / D5w) 1 gm in 100 mls @ 600 mls/hr IV Q10M [facility] Stop: 07/26/24 19:22 Last Infusion: 07/26/24 19:51 Dose: Infused Documented By: Admin: 07/26/24 19:26 Dose: 600 mls/hr Documented By: Infusion: 07/26/24 19:24 Dose: Infused Documented By: Admin: 07/26/24 19:13 Dose: 600 mls/hr Documented By: FRANDY Methylprednisolone (Methylprednisolone 125 Mg/2 Ml Vial) 125 mg IV NOW STA Stop: 07/26/24 19:03 Last Admin: 07/26/24 19:10 Dose: 125 mg Documented By: SAS Imaging Data Radiologist's Impression: Chest X-Ray 07/26/24 18:51 Clinical History: Shortness of breath Technique: A frontal view of the chest was obtained Comparison is made to the prior examination dated 06/24/2024 Findings: There are no confluent pulmonary infiltrates. The heart size is within normal limits. No pleural effusion or pneumothorax is seen. There is no definite pulmonary nodule. No fracture is noted. No foreign body is seen Impression: No active disease Electronically signed by Mukesh Dacosta 07-26-2024 7:46 PM Discharge Plan Visit Data Chief Complaint: Asthma Stated Complaint: ASTHMA ATTACK ED Provider: Rashad Vance Discharge Problem: Asthma, severe persistent, Hypoxia Patient Disposition: Admitted As Inpatient Condition: Fair Discharge Instructions Interventions: ED Discharge Assessment Last Done: 07/26/24 22:14
[2024-07-26] MEDS: methylPREDNISolone 125 MG/2 ML VIAL IV STA (19:10)
[2024-07-26] MEDS: MAGNESIUM SULFATE / D5W 1 GM/100 ML BAG IV SCH (19:13)
[2024-07-26 19:39] LABS: Basophils # (auto) 0.11 K/uL (0.00-0.20); Basophils % (auto) 0.6 %; Eosinophils # (auto) 0.66 K/uL (0.00-0.50); Eosinophils % (auto) 3.9 %; Hematocrit (blood only) 36.7 % (37.0-47.0); Hemoglobin 11.6 g/dl (12.0-16.0); Immature Granulocytes % (auto) 3.5 %; Lymphocytes # (auto) 4.59 K/uL (1.20-3.40); Mean Corpuscular Hemoglobin 24.8 pg (25.0-34.0); Mean Corpuscular Hgb Conc 31.6 g/dL (32.0-36.0); Mean Corpuscular Volume 78.4 fL (80.0-100.0); Mean Platelet Volume 10.3 fL (9.4-12.4); Monocytes # (auto) 0.84 K/uL (0.11-0.59); Monocytes % (auto) 4.9 %; Neutrophils # (auto) 10.22 K/uL (1.40-6.50); Neutrophils % (auto) 60.1 %; Platelet Count 348 K/uL (130-400); RDW Coefficient of Variation 16.7 % (11.5-14.5); Red Blood Count 4.68 M/uL (4.20-5.40); White Blood Count 17.02 K/ul (4.8-10.8)
--- NOTE | 2024-07-26 19:50 | XRay Report ---
Clinical History: Shortness of breath Technique: A frontal view of the chest was obtained Comparison is made to the prior examination dated 06/24/2024 Findings: There are no confluent pulmonary infiltrates. The heart size is within normal limits. No pleural effusion or pneumothorax is seen. There is no definite pulmonary nodule. No fracture is noted. No foreign body is seen Impression: No active disease Electronically signed by Mukesh Dacosta 07-26-2024 7:46 PM
[2024-07-26 19:54] LABS: Alanine Aminotransferase 19 U/L (7-52); Albumin Globulin Ratio 1.2 (0.9-2); Albumin Level 4.1 gm/dl (3.4-5.0); Alkaline Phosphatase 42 U/L (34-104); Anion Gap 10 (3-11); Aspartate Aminotransferase 21 U/L (13-39); BUN Creatinine Ratio 15.9 (10-20); Bilirubin,Total 0.2 mg/dl (0.2-1.0); Blood Urea Nitrogen 13 mg/dl (6-23); Calcium 8.9 mg/dl (8.6-10.3); Carbon Dioxide 21 mmol/L (21-32); Chloride 108 mmol/L (98-107); Globulin 3.3 gm/dl (2.5-4.0); Glucose 138 mg/dl (70-99(Fasting)); Magnesium 1.6 mg/dl (1.7-2.4); Potassium 3.9 mmol/L (3.5-5.1); Sodium 139 mmol/L (136-145); Total Protein 7.4 gm/dl (6.0-8.3)
[2024-07-26 19:59] LABS: Troponin I High Sensitivity 3.8 pg/ml (0-14)
[2024-07-26 21:28] LABS: Adenovirus PCR Not Detected (NotDetected); Bordetella parapertussis PCR Not Detected (NotDetected); Bordetella pertussis PCR Not Detected (NotDetected); Chlamydia pneumoniae PCR Not Detected (NotDetected); Coronavirus 229E PCR Not Detected (NotDetected); Coronavirus CoV-2 (COVID19)PCR Not Detected (NotDetected); Coronavirus HKU1 PCR Not Detected (NotDetected); Coronavirus NL63 PCR Not Detected (NotDetected); Coronavirus OC43PCR Not Detected (NotDetected); Human Metapneumovirus PCR Not Detected (NotDetected); Influenza A PCR Not Detected (NotDetected); Influenza B PCR Not Detected (NotDetected); Mycoplasma pneumoniae PCR Not Detected (NotDetected); Parainfluenza Virus 1 PCR Not Detected (NotDetected); Parainfluenza Virus 2 PCR Not Detected (NotDetected); Parainfluenza Virus 3 PCR Not Detected (NotDetected); Parainfluenza Virus 4 PCR Not Detected (NotDetected); Respiratory Syncytial VirusPCR Not Detected (NotDetected); Rhinovirus/Enterovirus PCR Not Detected (NotDetected)
[2024-07-26] MEDS ORDERED: NITROGLYCERIN SL 0.4 MG/TAB TAB SL PRN (22:45)
[2024-07-26] MEDS ORDERED: ALBUT/IPRATROP 3MG/0.5MG NEB 3 ML VIAL NEB PRN ×2 (22:45→23:07)
[2024-07-27] MEDS: ENOXAPARIN INJ 40 MG/0.4 ML SYR SQ SCH (00:59)
[2024-07-27] MEDS: ALBUT/IPRATROP 3MG/0.5MG NEB 3 ML VIAL ONE (01:11)
[2024-07-27] MEDS: BUDESONIDE 0.5 MG/2 ML VIAL (PULMICORT) NEB SCH (01:54)
[2024-07-27] MEDS: FORMOTEROL 20 MCG/2 ML VIAL INH SCH (01:54)
[2024-07-27] MEDS: ARFORMOTEROL TART 15MCG/2ML VIAL INH SCH (01:57)
[2024-07-27] MEDS: MoRPHine SULFATE 2 MG/ML CARP IV STA (04:03)
[2024-07-27 05:03] LABS: Basophils % (auto) 0.5 %; Eosinophils % (auto) 3.2 %; Hematocrit (blood only) 35.4 % (37.0-47.0); Hemoglobin 11.1 g/dl (12.0-16.0); Immature Granulocytes # (auto) 0.69 K/uL (0.01-0.20); Immature Granulocytes % (auto) 3.7 %; Lymphocytes # (auto) 3.93 K/uL (1.20-3.40); Mean Corpuscular Hgb Conc 31.4 g/dL (32.0-36.0); Mean Corpuscular Volume 79.7 fL (80.0-100.0); Mean Platelet Volume 10.8 fL (9.4-12.4); Monocytes # (auto) 0.98 K/uL (0.11-0.59); Monocytes % (auto) 5.2 %; Neutrophils # (auto) 12.37 K/uL (1.40-6.50); Neutrophils % (auto) 66.4 %; Platelet Count 308 K/uL (130-400); RDW Coefficient of Variation 16.7 % (11.5-14.5); RDW Standard Deviation 47.9 fL (36.4-46.3); Red Blood Count 4.44 M/uL (4.20-5.40); White Blood Count 18.67 K/ul (4.8-10.8)
[2024-07-27 05:21] LABS: BUN Creatinine Ratio 16.3 (10-20); Creatinine Clr Calc Pharmacy 168.4 ml/min; Magnesium 1.8 mg/dl (1.7-2.4); Potassium 3.8 mmol/L (3.5-5.1)
--- OUTSIDE RECORDS SUMMARY | 2024-07-27 05:48 | External Medical Summary | Summary of Care ---
Author Name Unknown Organization [facility] Address [address] [place] [address] Phone [phone] Care Team Providers Care Laborer Tree Tapping Name Role Phone Blane Thompson MD Primary Care Provide r Reason for Visit * Reason Onset Date Comments Medication Refill 07/06/2024 Encounter Details Date Type Department Care Team (Late st Contact Info) Description 07/06/2024 Refill Family Medicine [address] [phone] Blane Thompson MD [address] [place] [address] [place] [address] Severe persistent asthma with status asthmaticus; Severe persistent asthma with acute exacerbation Allergies Active Allergy Reactions Criticality Noted Date Comments Environmental 12/21/2007 Dogs,cats,pollen, grass,molds.dust mites, documented as of this encounter (statuses as of 07/07/2024) Medications Dulera 200-5 MCG/ACT Inhalation Aerosol (Mometasone Furo-Formoterol Fum)Indications: Severe persistent asthma with acute exacerbation Inhale 2 Puffs by mouth 2 times a day. 13 g 1 1 Active Albuterol Sulfate (2.5 MG/3ML) 0.083% Inhalation Nebulization Solution (Proventil)Indic ations:Severe persistent asthma with status asthmaticus INHALE 1 VIAL VIA NEBULIZER EVERY 4 HOURS NEEDED FOR WHEEZING. 375 mL 1 1 Active Vitamin B 12 500 MCG Oral Tablet Take by mouth. Active FLUoxetine HCl 10 MG Oral Capsule (PROzac) TAKE 1 CAPSULE BY MOUTH EVERY MORNING 90 Capsule 1 4 Active Levothyroxine Sodium 150 MCG Oral Tablet (Levoxyl)Indicat ions:Acquired hypothyroidism,M ultiple thyroid nodules TAKE 1 TAB BY MOUTH DAILY FIRST THING IN MORNING.AT LEAST 30MIN BEFORE BREAKFAST OR OTHER MEDICATION 90 Tablet 1 4 Active Omeprazole 40 MG Oral Capsule Delayed Release (PriLOSEC)Indica tions:Cough, unspecified Take 1 Capsule by mouth in the morning. 1 hour before the first meal of the day. 90 Capsule 1 4 Active metFORMIN HCl 500 MG Oral Tablet (Glucophage) Take 1 Tablet by mouth 2 times a day with morning and evening meals. 180 Tablet 1 4 Active Combivent Respimat 20-100 MCG/ACT Inhalation Aerosol Solution (Ipratropium-Alb uterol)Indicatio ns:Severe persistent asthma with status asthmaticus,Otilia re persistent asthma with acute exacerbation INHALE 1 PUFF BY MOUTH 4 TIMES A DAY 4 g 1 5 Active Ipratropium-Albu terol 20-100 MCG/ACT Inhalation Aerosol Solution (Combivent Respimat)Indicat ions:Severe persistent asthma with status asthmaticus,Otilia re persistent asthma with acute exacerbation INHALE 1 PUFF BY MOUTH 4 TIMES A DAY 4 g 1 1 025 Discontin ued(Refil l) predniSONE 20 MG Oral Tablet (Deltasone)Indic ations:Neck pain 2 tablets daily for 5 days then 1 tablet daily 15 Tablet 4 025 Discontin ued(Refil l) documented as of this encounter (statuses as of 07/07/2024) Active Problems Problem Noted Date Diagnosed Date [...] as of this encounter (statuses as of 07/07/2024) Resolved Problems Problem Noted Date Diagnosed Date Resolved Date Body mass index (BMI) of 50. 0 to 59.9 in adult 03/23/2017 07/29/2019 Overview: Per Obesity protocol #1 ADVANCE DIRECTIVE INFORMATION 10/18/2012 04/25/2024 Overview (09/13/2012): Patient declined History of gestational diabe danielle in prior , currently 10/18/2012 05/04/2013 Supervision of other high-risk 09/22/2012 03/17/2013 Overview (09/25/2015): [facility] 09/13/12: 1. Recommend restricting weight gain during to 11-20 pounds. Consider referral for nutrition consult. 2. For patients with Class 3 obesity, we recommend baseline pre-eclamptic labs (creatinine, 24 hour urine protein) YANY if not already done-completed 3. Recommend obtaining early GDM screen (normal) and repeat again at 26-28 weeks (normal) if early screen is normal. 4. Recommend [facility] ultrasound for anatomy screen at 20 [...] brochure offered , patient declined. HBP PF [id number] HIGH-RISK PREG NOS 12/22/2007 05/15/2008 Supervision of other high-risk 12/22/2007 05/15/2008 Overview (09/25/2015): ICD-10 update of inactive term HBP PF 09/14/2007 12/22/2007 Status asthmaticus 0 Other acne 08/23/2015 BMI 40.0-44.9, adult 017 Overview: Per Obesity protocol #1 documented as of this encounter (statuses as of 07/07/2024) Immunizations Name Administration Dates Next Due COVID-19 mRNA, LNP-s, No Pre serve, 2-Dose Series (LetsVenture) 11/16/2020 COVID-19, MRNA-LNP, PF, 30 M CG/0.3 mL, 12 YRS AND ABOVE, IM (PFIZER-Comirnaty) 05/08/2023 HPV Vaccine, 4-Valent 03/29/2009,11/27/2008,04/0 07/2008 PPD 11/10/2007 Pneumococcal Conjugate Vacci ne, 20-valent ([id number]) 05/08/2023 Pneumococcal Polysaccharide PPV23 (Pneumovax) 09/21/2008 Seasonal [...] Recorded PHQ Adult Total Score 21 05/08/2023 Comments No Sex and Gender Information Value Date Recorded Sex Assigned at Not on file Legal Sex Female 5:54 AM EST Gender Identity Not on file Sexual Orientation Not on file 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 Not on file Not on file documented as of this encounter Miscellaneous Notes * Telephone Encounter - Blane Thompson MD - 07/07/2024 10:04 AM EST Signed Prescriptions: Disp Refills Combivent Respimat 20-100 MCG/ACT Inhalati*4 g 1 Sig: INHALE 1 PUFF BY MOUTH 4 TIMES A DAY Authorizing Provider: BLANE THOMPSON * Telephone Encounter - Ina Hyman [facility] - 07/07/2024 10:03 AM EST Pending Prescriptions: Disp Refills Combivent Respimat 20-100 MCG/ACT Inhalati*4 g 1 Sig: INHALE 1 PUFF BY MOUTH 4 TIMES A DAY * Telephone Encounter - Ina Hyman [facility] - 07/07/2024 10:03 AM EST Medication has not been ordered since 2020 - routing to PCP to assess if refills are appropriate atthis time. Did you pend patient's preferred pharmacy and medication before forwarding?yes Pharmacy: [id number] [id number] [facility] Pending Prescriptions: Disp Refills Combivent Respimat 20-100 MCG/ACT Inhalat*4 g 1 Sig: INHALE 1 PUFF BY MOUTH 4 TIMES A DAY Last Visit: 06/29/2024 (in office), Visit date not found (telemedicine) Next Visit: 09/28/2024 If no future appointments scheduled, and last appointment is greater than a year ago, please schedule patient for a follow-up appointment Last date the medication was ordered: 2020 Is this request for a controlled substance?No Urine Drug Screen:No results found for this or any previous visit. Patient Phone Numbers Labs: Lab Results Component Value Date/Time CREAT 1.0 05/08/2023 08:14 AM CREAT 0.8 05/03/2019 08:37 AM POTASSIUM 4.8 05/08/2023 08:14 AM POTASSIUM 4.6 05/03/2019 08:37 AM TSH 3.34 05/08/2023 08:14 AM TSH 2.67 07/29/2019 10:05 AM LDL 58 02/02/2024 09:59 AM LDL 64 02/02/2024 09:59 AM LDL 68 07/19/2015 08:28 AM ALT 16 05/03/2019 08:37 AM HGBA1C 5.7 (H) 02/02/2024 09:59 AM HGBA1C 5.6 05/03/2019 08:37 AM documented in this encounter Plan of Treatment Upcoming Encounters Date Type Department Care Team (Late st Contact Info) Description 09/28/2024 12:40 PM EDT Office Visit Family Medicine [address] [place] [phone] Muna García MD [address] [place] [address] [place] [phone] Health Maintenance Due Date Last Done Comments Hepatitis C Screening 2005 Hepatitis B Vaccine (1 of 3 - 19+ 3-dose series) 2006 HPV/Co-Test 2017 Cervical Cancer Screening 08/21/2019 Pap Smear 08/21/2019 08/20/2016, 11/2012, 09/14/2007 COVID-19 Vaccine ( season) 2024 05/08/2023, 12/07/2020, 11/16/2020 Depression Monitoring 05/08/2024 05/08/2023 TSH 05/08/2024 05/08/2023, 08/20, 09/11/2021, Additional history exists HbA1c 02/01/2025 02/02/2024, 08/20, 10/25/2021, Additional history exists DTap/Tdap Vaccines (3 - Td or Tdap) 03/29/2028 03/29/2018, 12/14/2007 HPV (Gardasil) Vaccine Completed 9, 11/27/2008, 09/21/2008 Pneumococcal Vaccine: Pediatrics (0 to 5 Years) and At-Risk Patients (6 to 18 Years and 19+ Years) Completed 05/08/2023, 09/21/2008 Influenza Vaccine (FLU shot) Completed 07/2023, 05/08/2023, 09/02/2022, Additional history exists MENINGOCOCCAL (MENACTRA/MENVEO) Aged Out No longer eligible based on patient's age to complete this topic documented as of this encounter Medical Devices Not on filedocumented as of this encounter Visit Diagnoses Diagnosis Severe persistent asthma with status asthmaticus Unspecified asthma, with status asthmaticus Severe persistent asthma with acute exacerbation Unspecified asthma, with exacerbation documented in this encounter Care Teams Laborer Tree Tapping Relationship Specialty Start Date End Date Blane Thompson MD [address] [place] [address] [place] [address] PCP - General Family Medicine 06/27/24 documented as of this encounter
--- OUTSIDE RECORDS SUMMARY | 2024-07-27 05:48 | External Medical Summary | Summary of Care ---
Author Name Unknown Organization [facility] Address [address] [place] [address] Phone [phone] Care Team Providers Care Hydro Sprayer Operator Name Role Phone Valentin Thompson MD Primary Care Provide r Reason for Visit * Reason Onset Date Comments Hospital Follow-Up Hospital Follow-Up 06/29/2024 Encounter Details Date Type Department Care Team (Late st Contact Info) Description 06/29/2024 9:00 AM EST Office Visit Family Medicine [address] [phone] Muna García MD [address] [place] [address] [place] [phone] Hospital discharge follow-up*; Severe persistent asthma without complication; Body mass index 60.0-69.9, adult (HCC); Prediabetes Allergies Active Allergy Reactions Criticality Noted Date Comments Environmental 12/21/2007 Dogs,cats,pollen, grass,molds.dust mites, documented as of this encounter (statuses as of 06/29/2024) Medications Dulera 200-5 MCG/ACT Inhalation Aerosol (Mometasone Furo-Formoterol Fum)Indications: Severe persistent asthma with acute exacerbation Inhale 2 Puffs by mouth 2 times a day. 13 g 1 12/27/19 21 Active Ipratropium-Albu terol 20-100 MCG/ACT Inhalation Aerosol Solution (Combivent Respimat)Indicat ions:Severe persistent asthma with status asthmaticus,Otilia re persistent asthma with acute exacerbation INHALE 1 PUFF BY MOUTH 4 TIMES A DAY 4 g 1 12/27/19 21 Active Albuterol Sulfate (2.5 MG/3ML) 0.083% Inhalation Nebulization Solution (Proventil)Indic ations:Severe persistent asthma with status asthmaticus INHALE 1 VIAL VIA NEBULIZER EVERY 4 HOURS NEEDED FOR WHEEZING. 375 mL 1 05/17/20 21 Active Vitamin B 12 500 MCG Oral Tablet Take by mouth. Active predniSONE 20 MG Oral Tablet (Deltasone)Indic ations:Neck pain 2 tablets daily for 5 days then 1 tablet daily 15 Tablet 03/28/20 24 Active FLUoxetine HCl 10 MG Oral Capsule (PROzac) TAKE 1 CAPSULE BY MOUTH EVERY MORNING 90 Capsule 1 04/30/20 24 Active Levothyroxine Sodium 150 MCG Oral Tablet (Levoxyl)Indicat ions:Acquired hypothyroidism,M ultiple thyroid nodules TAKE 1 TAB BY MOUTH DAILY FIRST THING IN MORNING.AT LEAST 30MIN BEFORE BREAKFAST OR OTHER MEDICATION 90 Tablet 1 04/30/20 24 Active Omeprazole 40 MG Oral Capsule Delayed Release (PriLOSEC)Indica tions:Cough, unspecified Take 1 Capsule by mouth in the morning. 1 hour before the first meal of the day. 90 Capsule 1 05/03/20 24 Active metFORMIN HCl 500 MG Oral Tablet (Glucophage) Take 1 Tablet by mouth 2 times a day with morning and evening meals. 180 Tablet 1 05/03/20 24 Active Fluticasone Propionate 50 MCG/ACT Nasal Suspension (Flonase)Indicat ions:Seasonal allergic rhinitis, unspecified trigger Administer into each nostril 2 Sprays in the morning. 15.8 mL 5 10/26/19 22 025 Discontinued Azithromycin 250 MG Oral Tablet (Zithromax Z-Markos) Take two tablets by mouth on first day, then 1 tablet daily until gone 6 Tablet 08/03/19 24 025 Discontinued predniSONE 20 MG Oral Tablet (Deltasone) 1 tab 3 times a day for 3 days, then 1 tab 2 times a day for 3 days, then 1 tab daily for 3 days 18 Tablet 08/03/19 24 025 Discontinued documented as of this encounter (statuses as of 06/29/2024) Active Problems Problem Noted Date Diagnosed Date [...] as of this encounter (statuses as of 06/29/2024) Resolved Problems Problem Noted Date Diagnosed Date Resolved Date Body mass index (BMI) of 50. 0 to 59.9 in adult 03/23/2017 07/29/2019 Overview: Per Obesity protocol #1 ADVANCE DIRECTIVE INFORMATION 10/18/2012 04/25/2024 Overview (09/13/2012): Patient declined History of gestational diabe danielle in prior , currently 10/18/2012 05/04/2013 Supervision of other high-risk 09/22/2012 03/17/2013 Overview (09/25/2015): [facility] 09/13/12: 1. Recommend restricting weight gain during to 11-20 pounds. Consider referral for nutrition consult. 2. For patients with Class 3 obesity, we recommend baseline pre-eclamptic labs (creatinine, 24 hour urine protein) YANY if not already done-completed 3. Recommend obtaining early GDM screen (normal) and repeat again at 26-28 weeks (normal) if early screen is normal. 4. Recommend [facility] ultrasound for anatomy screen at 20 [...] brochure offered , patient declined. HBP PF [id number] HIGH-RISK PREG NOS 12/22/2007 05/15/2008 Supervision of other high-risk 12/22/2007 05/15/2008 Overview (09/25/2015): ICD-10 update of inactive term HBP PF 09/14/2007 12/22/2007 Status asthmaticus 0 Other acne 08/23/2015 BMI 40.0-44.9, adult 017 Overview: Per Obesity protocol #1 documented as of this encounter (statuses as of 06/29/2024) Immunizations Name Administration Dates Next Due COVID-19 mRNA, LNP-s, No Pre serve, 2-Dose Series (Pfizer) 11/16/2020 COVID-19, MRNA-LNP, PF, 30 M CG/0.3 mL, 12 YRS AND ABOVE, IM (PFIZER-Comirnaty) 05/08/2023 HPV Vaccine, 4-Valent 03/29/2009,11/27/2008,07/2008 PPD 11/10/2007 Pneumococcal Conjugate Vacci ne, 20-valent ([id number]) 05/08/2023 Pneumococcal Polysaccharide PPV23 (Pneumovax) 09/21/2008 Seasonal [...] 0 06/22/2003 - 06/22/2010 Smokeless Tobacco: Never Tobacco Cessation:Counseling Given: Not Answered Alcohol Use Standard Drinks/Week Comments No 0 [...] on file documented as of this encounter Last Filed Vital Signs Vital Sign Reading Time Taken Comments Blood Pressure 110/90 06/29/2024 8:47 AM EST Pulse 98 06/29/2024 8:47 AM EST Temperature 36.4 C (97.5 F) 06/29/2024 8:47 AM ES T Respiratory Rate - - Oxygen Saturation 96% 06/29/2024 8:47 AM EST Inhaled Oxygen Concentration - - Weight 187.6 kg (413 lb 9.6 oz) 06/29/2024 8:47 AM EST Height 167.6 cm (5' 6") 06/29/2024 8:47 AM EST Body Mass Index 66.76 06/29/2024 8:47 AM EST documented in this encounter Patient Instructions * Patient Instructions* Muna García MD - 06/29/2024 9:12 AM EST Taking an Active Role in Your Medicines Take the time to learn about your medicine. For instance, why are you taking it? What does it do? Work with your doctor or other health care providers to get the answers you need. Talk to your pharmacist about how to take each medicine, and ask for a fact sheet on each one. Ask Questions About Your Medicine What is the name of the medicine? Why do I need to take it? When should I take it? How should I take it: with water? with food? on an empty stomach? How much do I take? What do I do if I miss a dose? What side effects could it cause and which ones should I call the doctor about? Are there any foods or medicines I should avoid while taking this medicine? Keeping track of your medications? Name of medicine: Taken for: Dose: Time(s) to take it: Take an Active Role Fill all your prescriptions at the same pharmacy. This keeps your medicine history in one place. Talk to the pharmacist. Make sure you understand how to take each medicine. Ask for a fact sheet about each one. Tell your doctor and pharmacist about all the prescription and [id number] medicines you take.This includes vitamins and herbal remedies. Tell your doctor and pharmacist if you have any medical conditions or allergies to any medicine or food, or if you are or . Keep a list of all your medicines. Use the sample to the right as a guide for the type of information needed. 6027-8662 Naveen Caro, [address] [place] [address], [place] [address]. All rights reserved. This information is not intended as a substitute for professional medical care. Always follow your healthcare professional's instructions. documented in this encounter Progress Notes * Muna García MD - 06/29/2024 9:11 AM EST SUBJECTIVE: Lizzeth Arthur is a 39 year old female. Chief Complaint Patient presents with Hospital Follow-Up Hospital Follow-Up Recent Admission: Patient was recently admitted to [facility] 06/24. The date of discharge was 06/26. Discharge report receivedand reviewed. Asthma exacerbation Asthma is bad during the winter. Was on dupixent but now her insurance doesn't cover it. Sees Pulm and Allergy through [facility]. Admitted in early May and again last week. HPI: Follows with Pulm and Allergy, they are trying to find another option for her treatment. Doesn't have an appt yet, but they will call to set up. Feeling ok as she is still on the steroid, has a few more days. Using the combivent and albuterol inhalers, also on Dulera. Is on metformin for prediabetes, doesn't check sugars at home. Last A1C in Jan was 5.7. Patient Active Problem List Diagnosis Allergic rhinitis, seasonal Asthma, severe persistent Depression with anxiety Acquired hypothyroidism Multiple thyroid nodules Bipolar disorder, currently in remission, most recent episode unspecified (HCC) Body mass index 60.0-69.9, adult ([facility]) Prediabetes Current Outpatient Medications Medication Sig Dispense Refill Dulera 200-5 MCG/ACT Inhalation Aerosol (Mometasone Furo-Formoterol Fum) Inhale 2 Puffs by mouth 2 times a day. 13 g 1 Ipratropium-Albuterol 20-100 MCG/ACT Inhalation Aerosol Solution (Combivent Respimat) INHALE 1 PUFFBY MOUTH 4 TIMES A DAY 4 g 1 Albuterol Sulfate (2.5 MG/3ML) 0.083% Inhalation Nebulization Solution (Proventil) INHALE 1 VIAL VIA NEBULIZER EVERY 4 HOURS NEEDED FOR WHEEZING. 375 mL 1 Vitamin B 12 500 MCG Oral Tablet Take by mouth. predniSONE 20 MG Oral Tablet (Deltasone) 2 tablets daily for 5 days then 1 tablet daily 15 Tablet 0 FLUoxetine HCl 10 MG Oral Capsule (PROzac) TAKE 1 CAPSULE BY MOUTH EVERY MORNING 90 Capsule 1 Levothyroxine Sodium 150 MCG Oral Tablet (Levoxyl) TAKE 1 TAB BY MOUTH DAILY FIRST THING IN MORNING.AT LEAST 30MIN BEFORE BREAKFAST OR OTHER MEDICATION 90 Tablet 1 Omeprazole 40 MG Oral Capsule Delayed Release (PriLOSEC) Take 1 Capsule by mouth in the morning. 1 hour before the first meal of the day. 90 Capsule 1 metFORMIN HCl 500 MG Oral Tablet (Glucophage) Take 1 Tablet by mouth 2 times a day with morning andevening meals. 180 Tablet 1 No current facility-administered medications for this visit. Current and discharge medications have been reconciled. Review of patient's allergies indicates: Allergen Reactions Environmental Dogs,cats,pollen, grass,molds.dust mites, OBJECTIVE: BP 110/90 | Pulse 98 | Temp 97.5 F (36.4 C) (Tympanic) | Ht 5' 6" (1.676 m) | Wt (!) 413 lb 9.6oz (187.6 kg) | SpO2 96% | BMI 66.76 kg/m | BSA 2.96 m PHYSICAL EXAM: BP 110/90 | Pulse 98 | Temp 97.5 F (36.4 C) (Tympanic) | Ht 5' 6" (1.676 m) | Wt (!) 413 lb 9.6oz (187.6 kg) | SpO2 96% | BMI 66.76 kg/m | BSA 2.96 m General: alert, healthy, and no distress Head: Normocephalic, No masses, lesions, tenderness or abnormalities Neck: supple, no adenopathy Heart: regular rate & rhythm, no murmur, and no gallops Lungs: no chest wall tenderness, lungs clear to auscultation Abdomen: abdomen soft, non-tender, obese, and normal bowel sounds Extremities: no edema ASSESSMENT: Hospital discharge follow-up (Primary); Severe persistent asthma without complication Doing well at this point, notes that her asthma gets back again when she comes off the steroids. Ifneeded, can call and we can extend the steroid to bridge her until she can be seen with allergy/pulm for other options. Is on multiple inhalers, to continue. - DISCH MED RECON CUR MED LIS Body mass index 60.0-69.9, adult (HCC); Prediabetes Has been on steroids off and on for many years, likely contributing to weight and prediabetes. Continue metformin. Return in 3 months with me or PCP for routine check and labs Extend steroid if needed to bridge to pulm/allergy PLAN: Follow up in 3 month(s). I spent a total of 20-29 minutes (exact time 20 mins) minutes on the date of service in preparation, delivery, and documentation of the care provided to Lizzeth Arthur excluding any time spent in performance of separately billed services. Muna Bo MD documented in this encounter Nursing Notes * Kelly Pelaez CMA - 06/29/2024 8:53 AM EST Pt here for hospital f/u. Pt reports was in hospital for asthma flare, reports has asthma has been acting up since she had to stop dupixent injection. Pt reports as of right now has been doing well since she still has steroid that she is taking. documented in this encounter Plan of Treatment Upcoming Encounters Date Type Department Care Team (Late st Contact Info) Description 09/28/2024 12:40 PM EDT Office Visit Family Medicine [address] [phone] Muna García MD [address] [place] [address] [place] [phone] Health Maintenance Due Date Last Done Comments Hepatitis C Screening 2005 Hepatitis B Vaccine (1 of 3 - 19+ 3-dose series) 2006 HPV/Co-Test 2017 Cervical Cancer Screening 08/21/2019 Pap Smear 08/21/2019 08/20/2016, 03/11/2012, 09/14/2007 COVID-19 Vaccine ( season) 2024 05/08/2023, [...] as of this encounter Visit Diagnoses Diagnosis Hospital discharge follow-up- Primary Other follow-up examination Severe persistent asthma without complication Body mass index 60.0-69.9, adult (HCC) Body Mass Index 60.0-69.9, adult Prediabetes Other abnormal glucose documented in this encounter Care Teams Hydro Sprayer Operator Relationship Specialty Start Date End Date Valentin Thompson MD [address] [place] [address] [place] [phone] PCP - General Family Medicine 06/27/24 documented as of this encounter
--- OUTSIDE RECORDS SUMMARY | 2024-07-27 05:48 | External Medical Summary | Summary of Care ---
Author Name Unknown Organization [facility] Address [address] [place] [address] Phone [phone] Care Team Providers Care Sand And Gravel Plant Operator Name Role Phone Valentin Thompson MD Primary Care Provide r Reason for Visit * Reason Onset Date Comments Forms Request 07/25/2024 Encounter Details Date Type Department Care Team (Late st Contact Info) Description 07/25/2024 Telephone Family Medicine [address] [phone] Valentin Thompson MD [address] [place] [address] [phone] Forms Request Allergies Active Allergy Reactions Criticality Noted Date Comments Environmental 12/21/2007 Dogs,cats,pollen, grass,molds.dust mites, documented as of this encounter (statuses as of 07/26/2024) Medications Dulera 200-5 MCG/ACT Inhalation Aerosol (Mometasone [...] evening meals. 180 Tablet 1 4 Active predniSONE 20 MG Oral Tablet (Deltasone)Indica tions:Neck pain 2 tablets daily for 5 days then 1 tablet daily 15 Tablet 5 Active Combivent Respimat 20-100 MCG/ACT Inhalation Aerosol Solution (Ipratropium-Albu terol)Indications :Severe persistent asthma with status asthmaticus,Sever e persistent asthma with acute exacerbation INHALE 1 PUFF BY MOUTH 4 TIMES A DAY 4 g 1 5 Active documented as of this encounter (statuses as of 07/26/2024) Active Problems Problem Noted Date Diagnosed Date [...] as of this encounter (statuses as of 07/26/2024) Resolved Problems Problem Noted Date Diagnosed Date Resolved Date Body mass index (BMI) of 50. 0 to 59.9 in adult 03/23/2017 07/29/2019 Overview: Per Obesity protocol #1 ADVANCE DIRECTIVE INFORMATION 10/18/2012 04/25/2024 Overview (09/13/2012): Patient declined History of gestational diabe danielle in prior , currently 10/18/2012 05/04/2013 Supervision of other high-risk 09/22/2012 03/17/2013 Overview (09/25/2015): [facility] 09/13/12: 1. Recommend restricting weight gain during to 11-20 pounds. Consider referral for nutrition consult. 2. For patients with Class 3 obesity, we recommend baseline pre-eclamptic labs (creatinine, 24 hour urine protein) YANY if not already done-completed 3. Recommend obtaining early GDM screen (normal) and repeat again at 26-28 weeks (normal) if early screen is normal. 4. Recommend [facility] ultrasound for anatomy screen at 20 [...] (10/27/2012): Early glucola- done and normal MFM 4/29/13: For patients with Class 3 obesity, we [...] brochure offered , patient declined. HBP PF [id number] HIGH-RISK PREG NOS 12/22/2007 05/15/2008 Supervision of other high-risk 12/22/2007 05/15/2008 Overview (09/25/2015): ICD-10 update of inactive term HBP PF 09/14/2007 12/22/2007 Status asthmaticus 12/13/201 0 Other acne 08/23/2015 BMI 40.0-44.9, adult 017 Overview: Per Obesity protocol #1 documented as of this encounter (statuses as of 07/26/2024) Immunizations Name Administration Dates Next Due COVID-19 mRNA, LNP-s, No Pre serve, 2-Dose Series ([employer]) 11/16/2020 COVID-19, MRNA-LNP, PF, 30 M CG/0.3 mL, 12 YRS AND ABOVE, IM (PFIZER-Comirnaty) 05/08/2023 HPV Vaccine, 4-Valent 03/29/2009,11/27/2008,07/2008 PPD 11/10/2007 Pneumococcal Conjugate Vacci ne, 20-valent ([id number]) 05/08/2023 Pneumococcal Polysaccharide PPV23 (Pneumovax) 09/21/2008 Seasonal [...] encounter Miscellaneous Notes * Telephone Encounter - Xenia Alas LPN - 07/26/2024 9:00 AM EST [facility] sent forms at front office secretary * Telephone Encounter - Lyn Mejia OSA - 07/25/2024 11:01 AM EST Patient dropped off Medical leave form regarding asthma, requesting it be completed. Placed form indoctors box. Please contact patient when complete. documented in this encounter Plan of Treatment Upcoming Encounters Date Type Department Care Team (Late st Contact Info) Description 09/28/2024 12:40 PM EDT Office Visit Family Medicine [address] [phone] Muna García MD [address] [place] [address] [place] [phone] Health Maintenance Due Date Last Done Comments [...] filedocumented as of this encounter Care Teams Sand And Gravel Plant Operator Relationship Specialty Start Date End Date Valentin Thompson MD [address] [place] [address] [place] [phone] PCP - General Family Medicine 06/27/24 documented as of this encounter
--- OUTSIDE RECORDS SUMMARY | 2024-07-27 05:48 | External Medical Summary | Summary of Care ---
Author Name Unknown Organization [facility] Address [address] [place] [address] Phone [phone] Care Team Providers Care Dry Janitor Name Role Phone Blane Leone MD Primary Care Provide r Reason for Visit * Reason Onset Date Comments Medication Refill 07/06/2024 Encounter Details Date Type Department Care Team (Late st Contact Info) Description 07/06/2024 Refill Family Medicine [address] [phone] Gena Cherry PA-C [address] [place] [address] [place] [phone] Neck pain; Acquired hypothyroidism; Multiple thyroid nodules Allergies Active Allergy Reactions Criticality Noted Date [...] 4 Active predniSONE 20 MG Oral Tablet (Deltasone)Indic ations:Neck pain 2 tablets daily for 5 days then 1 tablet daily 15 Tablet 5 Active Ipratropium-Albu terol 20-100 MCG/ACT Inhalation [...] of other high-risk 09/22/2012 03/17/2013 Overview (09/25/2015): [facility] 09/13/12: 1. Recommend restricting weight gain during to 11-20 pounds. Consider referral for nutrition consult. 2. For patients with Class 3 obesity, we recommend baseline pre-eclamptic labs (creatinine, 24 hour urine protein) YANY if not already done-completed 3. Recommend obtaining early GDM screen (normal) and repeat again at 26-28 weeks (normal) if early screen is normal. 4. Recommend [facility] ultrasound for anatomy screen at 20 [...] brochure offered , patient declined. HBP PF [id number] HIGH-RISK PREG NOS 12/22/2007 05/15/2008 Supervision of other high-risk 12/22/2007 05/15/2008 Overview (09/25/2015): ICD-10 update of inactive term HBP PF 09/14/2007 12/22/2007 Status asthmaticus 0 Other acne 08/23/2015 BMI 40.0-44.9, adult 017 Overview: Per Obesity protocol #1 documented as of this encounter (statuses as of 07/07/2024) Immunizations Name Administration Dates Next Due COVID-19 mRNA, LNP-s, No Pre serve, 2-Dose Series ([employer]) 11/16/2020 COVID-19, MRNA-LNP, PF, 30 M CG/0.3 mL, 12 YRS AND ABOVE, IM (PFIZER-Comirnat) 05/08/2023 HPV Vaccine, 4-Valent 03/29/2009,11/27/2008,04/07/2008 PPD 11/10/2007 Pneumococcal Conjugate Vacci ne, 20-valent ([id number]) 05/08/2023 Pneumococcal Polysaccharide PPV23 (Pneumovax) 09/21/2008 Seasonal [...] Miscellaneous Notes * Telephone Encounter - Blane Leone MD - 07/07/2024 10:03 AM EST Signed Prescriptions: Disp Refills predniSONE 20 MG Oral Tablet (Deltasone) 15 Tab*0 Si tablets daily for 5 days then 1 tablet daily Authorizing Provider: BLANE LEONE * Telephone Encounter - Ina Hyman formerly [facility] - 07/07/2024 10:01 AM EST Pending Prescriptions: Disp Refills predniSONE 20 MG Oral Tablet (Deltasone) 15 Tab*0 Si tablets daily for 5 days then 1 tablet daily * Telephone Encounter - Ina Hyman formerly [facility] - 07/07/2024 9:56 AM EST [facility] is currently not authorized to approve refills for the pended medication(s) per refill protocol. Please approve if appropriate. Did you pend patient's preferred pharmacy and medication before forwarding?yes Pharmacy: [id number] [id number] [facility] Pending Prescriptions: Disp Refills predniSONE 20 MG Oral Tablet (Deltasone) 15 Tab*0 Si tablets daily for 5 days then 1 tablet daily Last Visit: 06/29/2024 (in office), Visit date not found (telemedicine) Next Visit: 09/28/2024 If no future appointments scheduled, and last appointment is greater than a year ago, please schedule patient for a follow-up appointment Last date the medication was ordered: 03/28/24 Is this request for a controlled substance?No [...] 12:40 PM EDT Office Visit Family Medicine [address] [place] [phone] Muna García MD [address] [place] [address] [place] [phone] Health Maintenance Due Date [...] as of this encounter Visit Diagnoses Diagnosis Neck pain Cervicalgia Acquired hypothyroidism Unspecified hypothyroidism Multiple thyroid nodules Nontoxic multinodular goiter documented in this encounter Care Teams Dry Janitor Relationship Specialty Start Date End Date Blane Leone MD [address] [place] [address] [place] [phone] PCP - General Family Medicine 06/27/24 documented as of this encounter
--- OUTSIDE RECORDS SUMMARY | 2024-07-27 05:48 | External Medical Summary | Summary of Care ---
Author Name Unknown Organization [facility] Address [address] [place] [address] Phone [phone] Care Team Providers Care Weight Reduction Specialist Name Role Phone Valentin Thompson MD Primary Care Provide r Reason for Visit * Reason Comments eRx-Medication Refill Encounter Details Date Type Department Care Team (Late st Contact Info) Description 07/02/2024 Refill Family Medicine [address] [phone] Gena Cherry PA-C [address] [place] [address] [place] [address] Acquired hypothyroidism; Multiple thyroid nodules Allergies Active Allergy Reactions Criticality Noted Date Comments Environmental 12/21/2007 Dogs,cats,pollen, grass,molds.dust mites, documented as of this encounter (statuses as of 07/03/2024) Medications Dulera 200-5 MCG/ACT Inhalation Aerosol (Mometasone [...] A DAY 4 g 1 1 Active Albuterol Sulfate (2.5 MG/3ML) 0.083% Inhalation Nebulization Solution (Proventil)Indica tions:Severe persistent asthma with status asthmaticus INHALE 1 VIAL VIA NEBULIZER EVERY 4 HOURS NEEDED FOR WHEEZING. 375 mL 1 1 Active Vitamin B 12 500 MCG Oral Tablet Take by mouth. Active predniSONE 20 MG Oral Tablet (Deltasone)Indica [...] as of this encounter (statuses as of 07/03/2024) Active Problems Problem Noted Date Diagnosed Date [...] as of this encounter (statuses as of 07/03/2024) Resolved Problems Problem Noted Date Diagnosed Date Resolved Date Body mass index (BMI) of 50. 0 to 59.9 in adult 03/23/2017 07/29/2019 Overview: Per Obesity protocol #1 ADVANCE DIRECTIVE INFORMATION 10/18/2012 04/25/2024 Overview (09/13/2012): Patient declined History of gestational diabe danielle in prior , currently 10/18/2012 05/04/2013 Supervision of other high-risk 09/22/2012 03/17/2013 Overview (09/25/2015): [facility] 09/13/12: 1. Recommend restricting weight gain during to 11-20 pounds. Consider referral for nutrition consult. 2. For patients with Class 3 obesity, we recommend baseline pre-eclamptic labs (creatinine, 24 hour urine protein) YANY if not already done-completed 3. Recommend obtaining early GDM screen (normal) and repeat again at 26-28 weeks (normal) if early screen is normal. 4. Recommend [facility] ultrasound for anatomy screen at 20 weeks [...] brochure offered , patient declined. HBP PF [id number] HIGH-RISK PREG NOS 12/22/2007 05/15/2008 Supervision of other high-risk 12/22/2007 05/15/2008 Overview (09/25/2015): ICD-10 update of inactive term HBP PF 09/14/2007 12/22/2007 Status asthmaticus 0 Other acne 08/23/2015 BMI 40.0-44.9, adult 017 Overview: Per Obesity protocol #1 documented as of this encounter (statuses as of 07/03/2024) Immunizations Name Administration Dates Next Due COVID-19 mRNA, LNP-s, No Pre serve, 2-Dose Series (Narrative) 11/16/2020 COVID-19, MRNA-LNP, PF, 30 M CG/0.3 mL, 12 YRS AND ABOVE, IM (PFIZER-Comirnaty) 05/08/2023 HPV Vaccine, 4-Valent 03/29/2009,11/27/2008,07/2008 PPD 11/10/2007 Pneumococcal Conjugate Vacci ne, 20-valent ([id number]) 05/08/2023 Pneumococcal Polysaccharide PPV23 (Pneumovax) 09/21/2008 Seasonal [...] encounter Miscellaneous Notes * Telephone Encounter - Lucy Espinoza RPh - 07/03/2024 4:52 AM ESTRefused Prescriptions: Disp Refills Levothyroxine Sodium 150 MCG Oral Tablet (*90 Tab*1 Sig: TAKE 1TAB BY MOUTH DAILY FIRST THING IN MORNING.AT LEAST 30MIN BEFORE BREAKFAST OR OTHER MEDICATIONRefused By: LUCY ESPINOZA for Refusal: Too soon documented in this encounter Plan of Treatment Upcoming Encounters Date Type Department Care Team (Late st Contact Info) Description 09/28/2024 12:40 PM EDT Office Visit Family Medicine [address] [phone] Muna García MD [address] [place] [address] [place] [phone] Health Maintenance Due Date [...] as of this encounter Visit Diagnoses Diagnosis Acquired hypothyroidism Unspecified hypothyroidism Multiple thyroid nodules Nontoxic multinodular goiter documented in this encounter Care Teams Weight Reduction Specialist Relationship Specialty Start Date End Date Valentin Thompson MD [address] [place] [address] [place] [id number] PCP - General Family Medicine 06/27/24 documented as of this encounter
--- OUTSIDE RECORDS SUMMARY | 2024-07-27 05:48 | External Medical Summary | Summary of Care ---
Author Name Unknown Organization [facility] Address [address] [place] [address] Phone [phone] Care Team Providers Care Home Health Travel Ot Name Role Phone Valentin Thompson MD Primary Care Provide r Reason for Visit * Reason Onset Date Comments Hospital Follow-Up 06/27/2024 [facility] for [facility] Encounter Details Date Type Department Care Team (Late st Contact Info) Description 06/27/2024 Telephone Ancillary [address] [place] [address] Adri Higgins RN Hospital Follow-Up ([facility] for [facility]) Allergies Active Allergy Reactions Criticality Noted Date Comments Environmental 12/21/2007 Dogs,cats,pollen, grass,molds.dust mites, documented as of this encounter (statuses as of 06/27/2024) Medications Dulera 200-5 MCG/ACT Inhalation Aerosol (Mometasone Furo-Formoterol Fum)Indications: Severe persistent asthma with acute exacerbation Inhale 2 Puffs by mouth 2 times a day. 13 g 1 Active Ipratropium-Albu terol 20-100 MCG/ACT Inhalation Aerosol [...] evening meals. 180 Tablet 1 4 Active Ipratropium Gray 0.02 % Inhalation Solution (Atrovent)Indica tions:Uncomplica patel severe persistent asthma INHALE 1 VIAL VIA NEBULIZER TWICE DAILY 125 mL 5 1 025 Discontin ued(Medic ation List Clean Up) documented as of this encounter (statuses as of 06/27/2024) Active Problems Problem Noted Date Diagnosed Date [...] as of this encounter (statuses as of 06/27/2024) Resolved Problems Problem Noted Date Diagnosed Date Resolved Date Body mass index (BMI) of 50. 0 to 59.9 in adult 03/23/2017 07/29/2019 Overview: Per Obesity protocol #1 ADVANCE DIRECTIVE INFORMATION 10/18/2012 04/25/2024 Overview (09/13/2012): Patient declined History of gestational diabe danielle in prior , currently 10/18/2012 05/04/2013 Supervision of other high-risk 09/22/2012 03/17/2013 Overview (09/25/2015): [facility] 09/13/12: 1. Recommend restricting weight gain during to 11-20 pounds. Consider referral for nutrition consult. 2. For patients with Class 3 obesity, we recommend baseline pre-eclamptic labs (creatinine, 24 hour urine protein) YANY if not already done-completed 3. Recommend obtaining early GDM screen (normal) and repeat again at 26-28 weeks (normal) if early screen is normal. 4. Recommend [facility] ultrasound for anatomy screen at 20 [...] brochure offered , patient declined. HBP PF [id number] HIGH-RISK PREG NOS 12/22/2007 05/15/2008 Supervision of other high-risk 12/22/2007 05/15/2008 Overview (09/25/2015): ICD-10 update of inactive term HBP PF 09/14/2007 12/22/2007 Status asthmaticus 0 Other acne 08/23/2015 BMI 40.0-44.9, adult 017 Overview: Per Obesity protocol #1 documented as of this encounter (statuses as of 06/27/2024) Immunizations Name Administration Dates Next Due COVID-19 mRNA, LNP-s, No Pre serve, 2-Dose Series (Pfizer) 11/16/2020 COVID-19, MRNA-LNP, PF, 30 M CG/0.3 mL, 12 YRS AND ABOVE, IM (PFIZER-Comiratrium health) 05/08/2023 HPV Vaccine, 4-Valent 03/29/2009,11/27/2008,04/07/2008 PPD 11/10/2007 Pneumococcal Conjugate Vacci ne, 20-valent ([id number]) 05/08/2023 Pneumococcal Polysaccharide PPV23 (Pneumovax) 09/21/2008 Seasonal [...] Telephone Encounter - Adri Higgins RN - 06/27/2024 9:03 AM EST Transitions of Care Note Reason for Referral:Recent Admission Phone visit for follow up: [facility] Admitted to: [facility], Date: 06.24.24 Discharged to: home, Date: 06.26.24 Diagnosis driving hospitalization: Acute Asthma-COPD Overlap Exacerbation: Also was recently admitted under our service from 05/20/2024-05/23/2024 with an acute asthma exacerbation Source/Contact: Patient SUBJECTIVE Consent: Verbal consent for review of hospital discharge: Yes REVIEW OF SYSTEMS Patient/Other Reports: Current patient/caregiver problems or concerns: doing better CV: Denies problems Pulmonary: Denies problems Chills/Sweats/Fever:Denies chills/sweats Denies fever Appetite:Denies problems such as nausea, vomiting, burning, decreased appetite Current diet: reg Bowel: denies problems Bladder: denies problems Wound (If applicable): N/A Pain:Denies Sleep:Denies problems FUNCTIONAL STATUS: ADL'S: Needs Assistance With:N/A as pt is independent IADL'S: Needs Assistance With:N/A as pt is independent Cognitive and Mental Health: denies problems, alert and oriented x 3, and able to communicate, understand instructions, process information. MEDICATION RECONCILIATION Medications: Reports all medications taken as prescribed. New Incruse Ellipta 62.5 mcg/actuation Blister With Device 1 inh inhalation DAILY Qty: 30 0RF prednisone 10 mg tablet See Taper PO DAILY Qty: 14 0RF Taper: Taper, Blank 40 mg DAILY for 2 Days 20 mg DAILY for 2 Days 10 mg DAILY for 2 Days Dulera 200-5 mcg/actuation HFA aerosol inhaler 2 inh inhalation BID Qty: 13 0RF OBJECTIVE ASSESSMENT Medication Risk Assessment: No risks identified Did patient fail outpatient treatment? No Discharge instructions available for review? Yes PLAN Symptom Monitoring Interventions:Member/caregiver education - signs and symptoms to contact PrimaryCare (DO NOT DELETE-Three cespedes symptoms patient is to report to PCP) 1. Worsening sob 2. fevers 3. Increased congestion Landscape SpecialistValidation Scientist of Care interventions/Action Plan: 5 - 7 day follow-up with PCP in place - Date: Dr. Correa 06/29/24 Educated on role of [facility] completed with patient/caregiver. Educated patient/caregiver on patient right to have input on [facility] plan of care. Verification of Home Health/DME if indicated: NO Identified Care Gaps: Yes Care Gaps closed this call: Transition of Care follow-up communication Re-evaluation of Plan of Care and progress towards goals achievement: Patient education this visit: Verbal, patient to stay hydrated and inhalers as directed Plan to follow-up as previously scheduled, instructed to call Primary Care Provider with change in symptoms or as needed before next follow-up, verbalizes understanding and agrees with plan. Adri Higgins RN documented in this encounter Plan of Treatment Upcoming Encounters Date Type Department Care Team (Late st Contact Info) Description 06/29/2024 9:00 AM EST Office Visit Family Medicine [address] [phone] Muna García MD [address] [place] [address] [place] [phone] Health Maintenance Due Date Last Done Comments Hepatitis C Screening 2005 Hepatitis B Vaccine (1 of 3 - 19+ 3-dose series) 2006 HPV/Co-Test 2017 Cervical Cancer Screening 08/21/2019 Pap Smear 08/21/2019 08/20/2016, 0311/2012, 09/14/2007 COVID-19 Vaccine ( season) 2024 05/08/2023, [...] filedocumented as of this encounter Care Teams Home Health Travel Ot Relationship Specialty Start Date End Date Valentin Thompson MD [address] [place] [address] [place] [address] PCP - General Family Medicine 06/27/24 documented as of this encounter
[2024-07-27] MEDS: methylPREDNISolone 40 MG in SYRINGE 0 ML IV SCH (06:32)
[2024-07-27] MEDS: ALBUT/IPRATROP 3MG/0.5MG NEB 3 ML VIAL NEB SCH (07:01)
[2024-07-27] MEDS ORDERED: GLUCAGON FOR INJ 1 MG VIAL SQ PRN (08:17)
[2024-07-27] MEDS ORDERED: GLUCOSE 40% GEL 15 GM TUBE PO PRN (08:17)
[2024-07-27] MEDS ORDERED: GLUCOSE 10 TAB/TUBE PO PRN (08:17)
[2024-07-27] MEDS ORDERED: DEXTROSE 50% 50 ML SYRINGE IV PRN (08:17)
[2024-07-27] MEDS ORDERED: CARBOHYDRATES FOR HYPOGLYCEMIA PO PRN (08:17)
--- NOTE | 2024-07-27 08:17 | History & Physical Report ---
Date of Service July 26, 2024 Assessment & Plan (1) Asthma with acute exacerbation: Plan: 39-year-old female with past medical history significant for hypothyroidism, multiple thyroid lobe nodules, prediabetes, severe persistent asthma, allergic rhinitis, morbid obesity, depression with anxiety, bipolar disorder, obstructive sleep apnea on CPAP presents with shortness of breath and cough going on for last few days and progressively worsening. Denies any fevers. Had some chest discomfort. No headache. No blurred vision. No sore throat. No nausea. No abdominal pain. Normal bowel and bowel bladder movements. Patient is requiring frequent breathing treatments on the floor. Hemodynamics are okay. Asthma exacerbation Procalcitonin negative DuoNebs ATC and as needed IV Solu-Medrol 40 mg 3 times daily Pulmicort and Brovana nebs Oxygen supplementation If no improvement will consult pulmonary Morbid obesity Needs counseling Obstructive sleep apnea CPAP nightly Hypothyroidism On Synthyroid Bipolar Depression On fluoxetine Prediabetes On metformin which we held Sliding scale GERD Omeprazole DVT prophylaxis Lovenox Disposition Telemetry Full code History of Present Illness Chief Complaint: Shortness of breath Primary Care Provider: Valentin Thompson MD 39-year-old female with past medical history significant for hypothyroidism, multiple thyroid lobe nodules, prediabetes, severe persistent asthma, allergic rhinitis, morbid obesity, depression with anxiety, bipolar disorder, obstructive sleep apnea on CPAP presents with shortness of breath and cough going on for last few days and progressively worsening. Denies any fevers. Had some chest discomfort. No headache. No blurred vision. No sore throat. No nausea. No abdominal pain. Normal bowel and bowel bladder movements. Patient is requiring frequent breathing treatments on the floor. Hemodynamics are okay. Past medical history. As mentioned above Past surgical history. Laparoscopic cholecystectomy. Social history. . Quit smoking in 2010. Smoked 0.8 pack a day for 7 years. No alcohol use. No drug use. Family history. Mother had breast cancer. Hypertension. Hypothyroidism. Diabetes. Maternal grandfather had rectal cancer. Maternal grandmother had colon cancer. Hypertension. Allergies Allergy/AdvReac Type Severity Reaction Status Date / Time pollen extracts Allergy Mild allergy sx Verified 05/20/24 08:18 Home Medications Medication Instructions Recorded Confirmed Type metformin 500 mg tablet 500 mg PO BID 03/19/22 06/24/24 History omeprazole 40 mg capsule,delayed 40 mg PO DAILY 03/19/22 06/24/24 History release Auto Titrating CPAP #1 ea 11/25/22 06/24/24 Rx CPAP Supplies #1 ea 11/25/22 06/24/24 Rx fluoxetine 10 mg capsule 10 mg PO QAM 12/01/23 06/24/24 History levothyroxine 150 mcg tablet 150 mcg PO DAILYBB 12/01/23 06/24/24 History albuterol sulfate 2.5 mg/3 mL 2.5 mg (3 mL) continuous 03/22/24 06/24/24 Rx (0.083 %) solution for nebulization nebulization Q4 PRN Shortness Of Breath Or Wheezing #3 Inhalers nebulizers ([employer] Go Nebulizer) #1 ea 03/22/24 06/24/24 Rx ipratropium 20 mcg-albuterol 100 1 puff inhalation QID Asthma #1 06/17/24 06/24/24 Rx mcg/actuation mist for inhalation inhaler (Combivent Respimat) mometasone-formoterol HFA 200 2 inh inhalation BID #13 grams 06/26/24 Rx mcg-5 mcg/actuation aerosol inhaler (Dulera) prednisone 10 mg tablet See Taper PO DAILY #14 tabs 06/26/24 Rx umeclidinium 62.5 mcg/actuation 1 inh inhalation DAILY #30 ea 06/26/24 Rx blister powder for inhalation (Incruse Ellipta) albuterol sulfate 90 mcg/actuation 2 puff inhalation Q6H PRN 07/08/24 Rx aerosol inhaler Shortness Of Breath Or Wheezing #18 grams Past Med/Surg History Problem List (Updated 07/27/24 @ 00:28 by Rashad Vance M.D.) Hypoxia (Acute) Asthma with acute exacerbation (Acute) Acute severe exacerbation of asthma FREDA (obstructive sleep apnea) Multiple pulmonary nodules Allergic rhinitis with postnasal drip Asthma-COPD overlap syndrome (Acute) Ex-smoker Hypersomnia Witnessed apneic spells Nocturnal hypoxemia Laryngitis History of tobacco use Excessive daytime sleepiness Dyspnea (Acute) Dietary counseling and surveillance Acute respiratory failure with hypoxia (Acute) Elevated IgE level Peripheral eosinophilia Acute respiratory failure (Acute) Hypomagnesemia (Acute) Morbid obesity (Acute) Hypothyroidism (Chronic) Asthma, severe persistent (Chronic) Allergic rhinitis (Chronic) Bipolar disorder (Chronic) Depression (Chronic) Anxiety (Chronic) Medical History History of acute pharyngitis Asthma exacerbation Family History Mother Diabetes Social History Smoking Status: Former smoker Tobacco Type: Cigarettes Age Started Using Tobacco: 18; Age Quit Using Tobacco: 31; packs per day: 2.5; Smoking End Date: 2016; Second Hand Exposure: No; Do You Dip or Chew Tobacco: No; Tobacco Cessation Education Requested by Patient: No Hx Alcohol Use: No Hx Substance Use: No Preferred Language: Gabonese Communication Ability: Effective Supervisor Purification Required: No Beliefs That Will Affect Care: None marital status: Current Living Situation: Spouse current occupational status: employed Other Information That Helps Us Care for You: No Feels Safe at Home: Yes Safety Concerns: Feels Safe At This Time Assistive Devices: Glasses Review of Systems Review of Systems: All systems reviewed & are unremarkable except as noted in HPI & below Physical Exam Physical Exam: General- Not in acute distress Head- atraumatic Eyes- PERRL ENT- oropharynx clear Neck- supple, no JVD. Lungs- clear to auscultation b.l wheezing present Heart- regular rhythm; tachycardia,no murmur, no gallop. Abdomen- normal bowel sounds, soft, nontender, no distension Extremities- no pretibial edema, no erythema seen Neuro- alert, oriented ; PERRL, no facial palsy; no dysarthria; moves extremities Results & Data Results & Data Vital Signs (Past 12 Hours) Vital Signs Temp Pulse Pulse Resp BP BP Pulse Ox 07/26/24 19:23 129 H 18 111/78 93 07/26/24 19:23 93 07/26/24 19:09 126 H 07/26/24 18:42 37.1 C 130 H 26 H 151/86 H 90 O2 Del Method O2 Flow Rate 07/26/24 19:23 Nasal Cannula 3 07/26/24 19:23 Nasal Cannula 3 07/26/24 19:09 07/26/24 18:42 Room Air Diagnostic Findings Laboratory Results WBC 18.67 K/ul (4.8-10.8) H 07/27/24 04:04 RBC 4.44 M/uL (4.20-5.40) 07/27/24 04:04 Hgb 11.1 g/dl (12.0-16.0) L 07/27/24 04:04 Hct 35.4 % (37.0-47.0) L 07/27/24 04:04 MCV 79.7 fL (80.0-100.0) L 07/27/24 04:04 MCH 25.0 pg (25.0-34.0) 07/27/24 04:04 MCHC 31.4 g/dL (32.0-36.0) L 07/27/24 04:04 RDW Std Deviation 47.9 fL (36.4-46.3) H 07/27/24 04:04 RDW Coeff of Laron 16.7 % (11.5-14.5) H 07/27/24 04:04 Plt Count 308 K/uL (130-400) 07/27/24 04:04 MPV 10.8 fL (9.4-12.4) 07/27/24 04:04 Immature Gran % (Auto) 3.7 % 07/27/24 04:04 Neut % (Auto) 66.4 % 07/27/24 04:04 Lymph % (Auto) 21.0 % 07/27/24 04:04 Hays % (Auto) 5.2 % 07/27/24 04:04 Eos % (Auto) 3.2 % 07/27/24 04:04 Baso % (Auto) 0.5 % 07/27/24 04:04 Neut # (Auto) 12.37 K/uL (1.40-6.50) H 07/27/24 04:04 Lymph # (Auto) 3.93 K/uL (1.20-3.40) H 07/27/24 04:04 Hays # (Auto) 0.98 K/uL (0.11-0.59) H 07/27/24 04:04 Eos # (Auto) 0.60 K/uL (0.00-0.50) H 07/27/24 04:04 Baso # (Auto) 0.10 K/uL (0.00-0.20) 07/27/24 04:04 Immature Gran # (Auto) 0.69 K/uL (0.01-0.20) H 07/27/24 04:04 Sodium 138 mmol/L (136-145) 07/27/24 04:04 Potassium 3.8 mmol/L (3.5-5.1) 07/27/24 04:04 Chloride 107 mmol/L (98-107) 07/27/24 04:04 Carbon Dioxide 21 mmol/L (21-32) 07/27/24 04:04 Anion Gap 10 (3-11) 07/27/24 04:04 BUN 13 mg/dl (6-23) 07/27/24 04:04 Creatinine 0.80 mg/dl (0.6-1.2) 07/27/24 04:04 Est Cr Clr Drug Dosing 168.4 ml/min 07/27/24 04:04 eGFR 97.26 07/27/24 04:04 BUN/Creatinine Ratio 16.3 (10-20) 07/27/24 04:04 Glucose 116 mg/dl (70-99(Fasting)) H 07/27/24 04:04 Calcium 9.0 mg/dl (8.6-10.3) 07/27/24 04:04 Magnesium 1.8 mg/dl (1.7-2.4) 07/27/24 04:04 Total Bilirubin 0.2 mg/dl (0.2-1.0) 07/26/24 19:00 AST 21 U/L (13-39) 07/26/24 19:00 ALT 19 U/L (7-52) 07/26/24 19:00 Alkaline Phosphatase 42 U/L (34-104) 07/26/24 19:00 Troponin I High Sens 3.8 pg/ml (0-14) 07/26/24 19:00 Total Protein 7.4 gm/dl (6.0-8.3) 07/26/24 19:00 Albumin 4.1 gm/dl (3.4-5.0) 07/26/24 19:00 Globulin 3.3 gm/dl (2.5-4.0) 07/26/24 19:00 Albumin/Globulin Ratio 1.2 (0.9-2) 07/26/24 19:00 Procalcitonin < 0.02 ng/ml (0-0.5) 07/26/24 19:00 Adenovirus (PCR) Not Detected (NotDetected) 07/26/24 18:55 B. pertussis DNA (PCR) Not Detected (NotDetected) 07/26/24 18:55 B.parapertussis DNA PCR Not Detected (NotDetected) 07/26/24 18:55 C. pneumoniae DNA (PCR) Not Detected (NotDetected) 07/26/24 18:55 Coronavirus OC43 (PCR) Not Detected (NotDetected) 07/26/24 18:55 Coronavirus HKU1 (PCR) Not Detected (NotDetected) 07/26/24 18:55 Coronavirus 229E (PCR) Not Detected (NotDetected) 07/26/24 18:55 SARS-CoV-2 (PCR) Not Detected (NotDetected) 07/26/24 18:55 Coronavirus NL63 (PCR) Not Detected (NotDetected) 07/26/24 18:55 Human Metapneumovir PCR Not Detected (NotDetected) 07/26/24 18:55 Influenza Type A (PCR) Not Detected (NotDetected) 07/26/24 18:55 Influenza Type B (PCR) Not Detected (NotDetected) 07/26/24 18:55 M. pneumoniae (PCR) Not Detected (NotDetected) 07/26/24 18:55 Parainfluenza 1 (PCR) Not Detected (NotDetected) 07/26/24 18:55 Parainfluenza 2 (PCR) Not Detected (NotDetected) 07/26/24 18:55 Parainfluenza 3 (PCR) Not Detected (NotDetected) 07/26/24 18:55 Parainfluenza 4 (PCR) Not Detected (NotDetected) 07/26/24 18:55 RSV (PCR) Not Detected (NotDetected) 07/26/24 18:55 Entero/Rhino (PCR) Not Detected (NotDetected) 07/26/24 18:55 Impressions Chest X-Ray 07/26/24 18:51 Clinical History: Shortness of breath Technique: A frontal view of the chest was obtained Comparison is made to the prior examination dated 06/24/2024 Findings: There are no confluent pulmonary infiltrates. The heart size is within normal limits. No pleural effusion or pneumothorax is seen. There is no definite pulmonary nodule. No fracture is noted. No foreign body is seen Impression: No active disease Electronically signed by Mukesh Dacosta 07-26-2024 7:46 PM ECG Additional Comments: ECG. Sinus tachycardia rate of 127. No acute ST changes seen. QTc 465. Code Status & VTE Plan VTE Prophylaxis Plan VTE Prophylaxis will be ordered: Yes
--- NOTE | 2024-07-27 08:41 | Electrocardiogram Report ---
Test Reason : Blood Pressure : */* mmHG Vent. Rate : 127 BPM Atrial Rate : 127 BPM P-R Int : 144 ms QRS Dur : 88 ms QT Int : 320 ms P-R-T Axes : 62 75 59 degrees QTcB Int : 465 ms Sinus tachycardia Incomplete right bundle branch block Possible Old Anterior infarct (cited on or before 03-May-2024) Abnormal ECG When compared with ECG of 24-Jun-2024 14:58, QRS axis Shifted left Borderline criteria for Lateral infarct are no longer Present Confirmed by Chaka Luis ([id number]) on 07/27/2024 8:41:36 AM Referred By: REFERRED SELF Confirmed By: Chaka Luis
[2024-07-27] MEDS ORDERED: methylPREDNISolone 125 MG/2 ML VIAL IV SCH (09:00)
[2024-07-27] MEDS: PANTOprazole 40 MG TAB PO SCH (09:35)
[2024-07-27] MEDS: MAGNESIUM CHLORIDE W/CALCIUM 64MG DELAYED REL TAB PO SCH (09:35)
[2024-07-27] MEDS: FLUoxetine HCL 10 MG CAP PO SCH (09:35)
[2024-07-27] MEDS: INSULIN ASPART PER UNIT CHARGE SC SCH (11:14)
--- NOTE | 2024-07-27 13:35 | Hospitalist Progress Note ---
Date of Service July 27, 2024 Assessment & Plan (1) Asthma with acute exacerbation: Plan: 39-year-old female with past medical history significant for hypothyroidism, multiple thyroid lobe nodules, prediabetes, severe persistent asthma, allergic rhinitis, morbid obesity, depression with anxiety, bipolar disorder, obstructive sleep apnea on CPAP presents with shortness of breath and cough going on for last few days and progressively worsening. Denies any fevers. Had some chest discomfort. No headache. No blurred vision. No sore throat. No nausea. No abdominal pain. Normal bowel and bowel bladder movements. Patient is requiring frequent breathing treatments on the floor. Hemodynamics are okay. Acute Asthma exacerbation --CXR:No active disease -- BioFire negative --Procalcitonin negative -Continue Solu-Medrol, nebs Supplemental oxygen as needed If no improvement, will consider pulmonary evaluation Antitussives as needed Morbid obesity Needs counseling BMI 70 Obstructive sleep apnea CPAP nightly Hypothyroidism Continue levothyroxine Bipolar disorder Depression On fluoxetine Prediabetes On metformin which we held Insulin sliding scale while hospitalized GERD Continue PPI DVT Px: Lovenox SQ Code Status Full code Admission and Anticipated Discharge Date Admission Date: July 26, 2024 Subjective Patient is seen and examined at bedside States having shortness of breath associated with cough and wheezing Also feels chest congestion Denies any nausea, vomiting, abdominal pain, dizziness No other complaints Review of Systems Review of Systems: All systems reviewed & are unremarkable except as noted in Subjective Physical Exam Physical Exam: Physical Exam: Vitals signs as noted above General Appearance:Morbidly Obese, no apparent distress Head: normocephalic, Atraumatic Eyes: normal inspection, EOMI Neck: supple, Trachea midline Respiratory/Chest: Decreased breath sounds, minimal Wheezing, No accessory muscle use Cardiovascular: S1, S2, No murmur,+Tachycardia Abdomen/GI:Soft, Non tender, Bowel sounds present Extremities/Musculoskeletal:normal inspection, no edema Neurologic/Psych:AAOX3, grossly no focal neurological deficits Skin: normal color, warm Results & Data Results & Data Vital Signs (Past 12 Hours) Vital Signs Temp Pulse Pulse Resp BP Pulse Ox O2 Del Method 07/27/24 11:06 36.7 C 111 H 20 124/67 94 Nasal Cannula 07/27/24 10:53 105 H 20 95 Nasal Cannula 07/27/24 07:45 Nasal Cannula 07/27/24 07:29 36.7 C 101 H 18 132/80 95 Nasal Cannula 07/27/24 07:13 103 H 07/27/24 07:02 111 H 20 96 CPAP 07/27/24 03:59 110 H 18 95 07/27/24 03:36 36.6 C 116 H 22 138/96 94 Nasal Cannula 07/27/24 01:58 126 H 26 H 96 Nasal Cannula O2 Flow Rate 07/27/24 11:06 3.0 07/27/24 10:53 2 07/27/24 07:45 2 07/27/24 07:29 2.0 07/27/24 07:13 07/27/24 07:02 2 07/27/24 03:59 2 07/27/24 03:36 2 07/27/24 01:58 2 Laboratory Results Short CBC 07/26/24 07/27/24 Range/Units 19:00 04:04 WBC 17.02 H 18.67 H (4.8-10.8) K/ul Hgb 11.6 L 11.1 L (12.0-16.0) g/dl Hct 36.7 L 35.4 L (37.0-47.0) % Plt Count 348 308 (130-400) K/uL BMP 07/26/24 07/27/24 19:00 04:04 Sodium 139 138 Potassium 3.9 3.8 Chloride 108 H 107 Carbon Dioxide 21 21 BUN 13 13 Creatinine 0.82 0.80 Glucose 138 H 116 H Calcium 8.9 9.0 Liver Function 07/26/24 Range/Units 19:00 Total Bilirubin 0.2 (0.2-1.0) mg/dl AST 21 (13-39) U/L ALT 19 (7-52) U/L Alkaline Phosphatase 42 (34-104) U/L Albumin 4.1 (3.4-5.0) gm/dl
[2024-07-27 13:42] LABS: Appearance Urine Cloudy (Clear); Bacteria Urine Automated 3+ (None Seen); Bilirubin Urine Negative (Negative); Blood Urine 2+ (Negative); Cast Urine Automated 0-2 /lpf (0-2); Color Urine Yellow; Glucose Urine UA Negative (Negative); Ketones Urine 2+ (Negative); Leukocyte Esterase Urine 1+ (Negative); Nitrite Urine Negative (Negative); Protein Urine 3+ (Negative); Specific Gravity Urine 1.032 (1.000-1.030); Urobilinogen Urine Negative (Negative); WBC Urine Automated 21-50 /hpf (0-5); pH Urine 5.5 (4.5-7.5)
--- NOTE | 2024-07-27 13:48 | Communication Note ---
Date of Service: July 27, 2024 Abnormal urinalysis Possible UTI Empirically started on Rocephin
[2024-07-27] MEDS: cefTRIAXone SODIUM 2,000 MG/50 ML BAG IV SCH (14:30)
[2024-07-27] MEDS: ONDANSETRON INJ 2 MG/ML 2 ML VIAL IV PRN (15:02)
[2024-07-27] MEDS: guaiFENesin/DEXTROM SYRUP 200MG/20MG 10ML UDC PO PRN (16:55)
[2024-07-28] MEDS: ACETAMINOPHEN 325 MG TAB PO PRN (02:55)
[2024-07-28 06:41] LABS: Hematocrit (blood only) 35.9 % (37.0-47.0); Hemoglobin 11.3 g/dl (12.0-16.0); Mean Corpuscular Hgb Conc 31.5 g/dL (32.0-36.0); Mean Corpuscular Volume 79.4 fL (80.0-100.0); Mean Platelet Volume 10.7 fL (9.4-12.4); Platelet Count 359 K/uL (130-400); RDW Coefficient of Variation 16.4 % (11.5-14.5); RDW Standard Deviation 47.3 fL (36.4-46.3); Red Blood Count 4.52 M/uL (4.20-5.40); White Blood Count 24.44 K/ul (4.8-10.8)
[2024-07-28 07:06] LABS: BUN Creatinine Ratio 18.6 (10-20); Calcium 9.6 mg/dl (8.6-10.3); Creatinine Clr Calc Pharmacy 192.5 ml/min; Magnesium 1.9 mg/dl (1.7-2.4); Potassium 4.5 mmol/L (3.5-5.1)
[2024-07-28 09:53] LABS: Estimated Average Glucose 123 mg/dl; Hemoglobin A1C 5.9 % (4.5-5.6)
[2024-07-28] MEDS ORDERED: PROMETHAZINE 6.25 MG/50.25 ML BAG IV PRN (09:55)
[2024-07-28] MEDS: diphenhydrAMINE HCL 25 MG/10 ML UDC PO SCH (10:20)
[2024-07-28] MEDS: FAMOTIDINE 10 MG TABLET PO SCH (10:20)
[2024-07-28] MEDS: levoFLOXacin 750 MG TAB PO SCH (10:20)
--- NOTE | 2024-07-28 17:17 | Hospitalist Progress Note ---
Date of Service July 28, 2024 Assessment & Plan (1) Asthma with acute exacerbation: Plan: 39-year-old female with past medical history significant for hypothyroidism, multiple thyroid lobe nodules, prediabetes, severe persistent asthma, allergic rhinitis, morbid obesity, depression with anxiety, bipolar disorder, obstructive sleep apnea on CPAP presents with shortness of breath and cough going on for last few days and progressively worsening. Denies any fevers. Had some chest discomfort. No headache. No blurred vision. No sore throat. No nausea. No abdominal pain. Normal bowel and bowel bladder movements. Patient is requiring frequent breathing treatments on the floor. Hemodynamics are okay. Acute Asthma exacerbation Acute respiratory failure with hypoxia secondary to above --CXR:No active disease -- BioFire negative --Procalcitonin negative -Continue Solu-Medrol, nebs Supplemental oxygen as needed If no improvement, will consider pulmonary evaluation Antitussives as needed Clinically improving Still requiring minimal supplemental oxygen to maintain saturations May need 2 step prior to discharge Abnormal urinalysis Possible UTI Empirically started on Rocephin>>Transition to Levaquin given drug reaction Urine culture not contributory Morbid obesity Needs counseling BMI 70 Obstructive sleep apnea CPAP nightly Hypothyroidism Continue levothyroxine Bipolar disorder Depression On fluoxetine Prediabetes On metformin which we held Insulin sliding scale while hospitalized GERD Continue PPI DVT Px: Lovenox SQ Code Status Full code Admission and Anticipated Discharge Date Admission Date: July 26, 2024 Subjective Patient is seen and examined at bedside States feeling better States having erythematous rash after IV Rocephin yesterday Cough, wheezing, dyspnea, chest improving Denies any nausea, vomiting, abdominal pain, dizziness No other complaints Review of Systems Review of Systems: All systems reviewed & are unremarkable except as noted in Subjective Physical Exam Physical Exam: Physical Exam: Vitals signs as noted above General Appearance:Morbidly Obese, no apparent distress Head: normocephalic, Atraumatic Eyes: normal inspection, EOMI Neck: supple, Trachea midline Respiratory/Chest: Decreased breath sounds, minimal Wheezing, No accessory muscle use Cardiovascular: S1, S2, No murmur,+Tachycardia Abdomen/GI:Soft, Non tender, Bowel sounds present Extremities/Musculoskeletal:normal inspection, no edema Neurologic/Psych:AAOX3, grossly no focal neurological deficits Skin: normal color, warm Results & Data Results & Data Vital Signs (Past 12 Hours) Vital Signs Temp Pulse Pulse Resp BP Pulse Ox O2 Del Method 07/28/24 15:50 36.4 C L 109 H 19 136/85 95 Nasal Cannula 07/28/24 15:35 103 H 07/28/24 14:07 103 H 16 94 Nasal Cannula 07/28/24 10:58 36.6 C 107 H 19 116/71 95 Nasal Cannula 07/28/24 10:37 112 H 18 94 Nasal Cannula 07/28/24 07:30 91 H 07/28/24 07:30 Nasal Cannula 07/28/24 07:14 36.4 C L 107 H 20 142/87 H 92 Nasal Cannula 07/28/24 06:22 110 H 22 90 Nasal Cannula O2 Flow Rate 07/28/24 15:50 2 07/28/24 15:35 07/28/24 14:07 2 07/28/24 10:58 2 07/28/24 10:37 2 07/28/24 07:30 07/28/24 07:30 2 07/28/24 07:14 2 07/28/24 06:22 2 Laboratory Results Short CBC 07/28/24 Range/Units 06:06 WBC 24.44 H (4.8-10.8) K/ul Hgb 11.3 L (12.0-16.0) g/dl Hct 35.9 L (37.0-47.0) % Plt Count 359 (130-400) K/uL BMP 07/28/24 06:06 Sodium 136 Potassium 4.5 Chloride 105 Carbon Dioxide 23 BUN 13 Creatinine 0.70 Glucose 145 H Calcium 9.6
[2024-07-29 06:45] LABS: Hematocrit (blood only) 34.1 % (37.0-47.0); Hemoglobin 10.7 g/dl (12.0-16.0); Mean Corpuscular Hemoglobin 24.9 pg (25.0-34.0); Mean Corpuscular Hgb Conc 31.4 g/dL (32.0-36.0); Mean Corpuscular Volume 79.3 fL (80.0-100.0); Mean Platelet Volume 10.7 fL (9.4-12.4); Platelet Count 324 K/uL (130-400); RDW Coefficient of Variation 16.7 % (11.5-14.5); RDW Standard Deviation 47.9 fL (36.4-46.3); White Blood Count 27.16 K/ul (4.8-10.8)
[2024-07-29 07:11] LABS: BUN Creatinine Ratio 22.4 (10-20); Calcium 9.4 mg/dl (8.6-10.3); Creatinine Clr Calc Pharmacy 177.5 ml/min; Magnesium 2.2 mg/dl (1.7-2.4); Potassium 4.4 mmol/L (3.5-5.1)
[2024-07-29 10:01] VITALS: RESP 17
[2024-07-29 11:05] VITALS: BP 138/84; PULSE 97; TEMP 98.4; O2SAT 93
--- NOTE | 2024-07-29 13:03 | Hospitalist Progress Note ---
Date of Service July 29, 2024 Assessment & Plan (1) Asthma with acute exacerbation: Plan: 39-year-old female with past medical history significant for hypothyroidism, multiple thyroid lobe nodules, prediabetes, severe persistent asthma, allergic rhinitis, morbid obesity, depression with anxiety, bipolar disorder, obstructive sleep apnea on CPAP presents with shortness of breath and cough going on for last few days and progressively worsening. Denies any fevers. Had some chest discomfort. No headache. No blurred vision. No sore throat. No nausea. No abdominal pain. Normal bowel and bowel bladder movements. Patient is requiring frequent breathing treatments on the floor. Hemodynamics are okay. Acute Asthma exacerbation Acute respiratory failure with hypoxia secondary to above --CXR:No active disease -- BioFire negative --Procalcitonin negative -Continue Solu-Medrol, nebs Supplemental oxygen as needed Antitussives as needed Clinically improved Weaned off of supplemental oxygen 2 step: Did not qualify for supplemental oxygen Plan to transition IV Solu-Medrol to prednisone to complete tapering course on discharge Abnormal urinalysis UTI ruled out Empirically started on Rocephin>>Transition to Levaquin given drug reaction Urine culture not contributory Completed 3-day course of antibiotics Leukocytosis Peripheral smear showed no hemolytic, neoplastic process Advised to follow-up with hematology as outpatient Morbid obesity Needs counseling BMI 70 Obstructive sleep apnea CPAP nightly Hypothyroidism Continue levothyroxine Bipolar disorder Depression On fluoxetine Prediabetes On metformin which we held Insulin sliding scale while hospitalized GERD Continue PPI DVT Px: Lovenox SQ Code Status Full code Disposition Home Admission and Anticipated Discharge Date Admission Date: July 26, 2024 Subjective Patient is seen and examined at bedside Generalized rash almost resolved States feeling well today Offers no new complaints Negligible cough Dyspnea resolved Denies any chest pain, nausea, vomiting, abdominal pain Plan to be discharged home today Had 2 step earlier today Review of Systems Review of Systems: All systems reviewed & are unremarkable except as noted in Subjective Physical Exam Physical Exam: Physical Exam: Vitals signs as noted above General Appearance:Morbidly Obese, no apparent distress Head: normocephalic, Atraumatic Eyes: normal inspection, EOMI Neck: supple, Trachea midline Respiratory/Chest: Decreased breath sounds, minimal Wheezing, No accessory muscle use Cardiovascular: S1, S2, No murmur,+Tachycardia Abdomen/GI:Soft, Non tender, Bowel sounds present Extremities/Musculoskeletal:normal inspection, no edema Neurologic/Psych:AAOX3, grossly no focal neurological deficits Skin: normal color, warm Results & Data Results & Data Vital Signs (Past 12 Hours) Vital Signs Temp Pulse Pulse Pulse Pulse Pulse Resp 07/29/24 11:04 36.9 C 97 H 17 07/29/24 10:52 36.6 C 112 H 105 H 17 07/29/24 10:00 105 H 17 07/29/24 09:47 130 H 105 H 07/29/24 08:51 88 07/29/24 07:51 07/29/24 07:16 36.6 C 96 H 18 07/29/24 06:55 95 H 19 07/29/24 03:27 36.6 C 95 H 18 Resp Resp BP Pulse Ox Pulse Ox Pulse Ox O2 Del Method 07/29/24 11:04 138/84 93 Room Air 07/29/24 10:52 128/82 94 07/29/24 10:00 94 Room Air 07/29/24 09:47 22 17 91 95 07/29/24 08:51 07/29/24 07:51 Nasal Cannula 07/29/24 07:16 128/82 94 Nasal Cannula 07/29/24 06:55 93 Nasal Cannula 07/29/24 03:27 109/71 95 Room Air O2 Flow Rate 07/29/24 11:04 07/29/24 10:52 07/29/24 10:00 07/29/24 09:47 07/29/24 08:51 07/29/24 07:51 2 07/29/24 07:16 2 07/29/24 06:55 2 07/29/24 03:27 Laboratory Results Short CBC 07/29/24 Range/Units 05:48 WBC 27.16 H (4.8-10.8) K/ul Hgb 10.7 L (12.0-16.0) g/dl Hct 34.1 L (37.0-47.0) % Plt Count 324 (130-400) K/uL BMP 07/29/24 05:48 Sodium 138 Potassium 4.4 Chloride 105 Carbon Dioxide 25 BUN 17 Creatinine 0.76 Glucose 128 H Calcium 9.4
--- NOTE | 2024-07-29 13:17 | Discharge Summary ---
Date of Service July 29, 2024 Admission HPI Per Admitting Provider 39-year-old female with past medical history significant for hypothyroidism, multiple thyroid lobe nodules, prediabetes, severe persistent asthma, allergic rhinitis, morbid obesity, depression with anxiety, bipolar disorder, obstructive sleep apnea on CPAP presents with shortness of breath and cough going on for last few days and progressively worsening. Denies any fevers. Had some chest discomfort. No headache. No blurred vision. No sore throat. No nausea. No abdominal pain. Normal bowel and bowel bladder movements. Patient is requiring frequent breathing treatments on the floor. Hemodynamics are okay. Past medical history. As mentioned above Past surgical history. Laparoscopic cholecystectomy. Social history. . Quit smoking in 2010. Smoked 0.8 pack a day for 7 years. No alcohol use. No drug use. Family history. Mother had breast cancer. Hypertension. Hypothyroidism. Diabetes. Maternal grandfather had rectal cancer. Maternal grandmother had colon cancer. Hypertension. Admission Exam Per Admitting Provider General- Not in acute distress Head- atraumatic Eyes- PERRL ENT- oropharynx clear Neck- supple, no JVD. Lungs- clear to auscultation b.l wheezing present Heart- regular rhythm; tachycardia,no murmur, no gallop. Abdomen- normal bowel sounds, soft, nontender, no distension Extremities- no pretibial edema, no erythema seen Neuro- alert, oriented ; PERRL, no facial palsy; no dysarthria; moves extremities Principal Diagnosis Acute Asthma exacerbation Acute respiratory failure with hypoxia Leukocytosis Discharge Data Allergies Allergy/AdvReac Type Severity Reaction Status Date / Time ceftriaxone Allergy Mild Verified 07/28/24 09:54 pollen extracts Allergy Mild allergy sx Verified 05/20/24 08:18 Procedures Performed Laboratory Results WBC 27.16 K/ul (4.8-10.8) H 07/29/24 05:48 RBC 4.30 M/uL (4.20-5.40) 07/29/24 05:48 Hgb 10.7 g/dl (12.0-16.0) L 07/29/24 05:48 Hct 34.1 % (37.0-47.0) L 07/29/24 05:48 MCV 79.3 fL (80.0-100.0) L 07/29/24 05:48 MCH 24.9 pg (25.0-34.0) L 07/29/24 05:48 MCHC 31.4 g/dL (32.0-36.0) L 07/29/24 05:48 RDW Std Deviation 47.9 fL (36.4-46.3) H 07/29/24 05:48 RDW Coeff of [place] 16.7 % (11.5-14.5) H 07/29/24 05:48 Plt Count 324 K/uL (130-400) 07/29/24 05:48 MPV 10.7 fL (9.4-12.4) 07/29/24 05:48 Immature Gran % (Auto) 3.7 % 07/27/24 04:04 Neut % (Auto) 66.4 % 07/27/24 04:04 Lymph % (Auto) 21.0 % 07/27/24 04:04 [place] % (Auto) 5.2 % 07/27/24 04:04 Eos % (Auto) 3.2 % 07/27/24 04:04 Baso % (Auto) 0.5 % 07/27/24 04:04 Neut # (Auto) 12.37 K/uL (1.40-6.50) H 07/27/24 04:04 Lymph # (Auto) 3.93 K/uL (1.20-3.40) H 07/27/24 04:04 [place] # (Auto) 0.98 K/uL (0.11-0.59) H 07/27/24 04:04 Eos # (Auto) 0.60 K/uL (0.00-0.50) H 07/27/24 04:04 Baso # (Auto) 0.10 K/uL (0.00-0.20) 07/27/24 04:04 Immature Gran # (Auto) 0.69 K/uL (0.01-0.20) H 07/27/24 04:04 Peripher Smr Path Cons 07/29/24 05:48 Sodium 138 mmol/L (136-145) 07/29/24 05:48 Potassium 4.4 mmol/L (3.5-5.1) 07/29/24 05:48 Chloride 105 mmol/L (98-107) 07/29/24 05:48 Carbon Dioxide 25 mmol/L (21-32) 07/29/24 05:48 Anion Gap 8 (3-11) 07/29/24 05:48 BUN 17 mg/dl (6-23) 07/29/24 05:48 Creatinine 0.76 mg/dl (0.6-1.2) 07/29/24 05:48 Est Cr Clr Drug Dosing 177.5 ml/min 07/29/24 05:48 eGFR 103.44 07/29/24 05:48 BUN/Creatinine Ratio 22.4 (10-20) H 07/29/24 05:48 Glucose 128 mg/dl (70-99(Fasting)) H 07/29/24 05:48 POC Glucose 152 mg/dl (70-99) H 07/29/24 11:01 Estimat Average Glucose 123 mg/dl 07/28/24 06:06 Hemoglobin A1c 5.9 % (4.5-5.6) H 07/28/24 06:06 Calcium 9.4 mg/dl (8.6-10.3) 07/29/24 05:48 Magnesium 2.2 mg/dl (1.7-2.4) 07/29/24 05:48 Total Bilirubin 0.2 mg/dl (0.2-1.0) 07/26/24 19:00 AST 21 U/L (13-39) 07/26/24 19:00 ALT 19 U/L (7-52) 07/26/24 19:00 Alkaline Phosphatase 42 U/L (34-104) 07/26/24 19:00 Troponin I High Sens 3.8 pg/ml (0-14) 07/26/24 19:00 Total Protein 7.4 gm/dl (6.0-8.3) 07/26/24 19:00 Albumin 4.1 gm/dl (3.4-5.0) 07/26/24 19:00 Globulin 3.3 gm/dl (2.5-4.0) 07/26/24 19:00 Albumin/Globulin Ratio 1.2 (0.9-2) 07/26/24 19:00 Procalcitonin < 0.02 ng/ml (0-0.5) 07/26/24 19:00 Urine Color Yellow 07/27/24 Unknown Urine Appearance Cloudy (Clear) A 07/27/24 Unknown Urine pH 5.5 (4.5-7.5) 07/27/24 Unknown Ur Specific [place] 1.032 (1.000-1.030) H 07/27/24 Unknown Urine Protein 3+ (Negative) H 07/27/24 Unknown Urine Glucose (UA) Negative (Negative) 07/27/24 Unknown Urine Ketones 2+ (Negative) H 07/27/24 Unknown Urine Blood 2+ (Negative) H 07/27/24 Unknown Urine Nitrite Negative (Negative) 07/27/24 Unknown Urine Bilirubin Negative (Negative) 07/27/24 Unknown Urine Urobilinogen Negative (Negative) 07/27/24 Unknown Ur Leukocyte Esterase 1+ (Negative) H 07/27/24 Unknown Urine WBC (Auto) 21-50 /hpf (0-5) H 07/27/24 Unknown Urine RBC (Auto) 3-5 /hpf (0-2) H 07/27/24 Unknown U Hyaline Cast (Auto) 0-2 /lpf (0-2) 07/27/24 Unknown U Epithel Cells (Auto) 11-20 /hpf (0-2) H 07/27/24 Unknown Urine Bacteria (Auto) 3+ (None Seen) H 07/27/24 Unknown Adenovirus (PCR) Not Detected (NotDetected) 07/26/24 18:55 B. pertussis DNA (PCR) Not Detected (NotDetected) 07/26/24 18:55 B.parapertussis DNA PCR Not Detected (NotDetected) 07/26/24 18:55 C. pneumoniae DNA (PCR) Not Detected (NotDetected) 07/26/24 18:55 Coronavirus OC43 (PCR) Not Detected (NotDetected) 07/26/24 18:55 Coronavirus HKU1 (PCR) Not Detected (NotDetected) 07/26/24 18:55 Coronavirus 229E (PCR) Not Detected (NotDetected) 07/26/24 18:55 SARS-CoV-2 (PCR) Not Detected (NotDetected) 07/26/24 18:55 Coronavirus NL63 (PCR) Not Detected (NotDetected) 07/26/24 18:55 Human Metapneumovir PCR Not Detected (NotDetected) 07/26/24 18:55 Influenza Type A (PCR) Not Detected (NotDetected) 07/26/24 18:55 Influenza Type B (PCR) Not Detected (NotDetected) 07/26/24 18:55 M. pneumoniae (PCR) Not Detected (NotDetected) 07/26/24 18:55 Parainfluenza 1 (PCR) Not Detected (NotDetected) 07/26/24 18:55 Parainfluenza 2 (PCR) Not Detected (NotDetected) 07/26/24 18:55 Parainfluenza 3 (PCR) Not Detected (NotDetected) 07/26/24 18:55 Parainfluenza 4 (PCR) Not Detected (NotDetected) 07/26/24 18:55 RSV (PCR) Not Detected (NotDetected) 07/26/24 18:55 Entero/Rhino (PCR) Not Detected (NotDetected) 07/26/24 18:55 Impressions Chest X-Ray 07/26/24 18:51 Clinical History: Shortness of breath Technique: A frontal view of the chest was obtained Comparison is made to the prior examination dated 06/24/2024 Findings: There are no confluent pulmonary infiltrates. The heart size is within normal limits. No pleural effusion or pneumothorax is seen. There is no definite pulmonary nodule. No fracture is noted. No foreign body is seen Impression: No active disease Electronically signed by Mukesh Dacosta 07-26-2024 7:46 PM Hospital Course (1) Asthma with acute exacerbation: 39-year-old female with past medical history significant for hypothyroidism, multiple thyroid lobe nodules, prediabetes, severe persistent asthma, allergic rhinitis, morbid obesity, depression with anxiety, bipolar disorder, obstructive sleep apnea on CPAP presents with shortness of breath and cough going on for last few days and progressively worsening. Denies any fevers. Had some chest discomfort. No headache. No blurred vision. No sore throat. No nausea. No abdominal pain. Normal bowel and bowel bladder movements. Patient is requiring frequent breathing treatments on the floor. Hemodynamics are okay. Acute Asthma exacerbation Acute respiratory failure with hypoxia secondary to above --CXR:No active disease -- BioFire negative --Procalcitonin negative -Continue Solu-Medrol, nebs Supplemental oxygen as needed Antitussives as needed Clinically improved Weaned off of supplemental oxygen 2 step: Did not qualify for supplemental oxygen Plan to transition IV Solu-Medrol to prednisone to complete tapering course on discharge Abnormal urinalysis UTI ruled out Empirically started on Rocephin>>Transition to Levaquin given drug reaction Urine culture not contributory Completed 3-day course of antibiotics Leukocytosis Peripheral smear showed no hemolytic, neoplastic process Advised to follow-up with hematology as outpatient Morbid obesity Needs counseling BMI 70 Obstructive sleep apnea CPAP nightly Hypothyroidism Continue levothyroxine Bipolar disorder Depression On fluoxetine Prediabetes On metformin which we held Insulin sliding scale while hospitalized GERD Continue PPI DVT Px: Lovenox SQ Code Status Full code Disposition Home Total Time Total Time Spent Total Time Spent (In Minutes): 49 minutes Discharge Plan Discharge Items Patient Disposition: Home - Self-Care Reason For Visit: ASTHMA EXACERBATION Discharge Diagnosis: Acute Asthma exacerbation Acute respiratory failure with hypoxia Leukocytosis Condition on Discharge: Fair Activity: Per Instructions section Exercise/Sports: Gradually increase as tolerated Non-emergency contact: Primary Care Provider Call non-emergency contact if: you have any medication questions, your symptoms worsen, your pain is concerning for you and you have a fever Follow-up/Referrals: Valentin Thompson MD [Primary Care Provider] - (Date & Time 08/05/2024 9:00 AM Provider: Muna García MD Family Medicine [facility] ) Diet: Heart Healthy Addtl Attending Provider Instructions: Follow-up with your primary care physician on 08/05/2024 9:00 AM Follow-up with your lining cleaner in 2-3 weeks Follow up with television agent for further evaluation of elevated white blood cell count is advised -- Complete the prednisone tapering course as prescribed Prednisone tapering course Start taking prednisone 30 mg daily for 3 days, then take 20 mg daily for 2 days, 10 mg daily for 2 days and stop Seek immediate medical attention if your symptoms reoccur or worsen Please take all medications as instructed on discharge list below. Please call if you have any questions or problems. You can reach a [facility] hospitalist on duty at [facility] 24 hours a day by calling [phone] Pending Studies at Discharge: No Stand-Alone Forms: My [facility] WhiteSmoke, Smoking Cessation Medications and DC Order Prescriptions: New famotidine [Acid Ballroom Dancer (famotidine)] 10 mg Tablet 10 mg PO BID Qty: 14 0RF prednisone 10 mg tablet 10 mg PO DIRECTED Qty: 15 0RF Rx Instructions: Start taking prednisone 30 mg daily for 3 days, then take 20 mg daily for 2 days, 10 mg daily for 2 days and stop diphenhydramine HCl [Benadryl] 25 mg capsule 25 mg PO TID Qty: 9 0RF Continued metformin 500 mg tablet 500 mg PO BID omeprazole 40 mg capsule,delayed release(DR/EC) 40 mg PO DAILY fluoxetine 10 mg capsule 10 mg PO DAILY albuterol sulfate 2.5 mg /3 mL (0.083 %) solution for nebulization 2.5 mg continuous nebulization Q4H PRN (Reason: Shortness Of Breath Or Wheezing) Qty: 90 1RF albuterol sulfate 90 mcg/actuation HFA aerosol inhaler 2 inh INHALATION Q6H PRN (Reason: Shortness Of Breath Or Wheezing) Qty: 8.5 1RF Dulera 200-5 mcg/actuation HFA aerosol inhaler 2 puff INHALATION BID Qty: 8.8 0RF Combivent Respimat 20-100 mcg/actuation mist 1 puff INHALATION QID Qty: 4 0RF Discharge Orders: Discharge Order (Routine); Ordered 07/29/24 Ordered By: William Zelaya Admission Data Admit Date/Time: 07/26/24 21:04 Attending Provider: William Zelaya Admit Provider: Aguilar Copeland Primary Care Provider: Valentin Thompson Other Interventions: Discharge Summary Assessment (RN) Last Done: 07/29/24 10:52
== END 2024-07-29 14:20 | disposition home or self-care (01) | DRG 202 ==
LOC: ED 18:21 → EDINP 21:04 → 2S 22:14

== ENCOUNTER 2024-08-27 17:26 | Inpatient (IN) ==
--- NOTE | 2024-08-27 18:22 | Emergency Department Note ---
Impression & Plan Asthma, severe persistent ADMIT ED Provider Note HPI: History obtained from patient. The patient is a 39-year-old female who presents the emergency department with a chief complaint of asthma. Patient states that she has had worsening shortness of breath and wheezing for the past week. Patient states she has been using her nebulizer treatments at home without relief. Patient denies any chest pain, states she does have some shortness of breath with her wheezing. On arrival here to the ED the patient is tachycardic but otherwise hemodynamically stable, she is saturating well on room air on arrival. ROS: - Per HPI Differential Diagnosis: Acute asthma exacerbation/bronchospasm, pneumonia, viral upper respiratory infection with cough, acute bronchitis, ACS, pulmonary embolism,, amongst other potential pathologies. *Outpatient medications and allergy history reviewed. 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 IV was established and lab work ordered, patient was given a DuoNeb breathing treatment and IV Solu-Medrol. Lab work shows a leukocytosis of 18.3, hemoglobin is stable at 11.8, platelet count is normal, venous blood gas shows a normal pH and normal pCO2, CMP does not show any evidence of any critical findings. Procalcitonin is low, chest x-ray does not show any evidence of pneumonia. On my reassessment following the first DuoNeb breathing treatment the patient still has significant wheezing, I do feel she will need to be admitted to the hospital at this time. She was ordered an additional DuoNeb breathing treatment as well as IV magnesium. Case was discussed with the on-call hospitalist, Dr. Solo, the patient was placed for admission in stable condition. Consultants/Discussions held with other healthcare providers: -Hospitalist, Dr. Solo Disposition discussion held by myself with: -Patient Diagnosis: 1. Acute asthma exacerbation with intractable wheezing 2. Dyspnea, acute 3. Leukocytosis, acute, nonspecific Disposition: Admission Gonzalez Hutson DO Emergency Medicine Past Med/Surg History Problem List (Updated 08/27/24 @ 22:24 by Gonzalez Hutson DO) Hypoxia (Acute) Asthma with acute exacerbation (Acute) Acute severe exacerbation of asthma FREDA (obstructive sleep apnea) Multiple pulmonary nodules Allergic rhinitis with postnasal drip Asthma-COPD overlap syndrome (Acute) Ex-smoker Hypersomnia Witnessed apneic spells Nocturnal hypoxemia Laryngitis History of tobacco use Excessive daytime sleepiness Dyspnea (Acute) Dietary counseling and surveillance Acute respiratory failure with hypoxia (Acute) Elevated IgE level Peripheral eosinophilia Acute respiratory failure (Acute) Hypomagnesemia (Acute) Morbid obesity (Acute) Hypothyroidism (Chronic) Asthma, severe persistent (Chronic) Allergic rhinitis (Chronic) Bipolar disorder (Chronic) Depression (Chronic) Anxiety (Chronic) Medical History History of acute pharyngitis Asthma exacerbation Family History Mother Diabetes Social History Smoking Status: Never smoker Tobacco Type: Cigarettes Age Started Using Tobacco: 18; Age Quit Using Tobacco: 31; packs per day: 2.5; Second Hand Exposure: No; Do You Dip or Chew Tobacco: No; Hx Alcohol Use: No Hx Substance Use: No Preferred Language: Faroese Communication Ability: Effective Flight Paramedic Required: No Beliefs That Will Affect Care: None marital status: Current Living Situation: Spouse current occupational status: employed Feels Safe at Home: Yes Assistive Devices: Nebulizer Allergies Allergies Allergy/AdvReac Type Severity Reaction Status Date / Time ceftriaxone Allergy Mild Verified 07/28/24 09:54 pollen extracts Allergy Mild allergy sx Verified 05/20/24 08:18 Home Meds Home Medications Medication Instructions Recorded Confirmed fluoxetine 10 mg capsule 10 mg PO DAILY 07/27/24 07/27/24 metformin 500 mg tablet 500 mg PO BID 07/27/24 07/27/24 omeprazole 40 mg capsule,delayed 40 mg PO DAILY 07/27/24 07/27/24 release Previous Rx's Medication Instructions Recorded albuterol sulfate 2.5 mg/3 mL 2.5 mg (3 mL) continuous 07/29/24 (0.083 %) solution for nebulization nebulization Q4H PRN Shortness Of Breath Or Wheezing #90 mL albuterol sulfate 90 mcg/actuation 2 inh inhalation Q6H PRN Shortness 07/29/24 aerosol inhaler Of Breath Or Wheezing #8.5 grams diphenhydramine HCl 25 mg capsule 25 mg PO TID #9 caps 07/29/24 (Benadryl) famotidine 10 mg tablet (Acid 10 mg PO BID #14 tabs 07/29/24 General Ophthalmologist (famotidine)) ipratropium 20 mcg-albuterol 100 1 puff inhalation QID #4 grams 07/29/24 mcg/actuation mist for inhalation (Combivent Respimat) mometasone-formoterol HFA 200 2 puff inhalation BID #8.8 grams 07/29/24 mcg-5 mcg/actuation aerosol inhaler (Dulera) prednisone 10 mg tablet 10 mg PO DIRECTED #15 tabs 07/29/24 dupilumab 300 mg/2 mL subcutaneous 300 mg (2 mL) subcut Q14D #2 mL 08/12/24 pen injector (Dupixent) dupilumab 300 mg/2 mL subcutaneous 600 mg (4 mL) subcut ONCE #4 mL 08/12/24 pen injector (Dupixent) Results & Data (ED) Vital Signs Vital Signs - 24 hr 08/27/24 17:27 08/27/24 17:29 08/27/24 17:57 Temperature 36.6 C Temperature Source Temporal Artery Scan Pulse Rate 132 H 124 H Pulse Rate [Left Apical] Pulse Rate [Right Finger] Pulse Rhythm Pulse Rhythm [Left Apical] Pulse Rhythm [Right Finger] Pulse Strength [Left Apical] Pulse Strength [Right Finger] Respiratory Rate 24 Respiratory Effort / Characteristics Non-Labored Spontaneous Respiratory Depth Normal Respiratory Pattern Regular Blood Pressure 166/101 H Blood Pressure [Right Arm] Blood Pressure [Right Radial Artery] Blood Pressure Mean 122 Blood Pressure Mean [Right Arm] Blood Pressure Mean [Right Radial Artery] Blood Pressure Position Sitting Blood Pressure Position [Right Arm] Blood Pressure Position [Right Radial Artery] Pulse Oximetry 95 Oxygen Delivery Method Room Air Room Air Oxygen Flow Rate Sepsis Recent Fever Within 48 Hours No Sepsis New/Unexplained Change in Mental Status N/A Sepsis Action Taken by Nursing No Action Required Oxygen Flow Rate - Titration Pulse Oximetry Post Tiitration 08/27/24 18:00 08/27/24 18:00 08/27/24 18:00 Temperature Temperature Source Pulse Rate 119 H Pulse Rate [Left Apical] Pulse Rate [Right Finger] 114 H Pulse Rhythm Regular Pulse Rhythm [Left Apical] Pulse Rhythm [Right Finger] Regular Pulse Strength [Left Apical] Pulse Strength [Right Finger] Normal Respiratory Rate 16 15 Respiratory Effort / Characteristics Non-Labored Respiratory Depth Normal Respiratory Pattern Regular Blood Pressure Blood Pressure [Right Arm] 123/98 Blood Pressure [Right Radial Artery] Blood Pressure Mean Blood Pressure Mean [Right Arm] 106 Blood Pressure Mean [Right Radial Artery] Blood Pressure Position Blood Pressure Position [Right Arm] Lying Blood Pressure Position [Right Radial Artery] Pulse Oximetry 93 94 Oxygen Delivery Method CPAP Room Air Room Air Oxygen Flow Rate Sepsis Recent Fever Within 48 Hours Sepsis New/Unexplained Change in Mental Status Sepsis Action Taken by Nursing Oxygen Flow Rate - Titration Pulse Oximetry Post Tiitration 08/27/24 18:26 08/27/24 19:45 08/27/24 20:46 Temperature Temperature Source Pulse Rate Pulse Rate [Left Apical] 108 H Pulse Rate [Right Finger] Pulse Rhythm Pulse Rhythm [Left Apical] Pulse Rhythm [Right Finger] Pulse Strength [Left Apical] Pulse Strength [Right Finger] Respiratory Rate 19 Respiratory Effort / Characteristics Respiratory Depth Normal Respiratory Pattern Blood Pressure Blood Pressure [Right Arm] Blood Pressure [Right Radial Artery] 129/84 Blood Pressure Mean Blood Pressure Mean [Right Arm] Blood Pressure Mean [Right Radial Artery] 99 Blood Pressure Position Blood Pressure Position [Right Arm] Blood Pressure Position [Right Radial Artery] Sitting Pulse Oximetry 91 95 88 L Oxygen Delivery Method Room Air Nebulizer Nasal Cannula Oxygen Flow Rate 9 0 Sepsis Recent Fever Within 48 Hours Sepsis New/Unexplained Change in Mental Status Sepsis Action Taken by Nursing Oxygen Flow Rate - Titration 2 Pulse Oximetry Post Tiitration 96 08/27/24 21:00 08/27/24 21:30 08/27/24 21:40 Temperature Temperature Source Pulse Rate 114 H 113 H Pulse Rate [Left Apical] 113 H Pulse Rate [Right Finger] Pulse Rhythm Pulse Rhythm [Left Apical] Regular Pulse Rhythm [Right Finger] Pulse Strength [Left Apical] Normal Pulse Strength [Right Finger] Respiratory Rate 22 22 Respiratory Effort / Characteristics Short of Breath Other Respiratory Depth Normal Respiratory Pattern Regular Blood Pressure 122/55 L Blood Pressure [Right Arm] Blood Pressure [Right Radial Artery] 120/85 Blood Pressure Mean 77 Blood Pressure Mean [Right Arm] Blood Pressure Mean [Right Radial Artery] 96 Blood Pressure Position Blood Pressure Position [Right Arm] Blood Pressure Position [Right Radial Artery] Lying Pulse Oximetry 94 93 Oxygen Delivery Method Room Air Nasal Cannula Oxygen Flow Rate 2 Sepsis Recent Fever Within 48 Hours Sepsis New/Unexplained Change in Mental Status Sepsis Action Taken by Nursing Oxygen Flow Rate - Titration Pulse Oximetry Post Tiitration 08/27/24 21:42 08/27/24 21:51 Temperature Temperature Source Pulse Rate 114 H 112 H Pulse Rate [Left Apical] Pulse Rate [Right Finger] Pulse Rhythm Pulse Rhythm [Left Apical] Pulse Rhythm [Right Finger] Pulse Strength [Left Apical] Pulse Strength [Right Finger] Respiratory Rate 24 20 Respiratory Effort / Characteristics Respiratory Depth Respiratory Pattern Blood Pressure Blood Pressure [Right Arm] Blood Pressure [Right Radial Artery] Blood Pressure Mean Blood Pressure Mean [Right Arm] Blood Pressure Mean [Right Radial Artery] Blood Pressure Position Blood Pressure Position [Right Arm] Blood Pressure Position [Right Radial Artery] Pulse Oximetry 92 93 Oxygen Delivery Method Nasal Cannula Nasal Cannula Oxygen Flow Rate 2 2 Sepsis Recent Fever Within 48 Hours Sepsis New/Unexplained Change in Mental Status Sepsis Action Taken by Nursing Oxygen Flow Rate - Titration Pulse Oximetry Post Tiitration Laboratory Data 08/27/24 18:00 08/27/24 18:00 Lab Results 08/27/24 08/27/24 08/27/24 Range/Units 18:00 18:46 18:49 WBC 18.31 H (4.8-10.8) K/ul RBC 4.78 (4.20-5.40) M/uL Hgb 11.8 L (12.0-16.0) g/dl Hct 37.6 (37.0-47.0) % MCV 78.7 L (80.0-100.0) fL MCH 24.7 L (25.0-34.0) pg MCHC 31.4 L (32.0-36.0) g/dL RDW Std Deviation 48.7 H (36.4-46.3) fL RDW Coeff of [place] 17.2 H (11.5-14.5) % Plt Count 377 (130-400) K/uL MPV 10.7 (9.4-12.4) fL Immature Gran % (Auto) 2.0 % Neut % (Auto) 63.7 % Lymph % (Auto) 25.0 % [place] % (Auto) 4.6 % Eos % (Auto) 4.1 % Baso % (Auto) 0.6 % Neut # (Auto) 11.67 H (1.40-6.50) K/uL Lymph # (Auto) 4.57 H (1.20-3.40) K/uL [place] # (Auto) 0.85 H (0.11-0.59) K/uL Eos # (Auto) 0.75 H (0.00-0.50) K/uL Baso # (Auto) 0.11 (0.00-0.20) K/uL Immature Gran # (Auto) 0.36 H (0.01-0.20) K/uL PT 10.3 (9.0-12.0) Seconds INR 0.9 (0.9-1.1) APTT 25 (21-31) Seconds PTT Ratio 0.9 VBG pH 7.39 (7.36-7.41) VBG pCO2 41 (38-50) mmHg VBG pO2 30 mmHg VBG HCO3 25 mmol/L VBG O2 Saturation < 60.0 % VBG Base Excess -0.2 mEq/L Sodium 138 (136-145) mmol/L Potassium 3.6 (3.5-5.1) mmol/L Chloride 106 (98-107) mmol/L Carbon Dioxide 24 (21-32) mmol/L Anion Gap 8 (3-11) BUN 14 (6-23) mg/dl Creatinine 0.83 (0.6-1.2) mg/dl Est Cr Clr Drug Dosing 162.7 ml/min eGFR 93.06 BUN/Creatinine Ratio 16.9 (10-20) Glucose 107 H (70-99(Fasting)) mg/dl Calcium 9.7 (8.6-10.3) mg/dl Magnesium 1.6 L (1.7-2.4) mg/dl Total Bilirubin 0.4 (0.2-1.0) mg/dl AST 27 (13-39) U/L ALT 25 (7-52) U/L Alkaline Phosphatase 45 (34-104) U/L Total Protein 7.6 (6.0-8.3) gm/dl Albumin 4.2 (3.4-5.0) gm/dl Globulin 3.4 (2.5-4.0) gm/dl Albumin/Globulin Ratio 1.2 (0.9-2) Procalcitonin < 0.02 (0-0.5) ng/ml Adenovirus (PCR) Not Detected (NotDetected) B. pertussis DNA (PCR) Not Detected (NotDetected) B.parapertussis DNA PCR Not Detected (NotDetected) C. pneumoniae DNA (PCR) Not Detected (NotDetected) Coronavirus OC43 (PCR) Not Detected (NotDetected) Coronavirus HKU1 (PCR) Not Detected (NotDetected) Coronavirus 229E (PCR) Not Detected (NotDetected) SARS-CoV-2 (PCR) Not Detected (NotDetected) Coronavirus NL63 (PCR) Not Detected (NotDetected) Human Metapneumovir PCR Not Detected (NotDetected) Influenza Type A (PCR) Not Detected (NotDetected) Influenza Type B (PCR) Not Detected (NotDetected) M. pneumoniae (PCR) Not Detected (NotDetected) Parainfluenza 1 (PCR) Not Detected (NotDetected) Parainfluenza 2 (PCR) Not Detected (NotDetected) Parainfluenza 3 (PCR) Not Detected (NotDetected) Parainfluenza 4 (PCR) Not Detected (NotDetected) RSV (PCR) Not Detected (NotDetected) Entero/Rhino (PCR) Not Detected (NotDetected) Administered Medications Discontinued Medications Albuterol (Albut/Ipratrop 3mg/0.5mg Neb 3 Ml Vial) 3 ml INH NOW STA Stop: 08/27/24 18:27 Last Admin: 08/27/24 18:50 Dose: 3 ml Documented By: GREG Albuterol (Albut/Ipratrop 3mg/0.5mg Neb 3 Ml Vial) 3 ml NEB NOW STA; Protocol Stop: 08/27/24 19:22 Last Admin: 08/27/24 19:41 Dose: 3 ml Documented By: KYUNG Magnesium Sulfate/Dextrose (Magnesium Sulfate / D5w) 1 gm in 100 mls @ 600 mls/hr IV Q10M WILVER Stop: 08/27/24 19:40 Last Infusion: 08/27/24 20:32 Dose: Infused Documented By: Admin: 08/27/24 20:07 Dose: 600 mls/hr Documented By: Infusion: 08/27/24 19:53 Dose: Infused Documented By: Admin: 08/27/24 19:42 Dose: 600 mls/hr Documented By: KYUNG Levofloxacin/Dextrose (Levaquin/D5w) 750 mg in 150 mls @ 100 mls/hr IV NOW STA Stop: 08/27/24 21:31 Last Admin: 08/27/24 20:48 Dose: Not Given Documented By: KYUNG Ioversol (Optiray 320 125ml) 119 ml IV ONCE ONE Stop: 08/27/24 21:16 Last Admin: 08/27/24 21:15 Dose: 119 ml Documented By: LOYD Methylprednisolone (Methylprednisolone 125 Mg/2 Ml Vial) 125 mg IV NOW STA Stop: 08/27/24 18:27 Last Admin: 08/27/24 18:50 Dose: 125 mg Documented By: GREG Potassium Chloride (Potassium Chloride Crtab 20 Meq Tabcr) 40 meq PO NOW STA Stop: 08/27/24 19:50 Last Admin: 08/27/24 21:17 Dose: 40 meq Documented By: KYUNG Imaging Data Radiologist's Impression: Chest X-Ray 08/27/24 18:26 HISTORY: Dyspnea. History of asthma. TECHNIQUE: Portable AP radiograph of the chest. COMPARISON: Chest radiograph dated 07/26/2024. FINDINGS: ribbon sweatband operator leads overlie the chest. No focal lung consolidation. No pneumothorax or pleural effusion. Normal heart size. Left-sided aortic arch. Midline trachea. No acute osseous abnormality. The included upper abdomen is unremarkable. IMPRESSION: No acute cardiopulmonary findings. Electronically signed by Gaetano Echevarria 08-27-2024 7:00 PM Discharge Plan Visit Data Chief Complaint: Asthma Stated Complaint: ASTHMA ATTACK, CHEST PAIN, HEAD PAIN ED Provider: Gonzalez Hutson Discharge Problem: Asthma, severe persistent Forms Stand Alone Forms: [facility] Prescriptions Prescriptions: No Action Dupixent Pen 300 mg/2 mL pen injector 600 mg subcut ONCE Qty: 4 0RF Rx Instructions: LOADING DOSE OF DUPIXENT. TO BE INJECTED IN PROVIDER'S OFFICE. Dupixent approved 07/25/24 - 11/22/24 Dupixent Pen 300 mg/2 mL pen injector 300 mg subcut Q14D Qty: 2 11RF Rx Instructions: TO BE STARTED 14 DAYS AFTER LOADING DOSE; MAINTENANCE DOSE: INJECT 300 MG (2 ML) SUBCUTANEOUSLY EVERY OTHER WEEK. Dupixent approved 07/25/24 - 11/22/24 metformin 500 mg tablet 500 mg PO BID omeprazole 40 mg capsule,delayed release(DR/EC) 40 mg PO DAILY fluoxetine 10 mg capsule 10 mg PO DAILY famotidine [Acid General Ophthalmologist (famotidine)] 10 mg Tablet 10 mg PO BID Qty: 14 0RF prednisone 10 mg tablet 10 mg PO DIRECTED Qty: 15 0RF Rx Instructions: Start taking prednisone 30 mg daily for 3 days, then take 20 mg daily for 2 days, 10 mg daily for 2 days and stop diphenhydramine HCl [Benadryl] 25 mg capsule 25 mg PO TID Qty: 9 0RF albuterol sulfate 2.5 mg /3 mL (0.083 %) solution for nebulization 2.5 mg continuous nebulization Q4H PRN (Reason: Shortness Of Breath Or Wheezing) Qty: 90 1RF albuterol sulfate 90 mcg/actuation HFA aerosol inhaler 2 inh INHALATION Q6H PRN (Reason: Shortness Of Breath Or Wheezing) Qty: 8.5 1RF Dulera 200-5 mcg/actuation HFA aerosol inhaler 2 puff INHALATION BID Qty: 8.8 0RF Combivent Respimat 20-100 mcg/actuation mist 1 puff INHALATION QID Qty: 4 0RF Referrals Referrals: Valentin Thompson MD [Primary Care Provider] -
[2024-08-27] MEDS: methylPREDNISolone 125 MG/2 ML VIAL IV STA (18:50)
[2024-08-27] MEDS: ALBUT/IPRATROP 3MG/0.5MG NEB 3 ML VIAL INH STA (18:50)
--- NOTE | 2024-08-27 19:00 | XRay Report ---
HISTORY: Dyspnea. History of asthma. TECHNIQUE: Portable AP radiograph of the chest. COMPARISON: Chest radiograph dated 07/26/2024. FINDINGS: desk monitor leads overlie the chest. No focal lung consolidation. No pneumothorax or pleural effusion. Normal heart size. Left-sided aortic arch. Midline trachea. No acute osseous abnormality. The included upper abdomen is unremarkable. IMPRESSION: No acute cardiopulmonary findings. Electronically signed by Gaetano Echevarria 08-27-2024 7:00 PM
[2024-08-27 19:10] LABS: Base Excess VBG -0.2 mEq/L; HCO3 VBG 25 mmol/L; Oxygen Saturation VBG < 60.0 %; PCO2 VBG 41 mmHg (38-50); PO2 VBG 30 mmHg; pH VBG 7.39 (7.36-7.41)
[2024-08-27 19:15] LABS: Basophils # (auto) 0.11 K/uL (0.00-0.20); Basophils % (auto) 0.6 %; Eosinophils # (auto) 0.75 K/uL (0.00-0.50); Eosinophils % (auto) 4.1 %; Hematocrit (blood only) 37.6 % (37.0-47.0); Hemoglobin 11.8 g/dl (12.0-16.0); Immature Granulocytes # (auto) 0.36 K/uL (0.01-0.20); Lymphocytes # (auto) 4.57 K/uL (1.20-3.40); Mean Corpuscular Hemoglobin 24.7 pg (25.0-34.0); Mean Corpuscular Hgb Conc 31.4 g/dL (32.0-36.0); Mean Corpuscular Volume 78.7 fL (80.0-100.0); Mean Platelet Volume 10.7 fL (9.4-12.4); Monocytes # (auto) 0.85 K/uL (0.11-0.59); Monocytes % (auto) 4.6 %; Neutrophils # (auto) 11.67 K/uL (1.40-6.50); Neutrophils % (auto) 63.7 %; Platelet Count 377 K/uL (130-400); RDW Coefficient of Variation 17.2 % (11.5-14.5); RDW Standard Deviation 48.7 fL (36.4-46.3); Red Blood Count 4.78 M/uL (4.20-5.40); White Blood Count 18.31 K/ul (4.8-10.8)
[2024-08-27 19:17] LABS: Albumin Globulin Ratio 1.2 (0.9-2); Albumin Level 4.2 gm/dl (3.4-5.0); BUN Creatinine Ratio 16.9 (10-20); Bilirubin,Total 0.4 mg/dl (0.2-1.0); Calcium 9.7 mg/dl (8.6-10.3); Creatinine Clr Calc Pharmacy 162.7 ml/min; Globulin 3.4 gm/dl (2.5-4.0); Potassium 3.6 mmol/L (3.5-5.1); Total Protein 7.6 gm/dl (6.0-8.3)
[2024-08-27] MEDS: ALBUT/IPRATROP 3MG/0.5MG NEB 3 ML VIAL NEB STA (19:41)
[2024-08-27] MEDS: MAGNESIUM SULFATE / D5W 1 GM/100 ML BAG IV SCH (19:42)
[2024-08-27 19:52] LABS: INR 0.9 (0.9-1.1); Prothrombin Time 10.3 Seconds (9.0-12.0)
[2024-08-27 20:07] LABS: Magnesium 1.6 mg/dl (1.7-2.4)
[2024-08-27 20:11] LABS: Partial Thromboplastin Ratio 0.9; Partial Thromboplastin Time 25 Seconds (21-31)
[2024-08-27 20:17] LABS: Adenovirus PCR Not Detected (NotDetected); Bordetella parapertussis PCR Not Detected (NotDetected); Bordetella pertussis PCR Not Detected (NotDetected); Chlamydia pneumoniae PCR Not Detected (NotDetected); Coronavirus 229E PCR Not Detected (NotDetected); Coronavirus CoV-2 (COVID19)PCR Not Detected (NotDetected); Coronavirus HKU1 PCR Not Detected (NotDetected); Coronavirus NL63 PCR Not Detected (NotDetected); Coronavirus OC43PCR Not Detected (NotDetected); Human Metapneumovirus PCR Not Detected (NotDetected); Influenza A PCR Not Detected (NotDetected); Influenza B PCR Not Detected (NotDetected); Mycoplasma pneumoniae PCR Not Detected (NotDetected); Parainfluenza Virus 1 PCR Not Detected (NotDetected); Parainfluenza Virus 2 PCR Not Detected (NotDetected); Parainfluenza Virus 3 PCR Not Detected (NotDetected); Parainfluenza Virus 4 PCR Not Detected (NotDetected); Respiratory Syncytial VirusPCR Not Detected (NotDetected); Rhinovirus/Enterovirus PCR Not Detected (NotDetected)
[2024-08-27] MEDS: levoFLOXacin/D5W 750 MG/150 ML BAG IV STA (20:48)
[2024-08-27] MEDS: OPTIRAY 320 125ml IV ONE (21:15)
[2024-08-27] MEDS: POTASSIUM CHLORIDE CRTAB 20 MEQ TABCR PO STA (21:17)
--- NOTE | 2024-08-27 22:01 | History & Physical Report ---
Date of Service August 27, 2024 Assessment & Plan (1) Acute hypoxemic respiratory failure: Plan: Acute hypoxemic respiratory failure Recurrent persistent asthma-COPD overlap syndrome exacerbation Patient unable to comply with home Dulera and Dupixent Rx due to insurance loss since last year. Patient thinks she will get coverage for above medications after submitting some documents next week. FREDA/nocturnal hypoxemia on CPAP elevated IgE level mood disorder, stable hypothyroidism, TSH slightly elevated prediabetes, hemoglobin A1c of 5.9 last month morbid obesity chronic anemia, hemoglobin at baseline past tobacco abuse Admit to med telemetry Supplemental O2 Hold off on antibiotics for now. Nebs RTC, prednisone course Pulmonary consult re: respiratory failure, recurrent asthma/COPD exacerbation Recheck outpatient TSH next month DVT prophylaxis. Lovenox subcu Full code Text document was generated using OtherInbox voice recognition software. It may contain grammatical or spelling errors. Kindly contact undersigned for clarification of any documentation item in question. History of Present Illness Chief Complaint: Shortness of breath, wheezing Primary Care Provider: Valentin Thompson MD Medical history significant for severe persistent asthma-COPD overlap syndrome, pulmonary nodules, FREDA/nocturnal hypoxemia on CPAP, elevated IgE level, mood disorder, hypothyroidism, prediabetes, morbid obesity, GERD, chronic anemia (baseline hemoglobin 10-11), past tobacco abuse. Monthly admissions for asthma exacerbations since April,. Attacks more frequent due to inability to comply with Dupixent and Dulera Rx due to insurance loss since last summer as per patient. Few days history of dry cough symptoms associated with shortness of breath and stabbing chest pain. Not sure about sick contacts. Denies aspiration. Compliant with home medications. Denies uncontrolled GERD symptoms. No improvement with home neb treatment. Lowest O2 sats of 80s documented at the ER. Solu-Medrol, neb treatment, Levaquin administered at the ER. 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 Allergies Allergy/AdvReac Type Severity Reaction Status Date / Time ceftriaxone Allergy Mild Rash Verified 08/27/24 22:50 pollen extracts Allergy Mild allergy sx Verified 08/27/24 22:50 Home Medications Medication Instructions Recorded Confirmed Type fluoxetine 10 mg capsule 10 mg PO DAILY 07/27/24 08/27/24 History metformin 500 mg tablet 500 mg PO BID 07/27/24 08/27/24 History omeprazole 40 mg capsule,delayed 40 mg PO DAILY 07/27/24 08/27/24 History release albuterol sulfate 2.5 mg/3 mL 2.5 mg (3 mL) continuous 07/29/24 08/27/24 Rx (0.083 %) solution for nebulization nebulization Q4H PRN Shortness Of Breath Or Wheezing #90 mL albuterol sulfate 90 mcg/actuation 2 inh inhalation Q6H PRN Shortness 07/29/24 08/27/24 Rx aerosol inhaler Of Breath Or Wheezing #8.5 grams diphenhydramine HCl 25 mg capsule 25 mg PO TID #9 caps 07/29/24 08/27/24 Rx (Benadryl) famotidine 10 mg tablet (Acid 10 mg PO BID #14 tabs 07/29/24 08/27/24 Rx Metal Sander (famotidine)) ipratropium 20 mcg-albuterol 100 1 puff inhalation QID #4 grams 07/29/24 Rx mcg/actuation mist for inhalation (Combivent Respimat) mometasone-formoterol HFA 200 2 puff inhalation BID #8.8 grams 07/29/24 08/27/24 Rx mcg-5 mcg/actuation aerosol inhaler (Dulera) dupilumab 300 mg/2 mL subcutaneous 300 mg (2 mL) subcut Q14D #2 mL 08/12/24 08/27/24 Rx pen injector (Dupixent) dupilumab 300 mg/2 mL subcutaneous 600 mg (4 mL) subcut ONCE #4 mL 08/12/24 08/27/24 Rx pen injector (Dupixent) prednisone 10 mg tablet 10 mg PO DIRECTED PRN .ASTHMA 08/27/24 08/27/24 History FLARES levothyroxine 150 mcg tablet 150 mcg PO DAILY 08/28/24 08/28/24 History Past Med/Surg History Problem List (Updated 08/28/24 @ 05:56 by Robbie Solo MD) Acute hypoxemic respiratory failure Hypoxia (Acute) Asthma with acute exacerbation (Acute) Acute severe exacerbation of asthma FREDA (obstructive sleep apnea) Multiple pulmonary nodules Allergic rhinitis with postnasal drip Asthma-COPD overlap syndrome (Acute) Ex-smoker Hypersomnia Witnessed apneic spells Nocturnal hypoxemia Laryngitis History of tobacco use Excessive daytime sleepiness Dyspnea (Acute) Dietary counseling and surveillance Acute respiratory failure with hypoxia (Acute) Elevated IgE level Peripheral eosinophilia Acute respiratory failure (Acute) Hypomagnesemia (Acute) Morbid obesity (Acute) Hypothyroidism (Chronic) Asthma, severe persistent (Chronic) Allergic rhinitis (Chronic) Bipolar disorder (Chronic) Depression (Chronic) Anxiety (Chronic) Medical History History of acute pharyngitis Asthma exacerbation Family History Mother Diabetes Social History Smoking Status: Former smoker Tobacco Type: Cigarettes Age Started Using Tobacco: 18; Age Quit Using Tobacco: 31; packs per day: 2.5; Second Hand Exposure: No; Do You Dip or Chew Tobacco: No; Hx Alcohol Use: No Hx Substance Use: No Preferred Language: Palauan Communication Ability: Effective Email Marketing Specialist Required: No Beliefs That Will Affect Care: None marital status: Current Living Situation: Spouse current occupational status: employed Feels Safe at Home: Yes Safety Concerns: Feels Safe At This Time Assistive Devices: CPAP and Glasses Review of Systems Review of Systems: As per HPI, all other systems reviewed and negative Physical Exam Physical Exam: GENERAL: pleasant, morbidly obese, no respiratory distress SKIN: Pallor, warm HEENT: Pale palpebral conjunctivae, no ptosis, dry buccal mucosa, nasal cannula in place NECK : Supple, short neck, no tenderness CHEST : Decreased breath sounds, diffuse expiratory wheezes, no tenderness HEART : Tachycardic, no obvious murmurs ABDOMEN: Some distention, nontender EXTREMITIES : Minimal LE swelling, no LE tenderness, no other conspicuous deformities noted NEUROLOGIC : Coherent, no facial asymmetry, no other gross focality Results & Data Results & Data Vital Signs (Past 12 Hours) Vital Signs Temp Pulse Pulse Pulse Resp BP BP 08/27/24 21:51 112 H 20 08/27/24 21:42 114 H 24 08/27/24 21:40 113 H 08/27/24 21:30 114 H 22 122/55 L 08/27/24 20:46 08/27/24 19:45 108 H 19 08/27/24 18:26 08/27/24 18:00 119 H 15 08/27/24 18:00 114 H 16 123/98 08/27/24 18:00 08/27/24 17:57 124 H 08/27/24 17:29 36.6 C 132 H 24 166/101 H 08/27/24 17:27 BP Pulse Ox O2 Del Method O2 Flow Rate 08/27/24 21:51 93 Nasal Cannula 2 08/27/24 21:42 92 Nasal Cannula 2 08/27/24 21:40 08/27/24 21:30 93 Nasal Cannula 2 08/27/24 20:46 88 L Nasal Cannula 0 08/27/24 19:45 129/84 95 Nebulizer 9 08/27/24 18:26 91 Room Air 08/27/24 18:00 94 Room Air 08/27/24 18:00 93 Room Air 08/27/24 18:00 CPAP 08/27/24 17:57 08/27/24 17:29 95 Room Air 08/27/24 17:27 Room Air Laboratory Results Laboratory Results WBC 18.31 K/ul (4.8-10.8) H 08/27/24 18:00 RBC 4.78 M/uL (4.20-5.40) 08/27/24 18:00 Hgb 11.8 g/dl (12.0-16.0) L 08/27/24 18:00 Hct 37.6 % (37.0-47.0) 08/27/24 18:00 MCV 78.7 fL (80.0-100.0) L 08/27/24 18:00 MCH 24.7 pg (25.0-34.0) L 08/27/24 18:00 MCHC 31.4 g/dL (32.0-36.0) L 08/27/24 18:00 RDW Std Deviation 48.7 fL (36.4-46.3) H 08/27/24 18:00 RDW Coeff of Laron 17.2 % (11.5-14.5) H 08/27/24 18:00 Plt Count 377 K/uL (130-400) 08/27/24 18:00 MPV 10.7 fL (9.4-12.4) 08/27/24 18:00 Immature Gran % (Auto) 2.0 % 08/27/24 18:00 Neut % (Auto) 63.7 % 08/27/24 18:00 Lymph % (Auto) 25.0 % 08/27/24 18:00 Cataño % (Auto) 4.6 % 08/27/24 18:00 Eos % (Auto) 4.1 % 08/27/24 18:00 Baso % (Auto) 0.6 % 08/27/24 18:00 Neut # (Auto) 11.67 K/uL (1.40-6.50) H 08/27/24 18:00 Lymph # (Auto) 4.57 K/uL (1.20-3.40) H 08/27/24 18:00 Cataño # (Auto) 0.85 K/uL (0.11-0.59) H 08/27/24 18:00 Eos # (Auto) 0.75 K/uL (0.00-0.50) H 08/27/24 18:00 Baso # (Auto) 0.11 K/uL (0.00-0.20) 08/27/24 18:00 Immature Gran # (Auto) 0.36 K/uL (0.01-0.20) H 08/27/24 18:00 PT 10.3 Seconds (9.0-12.0) 08/27/24 18:00 INR 0.9 (0.9-1.1) 08/27/24 18:00 APTT 25 Seconds (21-31) 08/27/24 18:00 PTT Ratio 0.9 08/27/24 18:00 VBG pH 7.39 (7.36-7.41) 08/27/24 18:46 VBG pCO2 41 mmHg (38-50) 08/27/24 18:46 VBG pO2 30 mmHg 08/27/24 18:46 VBG HCO3 25 mmol/L 08/27/24 18:46 VBG O2 Saturation < 60.0 % 08/27/24 18:46 VBG Base Excess -0.2 mEq/L 08/27/24 18:46 Sodium 138 mmol/L (136-145) 08/27/24 18:00 Potassium 3.6 mmol/L (3.5-5.1) 08/27/24 18:00 Chloride 106 mmol/L (98-107) 08/27/24 18:00 Carbon Dioxide 24 mmol/L (21-32) 08/27/24 18:00 Anion Gap 8 (3-11) 08/27/24 18:00 BUN 14 mg/dl (6-23) 08/27/24 18:00 Creatinine 0.83 mg/dl (0.6-1.2) 08/27/24 18:00 Est Cr Clr Drug Dosing 162.7 ml/min 08/27/24 18:00 eGFR 93.06 08/27/24 18:00 BUN/Creatinine Ratio 16.9 (10-20) 08/27/24 18:00 Glucose 107 mg/dl (70-99(Fasting)) H 08/27/24 18:00 Calcium 9.7 mg/dl (8.6-10.3) 08/27/24 18:00 Magnesium 1.6 mg/dl (1.7-2.4) L 08/27/24 18:00 Total Bilirubin 0.4 mg/dl (0.2-1.0) 08/27/24 18:00 AST 27 U/L (13-39) 08/27/24 18:00 ALT 25 U/L (7-52) 08/27/24 18:00 Alkaline Phosphatase 45 U/L (34-104) 08/27/24 18:00 Total Protein 7.6 gm/dl (6.0-8.3) 08/27/24 18:00 Albumin 4.2 gm/dl (3.4-5.0) 08/27/24 18:00 Globulin 3.4 gm/dl (2.5-4.0) 08/27/24 18:00 Albumin/Globulin Ratio 1.2 (0.9-2) 08/27/24 18:00 Procalcitonin < 0.02 ng/ml (0-0.5) 08/27/24 18:00 Adenovirus (PCR) Not Detected (NotDetected) 08/27/24 18:49 B. pertussis DNA (PCR) Not Detected (NotDetected) 08/27/24 18:49 B.parapertussis DNA PCR Not Detected (NotDetected) 08/27/24 18:49 C. pneumoniae DNA (PCR) Not Detected (NotDetected) 08/27/24 18:49 Coronavirus OC43 (PCR) Not Detected (NotDetected) 08/27/24 18:49 Coronavirus HKU1 (PCR) Not Detected (NotDetected) 08/27/24 18:49 Coronavirus 229E (PCR) Not Detected (NotDetected) 08/27/24 18:49 SARS-CoV-2 (PCR) Not Detected (NotDetected) 08/27/24 18:49 Coronavirus NL63 (PCR) Not Detected (NotDetected) 08/27/24 18:49 Human Metapneumovir PCR Not Detected (NotDetected) 08/27/24 18:49 Influenza Type A (PCR) Not Detected (NotDetected) 08/27/24 18:49 Influenza Type B (PCR) Not Detected (NotDetected) 08/27/24 18:49 M. pneumoniae (PCR) Not Detected (NotDetected) 08/27/24 18:49 Parainfluenza 1 (PCR) Not Detected (NotDetected) 08/27/24 18:49 Parainfluenza 2 (PCR) Not Detected (NotDetected) 08/27/24 18:49 Parainfluenza 3 (PCR) Not Detected (NotDetected) 08/27/24 18:49 Parainfluenza 4 (PCR) Not Detected (NotDetected) 08/27/24 18:49 RSV (PCR) Not Detected (NotDetected) 08/27/24 18:49 Entero/Rhino (PCR) Not Detected (NotDetected) 08/27/24 18:49 Impressions Chest X-Ray 08/27/24 18:26 HISTORY: Dyspnea. History of asthma. TECHNIQUE: Portable AP radiograph of the chest. COMPARISON: Chest radiograph dated 07/26/2024. FINDINGS: radiation monitor leads overlie the chest. No focal lung consolidation. No pneumothorax or pleural effusion. Normal heart size. Left-sided aortic arch. Midline trachea. No acute osseous abnormality. The included upper abdomen is unremarkable. IMPRESSION: No acute cardiopulmonary findings. Electronically signed by Gaetano Echevarria 08-27-2024 7:[address] chest: 1. No pulmonary embolus. 2. There are a few scattered pulmonary nodules measuring up to 5 mm. Fleischner Society Guidelines suggest one should consider a follow-up chest CT at 12 months in low-risk or high-risk patients due to the morphology and/or location of this nodule. If unchanged, no further follow-up is necessary. Diagnostic Findings EKG as per my interpretation :Rate 120, sinus tachycardia, normal axis, no ischemia
[2024-08-27] MEDS ORDERED: PROMETHAZINE 12.5 MG/50.5 ML BAG IV PRN (22:14)
[2024-08-27] MEDS ORDERED: oxyCODONE HCL IR 5 MG TAB (IMMEDIATE RELEASE) PO PRN (22:19)
[2024-08-27 22:39] LABS: Thyroid Stimulating Hormone 5.566 uIu/ml (0.300-4.500)
[2024-08-27] MEDS: guaiFENesin 600 MG TABCR PO STA (22:47)
[2024-08-27 23:15] LABS: T4 Free Thyroxine 0.84 ng/dl (0.61-1.60)
[2024-08-27] MEDS: NSS + 20MEQ KCL 20 MEQ/1,000 ML BAG IV STA (23:26)
--- NOTE | 2024-08-27 23:28 | CT Scan Report ---
Exam(s): CTA CHEST IV Amt: 119ml optiray 320 EXAM: CT Angiography Chest With Intravenous Contrast CLINICAL HISTORY: Chest Pain. TECHNIQUE: Axial computed tomographic angiography images of the chest with intravenous contrast. MIPS images were created and reviewed. CTDI is 28. 14 mGy and DLP is 918.79 mGy-cm. Automated exposure control was utilized for the study. A dose lowering technique was utilized adhering to the principles of ALARA. MIP reconstructed images were created and reviewed. COMPARISON: No relevant prior studies available. FINDINGS: Pulmonary arteries: Unremarkable. No pulmonary embolus. Aorta: No acute findings. No thoracic aortic aneurysm. Lungs: There are a few scattered pulmonary nodules measuring up to 5 mm. No consolidation. Pleural space: Unremarkable. No significant effusion. No pneumothorax. Heart: Unremarkable. No cardiomegaly. No significant pericardial effusion. No evidence of RV dysfunction. Bones/joints: No acute fracture. No dislocation. Soft tissues: Unremarkable. Lymph nodes: Unremarkable. No enlarged lymph nodes. IMPRESSION: 1. No pulmonary embolus. 2. There are a few scattered pulmonary nodules measuring up to 5 mm. Fleischner Society Guidelines suggest one should consider a follow-up chest CT at 12 months in low-risk or high-risk patients due to the morphology and/or location of this nodule. If unchanged, no further follow-up is necessary. Electronically signed by: Rianna Juarez MD 08/27/24 23:27 PM
--- OUTSIDE RECORDS SUMMARY | 2024-08-28 00:15 | External Medical Summary | Summary of Care ---
Author Name Unknown Organization [facility] Address [address] [place] [address] Phone [phone] Care Team Providers Care Centrifugal Drier Operator Name Role Phone Valentin Thompson MD Primary Care Provide r Reason for Visit * Reason Onset Date Comments Appointment 08/08/2024 Encounter Details Date Type Department Care Team (Late st Contact Info) Description 08/08/2024 Telephone Family Medicine [address] [phone] Valentin Thompson MD [address] [place] [address] [phone] Appointment Allergies Active Allergy Reactions Criticality Noted Date Comments Ceftriaxone Hives,Itching,Nausea /vom iting,Rash Medium 07/28/2024 Environmental Low 12/21/2007 Dogs,cats,pollen, grass,molds.dust mites, documented as of this encounter (statuses as of 08/09/2024) Medications Dulera 200-5 MCG/ACT Inhalation Aerosol (Mometasone Furo-Formoterol Fum)Indications: Severe persistent asthma with acute exacerbation Inhale 2 Puffs by mouth 2 times a day. 13 g 1 1 Active Additional Information Patient not taking.Reported on 08/05/2024 Albuterol Sulfate (2.5 MG/3ML) 0.083% Inhalation Nebulization [...] A DAY 4 g 1 5 Active Albuterol Sulfate HFA 108 (90 Base) MCG/ACT Inhalation Aerosol Solution INHALE 2 PUFFS EVERY 6 HOURS NEEDED FOR WHEEZE OR FOR SHORTNESS OF BREATH 5 Active Fluticasone Furoate-Vilanter ol 100-25 MCG/ACT Inhalation Aerosol Powder Breath Activated (BREO ellipta) Inhale 1 Puff by mouth in the morning. Active Ipratropium-Albu terol 0.5-2.5 (3) MG/3ML Inhalation Solution (Duoneb) Inhale 3 mL via nebulizer in the morning and 3 mL at noon and 3 mL in the evening and 3 mL before bedtime. 360 mL 3 5 Active predniSONE 20 MG Oral Tablet (Deltasone) Take 2 Tablets by mouth in the morning for 5 days. When asthma flares. 10 Tablet 3 5 08/10/19 25 Active documented as of this encounter (statuses as of 08/09/2024) Active Problems Problem Noted Date Diagnosed Date [...] as of this encounter (statuses as of 08/09/2024) Resolved Problems Problem Noted Date Diagnosed Date Resolved Date Body mass index (BMI) of 50. 0 to 59.9 in adult 03/23/2017 07/29/2019 Overview: Per Obesity protocol #1 ADVANCE DIRECTIVE INFORMATION 10/18/2012 04/25/2024 Overview (09/13/2012): Patient declined History of gestational diabe danielle in prior , currently 10/18/2012 05/04/2013 Supervision of other high-risk 09/22/2012 03/17/2013 Overview (09/25/2015): [facility] 09/13/12: 1. Recommend restricting weight gain during to 11-20 pounds. Consider referral for nutrition consult. 2. For patients with Class 3 obesity, we recommend baseline pre-eclamptic labs (creatinine, 24 hour urine protein) YANY if not already done-completed 3. Recommend obtaining early GDM screen (normal) and repeat again at 26-28 weeks (normal) if early screen is normal. 4. Recommend [facility] ultrasound for anatomy screen at [...] brochure offered , patient declined. HBP PF [id number] HIGH-RISK PREG NOS 12/22/2007 05/15/2008 Supervision of other high-risk 12/22/2007 05/15/2008 Overview (09/25/2015): ICD-10 update of inactive term HBP PF 09/14/2007 12/22/2007 Status asthmaticus 0 Other acne 08/23/2015 BMI 40.0-44.9, adult 017 Overview: Per Obesity protocol #1 documented as of this encounter (statuses as of 08/09/2024) Immunizations Name Administration Dates Next Due COVID-19 mRNA, LNP-s, No Pre serve, 2-Dose Series (Pfizer) 11/16/2020 COVID-19, MRNA-LNP, PF, 30 M CG/0.3 mL, 12 YRS AND ABOVE, IM (PFIZER-Comirnaty) 05/08/2023 HPV Vaccine, 4-Valent 03/29/2009,11/27/2008,07/2008 PPD 11/10/2007 Pneumococcal Conjugate Vacci ne, 20-valent ([id number]) 05/08/2023 Pneumococcal Polysaccharide PPV23 (Pneumovax) 09/21/2008 Seasonal [...] encounter Miscellaneous Notes * Telephone Encounter - Christy Mahmood OSA - 08/09/2024 11:14 AM EST 2nd attempt to contact patient. Patient disconnected. No further attempts will be made. * Telephone Encounter - Christy Mahmood OSA - 08/08/2024 10:03 AM EST Called patient to offer 40 minute PCP appointment per complexity report. Patient disconnected. documented in this encounter Plan of Treatment Upcoming Encounters Date Type Department Care Team (Late st Contact Info) Description 09/28/2024 12:40 PM EDT Office Visit Family Medicine [address] [place] [phone] Muna García MD [address] [place] [address] [place] [phone] Health Maintenance Due Date [...] on patient's age to complete this topic Meningitis B Vaccine (Bexsero/Trumemba) Aged Out No longer eligible based on patient's age to complete this topic documented as of this encounter Medical Devices Not on filedocumented as of this encounter Care Teams Centrifugal Drier Operator Relationship Specialty Start Date End Date Valentin Thompson MD [address] [place] [address] [place] [id number] PCP - General Family Medicine 06/27/24 documented as of this encounter
--- OUTSIDE RECORDS SUMMARY | 2024-08-28 00:15 | External Medical Summary | Summary of Care ---
Author Name Unknown Organization [facility] Address [address] [place] [address] Phone [phone] Care Team Providers Care Soldering Machine Setter Name Role Phone Valentin Thompson MD Primary Care Provide r Reason for Visit * Reason Onset Date Comments Appointment 08/08/2024 Encounter Details Date Type Department Care Team (Late st Contact Info) Description 08/08/2024 Telephone Family Medicine [address] [phone] Valentin Thompson MD [address] [place] [address] [phone] Appointment Allergies Active Allergy Reactions Criticality Noted Date Comments Ceftriaxone Hives,Itching,Nausea /vom iting,Rash Medium 07/28/2024 Environmental Low 12/21/2007 Dogs,cats,pollen, grass,molds.dust mites, documented as of this encounter (statuses as of 08/08/2024) Medications Dulera 200-5 MCG/ACT Inhalation Aerosol (Mometasone [...] as of this encounter (statuses as of 08/08/2024) Active Problems Problem Noted Date Diagnosed Date [...] as of this encounter (statuses as of 08/08/2024) Resolved Problems Problem Noted Date Diagnosed Date Resolved Date Body mass index (BMI) of 50. 0 to 59.9 in adult 03/23/2017 07/29/2019 Overview: Per Obesity protocol #1 ADVANCE DIRECTIVE INFORMATION 10/18/2012 04/25/2024 Overview (09/13/2012): Patient declined History of gestational diabe danielle in prior , currently 10/18/2012 05/04/2013 Supervision of other high-risk 09/22/2012 03/17/2013 Overview (09/25/2015): [facility] 09/13/12: 1. Recommend restricting weight gain during to 11-20 pounds. Consider referral for nutrition consult. 2. For patients with Class 3 obesity, we recommend baseline pre-eclamptic labs (creatinine, 24 hour urine protein) YANY if not already done-completed 3. Recommend obtaining early GDM screen (normal) and repeat again at 26-28 weeks (normal) if early screen is normal. 4. Recommend [facility] ultrasound for anatomy screen at 20 weeks [...] brochure offered , patient declined. HBP PF [id number] HIGH-RISK PREG NOS 12/22/2007 05/15/2008 Supervision of other high-risk 12/22/2007 05/15/2008 Overview (09/25/2015): ICD-10 update of inactive term HBP PF 09/14/2007 12/22/2007 Status asthmaticus 0 Other acne 08/23/2015 BMI 40.0-44.9, adult 017 Overview: Per Obesity protocol #1 documented as of this encounter (statuses as of 08/08/2024) Immunizations Name Administration Dates Next Due COVID-19 mRNA, LNP-s, No Pre serve, 2-Dose Series (Pfizer) 11/16/2020 COVID-19, MRNA-LNP, PF, 30 M CG/0.3 mL, 12 YRS AND ABOVE, IM (PFIZER-Comirnaty) 05/08/2023 HPV Vaccine, 4-Valent 03/29/2009,11/27/2008,07/2008 PPD 11/10/2007 Pneumococcal Conjugate Vacci ne, 20-valent ([id number]) 05/08/2023 Pneumococcal Polysaccharide PPV23 (Pneumovax) 09/21/2008 Seasonal [...] 12:40 PM EDT Office Visit Family Medicine [address] [place] [phone] Muna García MD [address] [place] [address] [place] [phone] Health Maintenance Due Date [...] filedocumented as of this encounter Care Teams Soldering Machine Setter Relationship Specialty Start Date End Date Valentin Thompson MD [address] [place] [address] [place] [phone] PCP - General Family Medicine 06/27/24 documented as of this encounter
--- OUTSIDE RECORDS SUMMARY | 2024-08-28 00:15 | External Medical Summary | Summary of Care ---
Author Name Unknown Organization [facility] Address [address] [place] [address] Phone [phone] Care Team Providers Care Gas Maker Helper Name Role Phone Valentin Thompson MD Primary Care Provide r Reason for Visit * Reason Onset Date Comments Hospital Follow-Up Hospital Follow-Up 08/05/2024 Encounter Details Date Type Department Care Team (Late st Contact Info) Description 08/05/2024 9:00 AM EST Office Visit Family Medicine [address] [phone] Muna García MD [address] [place] [address] [place] [phone] Hospital discharge follow-up*; Severe persistent asthma without complication; Body mass index 60.0-69.9, adult (HCC); Leukocytosis, unspecified type Allergies Active Allergy Reactions Criticality Noted Date Comments Ceftriaxone Hives,Itching,Nausea /vom iting,Rash Medium 07/28/2024 Environmental Low 12/21/2007 Dogs,cats,pollen, grass,molds.dust mites, documented as of this encounter (statuses as of 08/05/2024) Medications Dulera 200-5 MCG/ACT Inhalation Aerosol (Mometasone [...] as of this encounter (statuses as of 08/05/2024) Active Problems Problem Noted Date Diagnosed Date [...] as of this encounter (statuses as of 08/05/2024) Resolved Problems Problem Noted Date Diagnosed Date [...] if early screen is normal. 4. Recommend MFM ultrasound for anatomy screen at 20 weeks [...] brochure offered , patient declined. HBP PF [id number] HIGH-RISK PREG NOS 12/22/2007 05/15/2008 Supervision of other high-risk 12/22/2007 05/15/2008 Overview (09/25/2015): ICD-10 update of inactive term HBP PF 09/14/2007 12/22/2007 Status asthmaticus 0 Other acne 08/23/2015 BMI 40.0-44.9, adult 017 Overview: Per Obesity protocol #1 documented as of this encounter (statuses as of 08/05/2024) Immunizations Name Administration Dates Next Due COVID-19 mRNA, LNP-s, No Pre serve, 2-Dose Series (Pfizer) 11/16/2020 COVID-19, MRNA-LNP, PF, 30 M CG/0.3 mL, 12 YRS AND ABOVE, IM (PFIZER-Comirnaty) 05/08/2023 HPV Vaccine, 4-Valent 03/29/2009,11/27/2008,07/2008 PPD 11/10/2007 Pneumococcal Conjugate Vacci ne, 20-valent ([id number]) 05/08/2023 Pneumococcal Polysaccharide PPV23 (Pneumovax) 09/21/2008 Seasonal [...] Sign Reading Time Taken Comments Blood Pressure 122/84 08/05/2024 8:50 AM EST Pulse 101 08/05/2024 8:50 AM EST Temperature 35.5 C (95.9 F) 08/05/2024 8:50 AM ES T Respiratory Rate - - Oxygen Saturation 97% 08/05/2024 8:50 AM EST Inhaled Oxygen Concentration - - Weight 191.1 kg (421 lb 3.2 oz) 08/05/2024 8:50 AM EST Height 167.6 cm (5' 6") 08/05/2024 8:50 AM EST Body Mass Index 67.98 08/05/2024 8:50 AM EST documented in this encounter Patient Instructions * Patient Instructions* Muna García MD - 08/05/2024 8:52 AM EST Taking an Active Role in [...] and pharmacist about all the prescription and [id number] medicines you take.This includes vitamins and herbal remedies. Tell your doctor and pharmacist if you have any medical conditions or allergies to any medicine or food, or if you are or . Keep a list of all your medicines. Use the sample to the right as a guide for the type of information needed. [id number] Naveen Caro, [address] [place] [address], [place] [address]. All rights reserved. This information is not intended as a substitute for professional medical care. Always follow your healthcare professional's instructions. documented in this encounter Progress Notes * Muna García MD - 08/05/2024 8:52 AM EST SUBJECTIVE: Lizzeth Arthur is a 39 year old female. Chief Complaint Patient presents with Hospital Follow-Up Hospital Follow-Up Recent Admission: Patient was recently admitted to [facility] 07/26. The date of discharge was 07/29. Discharge report receivedand reviewed. Asthma exacerbation, sent home on prednisone taper. Treated with rocephin and levaquin for a UTI aswell x 3 days. HPI: History of Present Illness The patient, with a history of asthma, presents for a follow-up after a recent hospital admission from the second to the seventh of the month due to an asthma exacerbation. She reports that her whitecell count has been consistently high for as long as she can remember, which has recently become a concern. She has had multiple asthma exacerbations recently and has been on several courses of steroids, which could potentially explain the elevated white cell count. Sees Pulm and Allergy. Dupixant helps but couldn't afford it, getting assistance program. The patient is currently waiting for approval for Dupixent shots to better control her asthma. She also expresses interest in ipratropium for the nebulizer, which she used to mix with her albuterol. She has run low on her supply and would like a refill. The patient also mentions that she has a prescription for steroids at home to use when she feels her asthma is getting out of hand. She has used up her last prescription and would like a refill. Patient Active Problem List Diagnosis Allergic rhinitis, seasonal Asthma, severe persistent Depression with anxiety Acquired hypothyroidism Multiple thyroid nodules Bipolar disorder, currently in remission, most recent episode unspecified (HCC) Body mass index 60.0-69.9, adult ([facility]) Prediabetes Current Outpatient Medications Medication Sig Dispense Refill Dulera 200-5 MCG/ACT Inhalation Aerosol (Mometasone Furo-Formoterol Fum) Inhale 2 Puffs by mouth 2 times a day. 13 g 1 Albuterol Sulfate (2.5 MG/3ML) 0.083% Inhalation Nebulization Solution (Proventil) INHALE 1 VIAL VIA NEBULIZER EVERY 4 HOURS NEEDED FOR WHEEZING. 375 mL 1 Vitamin B 12 500 MCG Oral Tablet Take by mouth. FLUoxetine HCl 10 MG Oral Capsule (PROzac) [...] with morning andevening meals. 180 Tablet 1 Combivent Respimat 20-100 MCG/ACT Inhalation Aerosol Solution (Ipratropium- Albuterol) INHALE 1 PUFFBY MOUTH 4 TIMES A DAY 4 g 1 No current facility-administered medications for this visit. Current and discharge medications have been reconciled. Review of patient's allergies indicates: Allergen Reactions Environmental Dogs,cats,pollen, grass,molds.dust mites, OBJECTIVE: BP 122/84 | Pulse 101 | Temp 95.9 F (35.5 C) (Tympanic) | Ht 5' 6" (1.676 m) | Wt (!) 421 lb 3.2 oz (191.1 kg) | SpO2 97% | BMI 67.98 kg/m | BSA 2.98 m PHYSICAL EXAM: BP 122/84 | Pulse 101 | Temp 95.9 F (35.5 C) (Tympanic) | Ht 5' 6" (1.676 m) | Wt (!) 421 lb 3.2 oz (191.1 kg) | SpO2 97% | BMI 67.98 kg/m | BSA 2.98 m General: alert, healthy, and no distress Neck: supple, non-tender, without nodularity Lymph: no palpable lymphadenopathy Heart: regular rate & rhythm, no murmur, and no gallops Lungs: chest symmetric with normal AP diameter, no chest deformities noted, no chest wall tenderness, lungs clear to auscultation Extremities: no joint deformities, effusion, or inflammation ASSESSMENT: Hospital discharge follow-up (Primary) - DISCH MED RECON CUR MED LIS Severe persistent asthma Body mass index 60.0-69.9, adult (HCC) Leukocytosis, unspecified type Likely related to multiple recent exacerbations of her asthma and multiple recent courses of steroids. We will recheck CBC in a month as long as she is able to stay off the steroids in the meantime. - CBC; Future; Expected date: 09/02/2024 Other orders - Ipratropium-Albuterol 0.5-2.5 (3) MG/3ML Inhalation Solution (Duoneb); Inhale 3 mL via nebulizer in the morning and 3 mL at noon and 3 mL in the evening and 3 mL before bedtime. - predniSONE 20 MG Oral Tablet (Deltasone); Take 2 Tablets by mouth in the morning for 5 days. When asthma flares. Follow Up: Return in 3 months (on 11/02/2024). Assessment & Plan Asthma Recent hospitalization occurred due to an exacerbation. A chronic high white cell count may be linked to frequent exacerbations and steroid use. Dupixent therapy is pending approval. Continue currentasthma management. Check CBC in one month to assess baseline white cell count, assuming no acute exacerbations or steroid use occur in the interim. Nebulizer therapy A request for Ipratropium for nebulizer use has been made. Prescribe DuoNeb (Ipratropium/Albuterol combination) for nebulizer use. Caution is advised against concurrent use with Combivent. Steroid use A recent steroid course was completed for an asthma exacerbation, and the previous prescription foremergency use is depleted. Prescribe a steroid burst for emergency use at home with several refills. Follow-up is scheduled for September 2024 to review lab results and overall health status. PLAN: Follow up in 2 month(s) as scheduled I spent a total of 20-29 minutes (exact time 29 mins) minutes on the date of service in preparation, delivery, and documentation of the care provided to Lizzeth Arthur excluding any time spent in performance of separately billed services. Muna Bo MD documented in this encounter Nursing Notes * Kelly Pelaez CMA - 08/05/2024 8:51 AM EST Hospital f/u. Was back in hospital with Asthma complications. Pt reports has been doing good since she got out of hospital. Does see Customer Services Manager and merchandise planner reports issues started after she had to stop dupixent do to her insurance stopped covering, states she should be able to start again soon as she is going to be getting med from the company documented in this encounter Plan of Treatment Upcoming Encounters Date Type Department Care Team (Late st Contact Info) Description 09/28/2024 12:40 PM EDT Office Visit Family Medicine [address] [place] [phone] Muna García MD [address] [place] [address] [place] [phone] Scheduled Orders Name Type Priority Associated Diagnoses Orde r Schedule CBC Lab Routine Leukocytosis, unspecified type Expected: 09/02/2024 (Approximate), Expires: 08/05/2025 Health Maintenance Due Date Last Done Comments [...] adult (HCC) Body Mass Index 60.0-69.9, adult Leukocytosis, unspecified type documented in this encounter Care Teams Gas Maker Helper Relationship Specialty Start Date End Date Valentin Thompson MD [address] [place] [address] [place] [address] PCP - General Family Medicine 06/27/24 documented as of this encounter
--- OUTSIDE RECORDS SUMMARY | 2024-08-28 00:15 | External Medical Summary | Summary of Care ---
Author Name Unknown Organization [facility] Address [address] [place] [address] Phone [phone] Care Team Providers Care Master Dyer Name Role Phone Valentin Thompson MD Primary Care Provide r Reason for Visit * Reason Onset Date Comments Hospital Follow-Up 08/01/2024 [facility] Encounter Details Date Type Department Care Team (Late st Contact Info) Description 08/01/2024 Telephone [address] [place] [id number] Adri Higgins RN Hospital Follow-Up ([facility]) Allergies Active Allergy Reactions Criticality Noted Date Comments Environmental 12/21/2007 Dogs,cats,pollen, grass,molds.dust mites, documented as of this encounter (statuses as of 08/01/2024) Medications Dulera 200-5 MCG/ACT Inhalation Aerosol (Mometasone Furo-Formoterol Fum)Indications: Severe persistent asthma with acute exacerbation Inhale 2 Puffs by mouth 2 times a day. 13 g 1 Active Albuterol Sulfate (2.5 MG/3ML) 0.083% [...] A DAY 4 g 1 5 Active predniSONE 20 MG Oral Tablet (Deltasone)Indic ations:Neck pain 2 tablets daily for 5 days then 1 tablet daily 15 Tablet 5 025 Discontin ued(Medic ation List Clean Up) documented as of this encounter (statuses as of 08/01/2024) Active Problems Problem Noted Date Diagnosed Date [...] as of this encounter (statuses as of 08/01/2024) Resolved Problems Problem Noted Date Diagnosed Date [...] if early screen is normal. 4. Recommend [facility] ultrasound for anatomy screen at 20 [...] brochure offered , patient declined. HBP PF [id number] HIGH-RISK PREG NOS 12/22/2007 05/15/2008 Supervision of other high-risk 12/22/2007 05/15/2008 Overview (09/25/2015): ICD-10 update of inactive term HBP PF 09/14/2007 12/22/2007 Status asthmaticus 0 Other acne 08/23/2015 BMI 40.0-44.9, adult 017 Overview: Per Obesity protocol #1 documented as of this encounter (statuses as of 08/01/2024) Immunizations Name Administration Dates Next Due COVID-19 mRNA, LNP-s, No Pre serve, 2-Dose Series ([employer]) 11/16/2020 COVID-19, MRNA-LNP, PF, 30 M CG/0.3 mL, 12 YRS AND ABOVE, IM (PFIZER-Comirnaty) 05/08/2023 HPV Vaccine, 4-Valent 03/29/2009,11/27/2008,0407/2008 PPD 11/10/2007 Pneumococcal Conjugate Vacci ne, 20-valent ([id number]) 05/08/2023 Pneumococcal Polysaccharide PPV23 (Pneumovax) 09/21/2008 Seasonal [...] Telephone Encounter - Adri Higgins RN - 08/01/2024 1:51 PM EST Transitions of Care Note Reason for Referral:Recent Admission Phone visit for follow up: FLORENCIO Admitted to: [facility], Date: 07.26.24 Discharged to: home, Date: 07.29.24 Diagnosis driving hospitalization: Acute Asthma exacerbation Acute respiratory failure with hypoxia Leukocytosis Source/Contact: Patient SUBJECTIVE Consent: Verbal consent for review of hospital discharge: Yes REVIEW OF SYSTEMS Patient/Other Reports: Current patient/caregiver problems or concerns: patient did not fill the benadryl or the famotidine, Patient states she is on omeprazole and doing fine. She also has allergy reliev if needed. CV: Denies problems Pulmonary: Denies problems Chills/Sweats/Fever:Denies [...] understand instructions, process information. MEDICATION RECONCILIATION Medications: New medication(s) filled since hospitalization- patient only filled the prednisone Prescriptions recommended famotidine [Acid Surveillance Dual Rate Officer (famotidine)] 10 mg Tablet 10 mg PO BID Qty: 14 0RF - patient states she is on omeprazole and doing well prednisone 10 mg tablet 10 mg PO DIRECTED Qty: 15 0RF Rx Instructions: Start taking prednisone 30 mg daily for 3 days, then take 20 mg daily for 2 days, 10 mg daily for 2days and stop diphenhydramine HCl [Benadryl] 25 mg capsule 25 mg PO TID Qty: 9 0RF OBJECTIVE ASSESSMENT Medication Risk Assessment: No risks identified Did patient fail outpatient treatment? No Discharge instructions available for review? Yes PLAN Symptom Monitoring Interventions:Member/caregiver education - signs and symptoms to contact PrimaryCare (DO NOT DELETE-Three cespedes symptoms patient is to report to PCP) 1. Chest pain / sob 2. Worsening breathing 3. Worsening symptoms Director Of Real EstatePhlebotomy Support Tech of Care interventions/Action Plan: 5 - 7 day follow-up with PCP in place - Date: 08.05.24 Dr. Correa Educated on role of FLORENCIO completed with patient/caregiver. Educated patient/caregiver on patient right to have input on FLORENCIO plan of care. Verification of Home Health/DME if indicated: NO Identified Care Gaps: Yes Care Gaps closed this call: Transition of Care follow-up communication Re-evaluation of Plan of Care and progress towards goals achievement: Patient education this visit: Verbal, patient to discuss omeprazole and the famotidine that was prescribed to patient , finish the prenisone and call if any problems sooner than appointment. Plan to follow-up as previously scheduled, instructed to call Primary Care Provider with change in symptoms or as needed before next follow-up, verbalizes understanding and agrees with plan. Adri Higgins RN documented in this encounter Plan of Treatment Upcoming Encounters Date Type Department Care Team (Late st Contact Info) Description 08/05/2024 9:00 AM EST Office Visit [address] [place] [id number] Muna García MD [address] [place] [address] [place] [phone] 09/28/2024 12:40 PM EDT Office Visit [address] [place] [phone] Muna García MD [address] [place] [address] [place] [phone] Health Maintenance Due Date Last Done Comments [...] filedocumented as of this encounter Care Teams Master Dyer Relationship Specialty Start Date End Date Valentin Thompson MD [address] [place] [address] [place] [address] PCP - General Family Medicine 06/27/24 documented as of this encounter
[2024-08-28] MEDS: IPRATROPIUM BROMIDE NEB SOLN 0.02% 0.5MG/2.5ML VIAL INH SCH (01:24)
[2024-08-28] MEDS: LEVALBUTEROL 1.25 MG/3 ML NEB NEB SCH (01:24)
[2024-08-28] MEDS: LEVOTHYROXINE SODIUM 150 MCG TABLET PO SCH (07:00)
[2024-08-28] MEDS: ENOXAPARIN INJ 40 MG/0.4 ML SYR SQ SCH (08:26)
[2024-08-28] MEDS: FAMOTIDINE 10 MG TABLET PO SCH (08:26)
[2024-08-28] MEDS: PANTOprazole 40 MG TAB PO SCH (08:27)
[2024-08-28] MEDS: FLUoxetine HCL 10 MG CAP PO SCH (08:27)
[2024-08-28] MEDS: FLUTICASONE/VILANTEROL 100/25MCG 14 PUFFS/INHALER INH SCH (08:27)
[2024-08-28] MEDS: guaiFENesin 600 MG TABCR PO SCH ×2 (08:27→20:16)
[2024-08-28] MEDS: predniSONE 20 MG TAB PO SCH (08:27)
[2024-08-28] MEDS: MAGNESIUM SULFATE / D5W 1 GM/100 ML BAG IV ONE (08:43)
[2024-08-28 09:07] LABS: Pregnancy Test, Urine Negative (Negative)
--- NOTE | 2024-08-28 11:24 | Pulmonary Consultation ---
Date of Consultation August 28, 2024 Assessment & Plan (1) Acute hypoxemic respiratory failure: (2) Asthma with acute exacerbation: (3) FREDA (obstructive sleep apnea): (4) Multiple pulmonary nodules: Plan Impression: 39-year-old female with severe asthma previously well-controlled on Biologics. She has been unable to continue on her medications due to insurance constraints and presents with an exacerbation. Recommendations: 1. Severe asthma with exacerbation. Patient is currently on prednisone and Breo. Transition to nebulized budesonide and Perforomist and add Incruse. Will increase her Mucinex to 1200 mg twice a day and transition to nebulized therapies. Add Singulair. Will need to continue to work to see if we can get a biologic covered in the outpatient setting as she is responded favorably to this in the past. Alternatives might include methylxanthine's. 2. Multiple pulmonary nodules: These are less than 6 mm and per Fleischner 2017 guidelines, require no additional radiographic surveillance or follow-up. 3. Sleep disordered breathing: The patient states her is bringing in her CPAP unit for use at night. Weight loss recommended. Thanks for the opportunity of dissipating the care of this patient. The above recommendations were extensively discussed with the patient at the time of evaluation. Questions were answered to the best my ability. She expressed understanding and is in agreement with plan as outlined History of Present Illness Attending Physician: William Zelaya MD History of Present Illness Asked by hospitalist to assist in evaluation management of this patient with asthma. She is followed in the outpatient setting by Dr. Badillo. The patient is a 39-year-old female with a history of moderate to severe asthma. She had been maintained very well in the outpatient setting on Dupixent for several years however due to insurance constraints, the medication was no longer covered and it was discontinued. She has had difficulty getting inhalers covered. She was admitted about 6 weeks ago with an asthma exacerbation. Plans were to get Dupixent authorized through compassionate use and there were apparently some administrative procedures initiated and review is in process. Unfortunately the patient remains out of her inhaler medications at home and she is not really been on inhalers for over a year. She presented to the emergency room with increasing cough and chest congestion. She is wheezing. She was treated in the emergency room with steroids bronchodilators and levofloxacin. She is feeling somewhat better today but continues to have cough which is nonproductive and feeling of rattling in her chest. She denies any nausea or vomiting. She does have a history of sleep disordered breathing and uses CPAP when her work schedule allows. Her is apparently bringing in her machine from home. Allergies Allergy/AdvReac Type Severity Reaction Status Date / Time ceftriaxone Allergy Mild Rash Verified 08/27/24 22:50 pollen extracts Allergy Mild allergy sx Verified 08/27/24 22:50 Home Medications Medication Instructions Recorded Confirmed Type fluoxetine 10 mg capsule 10 mg PO DAILY 07/27/24 08/27/24 History metformin 500 mg tablet 500 mg PO BID 07/27/24 08/27/24 History omeprazole 40 mg capsule,delayed 40 mg PO DAILY 07/27/24 08/27/24 History release albuterol sulfate 2.5 mg/3 mL 2.5 mg (3 mL) continuous 07/29/24 08/27/24 Rx (0.083 %) solution for nebulization nebulization Q4H PRN Shortness Of Breath Or Wheezing #90 mL albuterol sulfate 90 mcg/actuation 2 inh inhalation Q6H PRN Shortness 07/29/24 0 08/27/24 Rx aerosol inhaler Of Breath Or Wheezing #8.5 grams diphenhydramine HCl 25 mg capsule 25 mg PO TID #9 caps 07/29/24 08/27/24 Rx (Benadryl) famotidine 10 mg tablet (Acid 10 mg PO BID #14 tabs 07/29/24 08/27/24 Rx Merchandise Examiner (famotidine)) ipratropium 20 mcg-albuterol 100 1 puff inhalation QID #4 grams 07/29/24 08/27/24 Rx mcg/actuation mist for inhalation (Combivent Respimat) mometasone-formoterol HFA 200 2 puff inhalation BID #8.8 grams 07/29/24 08/27/24 Rx mcg-5 mcg/actuation aerosol inhaler (Dulera) dupilumab 300 mg/2 mL subcutaneous 300 mg (2 mL) subcut Q14D #2 mL 08/12/24 08/27/24 Rx pen injector (Dupixent) dupilumab 300 mg/2 mL subcutaneous 600 mg (4 mL) subcut ONCE #4 mL 08/12/24 08/27/24 Rx pen injector (Dupixent) prednisone 10 mg tablet 10 mg PO DIRECTED PRN .ASTHMA 08/27/24 08/27/24 History FLARES levothyroxine 150 mcg tablet 150 mcg PO DAILY 08/28/24 08/28/24 History Patient History Medical History History of acute pharyngitis Asthma exacerbation Family History Mother Diabetes Social History Smoking Status: Former smoker Tobacco Type: Cigarettes Age Started Using Tobacco: 18; Age Quit Using Tobacco: 31; packs per day: 2.5; Second Hand Exposure: No; Do You Dip or Chew Tobacco: No; Hx Alcohol Use: No Hx Substance Use: No Preferred Language: Belarusian Communication Ability: Effective Scudding Inspector Required: No Beliefs That Will Affect Care: None marital status: Current Living Situation: Spouse current occupational status: employed Feels Safe at Home: Yes Safety Concerns: Feels Safe At This Time Assistive Devices: CPAP and Glasses Review of Systems Review of Systems: Please refer to admission H&P. No additions or deletions Physical Exam Constitutional: WD/WN, vitals as above + morbidly obese Neck: trachea midline, no thyromegaly Respiratory: normal respiratory effort, lungs clear to auscultation Cardiovascular: RRR, no murmur, no edema Gastrointestinal (Abdomen): normal bowel sounds, soft, nontender, no hepatosplenomegaly Musculoskeletal: Extremities: extremities normal to inspection Skin: no rashes, warm and dry Neurologic: Nonfocal exam Lymphatic: no cervical lymphadenopathy Results & Data Results & Data Vital Signs (Past 12 Hours) Vital Signs Pulse Pulse Resp BP BP Pulse Ox Pulse Ox 08/28/24 09:09 108 H 17 93 08/28/24 09:00 119/74 08/28/24 08:54 113 H 19 94 08/28/24 08:00 112 H 17 93 08/28/24 07:12 100 H 08/28/24 07:06 100 H 14 98 08/28/24 07:00 138/93 08/28/24 06:55 103 H 18 93 08/28/24 04:01 08/28/24 04:01 107 H 20 115/76 93 08/28/24 03:00 105 H 18 103/72 93 08/28/24 01:24 109 H 22 92 08/28/24 00:24 92 08/28/24 00:00 107 H 20 117/84 93 08/27/24 23:00 113 H 22 106/78 92 O2 Del Method O2 Del Method O2 Flow Rate 08/28/24 09:09 Nasal Cannula 2 08/28/24 09:00 08/28/24 08:54 Nasal Cannula 2 08/28/24 08:00 Nasal Cannula 2 08/28/24 07:12 08/28/24 07:06 Nebulizer 08/28/24 07:00 08/28/24 06:55 Nasal Cannula 2 08/28/24 04:01 Nasal Cannula 2 08/28/24 04:01 Nasal Cannula 2 08/28/24 03:00 Nasal Cannula 2 08/28/24 01:24 Nasal Cannula 2 08/28/24 00:24 Nasal Cannula 08/28/24 00:00 Nasal Cannula 2 08/27/24 23:00 Nasal Cannula 2 Critical Care Results & Data Vital Signs (Past 12 Hours) Vital Signs Pulse Pulse Resp BP BP Pulse Ox Pulse Ox 08/28/24 09:09 108 H 17 93 08/28/24 09:00 119/74 08/28/24 08:54 113 H 19 94 08/28/24 08:00 112 H 17 93 08/28/24 07:12 100 H 08/28/24 07:06 100 H 14 98 08/28/24 07:00 138/93 08/28/24 06:55 103 H 18 93 08/28/24 04:01 08/28/24 04:01 107 H 20 115/76 93 08/28/24 03:00 105 H 18 103/72 93 08/28/24 01:24 109 H 22 92 08/28/24 00:24 92 08/28/24 00:00 107 H 20 117/84 93 08/27/24 23:00 113 H 22 106/78 92 O2 Del Method O2 Del Method O2 Flow Rate 08/28/24 09:09 Nasal Cannula 2 08/28/24 09:00 08/28/24 08:54 Nasal Cannula 2 08/28/24 08:00 Nasal Cannula 2 08/28/24 07:12 08/28/24 07:06 Nebulizer 08/28/24 07:00 08/28/24 06:55 Nasal Cannula 2 08/28/24 04:01 Nasal Cannula 2 08/28/24 04:01 Nasal Cannula 2 08/28/24 03:00 Nasal Cannula 2 08/28/24 01:24 Nasal Cannula 2 08/28/24 00:24 Nasal Cannula 08/28/24 00:00 Nasal Cannula 2 08/27/24 23:00 Nasal Cannula 2 Lab & Micro Results (Past 24 Hours) RBC 4.78 M/uL (4.20-5.40) 08/27/24 WBC 18.31 K/ul (4.8-10.8) H 08/27/24 Hgb 11.8 g/dl (12.0-16.0) L 08/27/24 Hct 37.6 % (37.0-47.0) 08/27/24 MCV 78.7 fL (80.0-100.0) L 08/27/24 MCH 24.7 pg (25.0-34.0) L 08/27/24 MCHC 31.4 g/dL (32.0-36.0) L 08/27/24 RDW Standard Deviation 48.7 fL (36.4-46.3) H 08/27/24 RDW Coefficient of Variation 17.2 % (11.5-14.5) H 08/27/24 Plt Count 377 K/uL (130-400) 08/27/24 MPV 10.7 fL (9.4-12.4) 08/27/24 Neutrophils (%) (Auto) 63.7 % 08/27/24 Lymphocytes (%) (Auto) 25.0 % 08/27/24 Monocytes # (Auto) 0.85 K/uL (0.11-0.59) H 08/27/24 Eosinophils # (Auto) 0.75 K/uL (0.00-0.50) H 08/27/24 Immature Granulocyte % (Auto) 2.0 % 08/27/24 Neutrophils # (Auto) 11.67 K/uL (1.40-6.50) H 08/27/24 Lymphocytes # (Auto) 4.57 K/uL (1.20-3.40) H 08/27/24 Monocytes # (Auto) 0.85 K/uL (0.11-0.59) H 08/27/24 Eosinophils # (Auto) 0.75 K/uL (0.00-0.50) H 08/27/24 Basophils # (Auto) 0.11 K/uL (0.00-0.20) 08/27/24 Immature Granulocyte # (Auto) 0.36 K/uL (0.01-0.20) H 08/27 Na 138 mmol/L (136-145) 08/27/24 K 3.6 mmol/L (3.5-5.1) 08/27/24 Cl 106 mmol/L (98-107) 08/27/24 CO2 24 mmol/L (21-32) 08/27/24 Anion Gap 8 (3-11) 08/27/24 BUN 14 mg/dl (6-23) 08/27/24 Creatinine 0.83 mg/dl (0.6-1.2) 08/27/24 BUN/Creatinine Ratio 16.9 (10-20) 08/27/24 Glu 107 mg/dl (70-99(Fasting)) H 08/27/24 Ca 9.7 mg/dl (8.6-10.3) 08/27/24 Total Bilirubin 0.4 mg/dl (0.2-1.0) 08/27/24 AST 27 U/L (13-39) 08/27/24 ALT 25 U/L (7-52) 08/27/24 Alkaline Phosphatase 45 U/L (34-104) 08/27/24 TP 7.6 gm/dl (6.0-8.3) 08/27/24 Albumin 4.2 gm/dl (3.4-5.0) 08/27/24 Globulin 3.4 gm/dl (2.5-4.0) 08/27/24 Albumin/Globulin Ratio 1.2 (0.9-2) 08/27/24 Mg 1.6 mg/dl (1.7-2.4) L 08/27/24 18:00 Calcium Level 9.7 mg/dl (8.6-10.3) 08/27/24 18:00 Prothromb Time International Ratio 0.9 (0.9-1.1) 08/27/24 18:0 0 Venous Blood pH 7.39 (7.36-7.41) 08/27/24 18:46 Venous Blood Partial Pressure CO2 41 mmHg (38-50) 08/27/24 18:4 6 Venous Blood Partial Pressure O2 30 mmHg 08/27/24 18:46 Venous Blood HCO3 25 mmol/L 08/27/24 18:46 Venous Blood Base Excess -0.2 mEq/L 08/27/24 18:46 Venous Blood Oxygen Saturation < 60.0 % 08/27/24 18:46 Diagnostic Findings (Past 24 Hours) Chest X-Ray 08/27/24 18:26 HISTORY: Dyspnea. History of asthma. TECHNIQUE: Portable AP radiograph of the chest. COMPARISON: Chest radiograph dated 07/26/2024. FINDINGS: court monitor leads overlie the chest. No focal lung consolidation. No pneumothorax or pleural effusion. Normal heart size. Left-sided aortic arch. Midline trachea. No acute osseous abnormality. The included upper abdomen is unremarkable. IMPRESSION: No acute cardiopulmonary findings. Electronically signed by Gaetano Echevarria 08-27-2024 7:00 PM Chest CTA 08/27/24 20:17 Exam(s): CTA CHEST IV Amt: 119ml optiray 320 EXAM: CT Angiography Chest With Intravenous Contrast CLINICAL HISTORY: Chest Pain. TECHNIQUE: Axial computed tomographic angiography images of the chest with intravenous contrast. MIPS images were created and reviewed. CTDI is 28. 14 mGy and DLP is 918.79 mGy-cm. Automated exposure control was utilized for the study. A dose lowering technique was utilized adhering to the principles of ALARA. MIP reconstructed images were created and reviewed. COMPARISON: No relevant prior studies available. FINDINGS: Pulmonary arteries: Unremarkable. No pulmonary embolus. Aorta: No acute findings. No thoracic aortic aneurysm. Lungs: There are a few scattered pulmonary nodules measuring up to 5 mm. No consolidation. Pleural space: Unremarkable. No significant effusion. No pneumothorax. Heart: Unremarkable. No cardiomegaly. No significant pericardial effusion. No evidence of RV dysfunction. Bones/joints: No acute fracture. No dislocation. Soft tissues: Unremarkable. Lymph nodes: Unremarkable. No enlarged lymph nodes. IMPRESSION: 1. No pulmonary embolus. 2. There are a few scattered pulmonary nodules measuring up to 5 mm. Fleischner Society Guidelines suggest one should consider a follow-up chest CT at 12 months in low-risk or high-risk patients due to the morphology and/or location of this nodule. If unchanged, no further follow-up is necessary. Electronically signed by: Rianna Juarez MD 08/27/24 23:27 PM I & O Totals 24 Hours 08/27/24 08/28/24 08/29/24 05:59 06:59 06:59 Intake Total 100 / 100 Balance 100 / 100 Cumulative 08/27/24 17:26 thru 08/28/24 10:59 Intake Total 300 Balance 300 RT Ventilator Mngmt (Last Documented) Ventilator Ordered Settings Respiratory Rate 17 08/28/24 09:09 Ventilator - PT Measurements Respiratory Rate 17 PG Care Time/CCT Total # of Minutes Spent Total Time Spent with Patient: Total time spent is greater than 50% in coordination of care (as documented) at patient's floor/unit and/or counseling patient: Coding Level of Care Code 30576 IN/OBS CONSULT LVL 4,60M Diagnoses Acute hypoxemic respiratory failure J96.01 Asthma with acute exacerbation J45.901 FREDA (obstructive sleep apnea) G47.33 Multiple pulmonary nodules R91.8
--- NOTE | 2024-08-28 13:40 | Hospitalist Progress Note ---
Date of Service August 28, 2024 Assessment & Plan (1) Acute hypoxemic respiratory failure: Plan: Acute on chronic hypoxemic respiratory failure Acute asthma exacerbation COPD FREDA Chronic oxygen dependency at bedtime Pulmonary nodules Elevated IgE levels Past tobacco use --Chest CTA:No pulmonary embolus. There are a few scattered pulmonary nodules measuring up to 5 mm. -- BioFire negative Continue DuoNebs, prednisone Added Pulmicort, Perforomist nebs, Incruse, Singulair Continue Mucinex Aggressive pulmonary hygiene Appreciate pulmonology input Will need follow-up with pulmonology on discharge Will need repeat CT as outpatient for further evaluation of pulmonary nodules Continue supplemental oxygen at bedtime with CPAP Hypothyroidism Continue levothyroxine Mood disorder Continue Prozac GERD Continue PPI Morbid obesity BMI 70 Prediabetes HbA1c 5.9 DVT Px: Lovenox SQ CODE STATUS Full code Admission and Anticipated Discharge Date Admission Date: August 27, 2024 Subjective Patient is seen and examined at bedside States feeling slightly better when compared to yesterday Reports none expectorant cough, dyspnea on exertion, chest congestion today Saturating low 90s on room air No other complaints today Review of Systems Review of Systems: All systems reviewed & are unremarkable except as noted in Subjective Physical Exam Physical Exam: Physical Exam: Vitals signs as noted above General Appearance: Morbidly obese, no apparent distress Head: normocephalic, Atraumatic Eyes: normal inspection, EOMI Neck: supple, Trachea midline Respiratory/Chest: Decreased breath sounds, scattered wheezing, No accessory muscle use Cardiovascular: S1, S2, No murmur, tachycardia Abdomen/GI:Soft, Non tender, Bowel sounds present Extremities/Musculoskeletal:normal inspection, no edema Neurologic/Psych:AAOX3, grossly no focal neurological deficits Skin: normal color, warm Results & Data Results & Data Vital Signs (Past 12 Hours) Vital Signs Temp Pulse Pulse Resp BP BP Pulse Ox 08/28/24 12:25 36.3 C L 116 H 24 146/78 H 91 08/28/24 12:18 08/28/24 09:09 108 H 17 93 08/28/24 09:00 119/74 08/28/24 08:54 113 H 19 94 08/28/24 08:00 112 H 17 93 08/28/24 07:12 100 H 08/28/24 07:06 100 H 14 98 08/28/24 07:00 138/93 08/28/24 06:55 103 H 18 93 08/28/24 04:01 08/28/24 04:01 107 H 20 115/76 93 08/28/24 03:00 105 H 18 103/72 93 08/28/24 01:24 109 H 22 92 Pulse Ox O2 Del Method O2 Del Method O2 Flow Rate O2 Flow Rate 08/28/24 12:25 Room Air 08/28/24 12:18 91 Room Air 0 08/28/24 09:09 Nasal Cannula 2 08/28/24 09:00 08/28/24 08:54 Nasal Cannula 2 08/28/24 08:00 Nasal Cannula 2 08/28/24 07:12 08/28/24 07:06 Nebulizer 08/28/24 07:00 08/28/24 06:55 Nasal Cannula 2 08/28/24 04:01 Nasal Cannula 2 08/28/24 04:01 Nasal Cannula 2 08/28/24 03:00 Nasal Cannula 2 08/28/24 01:24 Nasal Cannula 2 Laboratory Results Short CBC 08/27/24 Range/Units 18:00 WBC 18.31 H (4.8-10.8) K/ul Hgb 11.8 L (12.0-16.0) g/dl Hct 37.6 (37.0-47.0) % Plt Count 377 (130-400) K/uL BMP 08/27/24 18:00 Sodium 138 Potassium 3.6 Chloride 106 Carbon Dioxide 24 BUN 14 Creatinine 0.83 Glucose 107 H Calcium 9.7 Liver Function 08/27/24 Range/Units 18:00 Total Bilirubin 0.4 (0.2-1.0) mg/dl AST 27 (13-39) U/L ALT 25 (7-52) U/L Alkaline Phosphatase 45 (34-104) U/L Albumin 4.2 (3.4-5.0) gm/dl
[2024-08-28] MEDS: UMECLIDINIUM BROMIDE 62.5MCG/BLISTER 7 PUFFS/INHALER INH SCH (16:37)
[2024-08-28] MEDS: ALBUT/IPRATROP 3MG/0.5MG NEB 3 ML VIAL NEB PRN (16:49)
[2024-08-28] MEDS: BUDESONIDE 0.5 MG/2 ML VIAL (PULMICORT) NEB SCH (19:10)
[2024-08-28] MEDS: FORMOTEROL 20 MCG/2 ML VIAL NEB SCH (19:12)
[2024-08-28] MEDS: MONTELUKAST SODIUM 10 MG TABLET PO SCH (20:17)
[2024-08-28] MEDS: ACETAMINOPHEN 325 MG TAB PO PRN (20:23)
[2024-08-29 06:11] LABS: Hematocrit (blood only) 33.8 % (37.0-47.0); Hemoglobin 10.4 g/dl (12.0-16.0); Mean Corpuscular Hemoglobin 24.5 pg (25.0-34.0); Mean Corpuscular Hgb Conc 30.8 g/dL (32.0-36.0); Mean Corpuscular Volume 79.7 fL (80.0-100.0); Mean Platelet Volume 10.4 fL (9.4-12.4); Platelet Count 330 K/uL (130-400); RDW Coefficient of Variation 17.3 % (11.5-14.5); RDW Standard Deviation 49.4 fL (36.4-46.3); Red Blood Count 4.24 M/uL (4.20-5.40); White Blood Count 21.22 K/ul (4.8-10.8)
--- NOTE | 2024-08-29 06:15 | Electrocardiogram Report ---
Test Reason : Blood Pressure : */* mmHG Vent. Rate : 117 BPM Atrial Rate : 117 BPM P-R Int : 142 ms QRS Dur : 82 ms QT Int : 328 ms P-R-T Axes : 72 63 50 degrees QTcB Int : 457 ms Sinus tachycardia Otherwise normal ECG When compared with ECG of 26-Jul-2024 18:55, No significant change was found Confirmed by Thony Velez ([id number]) on 08/29/2024 6:15:27 AM Referred By: REFERRED SELF Confirmed By: Thony Velez
[2024-08-29 06:20] LABS: Calcium 9.1 mg/dl (8.6-10.3); Magnesium 1.9 mg/dl (1.7-2.4); Potassium 4.1 mmol/L (3.5-5.1)
--- NOTE | 2024-08-29 09:33 | Pulmonology Progress Note ---
Date of Service August 29, 2024 Assessment & Plan (1) Acute hypoxemic respiratory failure: Plan: In the setting of asthma exacerbation. She is saturating well now on room air. Continues to improve with treatment of exacerbation. Likely require two-step oxygen qualification prior to discharge. (2) Asthma with acute exacerbation: Plan: Patient was transition to nebulized therapies in the form of budesonide and performance. She was also provided Incruse. Singulair was added. Patient had previously been well-controlled well on Dupixent therapy. As previously noted, this became an insurance issue. I did speak to office staff and patient he is approved, but does need to contact specialty pharmacy to arrange approval for delivery of medication. Will provide this information to the patient today. For reference, will include in this note. [facility]: (3) FREDA (obstructive sleep apnea): Plan: Should continue to use her CPAP at night. (4) Multiple pulmonary nodules: Plan: As previously noted. No further surveillance recommended. Plan Thank you for allowing us to participate in the care of this pleasant patient. Admission and Anticipated Discharge Date Admission Date: August 27, 2024 Supervising Physician Co-Signing Physician Notes Patient seen and examined separately from the RAD[facility]. Agree with the note as above. Recommend discharging home on high-dose ICS/LABA inhaler such as Dulera which patient notes she was on previously. Our outpatient office is working with her on getting her Dupixent filled. Recommended an additional 5 days of p.o. prednisone. Continue to avoid known triggers. 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 Badillo. Patient can be dismissed from the hospital at this time. Recommend to step on room air prior to discharge. On exam, the patient is morbidly obese. She is lying in bed in no apparent distress. No significant wheezes heard. Diminishment at the bases of her lungs were noted. Regular rate and rhythm. No murmurs. Subjective Patient seen and evaluated at bedside. She reports feeling somewhat better at admission but still tight. No chest pain or palpitations. Still has some shortness with exertion. Review of Systems Review of Systems: Please refer to admission H&P. No additions or deletions Physical Exam Physical Exam: VITAL SIGNS Vital signs and nursing notes were reviewed. GENERAL 39-year-old female appearing her stated age who is in no acute distress. Communicates well with provider and answers questions appropriately. SKIN Without rashes or lesions. NOSE Midline and without cyanosis. MOUTH/OROPHARYNX Without perioral cyanosis. NECK Neck with FROM. LUNGS Chest wall evaluation demonstrates normal chest wall A:P diameter. Auscultation reveals slight end expiratory wheezes appreciated. CARDIAC RRR with S1/S2. No murmur, rubs, or gallops appreciated. EXTREMITIES Nail clubbing not present. No peripheral cyanosis. No pretibial edema present. +3/5 radial palpated throughout. PSYCH A&Ox3 and cooperates fully with examiner. Pt is very pleasant and interacts well with examiner. Results & Data Results & Data Vital Signs (Past 12 Hours) Vital Signs Temp Pulse Pulse Pulse Resp BP Pulse Ox 08/29/24 07:29 88 08/29/24 07:14 36.6 C 88 20 144/97 H 94 08/29/24 06:58 88 16 94 08/29/24 03:24 36.6 C 89 20 142/80 H 94 08/28/24 23:34 37 C 107 H 18 147/79 H 99 08/28/24 22:00 103 H O2 Del Method 08/29/24 07:29 08/29/24 07:14 Room Air 08/29/24 06:58 Room Air 08/29/24 03:24 Room Air 08/28/24 23:34 Room Air 08/28/24 22:00 PG Care Time/CCT Total # of Minutes Spent Total Time Spent with Patient: Total time spent is greater than 50% in coordination of care (as documented) at patient's floor/unit and/or counseling patient: Coding Level of Care Code 04612 SUB INP/OBS CARE 2/35MIN Diagnoses Acute hypoxemic respiratory failure J96.01 Asthma with acute exacerbation J45.901 FREDA (obstructive sleep apnea) G47.33 Multiple pulmonary nodules R91.8
--- NOTE | 2024-08-29 13:29 | Hospitalist Progress Note ---
Date of Service August 29, 2024 Assessment & Plan (1) Acute hypoxemic respiratory failure: Plan: Acute on chronic hypoxemic respiratory failure Acute asthma exacerbation COPD FREDA Chronic oxygen dependency at bedtime Pulmonary nodules Elevated IgE levels Past tobacco use --Chest CTA:No pulmonary embolus. There are a few scattered pulmonary nodules measuring up to 5 mm. -- BioFire negative Continue DuoNebs, prednisone Added Pulmicort, Perforomist nebs, Incruse, Singulair Continue Mucinex Aggressive pulmonary hygiene Appreciate pulmonology input Will need follow-up with pulmonology on discharge Will need repeat CT as outpatient for further evaluation of pulmonary nodules Continue supplemental oxygen at bedtime with CPAP Continue current management Pulmonology following Will likely need 2 step prior to discharge Hypothyroidism Continue levothyroxine Mood disorder Continue Prozac GERD Continue PPI Morbid obesity BMI 70 Prediabetes HbA1c 5.9 DVT Px: Lovenox SQ CODE STATUS Full code Admission and Anticipated Discharge Date Admission Date: August 27, 2024 Subjective Patient is seen and examined at bedside States feeling slightly better today Still has some dyspnea on exertion, cough, chest tightness No new complaints Review of Systems Review of Systems: All systems reviewed & are unremarkable except as noted in Subjective Physical Exam Physical Exam: Physical Exam: Vitals signs as noted above General Appearance: Morbidly obese, no apparent distress Head: normocephalic, Atraumatic Eyes: normal inspection, EOMI Neck: supple, Trachea midline Respiratory/Chest: Decreased breath sounds, scattered wheezing, No accessory muscle use Cardiovascular: S1, S2, No murmur, tachycardia Abdomen/GI:Soft, Non tender, Bowel sounds present Extremities/Musculoskeletal:normal inspection, no edema Neurologic/Psych:AAOX3, grossly no focal neurological deficits Skin: normal color, warm Results & Data Results & Data Vital Signs (Past 12 Hours) Vital Signs Temp Pulse Pulse Pulse Resp BP Pulse Ox 08/29/24 11:23 36.7 C 91 H 18 138/91 93 08/29/24 10:03 08/29/24 07:29 88 08/29/24 07:14 36.6 C 88 20 144/97 H 94 08/29/24 06:58 88 16 94 08/29/24 03:24 36.6 C 89 20 142/80 H 94 O2 Del Method 08/29/24 11:23 Room Air 08/29/24 10:03 Room Air 08/29/24 07:29 08/29/24 07:14 Room Air 08/29/24 06:58 Room Air 08/29/24 03:24 Room Air Laboratory Results Short CBC 08/29/24 Range/Units 05:22 WBC 21.22 H (4.8-10.8) K/ul Hgb 10.4 L (12.0-16.0) g/dl Hct 33.8 L (37.0-47.0) % Plt Count 330 (130-400) K/uL BMP 08/29/24 05:22 Sodium 138 Potassium 4.1 Chloride 108 H Carbon Dioxide 25 BUN 19 Creatinine 0.76 Glucose 108 H Calcium 9.1
[2024-08-30 07:57] VITALS: TEMP 98.1
[2024-08-30 08:28] LABS: Hematocrit (blood only) 35.8 % (37.0-47.0); Hemoglobin 11.1 g/dl (12.0-16.0); Mean Corpuscular Hemoglobin 24.7 pg (25.0-34.0); Mean Corpuscular Volume 79.7 fL (80.0-100.0); Mean Platelet Volume 10.8 fL (9.4-12.4); Platelet Count 317 K/uL (130-400); RDW Coefficient of Variation 17.1 % (11.5-14.5); RDW Standard Deviation 49.1 fL (36.4-46.3); Red Blood Count 4.49 M/uL (4.20-5.40); White Blood Count 19.99 K/ul (4.8-10.8)
[2024-08-30 08:36] LABS: BUN Creatinine Ratio 22.8 (10-20); Calcium 8.9 mg/dl (8.6-10.3); Creatinine Clr Calc Pharmacy 146.8 ml/min; Magnesium 1.9 mg/dl (1.7-2.4); Potassium 3.7 mmol/L (3.5-5.1)
--- NOTE | 2024-08-30 11:49 | Hospitalist Progress Note ---
Date of Service August 30, 2024 Assessment & Plan (1) Acute hypoxemic respiratory failure: Plan: Acute on chronic hypoxemic respiratory failure Acute asthma exacerbation COPD FREDA Chronic oxygen dependency at bedtime Pulmonary nodules Elevated IgE levels Past tobacco use --Chest CTA:No pulmonary embolus. There are a few scattered pulmonary nodules measuring up to 5 mm. -- BioFire negative Continue DuoNebs, prednisone Added Pulmicort, Perforomist nebs, Incruse, Singulair Continue Mucinex Aggressive pulmonary hygiene Appreciate pulmonology input Will need repeat CT as outpatient for further evaluation of pulmonary nodules Continue supplemental oxygen at bedtime with CPAP 2 step did not qualify for oxygen Needs follow-up with pulmonology on discharge Plan to discharge home today Hypothyroidism Continue levothyroxine Mood disorder Continue Prozac GERD Continue PPI Morbid obesity BMI 70 Prediabetes HbA1c 5.9 DVT Px: Lovenox SQ CODE STATUS Full code Disposition Home Admission and Anticipated Discharge Date Admission Date: August 27, 2024 Subjective Patient is seen and examined at bedside Still has cough but improved Denies any chest tightness, dyspnea today No other complaints Family at bedside Discussed with pulmonology today Review of Systems Review of Systems: All systems reviewed & are unremarkable except as noted in Subjective Physical Exam Physical Exam: Physical Exam: Vitals signs as noted above General Appearance: Morbidly obese, no apparent distress Head: normocephalic, Atraumatic Eyes: normal inspection, EOMI Neck: supple, Trachea midline Respiratory/Chest: Decreased breath sounds, CTA, No accessory muscle use Cardiovascular: S1, S2, No murmur, tachycardia Abdomen/GI:Soft, Non tender, Bowel sounds present Extremities/Musculoskeletal:normal inspection, no edema Neurologic/Psych:AAOX3, grossly no focal neurological deficits Skin: normal color, warm Results & Data Results & Data Vital Signs (Past 12 Hours) Vital Signs Temp Pulse Pulse Pulse Pulse Pulse Resp 08/30/24 10:21 113 H 117 H 92 H 08/30/24 07:56 36.7 C 79 18 08/30/24 07:42 08/30/24 07:11 88 08/30/24 06:50 86 16 08/30/24 02:25 36.8 C 71 20 Resp Resp Resp BP Pulse Ox Pulse Ox Pulse Ox 08/30/24 10:21 20 18 16 96 97 08/30/24 07:56 127/69 94 08/30/24 07:42 08/30/24 07:11 08/30/24 06:50 93 08/30/24 02:25 133/84 97 Pulse Ox O2 Del Method 08/30/24 10:21 96 08/30/24 07:56 Room Air 08/30/24 07:42 Room Air 08/30/24 07:11 08/30/24 06:50 Room Air 08/30/24 02:25 Room Air Laboratory Results Short CBC 08/30/24 Range/Units 07:27 WBC 19.99 H (4.8-10.8) K/ul Hgb 11.1 L (12.0-16.0) g/dl Hct 35.8 L (37.0-47.0) % Plt Count 317 (130-400) K/uL BMP 08/30/24 07:27 Sodium 139 Potassium 3.7 Chloride 106 Carbon Dioxide 27 BUN 21 Creatinine 0.92 Glucose 87 Calcium 8.9
[2024-08-30 11:50] VITALS: BP 134/70; RESP 18; O2SAT 94
--- NOTE | 2024-08-30 11:57 | Discharge Summary ---
Date of Service August 30, 2024 Admission HPI Per Admitting Provider Medical history significant for severe persistent asthma-COPD overlap syndrome, pulmonary nodules, FREDA/nocturnal hypoxemia on CPAP, elevated IgE level, mood disorder, hypothyroidism, prediabetes, morbid obesity, GERD, chronic anemia (baseline hemoglobin 10-11), past tobacco abuse. Monthly admissions for asthma exacerbations since April,. Attacks more frequent due to inability to comply with Dupixent and Dulera Rx due to insurance loss since last summer as per patient. Few days history of dry cough symptoms associated with shortness of breath and stabbing chest pain. Not sure about sick contacts. Denies aspiration. Compliant with home medications. Denies uncontrolled GERD symptoms. No improvement with home neb treatment. Lowest O2 sats of 80s documented at the ER. Solu-Medrol, neb treatment, Levaquin administered at the ER. 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 Admission Exam Per Admitting Provider GENERAL: pleasant, morbidly obese, no respiratory distress SKIN: Pallor, warm HEENT: Pale palpebral conjunctivae, no ptosis, dry buccal mucosa, nasal cannula in place NECK : Supple, short neck, no tenderness CHEST : Decreased breath sounds, diffuse expiratory wheezes, no tenderness HEART : Tachycardic, no obvious murmurs ABDOMEN: Some distention, nontender EXTREMITIES : Minimal LE swelling, no LE tenderness, no other conspicuous deformities noted NEUROLOGIC : Coherent, no facial asymmetry, no other gross focality Principal Diagnosis Acute on chronic hypoxemic respiratory failure Acute asthma exacerbation COPD Discharge Data Allergies Allergy/AdvReac Type Severity Reaction Status Date / Time ceftriaxone Allergy Mild Rash Verified 08/27/24 22:50 pollen extracts Allergy Mild allergy sx Verified 08/27/24 22:50 Consultations 08/27/24 19:40 ED Decision to Admit Stat 08/27/24 22:14 Consult Pulmonology Routine Procedures Performed Laboratory Results WBC 19.99 K/ul (4.8-10.8) H 08/30/24 07:27 RBC 4.49 M/uL (4.20-5.40) 08/30/24 07:27 Hgb 11.1 g/dl (12.0-16.0) L 08/30/24 07:27 Hct 35.8 % (37.0-47.0) L 08/30/24 07:27 MCV 79.7 fL (80.0-100.0) L 08/30/24 07: MCH 24.7 pg (25.0-34.0) L 08/30/24 07: MCHC 31.0 g/dL (32.0-36.0) L 08/30/24 07: RDW Std Deviation 49.1 fL (36.4-46.3) H 08/30/24 07: RDW Coeff of Laron 17.1 % (11.5-14.5) H 08/30/24 07: Plt Count 317 K/uL (130-400) 08/30/24 07: MPV 10.8 fL (9.4-12.4) 08/30/24 07: Immature Gran % (Auto) 2.0 % 08/27/24 18:00 Neut % (Auto) 63.7 % 08/27/24 18:00 Lymph % (Auto) 25.0 % 08/27/24 18:00 Kleberg % (Auto) 4.6 % 08/27/24 18:00 Eos % (Auto) 4.1 % 08/27/24 18:00 Baso % (Auto) 0.6 % 08/27/24 18:00 Neut # (Auto) 11.67 K/uL (1.40-6.50) H 08/27/24 18:00 Lymph # (Auto) 4.57 K/uL (1.20-3.40) H 08/27/24 18:00 Kleberg # (Auto) 0.85 K/uL (0.11-0.59) H 08/27/24 18:00 Eos # (Auto) 0.75 K/uL (0.00-0.50) H 08/27/24 18:00 Baso # (Auto) 0.11 K/uL (0.00-0.20) 08/27/24 18:00 Immature Gran # (Auto) 0.36 K/uL (0.01-0.20) H 08/27/24 18:00 PT 10.3 Seconds (9.0-12.0) 08/27/24 18:00 INR 0.9 (0.9-1.1) 08/27/24 18:00 APTT 25 Seconds (21-31) 08/27/24 18:00 PTT Ratio 0.9 08/27/24 18:00 VBG pH 7.39 (7.36-7.41) 08/27/24 18:46 VBG pCO2 41 mmHg (38-50) 08/27/24 18:46 VBG pO2 30 mmHg 08/27/24 18:46 VBG HCO3 25 mmol/L 08/27/24 18:46 VBG O2 Saturation < 60.0 % 08/27/24 18:46 VBG Base Excess -0.2 mEq/L 08/27/24 18:46 Sodium 139 mmol/L (136-145) 08/30/24 07:27 Potassium 3.7 mmol/L (3.5-5.1) 08/30/24 07:27 Chloride 106 mmol/L (98-107) 08/30/24 07:27 Carbon Dioxide 27 mmol/L (21-32) 08/30/24 07:27 Anion Gap 6 (3-11) 08/30/24 07:27 BUN 21 mg/dl (6-23) 08/30/24 07:27 Creatinine 0.92 mg/dl (0.6-1.2) 08/30/24 07:27 Est Cr Clr Drug Dosing 146.8 ml/min 08/30/24 07:27 eGFR 82.24 08/30/24 07:27 BUN/Creatinine Ratio 22.8 (10-20) H 08/30/24 07:27 Glucose 87 mg/dl (70-99(Fasting)) 08/30/24 07:27 Calcium 8.9 mg/dl (8.6-10.3) 08/30/24 07:27 Magnesium 1.9 mg/dl (1.7-2.4) 08/30/24 07:27 Total Bilirubin 0.4 mg/dl (0.2-1.0) 08/27/24 18:00 AST 27 U/L (13-39) 08/27/24 18:00 ALT 25 U/L (7-52) 08/27/24 18:00 Alkaline Phosphatase 45 U/L (34-104) 08/27/24 18:00 Total Protein 7.6 gm/dl (6.0-8.3) 08/27/24 18:00 Albumin 4.2 gm/dl (3.4-5.0) 08/27/24 18:00 Globulin 3.4 gm/dl (2.5-4.0) 08/27/24 18:00 Albumin/Globulin Ratio 1.2 (0.9-2) 08/27/24 18:00 Procalcitonin < 0.02 ng/ml (0-0.5) 08/27/24 18:00 TSH 5.566 uIu/ml (0.300-4.500) H 08/27/24 18:00 Free T4 0.84 ng/dl (0.61-1.60) 08/27/24 18:00 Urine Test Negative (Negative) 08/28/24 08:44 Adenovirus (PCR) Not Detected (NotDetected) 08/27/24 18:49 B. pertussis DNA (PCR) Not Detected (NotDetected) 08/27/24 18:49 B.parapertussis DNA PCR Not Detected (NotDetected) 08/27/24 18:49 C. pneumoniae DNA (PCR) Not Detected (NotDetected) 08/27/24 18:49 Coronavirus OC43 (PCR) Not Detected (NotDetected) 08/27/24 18:49 Coronavirus HKU1 (PCR) Not Detected (NotDetected) 08/27/24 18:49 Coronavirus 229E (PCR) Not Detected (NotDetected) 08/27/24 18:49 SARS-CoV-2 (PCR) Not Detected (NotDetected) 08/27/24 18:49 Coronavirus NL63 (PCR) Not Detected (NotDetected) 08/27/24 18:49 Human Metapneumovir PCR Not Detected (NotDetected) 08/27/24 18:49 Influenza Type A (PCR) Not Detected (NotDetected) 08/27/24 18:49 Influenza Type B (PCR) Not Detected (NotDetected) 08/27/24 18:49 M. pneumoniae (PCR) Not Detected (NotDetected) 08/27/24 18:49 Parainfluenza 1 (PCR) Not Detected (NotDetected) 08/27/24 18:49 Parainfluenza 2 (PCR) Not Detected (NotDetected) 08/27/24 18:49 Parainfluenza 3 (PCR) Not Detected (NotDetected) 08/27/24 18:49 Parainfluenza 4 (PCR) Not Detected (NotDetected) 08/27/24 18:49 RSV (PCR) Not Detected (NotDetected) 08/27/24 18:49 Entero/Rhino (PCR) Not Detected (NotDetected) 08/27/24 18:49 Impressions Chest X-Ray 08/27/24 18:26 HISTORY: Dyspnea. History of asthma. TECHNIQUE: Portable AP radiograph of the chest. COMPARISON: Chest radiograph dated 07/26/2024. FINDINGS: secured entrance monitor leads overlie the chest. No focal lung consolidation. No pneumothorax or pleural effusion. Normal heart size. Left-sided aortic arch. Midline trachea. No acute osseous abnormality. The included upper abdomen is unremarkable. IMPRESSION: No acute cardiopulmonary findings. Electronically signed by Gaetano Echevarria 08-27-2024 7:00 PM Chest CTA 08/27/24 20:17 Exam(s): CTA CHEST IV Amt: 119ml optiray 320 EXAM: CT Angiography Chest With Intravenous Contrast CLINICAL HISTORY: Chest Pain. TECHNIQUE: Axial computed tomographic angiography images of the chest with intravenous contrast. MIPS images were created and reviewed. CTDI is 28. 14 mGy and DLP is 918.79 mGy-cm. Automated exposure control was utilized for the study. A dose lowering technique was utilized adhering to the principles of ALARA. MIP reconstructed images were created and reviewed. COMPARISON: No relevant prior studies available. FINDINGS: Pulmonary arteries: Unremarkable. No pulmonary embolus. Aorta: No acute findings. No thoracic aortic aneurysm. Lungs: There are a few scattered pulmonary nodules measuring up to 5 mm. No consolidation. Pleural space: Unremarkable. No significant effusion. No pneumothorax. Heart: Unremarkable. No cardiomegaly. No significant pericardial effusion. No evidence of RV dysfunction. Bones/joints: No acute fracture. No dislocation. Soft tissues: Unremarkable. Lymph nodes: Unremarkable. No enlarged lymph nodes. IMPRESSION: 1. No pulmonary embolus. 2. There are a few scattered pulmonary nodules measuring up to 5 mm. Fleischner Society Guidelines suggest one should consider a follow-up chest CT at 12 months in low-risk or high-risk patients due to the morphology and/or location of this nodule. If unchanged, no further follow-up is necessary. Electronically signed by: Rianna Juarez MD 08/27/24 23:27 PM Ordered Studies 08/27/24 20:17 CT angio chest PE protocol Stat Hospital Course (1) Acute hypoxemic respiratory failure: Acute on chronic hypoxemic respiratory failure Acute asthma exacerbation COPD FREDA Chronic oxygen dependency at bedtime Pulmonary nodules Elevated IgE levels Past tobacco use --Chest CTA:No pulmonary embolus. There are a few scattered pulmonary nodules measuring up to 5 mm. -- BioFire negative Continue DuoNebs, prednisone Added Pulmicort, Perforomist nebs, Incruse, Singulair Continue Mucinex Aggressive pulmonary hygiene Appreciate pulmonology input Will need repeat CT as outpatient for further evaluation of pulmonary nodules Continue supplemental oxygen at bedtime with CPAP 2 step did not qualify for oxygen Needs follow-up with pulmonology on discharge Plan to discharge home today Hypothyroidism Continue levothyroxine Mood disorder Continue Prozac GERD Continue PPI Morbid obesity BMI 70 Prediabetes HbA1c 5.9 DVT Px: Lovenox SQ CODE STATUS Full code Disposition Home Total Time Total Time Spent Total Time Spent (In Minutes): 47 minutes Discharge Plan Discharge Items Patient Disposition: Home - Self-Care Reason For Visit: RESP FAILURE Discharge Diagnosis: Acute on chronic hypoxemic respiratory failure Acute asthma exacerbation COPD Activity: Per Instructions section Exercise/Sports: Wait until after follow-up appointment Non-emergency contact: Primary Care Provider and Rubber Thread Sp[employer]er Call non-emergency contact if: you have any medication questions, your symptoms worsen, your pain is concerning for you and you have a fever Follow-up/Referrals: Valentin Thompson MD [Primary Care Provider] - (Date & Time 09/05/2024 9:00 AM Provider: Muna García MD Family Medicine [facility] ) Diet: Heart Healthy Addtl Attending Provider Instructions: Follow-up with your primary care physician in 1 week Follow-up with your employee's representative Dr. Badillo in 2 weeks as advised --Complete the prednisone taper course as prescribed, Prednisone taper course Start taking prednisone 30 mg daily for 2 days, then take 20 mg daily for 2 days, an then 10 mg daily for 2 days and stop. Seek immediate medical attention if your symptoms reoccur or worsen Please take all medications as instructed on discharge list below. Please call if you have any questions or problems. You can reach a [facility] hospitalist on duty at [facility] 24 hours a day by calling [phone] Pending Studies at Discharge: No Stand-Alone Forms: My [facility], Smoking Cessation Medications and DC Order Prescriptions: New montelukast 10 mg Tablet 10 mg PO HS Qty: 30 0RF prednisone 10 mg tablet 10 mg PO DIRECTED Qty: 12 0RF Rx Instructions: Start taking prednisone 30 mg daily for 2 days, then take 20 mg daily for 2 days, an then 10 mg daily for 2 days and stop. Continued Dupixent Pen 300 mg/2 mL pen injector 600 mg subcut ONCE Qty: 4 0RF Rx Instructions: LOADING DOSE OF DUPIXENT. TO BE INJECTED IN PROVIDER'S OFFICE. Dupixent approved 07/25/24 - 11/22/24 08/27/24 PER PT : THIS MED NOT STARTED YET. Dupixent Pen 300 mg/2 mL pen injector 300 mg subcut Q14D Qty: 2 11RF Rx Instructions: TO BE STARTED 14 DAYS AFTER LOADING DOSE; MAINTENANCE DOSE: INJECT 300 MG (2 ML) SUBCUTANEOUSLY EVERY OTHER WEEK. 08/27/24 : PER PT- THIS MED NOT STARTED YET. Dupixent approved 07/25/24 - 11/22/24 metformin 500 mg tablet 500 mg PO BID omeprazole 40 mg capsule,delayed release(DR/EC) 40 mg PO DAILY fluoxetine 10 mg capsule 10 mg PO DAILY famotidine [Acid Welding Lead Burner (famotidine)] 10 mg Tablet 10 mg PO BID Qty: 14 0RF diphenhydramine HCl [Benadryl] 25 mg capsule 25 mg PO TID Qty: 9 0RF albuterol sulfate 2.5 mg /3 mL (0.083 %) solution for nebulization 2.5 mg continuous nebulization Q4H PRN (Reason: Shortness Of Breath Or Wheezing) Qty: 90 1RF albuterol sulfate 90 mcg/actuation HFA aerosol inhaler 2 inh INHALATION Q6H PRN (Reason: Shortness Of Breath Or Wheezing) Qty: 8.5 1RF Combivent Respimat 20-100 mcg/actuation mist 1 puff INHALATION QID Qty: 4 0RF levothyroxine 150 mcg tablet 150 mcg PO DAILY Dulera 200-5 mcg/actuation HFA aerosol inhaler 2 puff INHALATION BID Qty: 8.8 0RF Discontinued prednisone 10 mg tablet 10 mg PO DIRECTED PRN (Reason: .ASTHMA FLARES) Rx Instructions: FOR ASTHMA FLARES : Start taking prednisone 30 mg daily for 3 days, then take 20 mg daily for 2 days, 10 mg daily for 2 days and stop. Discharge Orders: Discharge Order (Routine); Ordered 08/30/24 Ordered By: William Zelaya Admission Data Admit Date/Time: 08/27/24 22:02 Attending Provider: William Zelaya Admit Provider: Robbie Solo Primary Care Provider: Valentin Thompson Other Providers: Robbie Solo; Forrest Sidhu; Reynaldo Leon; Cheko Valiente; Cj Badillo; Riana Kinney
[2024-08-30 12:11] VITALS: PULSE 96
== END 2024-08-30 13:02 | disposition home or self-care (01) | DRG 202 ==
LOC: ED 17:26 → EDINP 22:02 → 2N 08-28 11:54